=== PATIENT | female | born 1945 | race Caucasian/White ===

== ENCOUNTER 2021-01-16 10:51 | Inpatient (IN) | payer MEDICARE, SELFPAY ==
[2021-01-16] VITALS (14 sets, daily range): BP systolic 94–130; BP diastolic 40–92; PULSE 60–75; RESP 9–18; TEMP 36.3–37.1; O2SAT 79–100; BMI 36.1
--- NOTE | ~2021-01-16 | CT_ITS ---
EXAMINATION: CT brain wo con DATE: 01/16/2021 12:35 INDICATION: Altered mental status. TECHNIQUE: Computed tomography (CT) of the head was performed without intravenous contrast. The mA wa s adjusted according to patient size. Iterative reconstruction technique was employed. The dose-lengt h product was 605.33 mGy-cm. COMPARISON: None FINDINGS: There are old lacunar infarcts in the bilateral basal ganglia. There are scattered areas of low attenuation in the cerebral white matter with a frontal lobe predominance. There is no intracran ial hemorrhage, acute infarction, or abnormal intracranial mass lesion. The ventricles are normal in size. The orbits are normal. There is mild mucosal thickening in the ethmoid sinuses. The mastoid air cells are normal. IMPRESSION: 1. Old infarcts in the bilateral basal ganglia. 2. Extensive nonspecific cerebral white matter disease with a frontal lobe predominance, which likely represents chronic small vessel ischemic disease. Reviewed, dictated and finalized at location B. IMPRESSION: 1. Old infarcts in the bilateral basal ganglia. 2. Extensive nonspecific cerebral white matter disease with a frontal lobe pred ominance, which likely represents chronic small vessel ischemic disease.
--- NOTE | ~2021-01-16 | XR_ITS ---
XR chest 1V DATE: 01/16/2021 12:37 INDICATION: Transient alteration of awareness. TECHNIQUE: AP chest COMPARISON: None FINDINGS: Normal heart size. Aortic calcification and mild unfolding. No pulmonary infiltrate or consolidation, pleural effusion or pulmonary vascular congestion or pneumo thorax is evident. There is diffuse osteopenia. There is levoscoliosis of the thoracic spine. IMPRESSION: No active cardiopulmonary disease Aortic atherosclerosis Reviewed, dictated and finalized at location A.
--- NOTE | 2021-01-16 11:37 | ED.AMS ---
HPI - Altered Mental Status General Chief Complaint: Altered Mental Status Stated Complaint: AMS/VOMITING Time Seen by Provider: 01/16/21 11:24 History of Present Illness HPI narrative: 75 yo female brought in from long term for altered mental status and vomiting. She has reportedly been vomiting and is more confused than normal. There are conflicting reports about her normal mental status and she is not able t provide any useful history. She does endorse nausea. Related Data Home Medications Medication Instructions Recorded Confirmed hydrocodone-acetaminophen TID 01/16/21 ibuprofen 600 mg PO TID 01/16/21 lidocaine [Lidocaine Pain Relief] patch TOPICAL 01/16/21 lisinopril 01/16/21 memantine mg 01/16/21 mirtazapine HS 01/16/21 ondansetron 01/16/21 sertraline mg 01/16/21 spironolactone 01/16/21 Allergies Allergy/AdvReac Type Severity Reaction Status Date / Time fluoxetine [From Prozac] Allergy Unknown Verified 01/16/21 14:07 sulfamethoxazole Allergy Unknown Verified 01/16/21 14:07 [From Sulfamethoxazole-Trimethoprim] trimethoprim Allergy Unknown Verified 01/16/21 14:07 [From Sulfamethoxazole-Trimethoprim] Review of Systems Review of Systems: ROS unobtainable: Yes unobtainable due to mental status PMFSH Past Medical History Medical History (Updated 01/16/21 @ 15:45 by Binu Valadez MD) Dementia Hypertension Social History Social History (Updated 01/16/21 @ 15:42 by Binu Valadez MD) Living arrangements: long term Exam Const: General: no acute distress and alert Nutritional Appearance: obese Orientation/consciousness: patient oriented x3 HENMT: Mouth: Yes dry mucous membranes Eyes: Pupils: Equal, round and reactive pupils present Neck: Neck: normal visual inspection Resp: Effort & Inspection: normal respiratory effort Auscultation: clear to auscultation bilaterally Cardio: Rate: regular rate Rhythm: regular rhythm GI: GI Palp: Yes Soft to palpation and No Tenderness to palpation present (GI) Skin: General skin exam: normal color Neuro: General: moves all extremities Other: oriented to self and time Course Vital Signs Vital signs: Vital Signs Temperature 37.1 C 01/16/21 10:53 Pulse Rate 74 01/16/21 10:53 Respiratory Rate 12 01/16/21 10:53 Blood Pressure 126/53 L 01/16/21 10:53 Pulse Oximetry 92 01/16/21 10:53 Temperature 37.1 C 01/16/21 10:53 Pulse Rate 63 01/16/21 14:48 Respiratory Rate 10 L 01/16/21 14:48 Blood Pressure 100/40 L 01/16/21 14:48 Pulse Oximetry 95 01/16/21 14:27 MDM - Altered Mental Status MDM Narrative Medical decision making narrative: SHe has PRUDENCE and a UTI. I will plan on admission for hydration and antibiotics Differential Diagnosis Differential diagnosis: Likely delirium, dementia and other (UTI, dehydration, CVA) Medical Records Attestation: I reviewed the patient's medical records. Lab Data Attestation: I reviewed the patient's lab results. Result diagrams: 01/16/21 12:27 01/16/21 12:27 Labs: Lab Results 01/16/21 01/16/21 01/16/21 Range/Units 12:27 12:27 12:27 WBC 8.0 (4.5-10.0) K/mm3 RBC 4.75 (4.2-5.4) M/mm3 Hgb 13.9 (12.0-15.0) g/dL Hct 45.1 (37.0-47.0) % MCV 94.9 (80-100) fl MCH 29.3 (26-34) pg MCHC 30.8 L (32-36) g/dl RDW 14.7 H (11.5-14.5) % Plt Count 235 (150-375) k/mm3 MPV 10.9 H (7.4-10.4) fl Immature Gran % (Auto) 0.2 (0-0.5) % Neut % (Auto) 78.8 H (45.5-73.1) % Lymph % (Auto) 13.0 L (18.3-44.2) % Frederick % (Auto) 5.5 (2.6-8.5) % Eos % (Auto) 2.0 (0-4.4) % Baso % (Auto) 0.5 (0.2-1.2) % Lymph # (Auto) 1.04 (0.9-3.2) K/mm3 Frederick # (Auto) 0.4 (0.1-0.6) K/mm3 Eos # (Auto) 0.2 (0-0.3) K/mm3 Baso # (Auto) 0.0 (0.0-0.1) K/mm3 Abs Immat Gran (auto) 0.02 (0.00-0.031) K/mm3 Absolute Neuts (auto) 6.3 (1.3-6.7) K/mm3 Abs
[2021-01-16] MEDS: SODIUM CHLORIDE 0.9% IV 1,000 ML 999 ML IV CONT (12:13)
[2021-01-16 12:14] LABS: Alveolar/Arterial O2 Gradient 22.5 mmHg; Base Excess ABG -1.9 mEq/l (+/-2.0); Fractional Inspired Oxygen 21 %; HCO3 ABG 23.7 mEq/l (22.0-26.0); Oxygen Content ABG 18.6 %vol (16.0-22.0); Oxygen Saturation ABG 94.4 % (95.0-100.0); Oxyhemoglobin 93.1 % THb (90.0-100.0); PCO2 ABG 43.8 mmHg (35.0-45.0); PO2 ABG 74.8 mmHg (80.0-100.0); PO2 FiO2 Ratio Arterial Blood 3.56 %; Total Hemoglobin 14.2 g/dL (12.0-18.0); pH ABG 7.352 (7.350-7.450)
[2021-01-16 12:16] LABS: Device ROOM AIR; Modified Allen's Test Pass; Site Drawn LEFT BRACHIAL
[2021-01-16 12:42] LABS: Basophils Percent Auto 0.5 % (0.2-1.2); Eosinophils Absolute Auto 0.2 K/mm3 (0-0.3); Hematocrit 45.1 % (37.0-47.0); Hemoglobin 13.9 g/dL (12.0-15.0); Immature Granulocyte Absolute 0.02 K/mm3 (0.00-0.031); Immature Granulocyte Percent A 0.2 % (0-0.5); Lymphocytes Absolute Auto 1.04 K/mm3 (0.9-3.2); Mean Corpuscular HGB Conc 30.8 g/dl (32-36); Mean Corpuscular Hemoglobin 29.3 pg (26-34); Mean Corpuscular Volume 94.9 fl (80-100); Mean Platelet Volume 10.9 fl (7.4-10.4); Monocytes Absolute Auto 0.4 K/mm3 (0.1-0.6); Monocytes Percent Auto 5.5 % (2.6-8.5); Neutrophils Absolute Auto 6.3 K/mm3 (1.3-6.7); Neutrophils Percent Auto 78.8 % (45.5-73.1); Platelet Count Result 235 k/mm3 (150-375); Red Blood Count 4.75 M/mm3 (4.2-5.4); Red Cell Distribution Width 14.7 % (11.5-14.5)
[2021-01-16 12:44] LABS: Lactic Acid Reflex 1.9 mmol/L (0.7-2.1)
[2021-01-16 12:45] LABS: Alanine Aminotransferase 18 U/L (4-35); Albumin Level 3.8 g/dL (3.5-5.1); Alkaline Phosphatase 105 U/L (38-126); Anion Gap 8 mmol/L (8-16); Aspartate Amino Transferase 24 U/L (14-36); Bilirubin,Total 0.4 mg/dL (0.2-1.3); Blood Urea Nitrogen 63 mg/dL (7-17); Calcium 8.9 mg/dL (8.4-10.2); Carbon Dioxide 27 mmol/L (22-30); Chloride 106 mmol/L (98-107); Estimated CRCL calculation 18 ml/min; Estimated Glomerular Filt Rate 14; Glucose 133 mg/dL (65-105); Potassium 5.4 mmol/L (3.4-5.0); Sodium 141 mmol/L (137-145)
[2021-01-16 12:48] LABS: INR 0.9; Prothrombin Time 13.1 Seconds (11.1-14.7)
[2021-01-16 13:35] LABS: Add Urine Microscopic? YES; Appearance Urine Cloudy (Clear); Bacteria Urine 3+ /hpf; Bilirubin Urine Negative (Negative); Blood Urine 2+ (Negative); Color Urine Yellow (Yellow); Glucose Urine UA Negative (Negative); Ketones Urine Negative (Negative); Leukocyte Esterase Ur 3+ LEU/UL (Negative); Mucus Urine Rare /lpf; Nitrate Urine Negative (Negative); Protein Urine 1+ mg/dL (Negative); Specific Grav Ur 1.011 (1.001-1.035); Squamous Epithelial Cell Urine Rare /hpf (Few); Urobilinogen Urine Negative mg/dL (<2.0); WBC Clumps Urine Present /HPF; WBC Urine >75 /hpf
[2021-01-16] MEDS: LACTATED RINGERS 1,000 ML 125 ML IV CONT (15:36)
--- NOTE | 2021-01-16 15:49 | ADMGEN ---
This patient, Shonna Piña, was admitted to [facility] Surg Room 307-01. Patient/family oriented to hospital policies and general routines including ID bracelet, bed and alarms, visiting hours, pain management, procedures, bathroom and other care routines, personal items, smoking policy, room service/diet, and visiting hours. Information on how to activate the Rapid Response Team has been discussed. Patient/Family are encouraged to report perceived risks to care and to ask questions if they do not understand what they are told or what they should do.
--- NOTE | 2021-01-16 20:08 | PM.IMHP ---
H&P: HPI History of Present Illness Date/Time: 01/16/21 20:08 this is a 75-year-old patient who resides at [facility]. The patient was [facility] from the [facility] due to vomiting and altered mental status changes. ER was confused as to patient's baseline. The patient was not able to answer questions for the ER provider in the emergency room. It looks like the patient has a history of dementia. She also has a history of chronic renal failure as well. However the patient was found to have urinary tract infection. The patient was started on Rocephin and IV fluids. Was listed as 3.30. I am unsure what her baseline is. Her records from the [facility] suggested she has chronic renal failure but I do not know what her creatinine baseline is. Her potassium was listed as 5.4. head CT was read as, old infarcts in the bilateral basal ganglia. Extensive nonspecific cerebral white matter disease with frontal lobe predominance, which likely represents small-vessel ischemic disease. The patient is being admitted to observation on the date of service of 01/16/2021 Chief Complaint: Nausea and altered mental status Review of Systems Review of Systems: All systems reviewed & are unremarkable except as noted in HPI and below Constitutional: Constitutional: Reports as per HPI and Reports no additional constitutional complaints Eyes: Eyes: Reports as per HPI and Reports no additional eye complaints ENT: Reports system reviewed and no additional complaints, except as documented and Reports Normal hearing present Cardiovascular: Cardiovascular: Reports no additional cardiovascular complaints Respiratory: Respiratory: Reports no additional respiratory complaints and Reports no additional respiratory complaints Gastrointestinal: Gastrointestinal: Reports as per HPI and Reports no additional gastrointestinal complaints Musculoskeletal: Musculoskeletal: Reports no additional musculoskeletal complaints Integumentary/Breasts: Skin/Breast: Reports system reviewed and no additional complaints, except as docu and Reports as per HPI Neurologic: Reports system reviewed and no additional complaints, except as documented, Reports as per HPI and Reports Normal hearing present Psychiatric: Psychiatric: Reports no additional psychiatric complaints and Reports as per HPI Endocrine: Endocrine: Reports no additional endocrine complaints Hematologic/Lymphatic: Hematologic/Lymphatic: Reports no additional hematologic/lymphatic complaints Allergic/Immunologic: Allergic/Immunologic: Reports no additional allergic/immunologic complaints [facility] Past Medical History Medical History (Updated 01/16/21 @ 20:17 by Bernice Henriquez NP) Chronic renal failure Dementia Diastolic congestive heart failure Hyperlipidemia Hypertension Major depressive disorder Surgical History Surgical History (Updated 01/16/21 @ 20:17 by Bernice Henriquez NP) H/O dilation and curettage H/O left knee surgery History of appendectomy History of tonsillectomy Family History Family History (Updated 01/16/21 @ 20:17 by Bernice Henriquez NP) Unknown Family history unknown Social History Social History (Updated 01/16/21 @ 20:18 by Bernice Henriquez NP) Social History: The patient resides at [facility]. She is a full code according to her paperwork. She tells me she has 1 son and he is a durable power patent prosecution attorney for healthcare. The [place] Smoking status: Former smoker Alcohol intake: never Substance use: never Living arrangements: [facility]ci Gender identity (if verbalized by the patient): Female Sexual Orientation (if Verbalized by the Patient): Straight or Heterosexual Spiritual care concerns: No Meds Home Medications and Allergies Home Medications Medication Instructions Recorded Confirmed Type acetaminophen [Acetaminophen Extra 1,000 mg PO Q6H PRN 01/16/21 01/16/[address]
[2021-01-16] MEDS: MIRTAZAPINE 15 MG TABLET PO (21:52)
[2021-01-16] MEDS: ATORVASTATIN 40 MG TABLET PO (21:53)
[2021-01-16] MEDS: DONEPEZIL HCL 10 MG TABLET PO (21:53)
[2021-01-16 22:19] LABS: Anion Gap 4 mmol/L (8-16); Blood Urea Nitrogen 59 mg/dL (7-17); Calcium 8.7 mg/dL (8.4-10.2); Carbon Dioxide 31 mmol/L (22-30); Chloride 107 mmol/L (98-107); Estimated CRCL calculation 22 ml/min; Estimated Glomerular Filt Rate 17; Glucose 129 mg/dL (65-105); Potassium 4.5 mmol/L (3.4-5.0); Sodium 142 mmol/L (137-145)
[2021-01-17 05:53] LABS: Basophils Absolute Auto 0.1 K/mm3 (0.0-0.1); Basophils Percent Auto 0.8 % (0.2-1.2); Eosinophils Absolute Auto 0.3 K/mm3 (0-0.3); Eosinophils Percent Auto 4.1 % (0-4.4); Hematocrit 38.8 % (37.0-47.0); Hemoglobin 12.4 g/dL (12.0-15.0); Immature Granulocyte Absolute 0.01 K/mm3 (0.00-0.031); Immature Granulocyte Percent A 0.2 % (0-0.5); Lymphocytes Absolute Auto 1.48 K/mm3 (0.9-3.2); Lymphocytes Percent Auto 23.5 % (18.3-44.2); Mean Corpuscular Hemoglobin 29.5 pg (26-34); Mean Corpuscular Volume 92.4 fl (80-100); Mean Platelet Volume 10.4 fl (7.4-10.4); Monocytes Absolute Auto 0.5 K/mm3 (0.1-0.6); Monocytes Percent Auto 7.2 % (2.6-8.5); Neutrophils Percent Auto 64.2 % (45.5-73.1); Platelet Count Result 217 k/mm3 (150-375); Red Cell Distribution Width 14.4 % (11.5-14.5); White Blood Count 6.3 K/mm3 (4.5-10.0)
[2021-01-17 06:00] VITALS: BP 141/54; PULSE 75; RESP 16; TEMP 35.8; O2SAT 94
[2021-01-17 06:07] LABS: Alanine Aminotransferase 12 U/L (4-35); Alkaline Phosphatase 81 U/L (38-126); Anion Gap 2 mmol/L (8-16); Aspartate Amino Transferase 21 U/L (14-36); Bilirubin,Total 0.3 mg/dL (0.2-1.3); Blood Urea Nitrogen 54 mg/dL (7-17); Calcium 8.4 mg/dL (8.4-10.2); Carbon Dioxide 32 mmol/L (22-30); Chloride 109 mmol/L (98-107); Estimated CRCL calculation 25 ml/min; Estimated Glomerular Filt Rate 20; Glucose 101 mg/dL (65-105); Lactic Acid Reflex 0.7 mmol/L (0.7-2.1); Magnesium 2.3 mg/dL (1.6-2.3); Potassium 4.5 mmol/L (3.4-5.0); Sodium 143 mmol/L (137-145)
--- NOTE | 2021-01-17 07:06 | PC.NURSE ---
0310: Patient pulled out IV access. Attempted to restart x2 and was unable d/t hard stick. Asked if House Charge Nurse (Buffy Jenkins) to try; still unable to obtain. Finally, asked Mallory ([employer]) and was successful w/ 22g in R lower forearm.
[2021-01-17] MEDS: LACTATED RINGERS 1,000 ML 125 ML IV CONT (07:35)
[2021-01-17] MEDS: ASPIRIN 81 MG CHEWABLE TABLET PO (08:50)
[2021-01-17] MEDS: SERTRALINE HCL 50 MG TABLET PO (08:50)
[2021-01-17] MEDS: LIDOCAINE 5% PATCH 1 PATCH TRANSDERM (08:50)
[2021-01-17] MEDS: MEMANTINE 10 MG TABLET PO ×2 (08:50→16:36)
[2021-01-17 09:10] VITALS: O2SAT 94
[2021-01-17] MEDS: HYDROcodone/acetaminophen (*CRX) 5-325 MG TABLET 1 TAB PO (10:18)
[2021-01-17 14:00] VITALS: BP 115/52; PULSE 72; RESP 20; TEMP 36.9; O2SAT 96
--- NOTE | 2021-01-17 15:09 | PM.IMPN ---
Progress Note: A&P Assessment and Plan (1) UTI (urinary tract infection): Code(s): N39.0 - Urinary tract infection, site not specified Status: Acute Assessment and Plan: Urinalysis abnormal upon presentation, concerning for UTI. She is afebrile. No leukocytosis. She has removed her IV twice, therefore no IV access at this time. Transition to IM Rocephin while awaiting urine cultures. Tailor antibiotics accordingly based on result (2) Acute metabolic encephalopathy: Code(s): G93.41 - Metabolic encephalopathy Status: Acute Assessment and Plan: Brought in from halfway for altered mental status. She does have underlying dementia, so it is unclear how much of this is actually acute. Spoke with halfway RN who reports she was more lethargic and had poor PO intake. Acute change in mental status likely due to suspected UTI and dehydration. Continue antibiotics as above. IV fluids discontinued as she does not have IV access. She is tolerating PO intake and has been rehydrated. Will attempt to regain IV access if patient unable to tolerate PO intake. (3) Acute on chronic kidney failure: Code(s): N17.9 - Acute kidney failure, unspecified; N18.9 - Chronic kidney disease, unspecified Status: Acute Assessment and Plan: No records available to establish baseline. Creatinine elevated at 3.3 on presentation, suspect prerenal etiology secondary to dehydration given improvement with IV fluids. Creatinine is 2.4 today. Unable to administer IV fluids. Encourage p.o. intake. As above, will make attempts for IV access if unable to to maintain adequate oral intake. Lasix, lisinopril, and ibuprofen on hold Monitor renal function closely. Renally dose medications. (4) Dementia: Code(s): F03.90 - Unspecified dementia without behavioral disturbance Status: Chronic Assessment and Plan: Spoke with nursing staff who reports she is typically oriented to self. Not able to provide any further information regarding her baseline mental status. Continue memantine and donepezil (5) Hypertension: Code(s): I10 - Essential (primary) hypertension Status: Chronic Assessment and Plan: BP reviewed and is stable on the low end. Last BP 115/52 Lisinopril on hold due to PRUDENCE Monitor blood pressure trends and adjust medication regimen is needed (6) Compression fracture: Status: Acute Assessment and Plan: L2 vertebral compression fracture diagnosed 01/10/21 per halfway RN. She has follow up scheduled with surgical spine clinic, Dr. Galan. Analgesics as needed for pain. Limit narcotics to avoid confusion. Subjective Date/time seen: 01/17/21 15:09 Interval history: Date of service: 01/17/2021 Shonna Piña is a 75-year-old female with a history of chronic kidney disease, diastolic CHF, hypertension, hyperlipidemia, and dementia who is seen in follow-up for acute metabolic encephalopathy secondary to suspected UTI. She is a poor historian. She tells me that she is in [place] and that she drove there from [place] to see her sister who works in a hospital. She denies any urinary symptoms. She denies nausea, vomiting, fever, chills. No dizziness or lightheadedness. She has been eating and drinking well. She denies any pain at this time. No shortness of breath, cough, chest pain. She has no other concerns and is in good spirits. Review of Systems Review of Systems: All systems reviewed & are unremarkable except as noted in HPI and below Exam Narrative: Exam Narrative: Ms. Piña is a well-nourished, well-appearing 75-year-old female who is lying semi recumbent in bed. She appears comfortable and is in NARD. Neuro: Awake, alert and oriented to self and year, cannot accurately state location. Speech clear. No focal neuro deficits noted. She exhibits confusion in conversation HEENMT: normocephalic,
--- NOTE | 2021-01-17 15:27 | PCCCNOTE ---
Per Care Coordination: pt will need to have Covid test prior to discharge back to [facility].
[2021-01-17] MEDS: cefTRIAXone 1 GM VIAL IM (16:35)
[2021-01-17 22:00] VITALS: BP 115/64; PULSE 66; RESP 20; TEMP 36.1; O2SAT 96
[2021-01-17] MEDS: DONEPEZIL HCL 10 MG TABLET PO (22:05)
[2021-01-17] MEDS: ATORVASTATIN 40 MG TABLET PO (22:06)
[2021-01-17] MEDS: MIRTAZAPINE 15 MG TABLET PO (22:10)
--- NOTE | 2021-01-18 00:28 | PC.NURSE ---
2200: Transdermal was not on for removal tonight.
[2021-01-18 06:00] VITALS: BP 175/80; PULSE 77; RESP 18; TEMP 36.2; O2SAT 97
[2021-01-18] MEDS: LIDOCAINE 5% PATCH 1 PATCH TRANSDERM (09:01)
[2021-01-18] MEDS: ASPIRIN 81 MG CHEWABLE TABLET PO (09:03)
[2021-01-18] MEDS: SERTRALINE HCL 50 MG TABLET PO (09:03)
[2021-01-18] MEDS: MEMANTINE 10 MG TABLET PO ×2 (09:03→16:19)
[2021-01-18] MEDS: SPIRONOLACTONE 50 MG TABLET PO (09:03)
[2021-01-18 11:58] LABS: Hematocrit 38.8 % (37.0-47.0); Hemoglobin 12.4 g/dL (12.0-15.0)
[2021-01-18 12:07] LABS: Anion Gap 3 mmol/L (8-16); Blood Urea Nitrogen 38 mg/dL (7-17); Calcium 8.8 mg/dL (8.4-10.2); Carbon Dioxide 31 mmol/L (22-30); Chloride 106 mmol/L (98-107); Estimated CRCL calculation 35 ml/min; Estimated Glomerular Filt Rate 29; Glucose 155 mg/dL (65-105); Sodium 140 mmol/L (137-145)
--- NOTE | 2021-01-18 13:30 | PM.IMPN ---
Progress Note: A&P Assessment and Plan (1) UTI (urinary tract infection): Code(s): N39.0 - Urinary tract infection, site not specified Status: Acute Assessment and Plan: Urinalysis abnormal upon presentation, concerning for UTI. She is afebrile. No leukocytosis. Urine culture with growth of mixed evelia suggestive of contamination and no further test was performed. Continue antibiotics given clinical improvement. IM Rocephin today and then will plan to transition to p.o. antibiotics tomorrow with hopeful discharge back to residential pending negative COVID test Will not repeat urine culture as she has already received antibiotics and will likely be negative. (2) Acute metabolic encephalopathy: Code(s): G93.41 - Metabolic encephalopathy Status: Acute Assessment and Plan: Resolved. Brought in from residential for altered mental status. She does have underlying dementia, so it is unclear how much of this is actually acute. Spoke with residential RN who reports she was more lethargic and had poor PO intake. Acute change in mental status likely due to suspected UTI and dehydration. Continue antibiotics as above. IV fluids discontinued as she does not have IV access. She is tolerating PO intake and has been rehydrated. (3) Acute on chronic kidney failure: Code(s): N17.9 - Acute kidney failure, unspecified; N18.9 - Chronic kidney disease, unspecified Status: Acute Assessment and Plan: No records available to establish baseline. Creatinine elevated at 3.3 on presentation, suspect prerenal etiology secondary to dehydration given improvement with IV fluids. Creatinine is 1.7 today. Unable to administer IV fluids. Encourage p.o. intake. Discontinue ibuprofen Monitor renal function closely. Renally dose medications. (4) Dementia: Code(s): F03.90 - Unspecified dementia without behavioral disturbance Status: Chronic Assessment and Plan: Spoke with nursing staff who reports she is typically oriented to self. Not able to provide any further information regarding her baseline mental status. Continue memantine and donepezil (5) Hypertension: Code(s): I10 - Essential (primary) hypertension Status: Chronic Assessment and Plan: BP reviewed and has been stable. BP elevated this morning at 175/80 prior to administration of antihypertensives Continue lisinopril Monitor blood pressure trends and adjust medication regimen is needed (6) Compression fracture: Status: Acute Assessment and Plan: L2 vertebral compression fracture diagnosed 01/10/21 per residential RN. She has follow up scheduled with surgical spine clinic, Dr. Galan. Analgesics as needed for pain. Limit narcotics to avoid confusion. Subjective Date/time seen: 01/18/21 13:30 Interval history: Date of service: 01/18/2021 Shonna Piña is a 75-year-old female with a history of chronic kidney disease, diastolic CHF, hypertension, hyperlipidemia, and dementia who is seen in follow-up for acute metabolic encephalopathy secondary to UTI. She is feeling well today. She has no complaints. She denies any urinary symptoms. She denies nausea, vomiting, fever, chills. She has been eating and drinking well. Denies abdominal pain, cramping, or bloating. Denies dizziness or lightheadedness. No shortness breath, cough, or chest pain. Denies back pain. She has no additional concerns at this time. Review of Systems Review of Systems: All systems reviewed & are unremarkable except as noted in HPI and below Exam Narrative: Exam Narrative: Ms. Piña is a well-nourished, well-appearing 75-year-old female who is lying semi recumbent in bed. She appears comfortable and is in NARD. Neuro: Awake, alert and oriented to self and year, cannot accurately state location. Speech clear. No focal neuro deficits noted. HEENMT: normocephalic, atra
[2021-01-18 14:00] VITALS: BP 123/65; PULSE 78; RESP 20; TEMP 36.1; O2SAT 96
[2021-01-18] MEDS: cefTRIAXone 1 GM VIAL IM (16:18)
[2021-01-18] MEDS: lisinopriL 20 MG TABLET 40 MG PO (16:19)
[2021-01-18] MEDS: FUROSEMIDE 20 MG TABLET PO (16:19)
[2021-01-18 19:36] LABS: SARS-CoV-2 RNA PCR Negative
[2021-01-18] MEDS: MIRTAZAPINE 15 MG TABLET PO (20:30)
[2021-01-18] MEDS: ATORVASTATIN 40 MG TABLET PO (20:30)
[2021-01-18] MEDS: DONEPEZIL HCL 10 MG TABLET PO (20:30)
[2021-01-18 21:38] VITALS: BP 157/71; PULSE 72; RESP 18; TEMP 36.6; O2SAT 97
[2021-01-19 06:00] VITALS: BP 126/49; PULSE 61; RESP 18; TEMP 36.8; O2SAT 93
[2021-01-19 06:43] LABS: Anion Gap 3 mmol/L (8-16); Blood Urea Nitrogen 34 mg/dL (7-17); Calcium 8.9 mg/dL (8.4-10.2); Carbon Dioxide 30 mmol/L (22-30); Chloride 107 mmol/L (98-107); Estimated CRCL calculation 39 ml/min; Estimated Glomerular Filt Rate 34; Glucose 105 mg/dL (65-105); Sodium 140 mmol/L (137-145)
[2021-01-19] MEDS: LIDOCAINE 5% PATCH 1 PATCH TRANSDERM (09:05)
[2021-01-19] MEDS: SPIRONOLACTONE 50 MG TABLET PO (09:06)
[2021-01-19] MEDS: FUROSEMIDE 20 MG TABLET PO (09:06)
[2021-01-19] MEDS: SERTRALINE HCL 50 MG TABLET PO (09:06)
[2021-01-19] MEDS: MEMANTINE 10 MG TABLET PO (09:06)
[2021-01-19] MEDS: lisinopriL 20 MG TABLET 40 MG PO (09:06)
[2021-01-19] MEDS: ASPIRIN 81 MG CHEWABLE TABLET PO (09:06)
--- NOTE | 2021-01-19 12:14 | PM.DS ---
DS: Admitting Diagnosis Admitting Diagnosis Admitting Diagnosis: UTI DS: Discharge Diagnosis Discharge Diagnosis (1) UTI (urinary tract infection): Code(s): N39.0 - Urinary tract infection, site not specified Status: Acute Assessment and Plan: Urinalysis abnormal upon presentation She was afebrile. No leukocytosis. Urine culture with growth of mixed evelia suggestive of contamination and no further test was performed. Urine culture was not repeated as she had already received antibiotics, therefore would likely be negative and not provide further diagnostic information. She was treated with ceftriaxone with clinical improvement. She will continue p.o. cefdinir to complete of 7 day course of antibiotic therapy. (2) Acute metabolic encephalopathy: Code(s): G93.41 - Metabolic encephalopathy Status: Acute Assessment and Plan: Resolved. Brought in from [facility] for altered mental status. She does have underlying dementia, so it is unclear how much of this is actually acute. Spoke with [facility]ci RN who reports she was more lethargic and had poor PO intake. Acute change in mental status likely due to suspected UTI and dehydration. (3) Acute on chronic kidney failure: Code(s): N17.9 - Acute kidney failure, unspecified; N18.9 - Chronic kidney disease, unspecified Status: Acute Assessment and Plan: No records available to establish baseline. Creatinine elevated at 3.3 on presentation, suspect prerenal etiology secondary to dehydration given improvement with IV fluids. Creatinine improved to 1.5. Ibuprofen was discontinued. (4) Dementia: Code(s): F03.90 - Unspecified dementia without behavioral disturbance Status: Chronic Assessment and Plan: Spoke with nursing staff who reports she is typically oriented to self. Not able to provide any further information regarding her baseline mental status. She was reliably oriented to self and time during my evaluation in the answered questions appropriately. Continue memantine and donepezil (5) Hypertension: Code(s): I10 - Essential (primary) hypertension Status: Chronic Assessment and Plan: BP reviewed and was stable. Continue lisinopril (6) Compression fracture: Status: Acute Assessment and Plan: L2 vertebral compression fracture diagnosed 01/10/21 per fci RN. She has follow up scheduled with surgical spine clinic, Dr. Galan. DS: Summary Hospital Course Reason for hospitalization: Altered mental status Hospital Course: Date of admission: 01/16/2021 Date of discharge: 01/19/2021 Shonna Piña is a 75-year-old female with a history of chronic kidney disease, diastolic CHF, hypertension, hyperlipidemia, and dementia who presented to the emergency department on 01/16/2021 from a [facility] due to concerns for changes in her mental status. Upon presentation to the emergency department, her vital signs were stable, she was afebrile, CBC unremarkable, potassium was slightly elevated at 5.4, BUN and creatinine were elevated, additional electrolytes stable, urinalysis grossly abnormal, showed old infarcts with no acute findings, and CXR showed no acute cardiopulmonary disease. She was admitted to the hospitalist service for further evaluation and management. Please see above for further details. She was treated with IV antibiotics for UTI and her symptoms improved. She return to her baseline mental status. Given her overall improvement, she was determined to no longer require inpatient care and was felt to be stable for discharge. I spoke with her son via phone who was in agreement with this plan. She should follow-up with her PCP in 1 week. She was discharged in hemodynamically stable condition on 01/19/2021. Status at Discharge Functional status at discharge: uses cane/walker Overall status at discharge: patient is back to baseline Time Spent with Patient
== END 2021-01-19 13:30 | DRG 689 ==
LOC: ANHED 11:43 → ANH3MEDSUR 14:15
PROVIDERS: Nurse Practitioner; Physician Assistant; Admitting Provider Internal Medicine; Emergency Provider Emergency Medicine; PCP Internal Medicine; Visit Provider Internal Medicine
DX: N39.0 Urinary tract infection, site not specified (principal); G93.41 Metabolic encephalopathy; S32.020A Wedge compression fracture of second lumbar vertebra, initial encounter for closed fracture; N17.9 Acute kidney failure, unspecified; I13.0 Hypertensive heart and chronic kidney disease with heart failure and stage 1 through stage 4 chronic kidney disease, or unspecified chronic kidney disease; I50.32 Chronic diastolic (congestive) heart failure; N18.9 Chronic kidney disease, unspecified; Z20.822 Contact with and (suspected) exposure to COVID-19; E86.0 Dehydration; F03.90 Unspecified dementia, unspecified severity, without behavioral disturbance, psychotic disturbance, mood disturbance, and anxiety; E78.5 Hyperlipidemia, unspecified; F32.9 Major depressive disorder, single episode, unspecified; Z79.82 Long term (current) use of aspirin; Z79.899 Other long term (current) drug therapy; Z88.2 Allergy status to sulfonamides
CPT/HCPCS: 36415; 36600; 51701; 70450; 71045; 80048; 80053; 81001; 82805; 83605; 83735; 84443; 85014; 85018; 85025; 85610; 85730; 87086; 87088; 96361; 96365; 99285; A9270; C9803; G0378; J0696; J7030; J7120; U0003; U0005

== ENCOUNTER 2021-08-13 08:52 | Inpatient (IN) | payer MEDICARE, SELFPAY ==
[2021-08-13] VITALS (52 sets, daily range): BP systolic 71–121; BP diastolic 22–76; PULSE 69–93; RESP 12–19; TEMP 36.6; O2SAT 94–100; BMI 34.2
--- NOTE | ~2021-08-13 | CT_ITS ---
EXAMINATION: CT brain wo con INDICATION: Confusion COMPARISON: 01/16/2021 TECHNIQUE: Standard unenhanced head CT. The dose-length product (DLP) was 681.00 mGy-cm. The mA was a djusted according to patient size. Iterative reconstruction technique was employed. FINDINGS: Motion artifact limits the examination. There is no acute intraparenchymal hemorrhage. No e vidence of mass lesion. No evidence of acute infarction. Old lacunar infarcts are again noted in the bilateral basal ganglia. There is moderate periventricular and subcortical hypodensity probably relat ed to small vessel ischemic disease. There is moderate prominence of the sulci and ventricles related to cerebral atrophy. Intracranial calcified cerebral atherosclerosis is noted. There are no extra-ax ial collections. There is no mass effect or midline shift. The orbits and soft tissues are unremarkab le. The visualized sinuses and mastoid air cells are well aerated. IMPRESSION: 1. No acute intracranial abnormality. 2. Age related findings. Reviewed, dictated and finalized at location A. CONSTRUCTION TEACHER
--- NOTE | ~2021-08-13 | CT_ITS ---
EXAMINATION: CT abdomen pelvis wo con DATE: 08/13/2021 10:52 INDICATION: Low abdominal pain. TECHNIQUE: Computed tomography (CT) of the abdomen and pelvis was performed without intravenous contr ast. Automated exposure control and iterative reconstruction technique were employed. The dose-length product was 1425.08 mGy-cm. COMPARISON: Chest radiograph 01/16/2021 FINDINGS: The visualized portions of the lung bases demonstrate emphysema and mild atelectasis. No pl eural effusion. The heart size is normal. There are coronary artery calcifications. No pericardial ef fusion. The liver and spleen are normal. There are gallstones in the gallbladder, which is normal in size. The pancreas and adrenal glands are normal. There is a 15 mm cyst in right kidney. There is mil d atrophy of left kidney. There is a 9 mm mass in left kidney that is too small to characterize, but likely a cyst. There are two 2 mm stones in left renal pelvis. There is gas in the bladder lumen. The re is focal lack of a fat plane between the sigmoid colon and bladder. There are scattered diverticul a in the colon. There is wall thickening of the sigmoid colon and adjacent bladder. The bladder is no t well distended. There are no dilated loops of bowel. The appendix is not visualized. There are no p athologically enlarged lymph nodes. There is calcified atherosclerosis of the aorta and many of the o ther arteries. There is no free intraperitoneal fluid. There are old healed fractures of left superio r and inferior pubic rami. There is a burst fracture of L2 with 4/5 loss of height and retropulsion o f bone 7 mm into central spinal canal with severe central canal stenosis. There is mild thoracic spon dylosis and severe lumbar spondylosis. IMPRESSION: 1. Wall thickening of sigmoid colon, likely chronic diverticulitis. Wall thickening of the adjacent b ladder and gas in the bladder lumen is suspicious for colovesical fistula. 2. L2 burst fracture, likely acute or subacute, new from 01/16/2021. Reviewed, dictated and finalized at location A. SCHOOL LIBRARY MEDIA SPECIALIST IMPRESSION: 1. Wall thickening of sigmoid colon, likely chronic diverticulitis. Wall thicke jesus alberto of the adjacent bladder and gas in the bladder lumen is suspicious for col ovesical fistula. 2. L2 burst fracture, likely acute or subacute, new from 01/16/2021.
--- NOTE | ~2021-08-13 | XR_ITS ---
EXAMINATION: XR chest 1V portable DATE: 08/13/2021 11:00 INDICATION: Altered mental status. Lethargy. TECHNIQUE: A single frontal view of the chest was obtained on 2 radiographs. COMPARISON: Chest single view 01/16/2021, CT abdomen and pelvis 08/13/2021 FINDINGS: There is mild atelectasis in left mid and lower lung zones. No pleural effusion or pneumoth orax. The heart size is normal. There are old healed left rib fractures. IMPRESSION: 1. Mild atelectasis in left mid and lower lung zones. Reviewed, dictated and finalized at location A. EBOARD LINE TENDER
--- NOTE | ~2021-08-13 | XR_ITS ---
EXAMINATION: XR enema water soluble DATE: 08/16/2021 08:49 INDICATION: Colovesical fistula. TECHNIQUE: A grocery caddy radiograph was obtained. A catheter was inserted into the patient's rectum. Contra st was infused by gravity. Fluoroscopic spot images and conventional radiographs were obtained. Fluor oscopy exposure time was 1.4 minutes. The total number of images was 18. COMPARISON: CT abdomen and pelvis 08/13/2021 FINDINGS: There are scattered diverticula in the colon. There is a stricture of the sigmoid colon. Co ntrast passes from the sigmoid colon to the bladder. IMPRESSION: 1. 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 Reviewed, dictated and finalized at location A. STICKER
--- NOTE | ~2021-08-13 | US_ITS ---
EXAMINATION: US renal BI EXAM DATE: 08/13/2021 15:42 INDICATION: Abnormal kidney function. TECHNIQUE: Multiple grayscale and Doppler images of the kidneys were obtained (by a technologist who performed the scan) and subsequently reviewed. There is no prior study for comparison. FINDINGS: There is mild right and moderate left renal cortical thinning. Right kidney: There is normal contour and echogenicity. It measures 9.2 x 4.7 x 5.0 centimeters. Th ere are no focal renal lesions identified. There is no hydronephrosis. Left kidney: There is normal contour and echogenicity. It measures 9.0 x 4.2 x 5.0 centimeters. The re are no focal renal lesions identified. There is no hydronephrosis. Reportedly patient had a Dawkins catheter. Bladder not well visualized. IMPRESSION: 1. Mild bilateral renal thinning, atrophy. 2. No hydronephrosis. Reviewed, dictated and finalized at location A. PER AND PRESERVER
--- NOTE | 2021-08-13 08:52 | ECG_ITS ---
Measurements Intervals [place] Rate: 77 P: MT: 0 QRS: 51 QRSD: 94 T: 72 QT: 385 QTc: 437 Interpretive Statements SINUS RHYTHM ATRIAL PREMATURE COMPLEX LOW QRS VOLTAGE- DIFFUSE LEADS INCOMPLETE RIGHT BUNDLE BRANCH BLOCK BASELINE ARTIFACT- I, II, III, AVR, AVL,A VF, V1-V6 BORDERLINE ECG Electronically Signed On 08-13-2021 9:35:35 AMUSEMENT OR RECREATION CARD CHECKER by Chacorta Dubon D.O.
[2021-08-13 09:38] LABS: Basophils Percent Auto 0.1 % (0.2-1.2); Eosinophils Percent Auto 0.1 % (0-4.4); Hematocrit 39.9 % (37.0-47.0); Hemoglobin 12.9 g/dL (12.0-15.0); Immature Granulocyte Absolute 0.07 K/mm3 (0.00-0.031); Immature Granulocyte Percent A 0.5 % (0-0.5); Lymphocytes Absolute Auto 0.56 K/mm3 (0.9-3.2); Lymphocytes Percent Auto 4.1 % (18.3-44.2); Mean Corpuscular HGB Conc 32.3 g/dl (32-36); Mean Corpuscular Hemoglobin 30.9 pg (26-34); Mean Corpuscular Volume 95.7 fl (80-100); Mean Platelet Volume 11.1 fl (7.4-10.4); Monocytes Absolute Auto 0.8 K/mm3 (0.1-0.6); Monocytes Percent Auto 5.7 % (2.6-8.5); Neutrophils Absolute Auto 12.3 K/mm3 (1.3-6.7); Neutrophils Percent Auto 89.5 % (45.5-73.1); Platelet Count Result 440 k/mm3 (150-375); Red Blood Count 4.17 M/mm3 (4.2-5.4); Red Cell Distribution Width 13.2 % (11.5-14.5); White Blood Count 13.7 K/mm3 (4.5-10.0)
[2021-08-13 09:45] LABS: INR 1.1; Prothrombin Time 13.9 Seconds (11.1-14.7)
[2021-08-13 09:46] LABS: Partial Thromboplastin Time 28.7 SECONDS (22.3-36.8)
--- NOTE | 2021-08-13 09:52 | PC.NURSE ---
Dr. Valencia made aware of hypotension. NS bolus given per verbal orders.
[2021-08-13] MEDS: SODIUM CHLORIDE 0.9% IV 1,000 ML 999 ML (09:54)
[2021-08-13 09:58] LABS: Alanine Aminotransferase 18 U/L (4-35); Albumin Level 3.9 g/dL (3.5-5.1); Alkaline Phosphatase 143 U/L (38-126); Anion Gap 21 mmol/L (8-16); Aspartate Amino Transferase 17 U/L (14-36); Bilirubin,Total 0.2 mg/dL (0.2-1.3); Blood Urea Nitrogen > 120 mg/dL (7-17); Calcium 7.9 mg/dL (8.4-10.2); Carbon Dioxide 10 mmol/L (22-30); Chloride 113 mmol/L (98-107); Estimated Glomerular Filt Rate 4; Glucose 140 mg/dL (65-110); Potassium 4.7 mmol/L (3.4-5.0); Sodium 144 mmol/L (137-145)
--- NOTE | 2021-08-13 10:18 | PC.NURSE ---
Dr. Valencia made aware of pt's condition. Low BP and difficult to arouse. Spoke to pt's son who states pt was much more alert and talking on Thursday. When he went to see pt yesterday she was very difficult to arouse and having low blood pressures. At that time nursing facility told him they thought BP cuff was not working and they would continue to monitor her. POA states pt would like interventions such as central line and CPR but no intubation.
--- NOTE | 2021-08-13 10:42 | PC.NURSE ---
Pt to CT.
[2021-08-13] MEDS: LACTATED RINGERS 1,000 ML 999 ML IV CONT (11:01)
--- NOTE | 2021-08-13 11:39 | PC.NURSE ---
Son at bedside. Pt more arousable. Alert at this time. Answering some questions.
--- NOTE | 2021-08-13 12:13 | PC.NURSE ---
Pt is difficult IV stick. Still attempting to collect blood cultures.
--- NOTE | 2021-08-13 12:21 | ED.AMS ---
HPI - Altered Mental Status General Chief Complaint: Altered Mental Status Stated Complaint: ALTERED LOC Time Seen by Provider: 08/13/21 10:18 Source: EMS Mode of arrival: EMS Limitations: altered mental status, clinical condition and dementia History of Present Illness HPI narrative: 76-year-old female For altered mental status and possible low blood pressure, although there was not agreement between the reported EMS and facility measurements Patient essentially cannot provide any history and report from the facility EMS was said to be sparse She apparently has a oriented times self baseline and this is decreased There was no report of anything else going on in terms of vomiting diarrhea fever bad O2 sats falls etc. It looks like she was here in January possibly for the only previous time and had a UTI and dehydration and an PRUDENCE It also appears according to the hospitalist note then that she had been diagnosed with a lumbar compression fraction just prior to that hospitalization I reviewed her POLST form and note that she is selective treatment with avoidance of intubation or ICU I spoke to her son Edinson who is her POA and confirmed this and we will not pursue any measures requiring the ICU Additionally discussed that she has severe kidney failure and we would be mainly seeing how it responded to fluids, and whether he would want her to possibly have dialysis if there was no response, which she would not After the CT was resulted spoke with him again mainly regarding the compression fracture which he was not aware of and which I had not located the history of in the EMR yet, and discussed that given indeterminate age and severity of medical illness she is really not a candidate for a surgery right now Related Data Home Medications Medication Instructions Recorded Confirmed acetaminophen [Acetaminophen Extra 1,000 mg PO Q6H PRN 01/16/21 01/16/21 Strength] aspirin 81 mg PO DAILY 01/16/21 01/16/21 atorvastatin 40 mg PO HS 01/16/21 01/16/21 donepezil 10 mg PO HS 01/16/21 01/16/21 furosemide 20 mg PO DAILY 01/16/21 01/16/21 hydrocodone-acetaminophen 5 - 325 tablet PO Q6H 01/16/21 01/16/21 lidocaine [Lidocaine Pain Relief] See Rx Instructions .ROUTE .COMPLEX 01/16/21 01/16/21 lisinopril 40 mg PO DAILY 01/16/21 01/16/21 memantine 10 mg PO BID 01/16/21 01/16/21 mirtazapine 15 mg BYMOUTH 01/16/21 01/16/21 ondansetron 4 mg PO Q6H PRN 01/16/21 01/16/21 sertraline 50 mg PO DAILY 01/16/21 01/16/21 spironolactone 50 mg PO DAILY 01/16/21 01/16/21 Allergies Allergy/AdvReac Type Severity Reaction Status Date / Time fluoxetine [From Prozac] Allergy Unknown Verified 08/13/21 09:05 sulfamethoxazole Allergy Unknown Verified 08/13/21 09:05 [From Sulfamethoxazole-Trimethoprim] trimethoprim Allergy Unknown Verified 08/13/21 09:05 [From Sulfamethoxazole-Trimethoprim] Review of Systems Review of Systems: ROS unobtainable: Yes unobtainable due to medical condition and unobtainable due to mental status PMFSH Past Medical History Medical History Chronic renal failure Dementia Diastolic congestive heart failure Hyperlipidemia Hypertension Major depressive disorder Surgical History Surgical History H/O dilation and curettage H/O left knee surgery History of appendectomy History of tonsillectomy Family History Family History Unknown Family history unknown Social History Social History Social History: The patient resides at [facility]. She is a full code according to her paperwork. She tells me she has 1 son and he is a durable power trademark attorney for healthcare. The patient said that [place]. Smoking status: Former smoker Alcohol intake: never Substance use: never G[place]
--- NOTE | 2021-08-13 12:28 | PC.NURSE ---
AIDE Willett at bedside attempting lab draw.
--- NOTE | 2021-08-13 12:39 | PC.NURSE ---
Pharmacy called for D5 Bicarb infusion. Still unable to collect labs from pt. meter tester made aware. Phlebotomy called.
[2021-08-13 12:51] LABS: Add Urine Microscopic? YES; Appearance Urine Turbid (Clear); Bilirubin Urine 1+ (Negative); Blood Urine 2+ (Negative); Color Urine Red (Yellow); Glucose Urine UA Negative (Negative); Ketones Urine Trace mg/dL (Negative); Leukocyte Esterase Ur 1+ LEU/UL (Negative); Nitrate Urine Negative (Negative); Protein Urine 3+ mg/dL (Negative); Specific Grav Ur 1.017 (1.001-1.035)
[2021-08-13 12:52] LABS: Bacteria Urine 4+ /hpf; Hyaline Casts Urine 15-19 /lpf; RBC Urine >75 /hpf (0-2); Squamous Epithelial Cell Urine Many /hpf (Few); WBC Urine >75 /hpf
--- NOTE | 2021-08-13 12:54 | PC.NURSE ---
Phlebotomy at bedside.
[2021-08-13] MEDS: SODIUM BICARBONATE 8.4% 100 MEQ in DEXTROSE 5% 1,000 ML 1,000 ML 50 MEQ IV CONT (12:55)
[2021-08-13] MEDS: metroNIDAZOLE 500 MG/ISO 100ML 500 MG/100 ML BAG 100 MG IVPB ×2 (13:51→21:43)
--- NOTE | 2021-08-13 14:30 | PM.IMHP ---
H&P: HPI History of Present Illness Date/Time: 08/13/21 14:30 this is a 76 year old female patient who resides at [facility]. The son is at the bedside answering questions for her. The patient is able to answer name but she is not able to state her age or date of . She does not know what month it is or who the president is. She does have a history of dementia. However the son tells me that she is usually more talkative than this. She is complaining of having discomfort to her buttocks. The son stated that the [facility] A Dawkins catheter was placed in the emergency room. The patient is draining wine colored urine. Her blood pressures have been low. The son stated that she is a DNI and that he would allow vasopressors and a central line. Patient has a previous history of having UTIs and the son stated that she is on prophylactic antibiotic to prevent UTI. Her son Edinson is the power child day care teacher. Chest x-ray was read as mild atelectasis in left mid and lower lung zones. Abdominal wall thickening of sigmoid colon, likely chronic diverticulitis. The abdominal pelvis CT Wall thickening of the adjacent bladder and gas and the bladder and gas and in the bladder lumen is suspicious for colovesicular fistula. L2 burst fracture, likely acute or subacute new from 01/16/2021. White count 13.7. BUN greater than 120. Creatinine 10.5 glucose 140. Patient was positive for UTI. Chest x-ray mild atelectasis in the left mid and lower lung zones. The patient was started on Rocephin and Flagyl. The patient is being admitted to inpatient services on the date of service of 08/13/2021. Chief Complaint: confusion Review of Systems Review of Systems: ROS unobtainable: Yes unobtainable due to mental status [facility] Past Medical History Medical History (Updated 08/13/21 @ 15:01 by Bernice Henriquez NP) Chronic renal failure Dementia Diastolic congestive heart failure Diverticulitis Hyperlipidemia Hypertension Major depressive disorder Surgical History Surgical History H/O dilation and curettage H/O left knee surgery History of appendectomy History of tonsillectomy Family History Family History Mother Aspiration pneumonia Father Malignant neoplasm of prostate Dementia Social History Social History (Updated 08/13/21 @ 14:50 by Bernice Henriquez NP) Social History: The patient resides at [facility]. She is a dni but her son Edinson will allow a central line. Her son is a durable power child day care teacher for healthcare. The patient said that she [place]. She only has 1 son. She is a former smoker. Code status DNI Smoking status: Former smoker Alcohol intake: never Substance use: never Gender identity (if verbalized by the patient): Female Sexual Orientation (if Verbalized by the Patient): Straight or Heterosexual Spiritual care concerns: No Meds Home Medications and Allergies Home Medications Medication Instructions Recorded Confirmed Type acetaminophen [Acetaminophen Extra 1,000 mg PO Q6H PRN 01/16/21 01/16/21 History Strength] aspirin 81 mg PO DAILY 01/16/21 01/16/21 History atorvastatin 40 mg PO HS 01/16/21 01/16/21 History donepezil 10 mg PO HS 01/16/21 01/16/21 History furosemide 20 mg PO DAILY 01/16/21 01/16/21 History hydrocodone-acetaminophen 5 - 325 tablet PO Q6H 01/16/21 01/16/21 History lidocaine [Lidocaine Pain Relief] See Rx Instructions .ROUTE .COMPLEX 01/16/21 01/16/21 History lisinopril 40 mg PO DAILY 01/16/21 01/16/21 History memantine 10 mg PO BID 01/16/21 01/16/21 History mirtazapine 15 mg BYMOUTH HS 01/16/21 01/16/21 History ondansetron 4 mg PO Q6H PRN 01/16/21 01/16/21 History sertraline 50 mg PO DAILY 01/16/21 01/16/21 History spironolactone 50 mg PO DAILY 01/16/21 01/16/21 History cefdinir 300 mg PO Q12H #8
[2021-08-13 14:34] LABS: Lactic Acid Reflex 1.1 mmol/L (0.7-2.1)
--- NOTE | 2021-08-13 15:27 | PC.NURSE ---
Pt in ultrasound.
--- NOTE | 2021-08-13 17:24 | PC.NURSE ---
Beds available at [facility]. Chart faxed
[2021-08-13 17:45] LABS: Anion Gap 17 mmol/L (8-16); Blood Urea Nitrogen > 120 mg/dL (7-17); Calcium 7.4 mg/dL (8.4-10.2); Carbon Dioxide 10 mmol/L (22-30); Chloride 114 mmol/L (98-107); Estimated Glomerular Filt Rate 4; Glucose 129 mg/dL (65-110); Potassium 4.3 mmol/L (3.4-5.0); Sodium 141 mmol/L (137-145)
[2021-08-13] MEDS: LACTATED RINGERS 1,000 ML 125 ML IV CONT (18:10)
--- NOTE | 2021-08-13 20:30 | ADMGEN ---
This patient, Shonna Piña, was admitted to Medical Room 340-01. Patient/family oriented to hospital policies and general routines including ID bracelet, bed and alarms, visiting hours, pain management, procedures, bathroom and other care routines, personal items, smoking policy, room service/diet, and visiting hours. Information on how to activate the Rapid Response Team has been discussed. Patient/Family are encouraged to report perceived risks to care and to ask questions if they do not understand what they are told or what they should do.
[2021-08-14] VITALS (10 sets, daily range): BP systolic 95–125; BP diastolic 42–81; PULSE 65–90; RESP 16; TEMP 35.9–36.4; O2SAT 96–98
[2021-08-14] MEDS: MEMANTINE 5 MG TABLET PO ×2 (00:09→17:54)
[2021-08-14] MEDS: MIRTAZAPINE 15 MG TABLET BY MOUTH ×2 (00:09→20:12)
[2021-08-14] MEDS: metroNIDAZOLE 500 MG/ISO 100ML 500 MG/100 ML BAG 100 MG IVPB ×3 (04:23→20:12)
[2021-08-14] MEDS: LACTATED RINGERS 1,000 ML 125 ML IV CONT (04:59)
[2021-08-14 06:36] LABS: Basophils Percent Auto 0.3 % (0.2-1.2); Eosinophils Absolute Auto 0.1 K/mm3 (0-0.3); Eosinophils Percent Auto 0.6 % (0-4.4); Hematocrit 34.2 % (37.0-47.0); Hemoglobin 10.7 g/dL (12.0-15.0); Immature Granulocyte Absolute 0.06 K/mm3 (0.00-0.031); Immature Granulocyte Percent A 0.6 % (0-0.5); Lymphocytes Absolute Auto 0.95 K/mm3 (0.9-3.2); Lymphocytes Percent Auto 9.8 % (18.3-44.2); Mean Corpuscular HGB Conc 31.3 g/dl (32-36); Mean Corpuscular Hemoglobin 30.6 pg (26-34); Mean Corpuscular Volume 97.7 fl (80-100); Mean Platelet Volume 11.4 fl (7.4-10.4); Monocytes Absolute Auto 0.7 K/mm3 (0.1-0.6); Monocytes Percent Auto 7.6 % (2.6-8.5); Neutrophils Absolute Auto 7.9 K/mm3 (1.3-6.7); Neutrophils Percent Auto 81.1 % (45.5-73.1); Platelet Count Result 299 k/mm3 (150-375); Red Cell Distribution Width 13.2 % (11.5-14.5); White Blood Count 9.7 K/mm3 (4.5-10.0)
[2021-08-14 06:52] LABS: D Dimer 1.47 ug/mL (<0.48)
[2021-08-14 07:04] LABS: Alanine Aminotransferase 13 U/L (4-35); Albumin Level 3.1 g/dL (3.5-5.1); Alkaline Phosphatase 112 U/L (38-126); Anion Gap 17 mmol/L (8-16); Aspartate Amino Transferase 15 U/L (14-36); Bilirubin,Total 0.2 mg/dL (0.2-1.3); CRP 3.6 mg/dL (<1.0); Calcium 7.1 mg/dL (8.4-10.2); Carbon Dioxide 10 mmol/L (22-30); Chloride 115 mmol/L (98-107); Estimated CRCL calculation 7 ml/min; Estimated Glomerular Filt Rate 4; Glucose 112 mg/dL (65-110); Lactate Dehydrogenase 266 U/L (313-618); Lipase 541 U/L (23-300); Magnesium 2.2 mg/dL (1.6-2.3); Sodium 142 mmol/L (137-145)
[2021-08-14 07:12] LABS: Blood Urea Nitrogen 142 mg/dL (7-17)
--- NOTE | 2021-08-14 07:29 | PM.CNNEP ---
Assessment and Plan Assessment and plan (1) Chronic renal failure: Code(s): N18.9 - Chronic kidney disease, unspecified Status: Chronic Assessment and Plan: The patient has chronic kidney disease. Her baseline creatinine seems to be about 1.5. This is likely related to hypertension and possible vascular disease. She has diastolic dysfunction and so probably has enough hypertension to cause other organ damage. (2) PRUDENCE (acute kidney injury): Code(s): N17.9 - Acute kidney failure, unspecified Status: Acute Assessment and Plan: The patient has acute kidney injury. She looks dehydrated on exam. She was already on furosemide and [facility]. She was also hypotensive in the ER. This is improved with IV fluids. She has a bladder infection and could be septic. So the above 3 are most likely the cause of her acute kidney injury. She was on ibuprofen before she came in. Will get urine electrolytes and eosinophils and a renal ultrasound. Will also check a CPK since she is tender everywhere and has blood in her urine. (3) UTI (urinary tract infection): Code(s): N39.0 - Urinary tract infection, site not specified Status: Acute Assessment and Plan: Patient has recurrent bladder infections. She has gas in the bladder consistent with either a gas-forming organism or a colovesical fistula. Surgery has been consulted (4) Dehydration: Code(s): E86.0 - Dehydration Status: Acute Assessment and Plan: Getting IV fluids (5) Acute metabolic encephalopathy: Code(s): G93.41 - Metabolic encephalopathy Status: Acute Assessment and Plan: Likely partly uremic and partly from infection. (6) Dementia: Code(s): F03.90 - Unspecified dementia without behavioral disturbance Status: Chronic (7) Hypertension: Code(s): I10 - Essential (primary) hypertension Status: Chronic Assessment and Plan: Blood pressure was soft. Her antihypertensives are on hold (8) Hyperlipidemia: Code(s): E78.5 - Hyperlipidemia, unspecified Status: Chronic Assessment and Plan: Not on the stat History of Present Illness Reason for Consult Consult date: 08/14/21 Chief Complaint Chief complaint: uremia/uti/dementia History of Present Illness Narrative: Shonna is an unfortunate 76-year-old lady who has multiple medical problems including senile dementia of the Alzheimer's type, diastolic congestive heart failure, diverticulosis, hyperlipidemia, hypertension, depression, recurrent UTIs, chronic kidney disease with a baseline creatinine of 1.5. The patient came to the emergency room from her residence at [facility] because of confusion. Typically she is more talkative than she is now according to her son as stated in the H&P. The patient was evaluated in the emergency room and found to have pyuria and hematuria. CT abdomen showed bladder wall thickening and some gas in the bladder lumen consistent with a colovesical fistula. The patient was felt to be dehydrated. She was given IV fluids and admitted to the floor. She has a status of DNR. The patient cannot give a history. Review of Systems Review of Systems: ROS unobtainable: Yes unobtainable due to medical condition PMFSH Past Medical History Medical History Chronic renal failure Dementia Diastolic congestive heart failure Diverticulitis Hyperlipidemia Hypertension Major depressive disorder Surgical History Surgical History H/O dilation and curettage H/O left knee surgery History of appendectomy History of tonsillectomy Family History Family History Mother Aspiration pneumonia Father Malignant neoplasm of prostate Dementia Social History Social History (Review
[2021-08-14] MEDS: SERTRALINE HCL 50 MG TABLET PO (07:58)
--- NOTE | 2021-08-14 08:15 | P.PNIM_ITS ---
Progress Note: A&P Assessment and Plan (1) Diverticulitis: Code(s): K57.92 - Diverticulitis of intestine, part unspecified, without perforation or abscess without bleeding Status: Chronic Assessment and Plan: * Abd/Pel CT found wall thickening of the sigmoid colon, likely chronic diverticulitis * Started Rocephin and Flagyl * Blood cultures and urine cultures pending * Clear liquid diet * Fluids (2) Acute on chronic kidney failure: Code(s): N17.9 - Acute kidney failure, unspecified; N18.9 - Chronic kidney disease, unspecified Status: Acute Assessment and Plan: * BUN Creatine >120/10.50, trending down 142/8.70 * Renal ultrasound-Bilateral renal thinning and atrophy * consult Nephrology * LR and Bicarb running at this time * She is probably dehydrated as well * Trend labs (3) Compression fracture: Status: Acute Assessment and Plan: * According to the son the patient [facility] [place] [facility] * Compression fracture noted on the CT * Comfort and supportive care (4) Dementia: Code(s): F03.90 - Unspecified dementia without behavioral disturbance Status: Chronic Assessment and Plan: * Continue with donepezil and Namenda (5) Hypertension: Code(s): I10 - Essential (primary) hypertension Status: Chronic Assessment and Plan: * Current BP is 106/42 * Hold lisinopril * BP soft at this time * Trend BP * Adjust medications as needed (6) Diastolic congestive heart failure: Code(s): I50.30 - Unspecified diastolic (congestive) heart failure Status: Chronic Assessment and Plan: * Hold diuretics * Probably could use an echo to determine severity and cause * Probably related to the renal failure (7) Major depressive disorder: Code(s): F32.9 - Major depressive disorder, single episode, unspecified Status: Chronic Assessment and Plan: * Continue with sertraline (8) Hyperlipidemia: Code(s): E78.5 - Hyperlipidemia, unspecified Status: Chronic Assessment and Plan: * Continue with atorvastatin (9) Acute metabolic encephalopathy: Code(s): G93.41 - Metabolic encephalopathy Status: Acute Assessment and Plan: * Probably from infection * Could also be from dehydration and UTI * Continue with bicarb drip (10) 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 Triple X treatment Subjective Date/time seen: 08/14/21 0815 Interval history: Date/Time: 08/13/21 14:30 This is a 76 year old female patient who resides at [facility]. The son is at the bedside answering questions for her. The patient is able to answer name but she is not able to state her age or date of . She does not know what month it is or who the president is. She does davies
--- NOTE | 2021-08-14 08:15 | PM.IMPN ---
Progress Note: A&P Assessment and Plan (1) Diverticulitis: Code(s): K57.92 - Diverticulitis of intestine, part unspecified, without perforation or abscess without bleeding Status: Chronic Assessment and Plan: Abd/Pel CT found wall thickening of the sigmoid colon, likely chronic diverticulitis Started Rocephin and Flagyl Blood cultures and urine cultures pending Clear liquid diet Fluids (2) Acute on chronic kidney failure: Code(s): N17.9 - Acute kidney failure, unspecified; N18.9 - Chronic kidney disease, unspecified Status: Acute Assessment and Plan: BUN Creatine >120/10.50, trending down 142/8.70 Renal ultrasound-Bilateral renal thinning and atrophy consult Nephrology LR and Bicarb running at this time She is probably dehydrated as well Trend labs (3) Compression fracture: Status: Acute Assessment and Plan: According to the son [facility] Compression fracture noted on the CT Comfort and supportive care (4) Dementia: Code(s): F03.90 - Unspecified dementia without behavioral disturbance Status: Chronic Assessment and Plan: Continue with donepezil and Namenda (5) Hypertension: Code(s): I10 - Essential (primary) hypertension Status: Chronic Assessment and Plan: Current BP is 106/42 Hold lisinopril BP soft at this time Trend BP Adjust medications as needed (6) Diastolic congestive heart failure: Code(s): I50.30 - Unspecified diastolic (congestive) heart failure Status: Chronic Assessment and Plan: Hold diuretics Probably could use an echo to determine severity and cause Probably related to the renal failure (7) Major depressive disorder: Code(s): F32.9 - Major depressive disorder, single episode, unspecified Status: Chronic Assessment and Plan: Continue with sertraline (8) Hyperlipidemia: Code(s): E78.5 - Hyperlipidemia, unspecified Status: Chronic Assessment and Plan: Continue with atorvastatin (9) Acute metabolic encephalopathy: Code(s): G93.41 - Metabolic encephalopathy Status: Acute Assessment and Plan: Probably from infection Could also be from dehydration and UTI Continue with bicarb drip (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 Triple X treatment Subjective Date/time seen: 08/14/21 0815 Interval history: Date/Time: 08/13/21 14:30 This is a 76 year old female patient who resides at [facility]. The son is at the bedside answering questions for her. The patient is able to answer name but she is not able to state her age or date of . She does not know what month it is or who the president is. She does have a history of dementia. However the son tells me that she is usually more talkative than this. She is complaining of having discomfort to her buttocks. The son stated that the [facility] the [facility]. A Dawkins catheter was placed in the emergency room. The patient is draining wine colored urine. Her blood pressures have been low. The son stated that she is a DNI and that he would allow vasopressors and a central line. Patient has a previous history of having UTIs and the son stated that she is on prophylactic antibiotic to prevent UTI. Her son
[2021-08-14 09:52] LABS: Creatine Kinase 76 U/L (30-135)
--- NOTE | 2021-08-14 10:16 | PM.CNGS ---
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 There is evidence of wall thickening of the sigmoid colon abutting the urinary bladder with gas in the lumen of the bladder. Urinalysis suggests UTI, culture pending. The gas in the lumen of the bladder could be related to a gas-forming organism versus a colovesical fistula. When gathering history, it does not sound like she has had any recent catheterizations that could have introduced air in the bladder in that sense. Dr. Marrero plans to review the CT scan with the Radiologist today. We would agree with continuing medical management of her other acute issues. No indication for urgent surgical intervention. Depending on how she progresses medically, we will plan to further investigate the possible colovesical fistula potentially with further imaging. When speaking to her son, he would consider surgery if we felt this was necessary. He is aware that this will need further investigation prior to deciding on the need for future surgery. Thank you for allowing us to see the patient in consultation and we will continue to follow along with you. (2) Diverticulitis: Code(s): K57.92 - Diverticulitis of intestine, part unspecified, without perforation or abscess without bleeding Status: Chronic Assessment and Plan: CT scan suggests chronic diverticulitis. Currently on IV ceftriaxone and metronidazole for urinary tract infection and possible colovesical fistula. WBC down to normal this morning. See plan above. (3) Acute on chronic kidney failure: Code(s): N17.9 - Acute kidney failure, unspecified; N18.9 - Chronic kidney disease, unspecified Status: Acute Assessment and Plan: Her baseline creatinine if 1.5. Nephrology consulted, recommendations noted. No mention of need for hemodialysis access as of yet. Renal function improving slightly with current treatment. Renal ultrasound shows mild bilateral atrophy, no hydronephrosis. Continue to IV fluid hydration, treatment of UTI, and monitor labs. (4) Dehydration: Code(s): E86.0 - Dehydration Status: Acute Assessment and Plan: Continue IV fluid hydration and monitor labs. Management per Hospitalist. (5) UTI (urinary tract infection): Code(s): N39.0 - Urinary tract infection, site not specified Status: Acute Assessment and Plan: Continue IV antibiotics. Urine culture pending. Will monitor for organisms in the urine culture that may suggest a colonic origin. (6) Dementia: Code(s): F03.90 - Unspecified dementia without behavioral disturbance Status: Chronic (7) Diastolic congestive heart failure: Code(s): I50.30 - Unspecified diastolic (congestive) heart failure Status: Chronic (8) Hypertension: Code(s): I10 - Essential (primary) hypertension Status: Chronic (9) Acute metabolic encephalopathy: Code(s): G93.41 - Metabolic encephalopathy Status: Acute Assessment and Plan: Altered mental status upon arrival and she continues to be very confused. Currently on bicarb drip. Could be related to uremia or infection vs multifactorial. Montior labs. (10) BMI 34.0-34.9,adult: Code(s): Z68.34 - Body mass index [BMI] 34.0-34.9, adult Status: Acute (11) Compression fracture: Status: Acute Assessment and Plan: L2 burst fracture incidentally noticed on CT. Management per Hospitalist. Additional Plan I have discussed the patient's case and plan of care with Dr. Marrero. History of Present Illness Consult details Consult date: 08/14/21 Reason for consult: other (CT findings suggesting colovesical fistula with possible chronic diverticulitis) Requesting physician: Bernice Henriquez NP Narrative: This is a 76-year-old female with Alzhei
[2021-08-14 10:41] LABS: Free T4 Free Thyroxine Reflex 2.16 ng/dL (0.78-2.19)
[2021-08-14 10:58] LABS: Total Protein Urine Random 71 mg/dL; Ur Ttl Prot Creatinine Ratio 0.25 mg/mg (0-0.20)
[2021-08-14 11:03] LABS: Sodium Urine Random 46 meq/L
[2021-08-14 12:17] LABS: Total Triiodothyronine (T3) 1.07 NG/ML (0.97-1.69)
[2021-08-14] MEDS: SODIUM BICARBONATE 8.4% 150 MEQ in DEXTROSE 5% 1,000 ML 950 ML 100 MEQ IV CONT ×2 (12:48→23:37)
[2021-08-14] MEDS: LACTATED RINGERS 1,000 ML 75 ML IV CONT (17:18)
[2021-08-15] VITALS (9 sets, daily range): BP systolic 117–157; BP diastolic 42–81; PULSE 74–88; RESP 16–18; TEMP 35.7–36.1; O2SAT 96–99; BMI 34.2
--- NOTE | 2021-08-15 | ECHO_ITS ---
Patient Info Name: Shonna Piña Age: 76 years : 1945 Gender: Female Ht: 68 in Wt: 224 lbs BSA: 2.24 m2 HR: 80 bpm BP: 157 / 81 mmHg Heart Rhythm: Sinus Rhythm Exam Date: 08/15/2021 10:55 AM Exam Location: [facility] Patient Status: Inpatient Admit Date: 08/13/2021 Staff Ordering Physician: Gonzales Amato [employer] Registrar: Ananth Zurita RDCS, RT Attending Provider: Milad Martin MD Referring Physician: Lm HURST; Exam Type: CA echo doppler color flow Study Info Indications I50.9 - Heart failure, unspecified Complete two-dimensional, color flow and Doppler transthoracic echocardiogram is performed. Summary 1. Complete two-dimensional, color flow and Doppler transthoracic echocardiogram is performed. 2. Left ventricular chamber dimension is normal. 3. Left ventricular systolic function is normal, estimated at 65-70%. 4. There is mildly increased left ventricular wall thickness. 5. The left ventricular diastolic function is grade I diastolic dysfunction. 6. Right ventricular chamber dimension is mildly enlarged. 7. Left atrial chamber dimension is mildly enlarged. 8. Right atrial chamber dimension is mildly enlarged. 9. There is mild mitral valve regurgitation. 10. Mild pulmonary hypertension, estimated pulmonary arterial systolic pressure is 37 mmHg. 11. There is mild tricuspid valve regurgitation. Left Ventricle Left ventricular chamber dimension is normal. Left ventricular systolic function is normal, estimated at 65-70%. There is mildly increased left ventricular wall thickness. The left ventricular diastolic function is grade I diastolic dysfunction. Right Ventricle Right ventricular chamber dimension is mildly enlarged. Right ventricular systolic function is normal. Left Atria Left atrial chamber dimension is mildly enlarged. Right Atria Right atrial chamber dimension is mildly enlarged. Atrial Septum Intact interatrial septum visualized by color flow imaging. Aortic Valve The aortic valve is trileaflet. There is mild aortic valve sclerosis. There is no aortic valve stenosis. There is trace aortic valve regurgitation. Pulmonic Valve The pulmonic valve is not well visualized. There is no pulmonic valve stenosis. There is trace pulmonic regurgitation. Mitral Valve The mitral valve has normal leaflets. There is no mitral valve stenosis. There is mild mitral valve regurgitation. The mitral valve annulus is mildly calcified. Tricuspid Valve Mild pulmonary hypertension, estimated pulmonary arterial systolic pressure is 37 mmHg. The tricuspid valve leaflets are normal. There is no significant tricuspid valve stenosis. There is mild tricuspid valve regurgitation. Pericardium/Pleural The pericardium appears normal. There is no pericardial effusion. Inferior Vena Cava Dilated inferior vena cava with >50% collapse upon inspiration consistent with elevated right atrial pressure, 15 mmHg. Aorta The aortic root size at the sinus of Valsalva is normal. The prox ascending aorta size is normal. Left Ventricular Outflow Tract Name Value Normal LVOT 2D LVOT Diameter 2.1 cm LVOT Doppler
[2021-08-15] MEDS: metroNIDAZOLE 500 MG/ISO 100ML 500 MG/100 ML BAG 100 MG IVPB ×3 (03:12→20:04)
[2021-08-15 06:25] LABS: Albumin Level 2.6 g/dL (3.5-5.1); Anion Gap 13 mmol/L (8-16); Blood Urea Nitrogen 135 mg/dL (7-17); Calcium 7.4 mg/dL (8.4-10.2); Carbon Dioxide 16 mmol/L (22-30); Chloride 116 mmol/L (98-107); Estimated CRCL calculation 10 ml/min; Estimated Glomerular Filt Rate 8; Glucose 98 mg/dL (65-110); Phosphorus 5.4 mg/dL (2.5-4.5); Potassium 3.5 mmol/L (3.4-5.0); Sodium 145 mmol/L (137-145)
[2021-08-15 07:23] LABS: Basophils Percent Auto 0.4 % (0.2-1.2); Eosinophils Absolute Auto 0.1 K/mm3 (0-0.3); Hemoglobin 9.6 g/dL (12.0-15.0); Immature Granulocyte Absolute 0.03 K/mm3 (0.00-0.031); Immature Granulocyte Percent A 0.6 % (0-0.5); Lymphocytes Absolute Auto 0.72 K/mm3 (0.9-3.2); Lymphocytes Percent Auto 14.6 % (18.3-44.2); Mean Corpuscular HGB Conc 33.1 g/dl (32-36); Mean Corpuscular Hemoglobin 31.4 pg (26-34); Mean Corpuscular Volume 94.8 fl (80-100); Mean Platelet Volume 11.6 fl (7.4-10.4); Monocytes Absolute Auto 0.5 K/mm3 (0.1-0.6); Monocytes Percent Auto 10.4 % (2.6-8.5); Neutrophils Absolute Auto 3.6 K/mm3 (1.3-6.7); Platelet Count Result 256 k/mm3 (150-375); Red Blood Count 3.06 M/mm3 (4.2-5.4); Red Cell Distribution Width 13.1 % (11.5-14.5); White Blood Count 4.9 K/mm3 (4.5-10.0)
--- NOTE | 2021-08-15 07:30 | P.PNIM_ITS ---
Progress Note: A&P Assessment and Plan (1) Diverticulitis: Code(s): K57.92 - Diverticulitis of intestine, part unspecified, without perforation or abscess without bleeding Status: Chronic Assessment and Plan: * Abd/Pel CT found wall thickening of the sigmoid colon, likely chronic diverticulitis * Started Rocephin and Flagyl * Blood cultures Showed no growth today * Clear liquid diet * Fluids, LR discontinued, bicarb continued (2) Acute on chronic kidney failure: Code(s): N17.9 - Acute kidney failure, unspecified; N18.9 - Chronic kidney disease, uns pecified Status: Acute Assessment and Plan: * BUN Creatine >120/10.50, trending down 135/5.40 * Renal ultrasound-Bilateral renal thinning and atrophy * consult Nephrology thank you for your recommendations * lactated Ringer's discontinued Bicarb running at this time * She is probably dehydrated as well * Trend labs (3) Compression fracture: Status: Acute Assessment and Plan: * According to the son the patient had a fall at the group home * Compression fracture noted on the CT * Comfort and supportive care (4) Dementia: Code(s): F03.90 - Unspecified dementia without behavioral disturbance Status: Chronic Assessment and Plan: * Continue with donepezil and Namenda (5) Hypertension: Code(s): I10 - Essential (primary) hypertension Status: Chronic Assessment and Plan: * Current BP is 157/81 * Hold lisinopril due to renal function * BP soft at this time * Trend BP * Adjust medications as needed (6) Diastolic congestive heart failure: Code(s): I50.30 - Unspecified diastolic (congestive) heart failure Status: Chronic Assessment and Plan: * Hold diuretics due to acute renal failure * repeat echo ordered and pending * No history noted * Could be exacerbated due to renal failure (7) Major depressive disorder: Code(s): F32.9 - Major depressive disorder, single episode, unspecified Status: Chronic Assessment and Plan: * Continue with sertraline (8) Hyperlipidemia: Code(s): E78.5 - Hyperlipidemia, unspecified Status: Chronic Assessment and Plan: * Continue with atorvastatin (9) Acute metabolic encephalopathy: Code(s): G93.41 - Metabolic encephalopathy Status: Acute Assessment and Plan: * A&O X1 at baseline * Probably from acute renal dysfunction * Could also be from dehydration or UTI * urine culture showed contamination, repeat UA with culture * continue Rocephin for now * seems to be getting better patient is more responsive but still not A and O x1 * Continue with bicarb drip (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
--- NOTE | 2021-08-15 07:30 | PM.IMPN ---
Progress Note: A&P Assessment and Plan (1) Diverticulitis: Code(s): K57.92 - Diverticulitis of intestine, part unspecified, without perforation or abscess without bleeding Status: Chronic Assessment and Plan: Abd/Pel CT found wall thickening of the sigmoid colon, likely chronic diverticulitis Started Rocephin and Flagyl Blood cultures Showed no growth today Clear liquid diet Fluids, LR discontinued, bicarb continued (2) Acute on chronic kidney failure: Code(s): N17.9 - Acute kidney failure, unspecified; N18.9 - Chronic kidney disease, unspecified Status: Acute Assessment and Plan: BUN Creatine >120/10.50, trending down 135/5.40 Renal ultrasound-Bilateral renal thinning and atrophy consult Nephrology thank you for your recommendations lactated Ringer's discontinued Bicarb running at this time She is probably dehydrated as well Trend labs (3) Compression fracture: Status: Acute Assessment and Plan: According to the son the patient had a fall at the group home Compression fracture noted on the CT Comfort and supportive care (4) Dementia: Code(s): F03.90 - Unspecified dementia without behavioral disturbance Status: Chronic Assessment and Plan: Continue with donepezil and Namenda (5) Hypertension: Code(s): I10 - Essential (primary) hypertension Status: Chronic Assessment and Plan: Current BP is 157/81 Hold lisinopril due to renal function BP soft at this time Trend BP Adjust medications as needed (6) Diastolic congestive heart failure: Code(s): I50.30 - Unspecified diastolic (congestive) heart failure Status: Chronic Assessment and Plan: Hold diuretics due to acute renal failure repeat echo ordered and pending No history noted Could be exacerbated due to renal failure (7) Major depressive disorder: Code(s): F32.9 - Major depressive disorder, single episode, unspecified Status: Chronic Assessment and Plan: Continue with sertraline (8) Hyperlipidemia: Code(s): E78.5 - Hyperlipidemia, unspecified Status: Chronic Assessment and Plan: Continue with atorvastatin (9) Acute metabolic encephalopathy: Code(s): G93.41 - Metabolic encephalopathy Status: Acute Assessment and Plan: A&O X1 at baseline Probably from acute renal dysfunction Could also be from dehydration or UTI urine culture showed contamination, repeat UA with culture continue Rocephin for now seems to be getting better patient is more responsive but still not A and O x1 Continue with bicarb drip (10) 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 - Vesicointestinal fistula Status: Acute Assessment and Plan: Surgery consult Nothing for them right now (11) Abnormal urinalysis: Code(s): R82.90 - Unspecified abnormal findings in urine Status: Acute Assessment and Plan: Ua found Red turbid urine, blood 2+, bilirubin 1+, Leukocyte esterase 1+, WBC >75, Ur Bacteria 4+ Ceftriaxone started Urine culture showed contamination Repeat UA with culture [place] antibiotics to culture results Time Spent With Patient Time with patient: Greater than 35 minutes Subjective Date/time seen: 08/15/21 07:30 Interval history: Date/Time: 08/13/21 14:30 This is a 76 year old female patient who resides at [facility]. The son is at the bedside answering questions for her. The patient is able to answer name but she is not able to state her age or date of . She does not know what month it is or who the president is. She does have a history of dementia. However the son tells me that she is usually more talkative than this. She is complaining of having discomfort to her buttocks. The son stated that the patient did have some diarrhea at the group home. Jill Carlson
[2021-08-15 07:39] LABS: Alanine Aminotransferase 12 U/L (4-35); Albumin Level 2.6 g/dL (3.5-5.1); Alkaline Phosphatase 97 U/L (38-126); Aspartate Amino Transferase 16 U/L (14-36); Bilirubin,Total 0.4 mg/dL (0.2-1.3)
[2021-08-15] MEDS: MEMANTINE 5 MG TABLET PO (08:02)
[2021-08-15] MEDS: SERTRALINE HCL 50 MG TABLET PO (08:02)
[2021-08-15 12:07] LABS: Add Urine Microscopic? YES; Appearance Urine Cloudy (Clear); Bacteria Urine Trace /hpf; Bilirubin Urine Negative (Negative); Blood Urine 3+ (Negative); Color Urine Yellow (Yellow); Glucose Urine UA Negative (Negative); Ketones Urine Negative (Negative); Leukocyte Esterase Ur 3+ LEU/UL (Negative); Mucus Urine Few /lpf; Nitrate Urine Negative (Negative); Protein Urine 1+ mg/dL (Negative); Specific Grav Ur 1.013 (1.001-1.035); Squamous Epithelial Cell Urine Rare /hpf (Few); Urobilinogen Urine Negative mg/dL (<2.0); WBC Clumps Urine Present /HPF; WBC Urine >75 /hpf
--- NOTE | 2021-08-15 12:14 | PM.PNNEP ---
Progress Note: A&P Assessment and Plan (1) Chronic renal failure: Code(s): N18.9 - Chronic kidney disease, unspecified Status: Chronic Assessment and Plan: The patient has chronic kidney disease. Her baseline creatinine seems to be about 1.5. This is likely related to hypertension and possible vascular disease. She has diastolic dysfunction and so probably has enough hypertension to cause other organ damage. (2) PRUDENCE (acute kidney injury): Code(s): N17.9 - Acute kidney failure, unspecified Status: Acute Assessment and Plan: The patient has acute kidney injury. urine electrolytes are pre renal urinalysis shows UTI ultrasound shows bilateral renal thinning and atrophy. She looks dehydrated on exam. Most likely this is acute kidney injury because of dehydration, low blood pressure, and ibuprofen. The latter has been discontinued. She is getting IV fluids, and her blood pressure is better. Her creatinine is better I agree with [employer] Lm. We can stop the lactated Ringer's (3) UTI (urinary tract infection): Code(s): N39.0 - Urinary tract infection, site not specified Status: Deleted Assessment and Plan: Patient has recurrent bladder infections. She has gas in the bladder consistent with either a gas-forming organism or a colovesical fistula. Surgery note seen. (4) Dehydration: Code(s): E86.0 - Dehydration Status: Deleted Assessment and Plan: Getting IV fluids (5) Acute metabolic encephalopathy: Code(s): G93.41 - Metabolic encephalopathy Status: Acute Assessment and Plan: Likely partly uremic and partly from infection. (6) Dementia: Code(s): F03.90 - Unspecified dementia without behavioral disturbance Status: Chronic (7) Hypertension: Code(s): I10 - Essential (primary) hypertension Status: Chronic Assessment and Plan: Blood pressure was soft. Her antihypertensives are on hold (8) Hyperlipidemia: Code(s): E78.5 - Hyperlipidemia, unspecified Status: Chronic Assessment and Plan: Not on the stat Subjective Date/time seen: 08/15/21 12:14 Interval history: Shonna is about the same. Still lethargic. Opens eyes a little bit in regards examiner when I shake her shoulder. Review of Systems Review of Systems: ROS unobtainable: Yes unobtainable due to medical condition Exam Narrative: WDWN in NAD skin no rash . Mucous membranes are dry head ncat lungs clear cor reg no rub abd BS+ nontender and soft ext no edema. Objective Data Vital Signs Vital Signs: Vital Signs - 24 hr 08/14/21 14:00 08/14/21 17:47 08/14/21 20:00 Temperature 36.4 C Pulse Rate 65 80 81 Respiratory Rate 16 Blood Pressure 106/42 L Pulse Oximetry 97 08/14/21 20:13 08/15/21 00:00 08/15/21 03:15 Temperature 35.9 C L 35.8 C L Pulse Rate 79 88 84 Respiratory Rate 16 16 Blood Pressure 95/46 L 157/81 H Pulse Oximetry 98 99 08/15/21 04:00 Temperature Pulse Rate 81 Respiratory Rate Blood Pressure Pulse Oximetry Intake/Output Intake/Output: Intake & Output 08/12/21 08/13/21 08/14/21 08/15/21 23:59 23:59 23:59 23:59 Intake Total 2250 3695 220 Output Total 800 650 Balance 2250 2895 -430 Meds/Results Medications: Active Medications Generic Name Dose Route Start Last Admin Trade Name Freq PRN Reason Stop Dose Admin Enoxaparin Sodium 30 mg 08/16/21 09:00 Enoxaparin 30 Mg/0.3 Ml Syringe SUB-Q DAILY VENU Ceftriaxone Sodium/Dextrose 1 gm in 50 mls @ 100 mls/hr 08/14/21 13:00 08/14/21 12:46 Rocephin 1 Gm/D5w 50 Ml IVPB Infused Q24H VENU Infusion Metronidazole 500 mg in 100 mls @ 100 mls/hr 08/13/21 20:00 08/15/21 11:34 Flagyl 500 Mg/Iso Soln 100 Ml IVPB 100 mls/hr Q8H VENU Administration Sodium Bicarbonate 150 meq/ 1,100 mls @ 100 mls/hr 08/14/21 09:30 08/14/21 23:37 Dextrose I
[2021-08-15] MEDS: SODIUM BICARBONATE 8.4% 150 MEQ in DEXTROSE 5% 1,000 ML 950 ML 100 MEQ IV CONT (12:43)
--- NOTE | 2021-08-15 16:23 | PM.PNGS ---
Progress Note: A&P Assessment and Plan (1) Acute on chronic kidney failure: Code(s): N17.9 - Acute kidney failure, unspecified; N18.9 - Chronic kidney disease, unspecified Status: Acute (2) Diverticulitis: Onset Date: Unknown Code(s): K57.92 - Diverticulitis of intestine, part unspecified, without perforation or abscess without bleeding Status: Chronic Assessment and Plan: CT Yogi shows wall thickening of the sigmoid colon but no extra colonic abscess or gas. (3) Colovesical fistula: Onset Date: Unknown Code(s): N32.1 - Vesicointestinal fistula Status: Acute Assessment and Plan: Definite diagnosis is still up in the air. I have talked to the patient's son about proceeding with a Gastrografin enema to see if we can prove that there is flow of dye/fluid from the colon into the bladder. Tentatively will set this up for 08/16/2021 in a.m.. Since he feels his mother has definite plans not to have dialysis if her creatinine is getting worse rather than better we may hold off. Otherwise since it has been getting better the last 2 days and it continues to get better tomorrow morning we will proceed with the test. If there is not flow from the colon to the bladder it does not necessarily mean there isn't a fistula but if there is it would prove it. Per patient's nurse she continues to have fairly loose stools. There were at least 2 today between 4:00 a.m. and when I saw her. Patient does not know that she has the stools and does not call the nurses. This is why her skin of the perineal area is excoriated. Nurses are continuing to check her frequently and apply appropriate cream to help protect the skin in the area. (4) Hypertension: Code(s): I10 - Essential (primary) hypertension Status: Chronic (5) Compression fracture: Status: Acute (6) Diastolic congestive heart failure: Code(s): I50.30 - Unspecified diastolic (congestive) heart failure Status: Chronic (7) PRUDENCE (acute kidney injury): Code(s): N17.9 - Acute kidney failure, unspecified Status: Acute (8) Acute metabolic encephalopathy: Onset Date: ~08/2021 Code(s): G93.41 - Metabolic encephalopathy Status: Acute Assessment and Plan: This is apparently fairly new onset. Patient's son should she was sitting up in the chair talkative and although demented was able to interact with him as recently as Thanksgiving. Most likely secondary to her acute renal failure/ dehydration. May also been related to sepsis however so far blood cultures are negative. Subjective Subjective Date/Time Seen: 08/15/21 10:23 Patient reports: no new complaints Interval history: Patient awakens to calling her name but is not able to offer much information on how she is feeling. She cannot tell me where she is. Review of Systems Review of Systems: ROS unobtainable: Yes unobtainable due to medical condition Constitutional: Constitutional: Reports as per HPI Respiratory: Respiratory: Reports no additional respiratory complaints Gastrointestinal: Gastrointestinal: Reports as per HPI Exam Const: General: cooperative, comfortable, alert and awake Orientation/consciousness: patient oriented x3 HENMT: Head: normal to inspection Mouth: Yes moist mucous membranes Eyes: Sclera: sclerae normal Pupils: Equal, round and reactive pupils present Neck: Neck: normal visual inspection and no JVD Chest: Chest palpation & inspection: normal inspection of the chest Resp: Effort & Inspection: normal respiratory effort Auscultation: clear to auscultation bilaterally (anteriorly) Cardio: Jugular venous distension: no JVD Rate: regular rate GI: Inspection: scar ( Transverse suprapubic without hernia) GI Palp: Yes abdominal tenderness ( to palpation mainly lower abdomen), Yes Soft to palpation, No Guarding due to palpation present (GI) and No Rigid due to palpation Auscultation
[2021-08-15] MEDS: MIRTAZAPINE 15 MG TABLET BY MOUTH (20:04)
[2021-08-16] VITALS (9 sets, daily range): BP systolic 123–150; BP diastolic 57–67; PULSE 66–81; RESP 16–20; TEMP 36.6–37.2; O2SAT 95–98
[2021-08-16] MEDS: SODIUM BICARBONATE 8.4% 150 MEQ in DEXTROSE 5% 1,000 ML 950 ML 100 MEQ IV CONT (04:00)
[2021-08-16] MEDS: metroNIDAZOLE 500 MG/ISO 100ML 500 MG/100 ML BAG 100 MG IVPB ×3 (05:28→20:28)
[2021-08-16 06:31] LABS: Basophils Percent Auto 0.6 % (0.2-1.2); Eosinophils Absolute Auto 0.1 K/mm3 (0-0.3); Eosinophils Percent Auto 2.2 % (0-4.4); Hemoglobin 9.5 g/dL (12.0-15.0); Immature Granulocyte Absolute 0.03 K/mm3 (0.00-0.031); Immature Granulocyte Percent A 0.6 % (0-0.5); Lymphocytes Absolute Auto 0.97 K/mm3 (0.9-3.2); Lymphocytes Percent Auto 17.9 % (18.3-44.2); Mean Corpuscular HGB Conc 32.8 g/dl (32-36); Mean Corpuscular Volume 91.5 fl (80-100); Mean Platelet Volume 11.4 fl (7.4-10.4); Monocytes Absolute Auto 0.7 K/mm3 (0.1-0.6); Neutrophils Absolute Auto 3.6 K/mm3 (1.3-6.7); Neutrophils Percent Auto 66.7 % (45.5-73.1); Platelet Count Result 280 k/mm3 (150-375); Red Blood Count 3.17 M/mm3 (4.2-5.4); Red Cell Distribution Width 12.6 % (11.5-14.5); White Blood Count 5.4 K/mm3 (4.5-10.0)
[2021-08-16 07:12] LABS: Alanine Aminotransferase 12 U/L (4-35); Albumin Level 2.6 g/dL (3.5-5.1); Alkaline Phosphatase 103 U/L (38-126); Anion Gap 9 mmol/L (8-16); Aspartate Amino Transferase 26 U/L (14-36); Bilirubin,Total 0.4 mg/dL (0.2-1.3); Blood Urea Nitrogen 108 mg/dL (7-17); Calcium 7.8 mg/dL (8.4-10.2); Carbon Dioxide 27 mmol/L (22-30); Chloride 114 mmol/L (98-107); Estimated CRCL calculation 21 ml/min; Estimated Glomerular Filt Rate 18; Glucose 108 mg/dL (65-110); Magnesium 1.9 mg/dL (1.6-2.3); Phosphorus 4.2 mg/dL (2.5-4.5); Potassium 3.1 mmol/L (3.4-5.0); Sodium 150 mmol/L (137-145)
[2021-08-16] MEDS: MEMANTINE 5 MG TABLET PO ×2 (09:17→16:50)
[2021-08-16] MEDS: ENOXAPARIN 30 MG/0.3 ML SYRINGE SUB-Q (09:18)
[2021-08-16] MEDS: SERTRALINE HCL 50 MG TABLET PO (09:24)
[2021-08-16] MEDS: DEXTROSE 5% 1,000 ML 1,000 ML 100 ML IV CONT ×2 (12:29→20:28)
--- NOTE | 2021-08-16 12:48 | PM.PNNEP ---
Progress Note: A&P Assessment and Plan (1) Chronic renal failure: Code(s): N18.9 - Chronic kidney disease, unspecified Status: Chronic Assessment and Plan: The patient has chronic kidney disease. Her baseline creatinine seems to be about 1.5. This is likely related to hypertension and possible vascular disease. She has diastolic dysfunction and so probably has enough hypertension to cause other organ damage. (2) PRUDENCE (acute kidney injury): Code(s): N17.9 - Acute kidney failure, unspecified Status: Acute Assessment and Plan: The patient has acute kidney injury. urine electrolytes are pre renal urinalysis shows UTI ultrasound shows bilateral renal thinning and atrophy. this is due to dehydration and low blood pressure. She was also on ibuprofen. Her creatinine is better. Will continue IV fluids. Her sodium level is up. Her bicarbonate is normal now. So will change her fluids to D5W and repeat a sodium tomorrow. (3) UTI (urinary tract infection): Code(s): N39.0 - Urinary tract infection, site not specified Status: Deleted Assessment and Plan: Patient has recurrent bladder infections. She has gas in the bladder consistent with either a gas-forming organism or a colovesical fistula. Surgery note seen. (4) Dehydration: Code(s): E86.0 - Dehydration Status: Deleted Assessment and Plan: Getting IV fluids (5) Acute metabolic encephalopathy: Onset Date: ~08/2021 Code(s): G93.41 - Metabolic encephalopathy Status: Acute Assessment and Plan: Likely partly uremic and partly from infection. This is better (6) Dementia: Code(s): F03.90 - Unspecified dementia without behavioral disturbance Status: Chronic (7) Hypertension: Code(s): I10 - Essential (primary) hypertension Status: Chronic Assessment and Plan: Blood pressure was soft. Her antihypertensives are on hold right now the blood pressure is under good control. (8) Hyperlipidemia: Code(s): E78.5 - Hyperlipidemia, unspecified Status: Chronic Assessment and Plan: Not on the statin Subjective Date/time seen: 08/16/21 12:48 Interval history: Shonna is more awake kidney day. She answers Questions with yes no mostly. Exam Narrative: WDWN in NAD skin no rash . Mucous membranes are dry head ncat lungs clear cor reg no rub or gallop abd BS+ nontender and soft ext no edema. Objective Data Vital Signs Vital Signs: Vital Signs - 24 hr 08/15/21 15:26 08/15/21 16:00 08/15/21 20:00 Temperature 35.7 C L Pulse Rate 77 78 80 Respiratory Rate 18 18 Blood Pressure 132/49 L Pulse Oximetry 98 98 08/15/21 22:00 08/16/21 00:00 08/16/21 04:00 Temperature 36.1 C L Pulse Rate 77 72 68 Respiratory Rate 18 Blood Pressure 117/42 L Pulse Oximetry 96 08/16/21 06:00 Temperature 36.6 C Pulse Rate 81 Respiratory Rate 20 Blood Pressure 123/67 Pulse Oximetry 98 Intake/Output Intake/Output: Intake & Output 08/13/21 08/14/21 08/15/21 08/16/21 23:59 23:59 23:59 23:59 Intake Total 2250 3695 2000 1670 Output Total 800 1200 600 Balance 2250 2895 800 1070 Meds/Results Medications: Active Medications Generic Name Dose Route Start Last Admin Trade Name Freq PRN Reason Stop Dose Admin Enoxaparin Sodium 30 mg 08/16/21 09:00 08/16/21 09:18 Enoxaparin 30 Mg/0.3 Ml Syringe SUB-Q 30 mg DAILY VENU Administration Ceftriaxone Sodium/Dextrose 1 gm in 50 mls @ 100 mls/hr 08/14/21 13:00 08/15/21 12:34 Rocephin 1 Gm/D5w 50 Ml IVPB 100 mls/hr Q24H VENU Administration Metronidazole 500 mg in 100 mls @ 100 mls/hr 08/13/21 20:00 08/16/21 12:08 Flagyl 500 Mg/Iso Soln 100 Ml IVPB 100 mls/hr Q8H VENU Administration Dextrose 1,000 mls @ 100 mls/hr 08/16/21 10:35 08/16/21 12:29 Dextrose 5% 1,000 Ml IV CONT 100 mls/hr .Q10H VENU Administra
[2021-08-16 12:59] LABS: Albumin Level 2.8 g/dL (3.5-5.1); Anion Gap 10 mmol/L (8-16); Blood Urea Nitrogen 98 mg/dL (7-17); Calcium 7.9 mg/dL (8.4-10.2); Carbon Dioxide 28 mmol/L (22-30); Chloride 110 mmol/L (98-107); Estimated CRCL calculation 24 ml/min; Estimated Glomerular Filt Rate 21; Glucose 167 mg/dL (65-110); Phosphorus 3.3 mg/dL (2.5-4.5); Sodium 148 mmol/L (137-145)
--- NOTE | 2021-08-16 14:16 | PCNFU ---
Nutrition Follow-Up Complete: Inadequate Oral intake as related to dementia/UTI as evidenced by poor po intake reported. Goal: Meet estimated nutritional needs Patient has limited progress towards goal. We will continue current goal. Pt current nutrition is Full liquids and ensure compact BID. Last recorded weight is 102 kg, no new weight to report. Bowel Motility: loose stools reported. Labs Reviewed:BUN 108,Cr 2.6,Alb 2.6,Na 150, Hgb 935,Hct 29.0,K 3.1 Meds Noted:Rocephin,Flagyl, Remeron, Zoloft, Lovenox, Zoloft. Skin: WNL Additional Notes: Patient remains on full liquid diet. Oral Intake remains poor, 15-30% of meals. Diet supplements of ensure compact BID provided 220 kcals and 9 gms protein. Po intake encouraged. Gastrografin enema today. Monitor: Will monitor every 3 days.
--- NOTE | 2021-08-16 16:15 | PM.PNGS ---
Progress Note: A&P Assessment and Plan (1) Acute on chronic kidney failure: Code(s): N17.9 - Acute kidney failure, unspecified; N18.9 - Chronic kidney disease, unspecified Status: Acute (2) Diverticulitis: Onset Date: Unknown Code(s): K57.92 - Diverticulitis of intestine, part unspecified, without perforation or abscess without bleeding Status: Chronic Assessment and Plan: CT Yogi shows wall thickening of the sigmoid colon but no extra colonic abscess or gas. (3) Colovesical fistula: Onset Date: Unknown Code(s): N32.1 - Vesicointestinal fistula Status: Acute Assessment and Plan: Definite diagnosis is now made by the study done today, i.e. the Gastrografin enema. Please see the radiology result above under data . Subsequently I discussed the result with the patient's son and discussed possible solutions. One option would include a transverse loop colostomy which would divert the fecal stream and not be a severe physiologic insult to the patient as far as surgical intervention he thinks this is a good idea and I have therefore discussed with Dr. Javed who feels that she would benefit by having continued medical care as long she is on antibiotics over the weekend to improve her sodium and continue to approve her kidney function. Therefore, she was scheduled to have a loop transverse colostomy done under local with sedation in the afternoon of Thursday. ( I did discuss other options with him. Doing nothing more will continue to lead to urine tract infections and probable sepsis and she probably will deteriorate. Doing more aggressive therapy such as a bigger surgery may lead to heart attack, stroke, pneumonia,or other problems in view of it being deeper abdominal surgery such as a left colon resection with attempted takedown of the colovesical fistula and left-sided colostomy. I have talked to the patient's son And today we proceeded with with a Gastrografin enema. Since patient's renal function has been getting better the last 2 days and it continues to get better we will proceed with plans for a diverting transverse loop colostomy in the upper midline. Patient tolerating known to be somewhat incontinent and after thorough discussion patient's son feels that this is probably very reasonable since the can be done under very light general anesthesia or perhaps sedation with me placing local anesthetic. Would try to bring up the colon put a bar under it divide the anterior half making a double-barrel ostomy. I have discussed this with the ostomy nurses who will marked the patient Thursday and the patient is tentatively scheduled to have it done Thursday. Meantime Dr. Javed will continue working on trying to bring her renal function to better stead and also work on her lecture lytes because she had Hypernatremia today. Per patient's nurse she continues to have fairly loose stools. There were at least 4 today between 7:00 a.m. and when I saw her. she states patient also does not seem to be having any trouble swallowing. She swells her amend the another pills okay. She is on a full liquid diet including some compact nutritional support. Will continue let her have this today and tomorrow perhaps changing her to clear liquids on Thursday night or Thursday morning in preparation for the surgical intervention. Will also put her on b.i.d. MiraLax to try to clean the colon out. Patient does not know that she has the stools and does not call the nurses. This is why her skin of the perineal area is excoriated. Nurses are continuing to check her frequently and apply appropriate cream to help protect the skin in the area. (4) Hypertension: Code(s): I10 - Essential (primary) hypertension Status: Chronic Assessment and Plan: As per hospitalist (5) Compression fracture: Status: Acute (6) Diastolic congestive heart failure: Cod
--- NOTE | 2021-08-16 18:07 | P.PNIM_ITS ---
Progress Note: A&P Assessment and Plan (1) Diverticulitis: Onset Date: Unknown Code(s): K57.92 - Diverticulitis of intestine, part unspecified, without perforation or abscess without bleeding Status: Chronic Assessment and Plan: * Abd/Pel CT found wall thickening of the sigmoid colon, likely chronic diverticulitis * Started Rocephin and Flagyl * Blood cultures Showed no growth today * Clear liquid diet * Fluids, LR discontinued, bicarb continued 08/16/2021 Interval history: patient with a suspected colovesical fistula had the Gastrografin enema and it showed chronic sigmoid diverticulitis with stricture and colovesical fistula. patient is seen by General surgery, and the surgeon spoke with the patient's son gave option for the treatment and have agreed a loop transverse colostomy done under local with sedation, this is the most reasonable option considering patient comorbidities, patient with acute on chronic kidney disease secondary to hypertension and vascular disease as well as current poor p.o. intake and dehydration patient being gently hydrated, patient with metabolic acidosis and being hydrated with sodium bicarb, her CO2 has improved however her sodium is rising, emergency operator and suture over the patient D5W, patient underlying dementia unable to provide detailed review of symptom will continue to monitor and further recommendation to follow (2) Acute on chronic kidney failure: Code(s): N17.9 - Acute kidney failure, unspecified; N18.9 - Chronic kidney disease, unspecified Status: Acute Assessment and Plan: * BUN Creatine >120/10.50, trending down 135/5.40 * Renal ultrasound-Bilateral renal thinning and atrophy * consult Nephrology thank you for your recommendations * lactated Ringer's discontinued Bicarb running at this time * She is probably dehydrated as well * Trend labs (3) Compression fracture: Status: Acute Assessment and Plan: * According to the son the patient had a fall at the snf * Compression fracture noted on the CT * Comfort and supportive care (4) Dementia: Code(s): F03.90 - Unspecified dementia without behavioral disturbance Status: Chronic Assessment and Plan: * Continue with donepezil and Namenda (5) Hypertension: Code(s): I10 - Essential (primary) hypertension Status: Chronic Assessment and Plan: * Current BP is 157/81 * Hold lisinopril due to renal function * BP soft at this time * Trend BP * Adjust medications as needed (6) Diastolic congestive heart failure: Code(s): I50.30 - Unspecified diastolic (congestive) heart failure Status: Chronic Assessment and Plan: * Hold diuretics due to acute renal failure * repeat echo ordered and pending * No history noted * Could be exacerbated due to renal failure (7) Major depressive disorder: Code(s): F32.9 - Major depressive disorder, single episode, unspecified Status: Chronic Assessment and Plan: * Continue with sertraline (8) Hyperlipidemia: Code(s): E78.5 - Hyperlipidemia, unspecified Status: Chronic Assessment and Plan: * Continue with atorvastatin (9) Acute metabolic encephalopathy: Onset Date: ~08/2021 Code(s): G93.41 - Metabolic encephalopathy Status: Acute Assessment and Plan: * A&O X1 at baseline * Probably from acute renal dysfunction * Could also be from dehydration or UTI * urine cult
--- NOTE | 2021-08-16 18:07 | PM.IMPN ---
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 patient is seen by General surgery, and the surgeon spoke with the patient's son gave option for the treatment and have agreed a loop transverse colostomy done under local with sedation, this is the most reasonable option considering patient comorbidities, patient with acute on chronic kidney disease secondary to hypertension and vascular disease as well as current poor p.o. intake and dehydration patient being gently hydrated, patient with metabolic acidosis and being hydrated with sodium bicarb, her CO2 has improved however her sodium is rising, prep cook and suture over the patient D5W, patient underlying dementia unable to provide detailed review of symptom will continue to monitor and further recommendation to follow (2) Acute on chronic kidney failure: Code(s): N17.9 - Acute kidney failure, unspecified; N18.9 - Chronic kidney disease, unspecified Status: Acute Assessment and Plan: BUN Creatine >120/10.50, trending down 135/5.40 Renal ultrasound-Bilateral renal thinning and atrophy consult Nephrology thank you for your recommendations lactated Ringer's discontinued Bicarb running at this time She is probably dehydrated as well Trend labs (3) Compression fracture: Status: Acute Assessment and Plan: According to the son the patient had a fall at the group home Compression fracture noted on the CT Comfort and supportive care (4) Dementia: Code(s): F03.90 - Unspecified dementia without behavioral disturbance Status: Chronic Assessment and Plan: Continue with donepezil and Namenda (5) Hypertension: Code(s): I10 - Essential (primary) hypertension Status: Chronic Assessment and Plan: Current BP is 157/81 Hold lisinopril due to renal function BP soft at this time Trend BP Adjust medications as needed (6) Diastolic congestive heart failure: Code(s): I50.30 - Unspecified diastolic (congestive) heart failure Status: Chronic Assessment and Plan: Hold diuretics due to acute renal failure repeat echo ordered and pending No history noted Could be exacerbated due to renal failure (7) Major depressive disorder: Code(s): F32.9 - Major depressive disorder, single episode, unspecified Status: Chronic Assessment and Plan: Continue with sertraline (8) Hyperlipidemia: Code(s): E78.5 - Hyperlipidemia, unspecified Status: Chronic Assessment and Plan: Continue with atorvastatin (9) Acute metabolic encephalopathy: Onset Date: ~08/2021 Code(s): G93.41 - Metabolic encephalopathy Status: Acute Assessment and Plan: A&O X1 at baseline Probably from acute renal dysfunction Could also be from dehydration or UTI urine culture showed contamination, repeat UA with culture continue Rocephin for now seems to be getting better patient is more responsive but still not A and O x1 Continue with bicarb drip (10) Colovesical fistula: Onset Date: Unknown Code(s): N32.1 - Vesicointestinal fistula Status: Acute Assessment and Plan: Surgery consult Nothing for them right now (11) Abnormal urinalysis: Code(s): R82.90 - Unspecified ab
[2021-08-16] MEDS: MIRTAZAPINE 15 MG TABLET BY MOUTH (20:32)
[2021-08-17] VITALS (9 sets, daily range): BP systolic 140–149; BP diastolic 61–69; PULSE 53–104; RESP 16–18; TEMP 35.9–37; O2SAT 92–100
[2021-08-17] MEDS: metroNIDAZOLE 500 MG/ISO 100ML 500 MG/100 ML BAG 100 MG IVPB ×3 (03:41→20:06)
[2021-08-17 06:57] LABS: Hematocrit 32.6 % (37.0-47.0); Hemoglobin 10.5 g/dL (12.0-15.0); Mean Corpuscular HGB Conc 32.2 g/dl (32-36); Mean Corpuscular Hemoglobin 31.1 pg (26-34); Mean Corpuscular Volume 96.4 fl (80-100); Mean Platelet Volume 11.6 fl (7.4-10.4); Platelet Count Result 250 k/mm3 (150-375); Red Blood Count 3.38 M/mm3 (4.2-5.4); Red Cell Distribution Width 12.6 % (11.5-14.5); White Blood Count 5.5 K/mm3 (4.5-10.0)
[2021-08-17 07:21] LABS: Albumin Level 2.8 g/dL (3.5-5.1); Anion Gap 10 mmol/L (8-16); Blood Urea Nitrogen 77 mg/dL (7-17); Calcium 7.9 mg/dL (8.4-10.2); Carbon Dioxide 29 mmol/L (22-30); Chloride 110 mmol/L (98-107); Estimated CRCL calculation 32 ml/min; Estimated Glomerular Filt Rate 29; Glucose 125 mg/dL (65-110); Phosphorus 2.8 mg/dL (2.5-4.5); Sodium 149 mmol/L (137-145)
[2021-08-17] MEDS: DEXTROSE 5% 1,000 ML 1,000 ML 100 ML IV CONT ×2 (08:09→18:16)
[2021-08-17] MEDS: SERTRALINE HCL 50 MG TABLET PO (08:11)
[2021-08-17] MEDS: MEMANTINE 5 MG TABLET PO ×2 (08:11→17:32)
[2021-08-17] MEDS: polyethylene glycoL 3350 17 GM POWD.PACK PO ×2 (08:13→17:32)
[2021-08-17] MEDS: POTASSIUM CHLORIDE 20 MEQ TABLET 40 MEQ PO (10:34)
[2021-08-17] MEDS: ENOXAPARIN 40 MG/0.4 ML SYRINGE SUB-Q (10:35)
--- NOTE | 2021-08-17 11:47 | PM.PNNEP ---
Progress Note: A&P Assessment and Plan (1) Chronic renal failure: Code(s): N18.9 - Chronic kidney disease, unspecified Status: Chronic Assessment and Plan: The patient has chronic kidney disease. Her baseline creatinine seems to be about 1.5. This is likely related to hypertension and possible vascular disease. She has diastolic dysfunction and so probably has enough hypertension to cause other organ damage. (2) PRUDENCE (acute kidney injury): Code(s): N17.9 - Acute kidney failure, unspecified Status: Acute Assessment and Plan: The patient has acute kidney injury. urine electrolytes are pre renal urinalysis shows UTI ultrasound shows bilateral renal thinning and atrophy. this is due to dehydration and low blood pressure. She was also on ibuprofen. Her creatinine is better. it has fallen to 1.7. Her sodium level is Still a bit high. She is getting D5W. She is not thirsty so there is an element of hypogeusic hypernatremia. (3) UTI (urinary tract infection): Code(s): N39.0 - Urinary tract infection, site not specified Status: Deleted Assessment and Plan: Patient a colovesical fistula. She is going to surgery on Thursday. Working on getting electrolytes improved by then. She has about a 6L free water deficit. She is on 100cc an hour of D5W. Will increase that to 150 per hour and recheck a sodium tomorrow. (4) Dehydration: Code(s): E86.0 - Dehydration Status: Deleted Assessment and Plan: Getting IV fluids (5) Acute metabolic encephalopathy: Onset Date: ~08/2021 Code(s): G93.41 - Metabolic encephalopathy Status: Acute Assessment and Plan: Likely partly uremic and partly from infection. This is better (6) Dementia: Code(s): F03.90 - Unspecified dementia without behavioral disturbance Status: Chronic (7) Hypertension: Code(s): I10 - Essential (primary) hypertension Status: Chronic Assessment and Plan: Blood pressure was soft. Her antihypertensives are on hold right now the blood pressure is under good control. (8) Hyperlipidemia: Code(s): E78.5 - Hyperlipidemia, unspecified Status: Chronic Assessment and Plan: Not on the statin Subjective Date/time seen: 08/17/21 11:47 Interval history: Shonna is more awake today. She is not thirsty Exam Narrative: WDWN in NAD skin no rash . Mucous membranes are dry head ncat lungs clear bilaterally cor reg no rub or gallop abd BS+ nontender and soft ext no edema or cyanosis. Objective Data Vital Signs Vital Signs: Vital Signs - 24 hr 08/16/21 12:00 08/16/21 16:00 08/16/21 16:22 Temperature 36.8 C Pulse Rate 72 70 74 Respiratory Rate 18 Blood Pressure 150/60 H Pulse Oximetry 96 08/16/21 20:00 08/16/21 22:00 08/17/21 00:00 Temperature 37.2 C Pulse Rate 66 69 71 Respiratory Rate 18 16 Blood Pressure 132/57 L Pulse Oximetry 96 95 08/17/21 04:00 08/17/21 06:00 08/17/21 08:00 Temperature 35.9 C L Pulse Rate 54 L 60 53 L Respiratory Rate 16 Blood Pressure 145/61 H Pulse Oximetry 98 Intake/Output Intake/Output: Intake & Output 08/14/21 08/15/21 08/16/21 08/17/21 23:59 23:59 23:59 23:59 Intake Total 3695 2050 2990 1400 Output Total 800 1200 1450 1050 Balance 2895 850 1540 350 Meds/Results Medications: Active Medications Generic Name Dose Route Start Last Admin Trade Name Denysq PRN Reason Stop Dose Admin Enoxaparin Sodium 40 mg 08/17/21 09:00 08/17/21 10:35 Enoxaparin 40 Mg/0.4 Ml Syringe SUB-Q 40 mg DAILY VENU Administration Ceftriaxone Sodium/Dextrose 1 gm in 50 mls @ 100 mls/hr 08/14/21 13:00 08/16/21 13:04 Rocephin 1 Gm/D5w 50 Ml IVPB 100 mls/hr Q24H VENU Administration Metronidazole 500 mg in 100 mls @ 100 mls/hr 08/13/21 20:00 08/17/21 04:45 Flagyl 500 Mg/Iso Soln 100 Ml IVPB Infused Q8H
--- NOTE | 2021-08-17 14:28 | P.PNIM_ITS ---
Progress Note: A&P Assessment and Plan (1) Diverticulitis: Onset Date: Unknown Code(s): K57.92 - Diverticulitis of intestine, part unspecified, without perforation or abscess without bleeding Status: Chronic Assessment and Plan: * Abd/Pel CT found wall thickening of the sigmoid colon, likely chronic diverticulitis * Started Rocephin and Flagyl * Blood cultures Showed no growth today * Clear liquid diet * Fluids, LR discontinued, bicarb continued 08/16/2021 Interval history: patient with a suspected colovesical fistula had the Gastrografin enema and it showed chronic sigmoid diverticulitis with stricture and colovesical fistula. patient is seen by General surgery, and the surgeon spoke with the patient's son gave option for the treatment and have agreed a loop transverse colostomy done under local with sedation, this is the most reasonable option considering patient comorbidities, patient with acute on chronic kidney disease secondary to hypertension and vascular disease as well as current poor p.o. 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 patient is seen by General surgery, and the surgeon spoke with the patient's son gave option for the treatment and have agreed a loop transverse colostomy done under local with sedation, this is the most reasonable option considering patient comorbidities, I discusses with the Dr. Marrero, general surgeon today and plan to do surgery on Thursday patient with acute on chronic kidney disease secondary to hypertension and vascular disease as well as current poor p.o. intake and dehydration patient being gently hydrated, patient with metabolic acidosis and being hydrated with sodium bicarb, her CO2 has improved however her sodium is rising, consumer safety inspector and switched over the patient D5W, and today there is slight improvement in her sodium, patient underlying dementia unable to provide detailed review of symptom will continue to monitor and further recommendation to follow (2) Acute on chronic kidney failure: Code(s): N17.9 - Acute kidney failure, unspecified; N18.9 - Chronic kidney disease, unspecified Status: Acute Assessment and Plan: * BUN Creatine >120/10.50, trending down 135/5.40 * Renal ultrasound-Bilateral renal thinning and atrophy * consult Nephrology thank you for your recommendations * lactated Ringer's discontinued Bicarb running at this time * She is probably dehydrated as well * Trend labs (3) Compression fracture: Status: Acute Assessment and Plan: * According to the son the patient had a fall at the correction * Compression fracture noted on the CT * Comfort and supportive care (4) Dementia: Code(s): F03.90 - Unspecified dementia without behavioral disturbance Status: Chronic Assessment and Plan: * Continue with donepezil and Namenda (5) Hypertension: Code(s): I10 - Essential (primary) hypertension Status: Chronic Assessment and Plan: * Current BP is 157/81 * Hold lisinopril due to renal function * BP soft at this time * Trend BP * Adjust medic
--- NOTE | 2021-08-17 14:28 | PM.IMPN ---
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 patient is seen by General surgery, and the surgeon spoke with the patient's son gave option for the treatment and have agreed a loop transverse colostomy done under local with sedation, this is the most reasonable option considering patient comorbidities, patient with acute on chronic kidney disease secondary to hypertension and vascular disease as well as current poor p.o. 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 patient is seen by General surgery, and the surgeon spoke with the patient's son gave option for the treatment and have agreed a loop transverse colostomy done under local with sedation, this is the most reasonable option considering patient comorbidities, I discusses with the Dr. Marrero, general surgeon today and plan to do surgery on Thursday patient with acute on chronic kidney disease secondary to hypertension and vascular disease as well as current poor p.o. intake and dehydration patient being gently hydrated, patient with metabolic acidosis and being hydrated with sodium bicarb, her CO2 has improved however her sodium is rising, cutter operator tile and switched over the patient D5W, and today there is slight improvement in her sodium, patient underlying dementia unable to provide detailed review of symptom will continue to monitor and further recommendation to follow (2) Acute on chronic kidney failure: Code(s): N17.9 - Acute kidney failure, unspecified; N18.9 - Chronic kidney disease, unspecified Status: Acute Assessment and Plan: BUN Creatine >120/10.50, trending down 135/5.40 Renal ultrasound-Bilateral renal thinning and atrophy consult Nephrology thank you for your recommendations lactated Ringer's discontinued Bicarb running at this time She is probably dehydrated as well Trend labs (3) Compression fracture: Status: Acute Assessment and Plan: According to the son the patient had a fall at the assisted Compression fracture noted on the CT Comfort and supportive care (4) Dementia: Code(s): F03.90 - Unspecified dementia without behavioral disturbance Status: Chronic Assessment and Plan: Continue with donepezil and Namenda (5) Hypertension: Code(s): I10 - Essential (primary) hypertension Status: Chronic Assessment and Plan: Current BP is 157/81 Hold lisinopril due to renal function BP soft at this time Trend BP Adjust medications as needed (6) Diastolic congestive heart failure: Code(s): I50.30 - Unspecified diastolic (congestive) heart failure Status: Chronic Assessment and Plan: Hold diuretics due to acute renal failure repeat echo ordered and pending No history noted Could be exacerbated due to renal failure (7) Major depr
[2021-08-17 16:48] LABS: Glucose Point of Care 165 mg/dl (65-105)
[2021-08-17] MEDS: MIRTAZAPINE 15 MG TABLET BY MOUTH (20:06)
[2021-08-18] VITALS (9 sets, daily range): BP systolic 115–150; BP diastolic 45–74; PULSE 60–99; RESP 14–18; TEMP 36.1–36.6; O2SAT 95–98
[2021-08-18] MEDS: metroNIDAZOLE 500 MG/ISO 100ML 500 MG/100 ML BAG 100 MG IVPB ×3 (03:25→22:32)
[2021-08-18] MEDS: DEXTROSE 5% 1,000 ML 1,000 ML 100 ML IV CONT (05:45)
[2021-08-18 07:32] LABS: Hematocrit 30.9 % (37.0-47.0); Hemoglobin 9.6 g/dL (12.0-15.0); Mean Corpuscular HGB Conc 31.1 g/dl (32-36); Mean Corpuscular Volume 96.6 fl (80-100); Mean Platelet Volume 11.4 fl (7.4-10.4); Platelet Count Result 224 k/mm3 (150-375); Red Cell Distribution Width 12.5 % (11.5-14.5); White Blood Count 6.6 K/mm3 (4.5-10.0)
[2021-08-18 07:44] LABS: Albumin Level 2.6 g/dL (3.5-5.1); Anion Gap 7 mmol/L (8-16); Blood Urea Nitrogen 52 mg/dL (7-17); Calcium 7.7 mg/dL (8.4-10.2); Carbon Dioxide 27 mmol/L (22-30); Chloride 110 mmol/L (98-107); Estimated CRCL calculation 39 ml/min; Estimated Glomerular Filt Rate 37; Glucose 126 mg/dL (65-110); Magnesium 1.8 mg/dL (1.6-2.3); Phosphorus 2.1 mg/dL (2.5-4.5); Potassium 3.2 mmol/L (3.4-5.0); Sodium 144 mmol/L (137-145)
[2021-08-18] MEDS: MEMANTINE 5 MG TABLET PO ×2 (09:42→18:05)
[2021-08-18] MEDS: POTASSIUM/PHOSPHORUS/SODIUM 1.5 GM PACKET 1 PACKET PO (09:42)
[2021-08-18] MEDS: ENOXAPARIN 40 MG/0.4 ML SYRINGE SUB-Q (09:42)
[2021-08-18] MEDS: SERTRALINE HCL 50 MG TABLET PO (09:42)
[2021-08-18] MEDS: polyethylene glycoL 3350 17 GM POWD.PACK PO ×2 (09:45→18:05)
--- NOTE | 2021-08-18 09:45 | PM.PNNEP ---
Progress Note: A&P Assessment and Plan (1) Chronic renal failure: Code(s): N18.9 - Chronic kidney disease, unspecified Status: Chronic Assessment and Plan: The patient has chronic kidney disease. Her baseline creatinine seems to be about 1.5. This is likely related to hypertension and possible vascular disease. She has diastolic dysfunction and so probably has enough hypertension to cause other organ damage. (2) PRUDENCE (acute kidney injury): Code(s): N17.9 - Acute kidney failure, unspecified Status: Acute Assessment and Plan: The patient has acute kidney injury. urine electrolytes are pre renal urinalysis shows UTI ultrasound shows bilateral renal thinning and atrophy. this is due to dehydration and low blood pressure. She was also on ibuprofen. her creatinine has fallen to its baseline. (3) UTI (urinary tract infection): Code(s): N39.0 - Urinary tract infection, site not specified Status: Deleted Assessment and Plan: Patient a colovesical fistula. She is going to surgery on Thursday. Electrolytes look better. Creatinine is at baseline. Okay for surgery tomorrow. She is at baseline risk. (4) Dehydration: Code(s): E86.0 - Dehydration Status: Deleted Assessment and Plan: Getting IV fluids (5) Acute metabolic encephalopathy: Onset Date: ~08/2021 Code(s): G93.41 - Metabolic encephalopathy Status: Acute Assessment and Plan: Improved. (6) Dementia: Code(s): F03.90 - Unspecified dementia without behavioral disturbance Status: Chronic Assessment and Plan: She seems to be at baseline (7) Hypertension: Code(s): I10 - Essential (primary) hypertension Status: Chronic Assessment and Plan: her blood pressure is creeping up now. Will start a tiny dose of amlodipine (8) Hyperlipidemia: Code(s): E78.5 - Hyperlipidemia, unspecified Status: Chronic Assessment and Plan: Not on a statin Subjective Date/time seen: 08/18/21 09:45 Interval history: Shonna is more awake today. Comfortable lying in bed. Exam Narrative: WDWN in NAD skin no rash . Mucous membranes are dry head ncat lungs clear to auscultation cor reg no rub or gallop abd BS+ nontender and soft ext no edema or cyanosis. Objective Data Vital Signs Vital Signs: Vital Signs - 24 hr 08/17/21 12:00 08/17/21 14:00 08/17/21 16:00 Temperature 37.0 C Pulse Rate 77 61 104 H Respiratory Rate 18 Blood Pressure 149/66 H Pulse Oximetry 100 08/17/21 20:00 08/17/21 20:56 08/18/21 00:00 Temperature 36.2 C L Pulse Rate 79 80 75 Respiratory Rate 18 16 Blood Pressure 140/69 Pulse Oximetry 100 92 08/18/21 04:00 08/18/21 04:34 Temperature 36.6 C Pulse Rate 65 99 Respiratory Rate 14 Blood Pressure 150/74 H Pulse Oximetry 98 Intake/Output Intake/Output: Intake & Output 08/15/21 08/16/21 08/17/21 08/18/21 23:59 23:59 23:59 23:59 Intake Total 2050 3040 2650 1100 Output Total 1200 1450 1950 600 Balance 850 1590 700 500 Meds/Results Medications: Active Medications Generic Name Dose Route Start Last Admin Trade Name Freq PRN Reason Stop Dose Admin Enoxaparin Sodium 40 mg 08/17/21 09:00 08/18/21 09:42 Enoxaparin 40 Mg/0.4 Ml Syringe SUB-Q 40 mg DAILY VENU Administration Ceftriaxone Sodium/Dextrose 1 gm in 50 mls @ 100 mls/hr 08/14/21 13:00 08/17/21 13:27 Rocephin 1 Gm/D5w 50 Ml IVPB Infused Q24H VENU Infusion Metronidazole 500 mg in 100 mls @ 100 mls/hr 08/13/21 20:00 08/18/21 04:25 Flagyl 500 Mg/Iso Soln 100 Ml IVPB Infused Q8H VENU Infusion Dextrose 1,000 mls @ 100 mls/hr 08/16/21 10:35 08/18/21 05:45 Dextrose 5% 1,000 Ml IV CONT 100 mls/hr .Q10H VENU Administration Memantine 5 mg 08/13/21 23:15 08/18/21 09:42 Memantine 5 Mg Tablet PO 5 mg BID VENU Administration Miconazole Nitr
--- NOTE | 2021-08-18 09:47 | PCSTNOTE ---
Please refer to the Bedside Swallow Evaluation in the EMR. Please note, silent aspiration cannot be ruled out at bedside.
--- NOTE | 2021-08-18 14:17 | PM.IMPN ---
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 patient is seen by General surgery, and the surgeon spoke with the patient's son gave option for the treatment and have agreed a loop transverse colostomy done under local with sedation, this is the most reasonable option considering patient comorbidities, patient with acute on chronic kidney disease secondary to hypertension and vascular disease as well as current poor p.o. 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 patient is seen by General surgery, and the surgeon spoke with the patient's son gave option for the treatment and have agreed a loop transverse colostomy done under local with sedation, this is the most reasonable option considering patient comorbidities, I discusses with the Dr. Marrero, general surgeon today and plan to do surgery on Thursday patient with acute on chronic kidney disease secondary to hypertension and vascular disease as well as current poor p.o. intake and dehydration patient being gently hydrated, patient with metabolic acidosis and being hydrated with sodium bicarb, her CO2 has improved however her sodium is rising, needle loom weaver and switched over the patient D5W, and today there is slight improvement in her sodium, patient underlying dementia unable to provide detailed review of symptom will continue to monitor and further recommendation to follow. 08/17/2021 Interval history: patient remains clinically stable unable to provide detailed review of symptom, patient's son had a concern the patient had upper extremity primary yesterday, I am not able to see any tremors at rest or intentional, will continue to monitor, today discussed with Dr. Marrero general surgeon patient is scheduled for a loop transverse colostomy done under local with sedation, will continue to monitor and follow-up. (2) Acute on chronic kidney failure: Code(s): N17.9 - Acute kidney failure, unspecified; N18.9 - Chronic kidney disease, unspecified Status: Acute Assessment and Plan: BUN Creatine >120/10.50, trending down 135/5.40 Renal ultrasound-Bilateral renal thinning and atrophy consult Nephrology thank you for your recommendations lactated Ringer's discontinued Bicarb running at this time She is probably dehydrated as well Trend labs (3) Compression fracture: Status: Acute Assessment and Plan: According to the son the [facility] a [facility] Compression fracture noted on the CT Comfort and supportive care (4) Dementia: Code(s): F03.90 - Unspecified dementia without behavioral disturbance Status: Chronic Assessment and Plan: Continue with donepezil and Namenda (5) Hypertension: Code(s): I10 - Essential (primary) hypertension Status: Chronic Assessment and Plan: Current BP is 1
[2021-08-18] MEDS: DEXTROSE 5% 1,000 ML 1,000 ML 75 ML IV CONT (18:04)
--- NOTE | 2021-08-18 19:57 | PM.PNGS ---
Progress Note: A&P Assessment and Plan (1) Acute on chronic kidney failure: Code(s): N17.9 - Acute kidney failure, unspecified; N18.9 - Chronic kidney disease, unspecified Status: Acute (2) Diverticulitis: Onset Date: Unknown Code(s): K57.92 - Diverticulitis of intestine, part unspecified, without perforation or abscess without bleeding Status: Chronic Assessment and Plan: CT Yogi shows wall thickening of the sigmoid colon but no extra colonic abscess or gas. (3) Colovesical fistula: Onset Date: Unknown Code(s): N32.1 - Vesicointestinal fistula Status: Acute Assessment and Plan: Definite diagnosis is now made by the Gastrografin enema. Please see the radiology result above under data . Subsequently I discussed the result with the patient's son and discussed possible solutions. One option would include a transverse loop colostomy which would divert the fecal stream and not be a severe physiologic insult to the patient as far as surgical intervention he thinks this is a good idea and I have therefore discussed with Dr. Javed who feels that she would benefit by having continued medical care as long she is on antibiotics over the weekend to improve her sodium and continue to approve her kidney function. Therefore, she was scheduled to have a loop transverse colostomy done under local with sedation in the afternoon of Thursday. ( I did discuss other options with him. Doing nothing more will continue to lead to urine tract infections and probable sepsis and she probably will deteriorate. Doing more aggressive therapy such as a bigger surgery may lead to heart attack, stroke, pneumonia,or other problems in view of it being deeper abdominal surgery such as a left colon resection with attempted takedown of the colovesical fistula and left-sided colostomy. Since patient's renal function has been getting better the last 4 days and it continues to get better we will proceed with plans for a diverting transverse loop colostomy in the upper midline. Patient is already known to be somewhat incontinent and after thorough discussion patient's son feels that this is probably very reasonable since the can be done under very light general anesthesia or perhaps sedation with me placing local anesthetic. Would try to bring up the colon put a bar under it divide the anterior half making a double-barrel ostomy. I have discussed this with the ostomy nurses who will marked the patient Thursday morning and the patient is tentatively scheduled to have it done Thursday afternoon. In the meantime Dr. Javed has continued working on trying to bring her renal function to better stead and also work on her electrolytes because she had Hypernatremia. These things have all improved over the weekend. Per patient's nurse she continues to have fairly loose stools. There were at least 4 today between 7:00 a.m. and when I saw her. she states patient also does not seem to be having any trouble swallowing. She swells her amend the another pills okay. She was on a full liquid diet including some compact nutritional support. She will then be NPO at midnight tonight. Patient still does not know that she has the stools and does not call the nurses. This is why her skin of the perineal area is excoriated. Nurses are continuing to check her frequently and apply appropriate cream to help protect the skin in the area. (4) Hypertension: Code(s): I10 - Essential (primary) hypertension Status: Chronic Assessment and Plan: As per hospitalist (5) Compression fracture: Status: Acute (6) Diastolic congestive heart failure: Code(s): I50.30 - Unspecified diastolic (congestive) heart failure Status: Chronic Assessment and Plan: electrolytes and complain a function improving which should possibly help this some. (7) PRUDENCE (acute kidney injury): Code(s): N17.9 - Acute
[2021-08-18] MEDS: MIRTAZAPINE 15 MG TABLET BY MOUTH (20:12)
[2021-08-19] VITALS (17 sets, daily range): BP systolic 115–147; BP diastolic 51–75; PULSE 51–73; RESP 12–20; TEMP 35.6–37.1; O2SAT 91–100
[2021-08-19] MEDS: metroNIDAZOLE 500 MG/ISO 100ML 500 MG/100 ML BAG 100 MG IVPB ×3 (04:41→20:40)
[2021-08-19 06:45] LABS: Hematocrit 29.1 % (37.0-47.0); Mean Corpuscular HGB Conc 30.9 g/dl (32-36); Mean Corpuscular Hemoglobin 29.9 pg (26-34); Mean Corpuscular Volume 96.7 fl (80-100); Mean Platelet Volume 11.3 fl (7.4-10.4); Platelet Count Result 200 k/mm3 (150-375); Red Blood Count 3.01 M/mm3 (4.2-5.4); Red Cell Distribution Width 12.2 % (11.5-14.5); White Blood Count 6.9 K/mm3 (4.5-10.0)
[2021-08-19 06:50] LABS: Albumin Level 2.6 g/dL (3.5-5.1); Anion Gap 4 mmol/L (8-16); Blood Urea Nitrogen 32 mg/dL (7-17); Calcium 7.7 mg/dL (8.4-10.2); Carbon Dioxide 29 mmol/L (22-30); Chloride 105 mmol/L (98-107); Estimated CRCL calculation 39 ml/min; Estimated Glomerular Filt Rate 37; Glucose 94 mg/dL (65-110); Magnesium 1.6 mg/dL (1.6-2.3); Phosphorus 2.5 mg/dL (2.5-4.5); Potassium 3.1 mmol/L (3.4-5.0); Sodium 138 mmol/L (137-145)
[2021-08-19 07:25] LABS: Carcinoembryonic Antigen 10.8 ng/mL (0.0-3.0)
[2021-08-19] MEDS: KCL 40 MEQ/WATER 100 ML 100 ML 25 ML IVPB (08:59)
[2021-08-19] MEDS: MEMANTINE 5 MG TABLET PO ×2 (08:59→17:00)
[2021-08-19] MEDS: SERTRALINE HCL 50 MG TABLET PO (08:59)
--- NOTE | 2021-08-19 09:09 | PCWOUND ---
WOCN NOTE Marked abdomen 11 cm above umbilicus for loop ostomy placement site. when patient sits up thick fold of tissue at 10 to 11 cm dionna. placed black marker X at suggested site, covered with tegaderm dressing.
--- NOTE | 2021-08-19 11:19 | PCNFU ---
Nutrition Follow-Up Complete: Inadequate Oral intake as related to dementia/UTI as evidenced by poor po intake reported. Goal: Meet estimated nutritional needs Patient has limited progress towards goal. Pt current nutrition is NPO. Last recorded weight is 102 kg, no new weight to report. Bowel Motility:+BM 08/19 Labs Reviewed:BUN 32, GFR 37, K 3.1, Hct 29.1,Hgb 9.0 Meds Noted:Remeron, Zoloft, Flagyl, Rocephin Skin:WNL Additional Notes: Patient is currently NPO for procedure today-colostomy. Oral Intake remains poor 0-10% documented. Recommend advancing diet as tolerated per MD orders with ensure compact BID providing an additional 220 kcals and 9 gms protein. Monitoring: Will monitor every 3 days.
[2021-08-19] MEDS: ENOXAPARIN 40 MG/0.4 ML SYRINGE SUB-Q (11:49)
--- NOTE | 2021-08-19 12:39 | PM.IMPN ---
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 patient is seen by General surgery, and the surgeon spoke with the patient's son gave option for the treatment and have agreed a loop transverse colostomy done under local with sedation, this is the most reasonable option considering patient comorbidities, patient with acute on chronic kidney disease secondary to hypertension and vascular disease as well as current poor p.o. 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 patient is seen by General surgery, and the surgeon spoke with the patient's son gave option for the treatment and have agreed a loop transverse colostomy done under local with sedation, this is the most reasonable option considering patient comorbidities, I discusses with the Dr. Marrero, general surgeon today and plan to do surgery on Thursday patient with acute on chronic kidney disease secondary to hypertension and vascular disease as well as current poor p.o. intake and dehydration patient being gently hydrated, patient with metabolic acidosis and being hydrated with sodium bicarb, her CO2 has improved however her sodium is rising, superintendent institution and switched over the patient D5W, and today there is slight improvement in her sodium, patient underlying dementia unable to provide detailed review of symptom will continue to monitor and further recommendation to follow. 08/18/2021 Interval history: patient remains clinically stable unable to provide detailed review of symptom, patient's son had a concern the patient had upper extremity primary yesterday, I am not able to see any tremors at rest or intentional, will continue to monitor, today discussed with Dr. Marrero general surgeon patient is scheduled for a loop transverse colostomy done under local with sedation, will continue to monitor and follow-up. 08/19/2021 Interval History: patient remains clinically stable has no new complaints, patient is scheduled for a loop transverse colostomy done under local with sedation, will continue to monitor and follow-up. will follow-up and further recommendation to follow (2) Acute on chronic kidney failure: Code(s): N17.9 - Acute kidney failure, unspecified; N18.9 - Chronic kidney disease, unspecified Status: Acute Assessment and Plan: BUN Creatine >120/10.50, trending down 135/5.40 Renal ultrasound-Bilateral renal thinning and atrophy consult Nephrology thank you for your recommendations lactated Ringer's discontinued Bicarb running at this time She is probably dehydrated as well Trend labs (3) Compression fracture: Status: Acute Assessment and Plan: According to the son the patient had a fall at the correction Compression fracture noted on the CT Comfort and supportive care (4) Dementia: Code(s): F03.90 - Unspecified dementia
--- NOTE | 2021-08-19 12:53 | WPDHPUPDATE1 ---
History and Physical Update Update Date/Time: 08/19/21 12:53 History and Physical has been reviewed, including an updated exam of the patient. There are NO changes in the patient's condition. Risks, benefits, and alternatives have been discussed and questions answered. Patient agrees to proceed with procedure.
[2021-08-19] MEDS: LACTATED RINGERS 1,000 ML 30 ML IV CONT ×2 (12:55→15:07)
--- NOTE | 2021-08-19 12:55 | WPDANESEPPF ---
Anes - Initial Pre Proc Eval Procedure: Operation Date: 08/19/21 15:00 Proposed Procedures p Loop Transverse Colostomy - Romaine Marrero MD Date/Time: 08/19/21 12:55 Surgeon: Yuan Martin MD Pre Op Diagnosis: uremia/uti/dementia Patient Data Age: 76 Gender: F Height: 1.73 m Weight: 102 kg Last Vital Signs Temp 97.1 F L 08/19/21 12:36 Pulse 66 08/19/21 12:36 Resp 20 08/19/21 12:36 BP 145/61 H 08/19/21 12:36 Pulse Ox 95 08/19/21 12:36 Allergies Allergy/AdvReac Type Severity Reaction Status Date / Time fluoxetine [From Prozac] Allergy Unknown Verified 08/19/21 12:42 sulfamethoxazole Allergy Unknown Verified 08/19/21 12:42 [From Sulfamethoxazole-Trimethoprim] trimethoprim Allergy Unknown Verified 08/19/21 12:42 [From Sulfamethoxazole-Trimethoprim] Home Medications Medication Instructions Recorded Confirmed Type donepezil 10 mg PO HS 01/16/21 08/13/21 History furosemide 40 mg PO DAILY 01/16/21 08/13/21 History lidocaine [Lidocaine Pain Relief] See Rx Instructions .ROUTE .COMPLEX 01/16/21 08/13/21 History lisinopril 40 mg PO DAILY 01/16/21 08/13/21 History memantine 5 mg PO BID 01/16/21 08/13/21 History mirtazapine 15 mg BYMOUTH HS 01/16/21 08/13/21 History ondansetron 4 mg PO Q6H PRN 01/16/21 08/13/21 History sertraline 50 mg PO DAILY 01/16/21 08/13/21 History spironolactone 50 mg PO DAILY 01/16/21 08/13/21 History ibuprofen 600 mg PO TID PRN 08/13/21 08/13/21 History Laboratory Tests 08/19/21 08/19/21 08/19/21 06:24 06:24 06:24 WBC 6.9 K/mm3 K/mm3 (4.5-10.0) RBC 3.01 M/mm3 L M/mm3 (4.2-5.4) Hgb 9.0 g/dL L g/dL (12.0-15.0) Hct 29.1 % L % (37.0-47.0) MCV 96.7 fl fl (80-100) MCH 29.9 pg pg (26-34) MCHC 30.9 g/dl L g/dl (32-36) RDW 12.2 % % (11.5-14.5) Plt Count 200 k/mm3 k/mm3 (150-375) MPV 11.3 fl H fl (7.4-10.4) Sodium 138 mmol/L mmol/L (137-145) Potassium 3.1 mmol/L L mmol/L (3.4-5.0) Chloride 105 mmol/L mmol/L (98-107) Carbon Dioxide 29 mmol/L mmol/L (22-30) Anion Gap 4 mmol/L L mmol/L (8-16) BUN 32 mg/dL H D mg/dL (7-17) Creatinine 1.40 mg/dL H mg/dL (0.7-1.0) Estim Creat Clear Calc 39 ml/min ml/min Estimated GFR 37 L (59 - ) Glucose 94 mg/dL mg/dL (65-110) Calcium 7.7 mg/dL L mg/dL (8.4-10.2) Phosphorus 2.5 mg/dL mg/dL (2.5-4.5) Magnesium 1.6 mg/dL mg/dL (1.6-2.3) Albumin 2.6 g/dL L g/dL (3.5-5.1) Carcinoembryonic Ag 10.8 ng/mL H ng/mL (0.0-3.0) Blood Type A Negative Antibody Screen Negative Patient hx anesthesia problems: none Family hx anesthesia problems: none Results Review: All pre-operative results and documents have been reviewed as part of the pre-operative evaluation. [facility] Past Medical History Medical History Chronic renal failure Dementia Diastolic congestive heart failure Diverticulitis Per the son, the patient has been treated for diveriticulitis at least 1-2 times in the past but has never required surgical intervention. Hyperlipidemia Hypertension Major depressive disorder Surgical History Surgical History H/O dilation and curettage H/O left knee surgery History of appendectomy History of tonsillectomy History of total abdominal hysterectomy and bilateral salpingo-oophorectomy Family History Family History Mother Aspiration pneumonia Father Malignant neoplasm of prostate Dementia Social History Social History Social History: The patient resides at [facility]. She
[2021-08-19] MEDS: KETOROLAC 15 MG/ML VIAL (*BKC) IV PUSH (13:07)
[2021-08-19] MEDS: ACETAMINOPHEN 500 MG TABLET 1000 MG PO (13:08)
[2021-08-19] MEDS: LIDO 2%/EPINEPHRINE 1:100,000 20 ML VIAL INFILTRATE (13:46)
--- NOTE | 2021-08-19 14:53 | PCSTNOTE ---
Attempted to see the patient in the afternoon. She was getting a procedure downstairs per her family member's report. Will attempt tx tomorrow.
--- NOTE | 2021-08-19 15:10 | W.PM.PROC2 ---
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 Subsequently she had a Gastrografin enema showed which proved that she did have a colovesical fistula and stricture of the sigmoid colon in the mid to distal sigmoid area. Therefore, since the patient has some element of dementia her POA is her son. We had a thorough discussion and we included her as much as we could. I think the best route was to do a diverting transverse loop colostomy to divert the fecal stream to allow the fistula perhaps to close. However, I will discuss with her son that preop labs showed that the CEA is fairly high. Therefore we may want to consider at some point doing a flexible sigmoidoscopy to that point and doing some biopsies if there is a mass. As far as I can tell from readings from the CT scan she had originally there is no sign of metastasis or suspicious lesions in the liver. Findings Normal appearing transverse colon Description of Procedure The patient was brought the operating room and after induction of adequate general LMA general anesthesia she was placed in the supine position. Dawkins catheter was already in place. The entire mid upper abdomen was prepped and draped in usual sterile fashion. The marking by the preoperative ostomy nurses was noted but it was noted to be only 2 cm below the level of the tip of the xiphisternum. Therefore, I had to decide to place this slightly lower than they marked. Time-out was performed with the operative team. Patient and planned procedure confirmed. Following this appropriate prep and drape was completed and I measured a 5 cm vertical midline incision. I made this incision with a 10 blade knife and carried it down through the fairly thick subcutaneous tissues. I then found the midline fascia and incised this and then carefully teased our way through to the peritoneum and into the intraperitoneal space dissecting carefully with a hemostat and forceps. Directly below this I was able to find the transverse colon. I grabbed it with a Lien and carefully freed up the surrounding fatty tissue and omentum using a hemostat to carefully guide the dissection with Bovie cautery. I kept gently pulling this up into the wound and eventually was able to put my forefinger and thumb around the mid transverse colon. Getting all the way around it we carefully incised on the mesenteric border of the colon. I placed a Peon from top underneath the loop of colon and we placed a ostomy bar underneath the loop of the transverse colon. This was left in a vertical position underneath the colon and the colon was nicely freed up on each side such that there was no tension. The bar was then sutured with 2-0 silk sutures to the skin on either side both inferiorly and superiorly preventing it from dislodging. Following this both on the right lateral side and the left lateral side a 3-0 Vicryl suture was placed and left long such that we could invert the edges of the ostomy. Prior to suturing the above-listed bar we did go back in at both above and below the colon and place 1 coated 2- 0 Vicryl suture to approximate the midline fascia for about a cm both above and below the colon to try to prevent a peristomal hernia. Following this the 10 blade knife was used to make a small hole in the anterior surface of the transverse colon and then the Bovie cautery was used to extend this both cephalad and inferiorly thereby opening the anterior half of the mid Transverse colon and then the ostomy was matured by inverting the edges to the skin and the bod
[2021-08-19 15:16] LABS: Glucose Point of Care 90 mg/dl (65-105)
--- NOTE | 2021-08-19 15:43 | SUR.PHASEI ---
1540 - pt's diaper soiled. skin care provided
--- NOTE | 2021-08-19 16:26 | PM.PNNEP ---
Progress Note: A&P Assessment and Plan (1) PRUDENCE (acute kidney injury): Code(s): N17.9 - Acute kidney failure, unspecified Status: Acute Assessment and Plan: resolving if not resolved due to a combination of dehydration/volume depletion and hypotension possibly worsened by NSAID use evaluation to date: urine electrolytes are pre renal urinalysis shows/suggestive of UTI ultrasound shows bilateral renal thinning and atrophy but no acute issues continue supportive therapy (2) Stage 3b chronic kidney disease: Code(s): N18.32 - Chronic kidney disease, stage 3b Status: Chronic Assessment and Plan: baseline creatinine runs around 1.5 - 1.7mg/dl likely due to hypertension, vascular disease, age (3) Colovesical fistula: Onset Date: ~08/2021 Code(s): N32.1 - Vesicointestinal fistula Status: Acute Assessment and Plan: Surgery following s/p diverting transverse loop colostomy continue post-op care (4) Dementia: Code(s): F03.90 - Unspecified dementia without behavioral disturbance Status: Chronic Assessment and Plan: appears at baseline follow mentation (5) Hypertension: Code(s): I10 - Essential (primary) hypertension Status: Chronic Assessment and Plan: doing reasonably well follow trend of hemodynamics Will continue to follow. Subjective Date/time seen: 08/19/21 16:26 Chart reviewed -- assuming care from Dr. Javed; s/p diverting transverse loop colostomy earlier today by Dr. Marrero and appears to have tolerated the procedure reasonably well; no other acute issues or complaints voiced; no events overnight or earlier this AM. Exam Narrative: General: WD/WN female in NAD Heart: normal S1 and S2; no rub Lungs: clear to auscultation Abdomen: ostomy noted and abdominal dressings in place Extremities: no cyanosis or clubbing; no edema Skin: warm and dry Objective Data Vital Signs Vital Signs: Vital Signs Temp Pulse Resp BP Pulse Ox 08/19/21 16:15 35.6 C L 58 L 18 120/57 L 91 08/19/21 16:00 35.6 C L 63 16 128/66 95 08/19/21 15:43 67 12 130/65 95 08/19/21 15:30 64 14 142/62 H 96 08/19/21 15:20 65 14 139/69 100 08/19/21 15:07 37.1 C 73 16 134/74 100 08/19/21 12:36 36.2 C L 66 20 145/61 H 95 08/19/21 12:00 65 08/19/21 08:00 64 08/19/21 06:00 36.2 C L 67 18 143/61 H 97 08/19/21 04:00 69 08/19/21 00:00 66 08/18/21 20:28 36.1 C L 65 14 115/45 L 96 08/18/21 20:00 65 14 96 Intake/Output Intake/Output: Intake & Output 08/16/21 08/17/21 08/18/21 08/19/21 23:59 23:59 23:59 23:59 Intake Total 3040 2650 2575 350 Output Total 1450 1950 1075 1395 Balance 9495 229 9809 -1045 Meds/Results Medications: Active Medications Generic Name Dose Route Start Last Admin Trade Name Freq PRN Reason Stop Dose Admin Acetaminophen 1,000 mg 08/19/21 15:07 Acetaminophen 500 Mg Tablet PO Q6H PRN Mild Pain (1-3) or Fever Hydrocodone Bitart/Acetaminophen 1 tab 08/19/21 15:07 Hydrocodone/Acetaminophen (*Crx) 5-325 Mg Tablet PO Q6H PRN Pain Rated 4-6 Enoxaparin Sodium 40 mg 08/17/21 09:00 08/19/21 11:49 Enoxaparin 40 Mg/0.4 Ml Syringe SUB-Q 40 mg DAILY VENU Administration Fentanyl Citrate 25 mcg 08/19/21 12:58 Fentanyl Citrate Inj (*Crx) 100 Mcg/2 Ml Vial IV PUSH Q2M PRN Pain Ceftriaxone Sodium/Dextrose 1 gm in 50 mls @ 100 mls/hr 08/14/21 13:00 08/19/21 13:33 Rocephin 1 Gm/D5w 50 Ml IVPB Infused Q24H VENU Infusion Metronidazole 500 mg in 100 mls @ 100 mls/hr 08/13/21 20:00 08/19/21 13:00 Flagyl 500 Mg/Iso Soln 100 Ml IVPB Infused Q8H VENU Infusion Dextrose/Sodium Chloride 1,000 mls @ 75 mls/hr 08/19/21 16:15 08/19/21 16:58 Dextrose 5% Sodium Chloride 0.45% IV CONT 75 mls/hr .[id number] VENU Administration Memantine 5 mg 12/
[2021-08-19] MEDS: DEXTROSE 5%/0.45% SOD CHL 1,000 ML 75 ML IV CONT (16:58)
[2021-08-19] MEDS: polyethylene glycoL 3350 17 GM POWD.PACK PO (17:00)
[2021-08-19] MEDS: MIRTAZAPINE 15 MG TABLET BY MOUTH (20:41)
[2021-08-20] VITALS (9 sets, daily range): BP systolic 114–122; BP diastolic 50–77; PULSE 60–78; RESP 16; TEMP 36.2–36.4; O2SAT 95–96
[2021-08-20] MEDS: metroNIDAZOLE 500 MG/ISO 100ML 500 MG/100 ML BAG 100 MG IVPB ×3 (03:34→20:21)
[2021-08-20 06:01] LABS: Hematocrit 29.2 % (37.0-47.0); Hemoglobin 9.1 g/dL (12.0-15.0); Mean Corpuscular HGB Conc 31.2 g/dl (32-36); Mean Corpuscular Hemoglobin 30.7 pg (26-34); Mean Corpuscular Volume 98.6 fl (80-100); Mean Platelet Volume 11.7 fl (7.4-10.4); Platelet Count Result 213 k/mm3 (150-375); Red Blood Count 2.96 M/mm3 (4.2-5.4); Red Cell Distribution Width 11.9 % (11.5-14.5)
[2021-08-20 06:13] LABS: Albumin Level 2.5 g/dL (3.5-5.1); Anion Gap 5 mmol/L (8-16); Blood Urea Nitrogen 35 mg/dL (7-17); Calcium 7.6 mg/dL (8.4-10.2); Carbon Dioxide 27 mmol/L (22-30); Chloride 107 mmol/L (98-107); Estimated CRCL calculation 34 ml/min; Estimated Glomerular Filt Rate 31; Glucose 120 mg/dL (65-110); Magnesium 1.7 mg/dL (1.6-2.3); Phosphorus 3.8 mg/dL (2.5-4.5); Sodium 139 mmol/L (137-145)
--- NOTE | 2021-08-20 07:31 | WPDANESPN ---
Anes - Prog Note Post-Op Date/Time: 08/20/21 07:31 Cardiovascular status: normal Respiratory status: normal Airway patency: baseline Mental status: baseline Post-Op hydration status: normal Vital Signs: Last Vital Signs Temp 36.2 C L 08/20/21 03:31 Pulse 61 08/20/21 04:00 Resp 16 08/20/21 03:31 BP 118/77 08/20/21 03:31 Pulse Ox 95 08/20/21 03:31 Pain Score (VAS): 0 I/O: Intake & Output 08/19/21 08/19/21 08/20/21 15:59 23:59 07:59 Intake Total 250 100 100 Output Total 795 75 250 Balance -545 25 -150 Laboratory Tests 08/20/21 05:17 08/20/21 05:17 08/19/21 08/20/21 08/20/21 15:14 05:17 05:17 WBC 8.0 RBC 2.96 L Hgb 9.1 L Hct 29.2 L MCV 98.6 MCH 30.7 MCHC 31.2 L RDW 11.9 Plt Count 213 MPV 11.7 H Sodium 139 Potassium 4.0 Chloride 107 Carbon Dioxide 27 Anion Gap 5 L BUN 35 H Creatinine 1.60 H Estim Creat Clear Calc 34 Estimated GFR 31 L Glucose 120 H POC Capillary Glucose 90 Calcium 7.6 L Phosphorus 3.8 Magnesium 1.7 Albumin 2.5 L Post-procedural complaints: none Patient Feedback: Patient satisfied with anesthetic care.
[2021-08-20] MEDS: MEMANTINE 5 MG TABLET PO ×2 (09:25→18:29)
[2021-08-20] MEDS: ENOXAPARIN 40 MG/0.4 ML SYRINGE SUB-Q (09:25)
[2021-08-20] MEDS: SERTRALINE HCL 50 MG TABLET PO (09:25)
[2021-08-20] MEDS: polyethylene glycoL 3350 17 GM POWD.PACK PO ×2 (09:25→18:29)
[2021-08-20] MEDS: DEXTROSE 5%/0.225% SOD CHL 1,000 ML 75 ML IV CONT (09:26)
--- NOTE | 2021-08-20 10:59 | PM.PNNEP ---
Progress Note: A&P Assessment and Plan (1) PRUDENCE (acute kidney injury): Code(s): N17.9 - Acute kidney failure, unspecified Status: Acute Assessment and Plan: resolving if not resolved due to a combination of dehydration/volume depletion and hypotension possibly worsened by NSAID use evaluation to date: urine electrolytes are pre renal urinalysis shows/suggestive of UTI ultrasound shows bilateral renal thinning and atrophy but no acute issues continue supportive therapy (2) Stage 3b chronic kidney disease: Code(s): N18.32 - Chronic kidney disease, stage 3b Status: Chronic Assessment and Plan: baseline creatinine runs around 1.5 - 1.7mg/dl likely due to hypertension, vascular disease, age (3) Colovesical fistula: Onset Date: ~08/2021 Code(s): N32.1 - Vesicointestinal fistula Status: Acute Assessment and Plan: Surgery following s/p diverting transverse loop colostomy advance diet as tolerated continue post-op care (4) Dementia: Code(s): F03.90 - Unspecified dementia without behavioral disturbance Status: Chronic Assessment and Plan: appears at baseline follow mentation (5) Hypertension: Code(s): I10 - Essential (primary) hypertension Status: Chronic Assessment and Plan: doing reasonably well follow trend of hemodynamics Will continue to follow. Subjective Date/time seen: 08/20/21 10:59 Tolerating surgery yesterday and appears well overall; no acute complaints voiced at the time of my visit; pain control appears satisfactory; no issues/events overnight or earlier this morning. Exam Narrative: General: WD/WN female in NAD Heart: normal S1 and S2; no rub Lungs: clear to auscultation Abdomen: ostomy noted and abdominal dressings in place Extremities: no cyanosis or clubbing; no edema Skin: warm and dry Objective Data Vital Signs Vital Signs: Vital Signs Temp Pulse Resp BP Pulse Ox 08/20/21 04:00 61 08/20/21 03:31 36.2 C L 78 16 118/77 95 08/20/21 00:00 62 08/19/21 23:38 36.1 C L 61 16 147/69 H 94 08/19/21 20:44 36.0 C L 65 16 143/75 H 98 08/19/21 20:00 51 L 08/19/21 17:45 35.6 C L 52 L 18 124/51 L 96 08/19/21 16:45 35.6 C L 58 L 18 115/55 L 96 08/19/21 16:15 35.6 C L 58 L 18 120/57 L 91 08/19/21 16:00 35.6 C L 63 16 128/66 95 08/19/21 15:43 67 12 130/65 95 08/19/21 15:30 64 14 142/62 H 96 08/19/21 15:20 65 14 139/69 100 08/19/21 15:07 37.1 C 73 16 134/74 100 08/19/21 12:36 36.2 C L 66 20 145/61 H 95 08/19/21 12:00 65 Intake/Output Intake/Output: Intake & Output 08/17/21 08/18/21 08/19/21 08/20/21 23:59 23:59 23:59 23:59 Intake Total 2650 2575 450 220 Output Total 1950 1075 1420 350 Balance 700 1500 -970 -130 Meds/Results Medications: Active Medications Generic Name Dose Route Start Last Admin Trade Name Freq PRN Reason Stop Dose Admin Acetaminophen 1,000 mg 08/19/21 15:07 Acetaminophen 500 Mg Tablet PO Q6H PRN Mild Pain (1-3) or Fever Hydrocodone Bitart/Acetaminophen 1 tab 08/19/21 15:07 Hydrocodone/Acetaminophen (*Crx) 5-325 Mg Tablet PO Q6H PRN Pain Rated 4-6 Enoxaparin Sodium 40 mg 08/17/21 09:00 08/20/21 09:25 Enoxaparin 40 Mg/0.4 Ml Syringe SUB-Q 40 mg DAILY VENU Administration Fentanyl Citrate 25 mcg 08/19/21 12:58 Fentanyl Citrate Inj (*Crx) 100 Mcg/2 Ml Vial IV PUSH Q2M PRN Pain Ceftriaxone Sodium/Dextrose 1 gm in 50 mls @ 100 mls/hr 08/14/21 13:00 08/19/21 13:33 Rocephin 1 Gm/D5w 50 Ml IVPB Infused Q24H VENU Infusion Metronidazole 500 mg in 100 mls @ 100 mls/hr 08/13/21 20:00 08/20/21 04:34 Flagyl 500 Mg/Iso Soln 100 Ml IVPB Infused Q8H VENU Infusion Dextrose/Sodium Chloride 1,000 mls @ 75 mls/hr 08/20/21 09:15 08/20/21 09:26 Dextrose 5%/0.225% Sod Chl IV CONT
--- NOTE | 2021-08-20 11:05 | P.PNIM_ITS ---
Progress Note: A&P Assessment and Plan (1) Diverticulitis: Onset Date: Unknown Code(s): K57.92 - Diverticulitis of intestine, part unspecified, without perforation or abscess without bleeding Status: Chronic Assessment and Plan: * Abd/Pel CT found wall thickening of the sigmoid colon, likely chronic diverticulitis associated with: Was I Koul fistula * Continue IV antibiotics * Blood cultures Showed no growth today * Surgery recommendation appreciated status post diverting colostomy on 08/19/2021 (2) Acute on chronic kidney failure: Code(s): N17.9 - Acute kidney failure, unspecified; N18.9 - Chronic kidney disease, unspecified Status: Acute Assessment and Plan: * BUN Creatine >120/10.50, trending down * Renal ultrasound-Bilateral renal thinning and atrophy * consult Nephrology thank you for your recommendations * Treated with IV fluid * She is probably dehydrated as well (3) Compression fracture: Status: Acute Assessment and Plan: * According to the son the patient had a fall at the long term * Compression fracture noted on the CT * Comfort and supportive care (4) Dementia: Code(s): F03.90 - Unspecified dementia without behavioral disturbance Status: Chronic Assessment and Plan: * Continue with donepezil and Namenda (5) Hypertension: Code(s): I10 - Essential (primary) hypertension Status: Chronic Assessment and Plan: * Improved * Hold lisinopril due to renal function * Continue to monitor * Trend BP * Adjust medications as needed (6) Diastolic congestive heart failure: Code(s): I50.30 - Unspecified diastolic (congestive) heart failure Status: Chronic Assessment and Plan: * Monitor daily weight * repeat echo * No history noted * Daily evaluation for diuresis (7) Major depressive disorder: Code(s): F32.9 - Major depressive disorder, single episode, unspecified Status: Chronic Assessment and Plan: * Continue with sertraline (8) Hyperlipidemia: Code(s): E78.5 - Hyperlipidemia, unspecified Status: Chronic Assessment and Plan: * Continue with atorvastatin (9) Acute metabolic encephalopathy: Onset Date: ~08/2021 Code(s): G93.41 - Metabolic encephalopathy Status: Acute Assessment and Plan: * A&O X1 at baseline * Probably from acute renal dysfunction * Could also be from dehydration or UTI * urine culture showed contamination, repeat UA with culture * continue Rocephin for now * seems to be getting better patient is more responsive but still not A and O x1 * Continue with bicarb drip (10) Colovesical fistula: Onset Date: Unknown Code(s): N32.1 - Vesicointestinal fistula Status: Acute Assessment and Plan: * Surgery consult * Status post transfer colon Diverting colostomy (11) Abnormal urinalysis: Code(s): R82.90 - Unspecified abnormal findings in urine Status: Acute Assessment and Plan: * Ua found Red turbid urine, blood 2+, bilirubin 1+, Leukocyte esterase 1+, WBC >75, Ur Bacteria 4+ * Ceftriaxone started * Urine culture showed contamination * Repeat UA with culture * [place] antibiotics to culture results Subjective Date/time seen: 08/20/21 11:0
--- NOTE | 2021-08-20 11:05 | PM.IMPN ---
Progress Note: A&P Assessment and Plan (1) Diverticulitis: Onset Date: Unknown Code(s): K57.92 - Diverticulitis of intestine, part unspecified, without perforation or abscess without bleeding Status: Chronic Assessment and Plan: Abd/Pel CT found wall thickening of the sigmoid colon, likely chronic diverticulitis associated with: Was I Koul fistula Continue IV antibiotics Blood cultures Showed no growth today Surgery recommendation appreciated status post diverting colostomy on 08/19/2021 (2) Acute on chronic kidney failure: Code(s): N17.9 - Acute kidney failure, unspecified; N18.9 - Chronic kidney disease, unspecified Status: Acute Assessment and Plan: BUN Creatine >120/10.50, trending down Renal ultrasound-Bilateral renal thinning and atrophy consult Nephrology thank you for your recommendations Treated with IV fluid She is probably dehydrated as well (3) Compression fracture: Status: Acute Assessment and Plan: According to the son the patient had a fall at the custodial Compression fracture noted on the CT Comfort and supportive care (4) Dementia: Code(s): F03.90 - Unspecified dementia without behavioral disturbance Status: Chronic Assessment and Plan: Continue with donepezil and Namenda (5) Hypertension: Code(s): I10 - Essential (primary) hypertension Status: Chronic Assessment and Plan: Improved Hold lisinopril due to renal function Continue to monitor Trend BP Adjust medications as needed (6) Diastolic congestive heart failure: Code(s): I50.30 - Unspecified diastolic (congestive) heart failure Status: Chronic Assessment and Plan: Monitor daily weight repeat echo No history noted Daily evaluation for diuresis (7) Major depressive disorder: Code(s): F32.9 - Major depressive disorder, single episode, unspecified Status: Chronic Assessment and Plan: Continue with sertraline (8) Hyperlipidemia: Code(s): E78.5 - Hyperlipidemia, unspecified Status: Chronic Assessment and Plan: Continue with atorvastatin (9) Acute metabolic encephalopathy: Onset Date: ~08/2021 Code(s): G93.41 - Metabolic encephalopathy Status: Acute Assessment and Plan: A&O X1 at baseline Probably from acute renal dysfunction Could also be from dehydration or UTI urine culture showed contamination, repeat UA with culture continue Rocephin for now seems to be getting better patient is more responsive but still not A and O x1 Continue with bicarb drip (10) Colovesical fistula: Onset Date: Unknown Code(s): N32.1 - Vesicointestinal fistula Status: Acute Assessment and Plan: Surgery consult Status post transfer colon Diverting colostomy (11) Abnormal urinalysis: Code(s): R82.90 - Unspecified abnormal findings in urine Status: Acute Assessment and Plan: Ua found Red turbid urine, blood 2+, bilirubin 1+, Leukocyte esterase 1+, WBC >75, Ur Bacteria 4+ Ceftriaxone started Urine culture showed contamination Repeat UA with culture [place] antibiotics to culture results Subjective Date/time seen: 08/20/21 11:05 Interval history: Date/Time: 08/13/21 14:30 She does have a history of dementia. However the son tells me that she is usually more talkative than this. She is complaining of having discomfort to her buttocks. The son stated that the patient did have some diarrhea at the custodial. A Dawkins catheter was placed in the emergency room. The patient is draining wine colored urine. Her blood pressures have been low. The son stated that she is a DNI and that he would allow vasopressors and a central line. Patient has a previous history of having UTIs and the son stated that she is on prophylactic
[2021-08-20] MEDS: MIRTAZAPINE 15 MG TABLET BY MOUTH (20:22)
--- NOTE | 2021-08-20 22:09 | PM.PNGS ---
Progress Note: A&P Assessment and Plan (1) Colovesical fistula: Onset Date: ~08/2021 Code(s): N32.1 - Vesicointestinal fistula Status: Acute Assessment and Plan: I had a significant discussion with her son today. Our plan will be to possibly have her come back to see me next week for a check in the wound ostomy Center with our ostomy nurses the 1st postop check. Then perhaps 6 weeks later do a postop check in the GI lab and do a flexible sigmoidoscopy getting up to the Prieb of stenosis noted on recent Gastrografin study. This would allow possible biopsy case this is cancer I do suspect it may be in view of the fact that a carcino-Embryonic antigen test was quite high at 10. New with patient's I have discussed this yet (with the patient regard to the possibility of cancer). (2) Abnormal urinalysis: Onset Date: ~08/2021 Code(s): R82.90 - Unspecified abnormal findings in urine Status: Acute Assessment and Plan: Patient has been history of recurrent tract infections. This time we now have colonic diversion. Will plan on removing the current Dawkins catheter placed a new would day that she will be transferred to her next correction facility. (3) BMI 34.0-34.9,adult: Code(s): Z68.34 - Body mass index [BMI] 34.0-34.9, adult Status: Acute (4) Acute on chronic kidney failure: Onset Date: ~08/2021 Code(s): N17.9 - Acute kidney failure, unspecified; N18.9 - Chronic kidney disease, unspecified Status: Acute Assessment and Plan: see nephrology note please. Subjective Subjective Date/Time Seen: 08/20/21 22:09 Post Op day: 1 ( Status post diverting transverse loop colostomy) Patient reports: no new complaints, feels better and bowel movement ( definitely having watery stools through the ostomy and into the bag.) Interval history: The patient's nurse reports she is not having any nausea sees title tolerating a full liquid diet. Review of Systems Review of Systems: All systems reviewed & are unremarkable except as noted in HPI and below Constitutional: Constitutional: Reports as per HPI, Denies chills and Denies fever(s) Cardiovascular: Cardiovascular: Denies chest pain and Denies dyspnea Respiratory: Respiratory: Reports no additional respiratory complaints and Denies dyspnea Gastrointestinal: Gastrointestinal: Reports as per HPI and Denies bloating Musculoskeletal: Musculoskeletal: Reports no additional musculoskeletal complaints Neurologic: Denies memory loss Psychiatric: Psychiatric: Denies anxiety and Denies memory loss Exam Const: General: cooperative, comfortable, alert and awake Orientation/consciousness: patient oriented x3 HENMT: Head: normal to inspection Mouth: Yes moist mucous membranes Eyes: Sclera: sclerae normal Pupils: Equal, round and reactive pupils present Neck: Neck: normal visual inspection and no JVD Chest: Chest palpation & inspection: normal inspection of the chest Resp: Effort & Inspection: normal respiratory effort Auscultation: clear to auscultation bilaterally Cardio: Jugular venous distension: no JVD Rate: regular rate GI: Inspection: normal to inspection, non-distended and incision ( this is covered by the ostomy) GI Palp: Yes Soft to palpation Auscultation: normal bowel sounds Other: ostomy inspected appears pink and healthy. The nurse was change the bag when I was there is evening because it leaked inferiorly along the bar. Abdomen image: 1. Site of transverse loop ostomy Neuro: General: oriented to person Cranial nerves: Yes Equal, round and reactive pupils present Objective Data Vital Signs Vital Signs: Vital Signs - 24 hr 08/19/21 23:38 08/20/21 00:00 08/20/21 03:31 Temperature 36.1 C L 36.2 C L Pulse Rate 61 62 78 Respiratory Rate 16 16 Blood Pressure 147/69 H 118/77 Pulse Oximetry 94 95 08/20/21 04:00 08/20/21 08:00 08/20/21 12:00 Temperature
[2021-08-21] VITALS (8 sets, daily range): BP systolic 110–130; BP diastolic 47–69; PULSE 53–61; RESP 14–18; TEMP 35.7–36.6; O2SAT 97–98
[2021-08-21] MEDS: HYDROcodone/acetaminophen (*CRX) 5-325 MG TABLET 1 TAB PO (01:05)
[2021-08-21] MEDS: DEXTROSE 5%/0.225% SOD CHL 1,000 ML 75 ML IV CONT (03:55)
[2021-08-21] MEDS: metroNIDAZOLE 500 MG/ISO 100ML 500 MG/100 ML BAG 100 MG IVPB ×3 (03:56→20:27)
[2021-08-21] MEDS: ENOXAPARIN 40 MG/0.4 ML SYRINGE SUB-Q (07:59)
[2021-08-21] MEDS: MEMANTINE 5 MG TABLET PO ×2 (07:59→17:49)
[2021-08-21] MEDS: SERTRALINE HCL 50 MG TABLET PO (07:59)
[2021-08-21] MEDS: polyethylene glycoL 3350 17 GM POWD.PACK PO ×2 (07:59→17:49)
--- NOTE | 2021-08-21 10:21 | P.PNIM_ITS ---
Progress Note: A&P Assessment and Plan (1) Diverticulitis: Onset Date: Unknown Code(s): K57.92 - Diverticulitis of intestine, part unspecified, without perforation or abscess without bleeding Status: Chronic Assessment and Plan: * Abd/Pel CT found wall thickening of the sigmoid colon, likely chronic diverticulitis associated with: Was I Koul fistula * Continue IV antibiotics * Blood cultures Showed no growth today * Surgery recommendation appreciated status post diverting colostomy on 08/19/2021 (2) Acute on chronic kidney failure: Onset Date: ~08/2021 Qualifiers: Acute renal failure type: unspecified Chronic kidney disease stage: stage 5, not on chronic dialysis Qualified Code(s): N17.9 - Acute kidney failure, unspecified; N18.5 - Chronic kidney disease, stage 5 Code(s): N17.9 - Acute kidney failure, unspecified; N18.9 - Chronic kidney disease, unspecified Status: Chronic Assessment and Plan: * BUN Creatine >120/10.50, trending down * Renal ultrasound-Bilateral renal thinning and atrophy * consult Nephrology thank you for your recommendations * Treated with IV fluid * She is probably dehydrated as well (3) Compression fracture: Status: Acute Assessment and Plan: * According to the son the patient had a fall at the residential * Compression fracture noted on the CT * Comfort and supportive care (4) Dementia: Code(s): F03.90 - Unspecified dementia without behavioral disturbance Status: Chronic Assessment and Plan: * Continue with donepezil and Namenda (5) Hypertension: Code(s): I10 - Essential (primary) hypertension Status: Chronic Assessment and Plan: * Improved * Hold lisinopril due to renal function * Continue to monitor * Trend BP * Adjust medications as needed (6) Diastolic congestive heart failure: Code(s): I50.30 - Unspecified diastolic (congestive) heart failure Status: Chronic Assessment and Plan: * Monitor daily weight * repeat echo * No history noted * Daily evaluation for diuresis (7) Major depressive disorder: Code(s): F32.9 - Major depressive disorder, single episode, unspecified Status: Chronic Assessment and Plan: * Continue with sertraline (8) Hyperlipidemia: Code(s): E78.5 - Hyperlipidemia, unspecified Status: Chronic Assessment and Plan: * Continue with atorvastatin (9) Acute metabolic encephalopathy: Onset Date: ~08/2021 Code(s): G93.41 - Metabolic encephalopathy Status: Resolved Assessment and Plan: * A&O X1 at baseline * Probably from acute renal dysfunction * Could also be from dehydration or UTI * urine culture showed contamination, repeat UA with culture * continue Rocephin for now * seems to be getting better patient is more responsive but still not A and O x1 * Continue with bicarb drip (10) Colovesical fistula: Onset Date: ~08/2021 Code(s): N32.1 - Vesicointestinal fistula Status: Resolved Assessment and Plan: * Surgery consult * Status post transfer colon Diverting colostomy (11) Abnormal urinalysis: Onset Date: ~08/2021 Code(s): R82.90 - Unspecified abnormal findings in urine Status: Resolved Assessment and Plan: * Ua fou
--- NOTE | 2021-08-21 10:21 | PM.IMPN ---
Progress Note: A&P Assessment and Plan (1) Diverticulitis: Onset Date: Unknown Code(s): K57.92 - Diverticulitis of intestine, part unspecified, without perforation or abscess without bleeding Status: Chronic Assessment and Plan: Abd/Pel CT found wall thickening of the sigmoid colon, likely chronic diverticulitis associated with: Was I Koul fistula Continue IV antibiotics Blood cultures Showed no growth today Surgery recommendation appreciated status post diverting colostomy on 08/19/2021 (2) Acute on chronic kidney failure: Onset Date: ~08/2021 Qualifiers: Acute renal failure type: unspecified Chronic kidney disease stage: stage 5, not on chronic dialysis Qualified Code(s): N17.9 - Acute kidney failure, unspecified; N18.5 - Chronic kidney disease, stage 5 Code(s): N17.9 - Acute kidney failure, unspecified; N18.9 - Chronic kidney disease, unspecified Status: Chronic Assessment and Plan: BUN Creatine >120/10.50, trending down Renal ultrasound-Bilateral renal thinning and atrophy consult Nephrology thank you for your recommendations Treated with IV fluid She is probably dehydrated as well (3) Compression fracture: Status: Acute Assessment and Plan: According to the son the patient had a fall at the correction Compression fracture noted on the CT Comfort and supportive care (4) Dementia: Code(s): F03.90 - Unspecified dementia without behavioral disturbance Status: Chronic Assessment and Plan: Continue with donepezil and Namenda (5) Hypertension: Code(s): I10 - Essential (primary) hypertension Status: Chronic Assessment and Plan: Improved Hold lisinopril due to renal function Continue to monitor Trend BP Adjust medications as needed (6) Diastolic congestive heart failure: Code(s): I50.30 - Unspecified diastolic (congestive) heart failure Status: Chronic Assessment and Plan: Monitor daily weight repeat echo No history noted Daily evaluation for diuresis (7) Major depressive disorder: Code(s): F32.9 - Major depressive disorder, single episode, unspecified Status: Chronic Assessment and Plan: Continue with sertraline (8) Hyperlipidemia: Code(s): E78.5 - Hyperlipidemia, unspecified Status: Chronic Assessment and Plan: Continue with atorvastatin (9) Acute metabolic encephalopathy: Onset Date: ~08/2021 Code(s): G93.41 - Metabolic encephalopathy Status: Resolved Assessment and Plan: A&O X1 at baseline Probably from acute renal dysfunction Could also be from dehydration or UTI urine culture showed contamination, repeat UA with culture continue Rocephin for now seems to be getting better patient is more responsive but still not A and O x1 Continue with bicarb drip (10) Colovesical fistula: Onset Date: ~08/2021 Code(s): N32.1 - Vesicointestinal fistula Status: Resolved Assessment and Plan: Surgery consult Status post transfer colon Diverting colostomy (11) Abnormal urinalysis: Onset Date: ~08/2021 Code(s): R82.90 - Unspecified abnormal findings in urine Status: Resolved Assessment and Plan: Ua found Red turbid urine, blood 2+, bilirubin 1+, Leukocyte esterase 1+, WBC >75, Ur Bacteria 4+ Ceftriaxone started Urine culture showed contamination Repeat UA with culture [place] antibiotics to culture results Subjective Date/time seen: 08/21/2021 10:21 Interval history: Date/Time: 08/13/21 14:30 She does have a history of dementia. However the son tells me that she is usually more talkative than this. She is complaining of having discomfort to her buttocks. The son stated that the patient did have some diarrhea at the correction. A Dawkins catheter
--- NOTE | 2021-08-21 14:06 | PM.PNGS ---
Progress Note: A&P Assessment and Plan (1) Colovesical fistula: Onset Date: ~08/2021 Code(s): N32.1 - Vesicointestinal fistula Status: Acute Assessment and Plan: Continues to improve post-op. Ostomy functioning well. Wound care following for ostomy care. Advance to a heart healthy diet. Encouraged increasing activity, PT/OT following. We will plan to see the patient in the wound clinic around 2 weeks post-op to reassess. Then about 6 weeks later we can plan for a flex sigmoidoscopy to evaluate the area of stenosis and get biopsies if needed. Although the water soluble enema suggested chronic diverticulitis with stricture, there is still a chance that this is colon cancer. It is concerning that she had an elevated CEA (10.8). Dr. Marrero has had a thorough discussion with the son regarding the plan and we continue to answer any questions. (2) Abnormal urinalysis: Onset Date: ~08/2021 Code(s): R82.90 - Unspecified abnormal findings in urine Status: Acute Assessment and Plan: Patient has been history of recurrent UTIs. She now has a diverting colostomy. (3) BMI 34.0-34.9,adult: Code(s): Z68.34 - Body mass index [BMI] 34.0-34.9, adult Status: Acute (4) Acute on chronic kidney failure: Onset Date: ~08/2021 Code(s): N17.9 - Acute kidney failure, unspecified; N18.9 - Chronic kidney disease, unspecified Status: Acute Assessment and Plan: Nephrology following. Creatinine is down towards her baseline. Additional Plan I have discussed the patient's case and plan of care with Dr. Marrero. Subjective Subjective Date/Time Seen: 08/21/21 11:06 Post Op day: 2 (Loop transverse colostomy) Patient reports: no new complaints, tolerating liquids well (full) and afebrile Interval history: Patient seen and examined with her son at the bedside. She is alert but has a history of dementia, therefore her history is limited d/t this. She denies any pain or discomfort, nausea, vomiting, or issues with her full liquid diet. She has had +ostomy output per the nurse and on my exam. No acute issues when speaking with nursing, the patient, and her son. Review of Systems Review of Systems: All systems reviewed & are unremarkable except as noted in HPI and below Exam Const: General: comfortable, no acute distress and alert Nutritional Appearance: obese Orientation/consciousness: oriented to person and confusion Resp: Effort & Inspection: normal respiratory effort Auscultation: clear to auscultation bilaterally Cardio: Rate: regular rate Rhythm: regular rhythm GI: Inspection: non-distended and obesity GI Palp: Yes Soft to palpation, No Tenderness to palpation present (GI), No Guarding due to palpation present (GI) and No Rebound tenderness present Auscultation: normal bowel sounds Other: upper abdominal colostomy with +brown loose stool output in bag, stoma appears viable pink/moist Urinary Catheter: Urinary Catheter: patent and draining and urine clear Skin: General skin exam: normal color Neuro: General: moves all extremities and no focal motor deficits Extrem: General: no clubbing, cyanosis or edema and no calf tenderness Psych: Insight: Limited insight present (Psych) Judgement: Limited judgement present (Psych) Objective Data Vital Signs Vital Signs: Vital Signs - 24 hr 08/20/21 14:54 08/20/21 16:00 08/20/21 20:00 Temperature 97.6 F Pulse Rate 62 61 60 Respiratory Rate 16 Blood Pressure 122/50 L Pulse Oximetry 96 08/20/21 20:23 08/21/21 00:00 08/21/21 03:58 Temperature 97.5 F L 96.3 F L Pulse Rate 62 61 53 L Respiratory Rate 16 14 Blood Pressure 114/52 L 110/47 L Pulse Oximetry 96 97 08/21/21 04:00 08/21/21 08:00 Temperature Pulse Rate 55 L 58 L Respiratory Rate Blood Pressure Pulse Oximetry Intake/Output Intake/Output: Intake & Output 08/18/21 08/19/21 08/20/21 08/21/21 23:59 23:59 23:59 23:59
--- NOTE | 2021-08-21 15:51 | PM.PNNEP ---
Progress Note: A&P Assessment and Plan (1) PRUDENCE (acute kidney injury): Code(s): N17.9 - Acute kidney failure, unspecified Status: Acute Assessment and Plan: resolving if not resolved due to a combination of dehydration/volume depletion and hypotension possibly worsened by NSAID use evaluation to date: urine electrolytes are pre renal urinalysis shows/suggestive of UTI ultrasound shows bilateral renal thinning and atrophy but no acute issues continue supportive therapy (2) Stage 3b chronic kidney disease: Code(s): N18.32 - Chronic kidney disease, stage 3b Status: Chronic Assessment and Plan: baseline creatinine runs around 1.5 - 1.7mg/dl likely due to hypertension, vascular disease, age (3) Colovesical fistula: Onset Date: ~08/2021 Code(s): N32.1 - Vesicointestinal fistula Status: Acute Assessment and Plan: Surgery following s/p diverting transverse loop colostomy advance diet as tolerated continue post-op care (4) Dementia: Code(s): F03.90 - Unspecified dementia without behavioral disturbance Status: Chronic Assessment and Plan: appears at baseline follow mentation (5) Hypertension: Code(s): I10 - Essential (primary) hypertension Status: Chronic Assessment and Plan: doing reasonably well follow trend of hemodynamics Will continue to follow. Subjective Date/time seen: 08/21/21 15:51 No apparent distress to report at this time; pain control satisfactory; tolerating diet and slowly being advanced; no new issues or problem to report; no events/issues overnight or earlier this morning. Exam Narrative: General: WD/WN female in NAD Heart: normal S1 and S2; no rub Lungs: clear to auscultation Abdomen: ostomy noted and abdominal dressings in place, + BS Extremities: no cyanosis or clubbing; no edema Skin: warm and intact Objective Data Vital Signs Vital Signs: Vital Signs Temp Pulse Resp BP Pulse Ox 08/21/21 12:00 54 L 08/21/21 08:00 58 L 08/21/21 04:00 55 L 08/21/21 03:58 35.7 C L 53 L 14 110/47 L 97 08/21/21 00:00 61 08/20/21 20:23 36.4 C L 62 16 114/52 L 96 08/20/21 20:00 60 Intake/Output Intake/Output: Intake & Output 08/18/21 08/19/21 08/20/21 08/21/21 23:59 23:59 23:59 23:59 Intake Total 2575 450 1025 1600 Output Total 1075 1420 725 950 Balance 1500 -970 300 650 Meds/Results Medications: Active Medications Generic Name Dose Route Start Last Admin Trade Name Freq PRN Reason Stop Dose Admin Acetaminophen 1,000 mg 08/19/21 15:07 Acetaminophen 500 Mg Tablet PO Q6H PRN Mild Pain (1-3) or Fever Hydrocodone Bitart/Acetaminophen 1 tab 08/19/21 15:07 08/21/21 01:05 Hydrocodone/Acetaminophen (*Crx) 5-325 Mg Tablet PO 1 tab Q6H PRN Administration Pain Rated 4-6 Amoxicillin/Clavulanate Potassium 1 tablet 08/21/21 21:00 Amoxicillin/Clavulanate K 875-125 Mg Tab PO 08/28/21 09:01 Q12HR VENU Enoxaparin Sodium 40 mg 08/17/21 09:00 08/21/21 07:59 Enoxaparin 40 Mg/0.4 Ml Syringe SUB-Q 40 mg DAILY VENU Administration Fentanyl Citrate 25 mcg 08/19/21 12:58 Fentanyl Citrate Inj (*Crx) 100 Mcg/2 Ml Vial IV PUSH Q2M PRN Pain Metronidazole 500 mg in 100 mls @ 100 mls/hr 08/13/21 20:00 08/21/21 12:29 Flagyl 500 Mg/Iso Soln 100 Ml IVPB Infused Q8H VENU Infusion Memantine 5 mg 08/13/21 23:15 08/21/21 17:49 Memantine 5 Mg Tablet PO 5 mg BID VENU Administration Miconazole Nitrate 1 applic 08/13/21 21:00 08/21/21 07:59 Miconazole 2% Antifungal Ointment 56 Gm TOPICAL 1 applic Q12HR VENU Administration Mirtazapine 15 mg 08/13/21 23:15 08/20/21 20:22 Mirtazapine 15 Mg Tablet BY MOUTH 09/13/21 23:14 15 mg HS VENU Administration Morphine Sulfate 2 mg 08/19/21 15:07 Morphine Sulfate (*Crx) 2 Mg/Ml Inj IV PUSH Q4H PRN
[2021-08-21] MEDS: AMOXICILLIN/CLAVULANATE K 875-125 MG TAB 1 TABLET PO (20:25)
[2021-08-21] MEDS: MIRTAZAPINE 15 MG TABLET BY MOUTH (20:25)
[2021-08-22] VITALS (9 sets, daily range): BP systolic 134–147; BP diastolic 55–61; PULSE 57–75; RESP 16–18; TEMP 35.9–36.6; O2SAT 94–98
[2021-08-22] MEDS: metroNIDAZOLE 500 MG/ISO 100ML 500 MG/100 ML BAG 100 MG IVPB (04:30)
[2021-08-22 06:37] LABS: Basophils Percent Auto 0.7 % (0.2-1.2); Eosinophils Absolute Auto 0.1 K/mm3 (0-0.3); Eosinophils Percent Auto 1.9 % (0-4.4); Hematocrit 29.6 % (37.0-47.0); Hemoglobin 9.1 g/dL (12.0-15.0); Immature Granulocyte Absolute 0.03 K/mm3 (0.00-0.031); Immature Granulocyte Percent A 0.5 % (0-0.5); Lymphocytes Absolute Auto 1.22 K/mm3 (0.9-3.2); Lymphocytes Percent Auto 20.5 % (18.3-44.2); Mean Corpuscular HGB Conc 30.7 g/dl (32-36); Mean Corpuscular Hemoglobin 30.4 pg (26-34); Mean Platelet Volume 11.3 fl (7.4-10.4); Monocytes Absolute Auto 0.4 K/mm3 (0.1-0.6); Monocytes Percent Auto 6.6 % (2.6-8.5); Neutrophils Absolute Auto 4.2 K/mm3 (1.3-6.7); Neutrophils Percent Auto 69.8 % (45.5-73.1); Platelet Count Result 195 k/mm3 (150-375); Red Blood Count 2.99 M/mm3 (4.2-5.4); White Blood Count 5.9 K/mm3 (4.5-10.0)
[2021-08-22 06:48] LABS: Alanine Aminotransferase 11 U/L (4-35); Albumin Level 2.2 g/dL (3.5-5.1); Alkaline Phosphatase 78 U/L (38-126); Anion Gap 3 mmol/L (8-16); Aspartate Amino Transferase 21 U/L (14-36); Bilirubin,Total 0.2 mg/dL (0.2-1.3); Blood Urea Nitrogen 21 mg/dL (7-17); Calcium 7.3 mg/dL (8.4-10.2); Carbon Dioxide 26 mmol/L (22-30); Chloride 109 mmol/L (98-107); Estimated CRCL calculation 42 ml/min; Estimated Glomerular Filt Rate 40; Glucose 89 mg/dL (65-110); Phosphorus 2.6 mg/dL (2.5-4.5); Potassium 3.6 mmol/L (3.4-5.0); Sodium 138 mmol/L (137-145)
[2021-08-22] MEDS: ENOXAPARIN 40 MG/0.4 ML SYRINGE SUB-Q (08:37)
[2021-08-22] MEDS: polyethylene glycoL 3350 17 GM POWD.PACK PO ×2 (08:37→16:51)
[2021-08-22] MEDS: MEMANTINE 5 MG TABLET PO ×2 (08:37→16:51)
[2021-08-22] MEDS: SERTRALINE HCL 50 MG TABLET PO (08:37)
[2021-08-22] MEDS: AMOXICILLIN/CLAVULANATE K 875-125 MG TAB 1 TABLET PO ×2 (08:37→19:50)
--- NOTE | 2021-08-22 11:04 | PCNFU ---
Nutrition Follow-Up Complete: Inadequate Oral intake as related to dementia/UTI as evidenced by poor po intake reported. goal: Meet estimated nutritional needs Patient is progressing towards goal. We will continue current goal. Pt current nutrition is Soft and bite sized, Level 6/heart healthy with ensure compact BID. Last recorded weight is 102 kg, no new weight to report. Recommend: new weight. Bowel Motility:+ostomy output. Labs Reviewed:Alb 2.2, Hct 29.6,Hgb 9.1 Meds Noted:Remeron, Zoloft,Miralax, Augmentin, Rough And Ready, Namenda Skin:WNL Additional Notes: Patient had Bedside swallow eval today, recommend diet advancing to soft and bite sized,Level 6. Oral Intake has been improving. 15% reported today due to patient not liking pureed foods. She is more alert and oriented. PO intake encouraged. Will continue to send diet supplements of ensure compact BID providing an additional 220 kcals and 9 gms protein. Monitoring: Will monitor every 3 days.
--- NOTE | 2021-08-22 13:03 | PCSTNOTE ---
Patient seen when finishing her noon meal of Soft and Bite Sized. She had eaten several bites of chicken and green beans prior to my arrival and was eating pudding. She said she did okay but did not have a big appetite, but finished her pudding in front of me. Continue this diet and ST will continue to monitor. Of concern is her poor appetite as opposed to difficulty manipulating and swallowing solid foods.
--- NOTE | 2021-08-22 13:04 | PM.PNNEP ---
Progress Note: A&P Assessment and Plan (1) PRUDENCE (acute kidney injury): Code(s): N17.9 - Acute kidney failure, unspecified Status: Acute Assessment and Plan: resolving if not resolved due to a combination of dehydration/volume depletion and hypotension possibly worsened by NSAID use evaluation to date: urine electrolytes are pre renal urinalysis shows/suggestive of UTI ultrasound shows bilateral renal thinning and atrophy but no acute issues continue supportive therapy (2) Stage 3b chronic kidney disease: Code(s): N18.32 - Chronic kidney disease, stage 3b Status: Chronic Assessment and Plan: baseline creatinine runs around 1.5 - 1.7mg/dl creatinine better than baseline at this time likely due to hypertension, vascular disease, age (3) Colovesical fistula: Onset Date: ~08/2021 Code(s): N32.1 - Vesicointestinal fistula Status: Acute Assessment and Plan: Surgery following s/p diverting transverse loop colostomy tolerating oral intake/diet continue post-op care (4) Dementia: Code(s): F03.90 - Unspecified dementia without behavioral disturbance Status: Chronic Assessment and Plan: appears at baseline follow mentation (5) Hypertension: Code(s): I10 - Essential (primary) hypertension Status: Chronic Assessment and Plan: doing reasonably well follow trend of hemodynamics Will continue to follow - not opposed to discharge from renal perspective if otherwise medically stable. Subjective Date/time seen: 08/22/21 13:04 Appears to be doing reasonably well; tolerating oral intake without any issues or problems (and off IVFs); overall, denies any other complaints or concerns; no apparent distress noted; no events/issues overnight or earlier this morning; per nursing, possible discharge today. Exam Narrative: General: WD/WN female in NAD Heart: normal S1 and S2; no rub Lungs: clear to auscultation Abdomen: soft, nontender, + ostomy; + BS Extremities: no cyanosis or clubbing; no edema Skin: No rash or nodules Objective Data Vital Signs Vital Signs: Vital Signs Temp Pulse Resp BP Pulse Ox 08/22/21 12:00 62 08/22/21 08:00 57 L 08/22/21 05:32 36.6 C 61 18 138/58 L 95 08/22/21 04:23 59 L 08/22/21 00:57 96 08/22/21 00:00 69 08/21/21 20:15 36.6 C 61 18 130/69 98 08/21/21 20:00 58 L Intake/Output Intake/Output: Intake & Output 08/19/21 08/20/21 08/21/21 08/22/21 23:59 23:59 23:59 23:59 Intake Total 450 1025 2000 820 Output Total 1420 829 496 6158 Balance -422 703 1142 -980 Meds/Results Medications: Active Medications Generic Name Dose Route Start Last Admin Trade Name Freq PRN Reason Stop Dose Admin Acetaminophen 1,000 mg 08/19/21 15:07 Acetaminophen 500 Mg Tablet PO Q6H PRN Mild Pain (1-3) or Fever Hydrocodone Bitart/Acetaminophen 1 tab 08/19/21 15:07 08/21/21 01:05 Hydrocodone/Acetaminophen (*Crx) 5-325 Mg Tablet PO 1 tab Q6H PRN Administration Pain Rated 4-6 Amoxicillin/Clavulanate Potassium 1 tablet 08/21/21 21:00 08/22/21 08:37 Amoxicillin/Clavulanate K 875-125 Mg Tab PO 08/28/21 09:01 1 tablet Q12HR VENU Administration Enoxaparin Sodium 40 mg 08/17/21 09:00 08/22/21 08:37 Enoxaparin 40 Mg/0.4 Ml Syringe SUB-Q 40 mg DAILY VENU Administration Fentanyl Citrate 25 mcg 08/19/21 12:58 Fentanyl Citrate Inj (*Crx) 100 Mcg/2 Ml Vial IV PUSH Q2M PRN Pain Memantine 5 mg 08/13/21 23:15 08/22/21 16:51 Memantine 5 Mg Tablet PO 5 mg BID VENU Administration Miconazole Nitrate 1 applic 08/13/21 21:00 08/22/21 08:37 Miconazole 2% Antifungal Ointment 56 Gm TOPICAL 1 applic Q12HR VENU Administration Mirtazapine 15 mg 08/13/21 23:15 08/21/21 20:25 Mirtazapine 15 Mg Tablet BY MOUTH 09/13/21 23:14 15 mg HS VENU Administration Morphin
--- NOTE | 2021-08-22 13:04 | P.PNNP_ITS ---
Progress Note: A&P Assessment and Plan (1) PRUDENCE (acute kidney injury): Code(s): N17.9 - Acute kidney failure, unspecified Status: Acute Assessment and Plan: * resolving if not resolved * due to a combination of dehydration/volume depletion and hypotension possibly worsened by NSAID use * evaluation to date: * urine electrolytes are pre renal * urinalysis shows/suggestive of UTI * ultrasound shows bilateral renal thinning and atrophy but no acute issues * continue supportive therapy (2) Stage 3b chronic kidney disease: Code(s): N18.32 - Chronic kidney disease, stage 3b Status: Chronic Assessment and Plan: * baseline creatinine runs around 1.5 - 1.7mg/dl * creatinine better than baseline at this time * likely due to hypertension, vascular disease, age (3) Colovesical fistula: Onset Date: ~08/2021 Code(s): N32.1 - Vesicointestinal fistula Status: Acute Assessment and Plan: * Surgery following * s/p diverting transverse loop colostomy * tolerating oral intake/diet * continue post-op care (4) Dementia: Code(s): F03.90 - Unspecified dementia without behavioral disturbance Status: Chronic Assessment and Plan: * appears at baseline * follow mentation (5) Hypertension: Code(s): I10 - Essential (primary) hypertension Status: Chronic Assessment and Plan: * doing reasonably well * follow trend of hemodynamics Will continue to follow - not opposed to discharge from renal perspective if otherwise medically stable. Subjective Date/time seen: 08/22/21 13:04 Appears to be doing reasonably well; tolerating oral intake without any issues or problems (and off IVFs); overall, denies any other complaints or concerns; no apparent distress noted; no events/issues overnight or earlier this morning; per nursing, possible discharge today. Exam Narrative: General: WD/WN female in NAD Heart: normal S1 and S2; no rub Lungs: clear to auscultation Abdomen: soft, nontender, + ostomy; + BS Extremities: no cyanosis or clubbing; no edema Skin: No rash or nodules Objective Data Vital Signs Vital Signs: Vital Signs Temp Pulse Resp BP Pulse Ox 08/22/21 12:00 62 08/22/21 08:00 57 L 08/22/21 05:32 36.6 C 61 18 138/58 L 95 08/22/21 04:23 59 L 08/22/21 00:57 96 08/22/21 00:00 69 08/21/21 20:15 36.6 C 61 18 130/69 98 08/21/21 20:00 58 L Intake/Output Intake/Output: Intake & Output 08/19/21 08/20/21 08/21/21 08/22/21 23:59 23:59 23:59 23:59 Intake Total 450 1025 2000 820 Output Total 1420 888 553 8528 Balance -743 011 8866 -980 Meds/Results Medications: Active Medications Generic Name Dose Route Start Last Admin Trade Name Freq PRN Reason Stop Dose Admin Acetaminophen 1,000 mg 08/19/21 15:07 Acetaminophen 500 Mg Tablet PO Q6H PRN Mild Pain (1-3) or Fever Hydrocodone Bitart/Acetaminophen 1 tab 08/19/21 15:07 08/21/21 01:05 Hydrocodone/Acetaminophen (*Crx) 5-325 Mg Tablet PO 1 tab Q6H PRN Administration Pain Rated 4-6 Amoxicillin/Clavulanate Potassium 1 tablet 08/21/21 21:00 08/22/21 08:37
--- NOTE | 2021-08-22 13:17 | P.DS_ITS ---
DS: Admitting Diagnosis Discharge Date 08/22/2021 Admitting Diagnosis CONFUSION DS: Discharge Diagnosis Discharge Diagnosis (1) Diverticulitis: Onset Date: Unknown Code(s): K57.92 - Diverticulitis of intestine, part unspecified, without perforation or abscess without bleeding Status: Chronic Assessment and Plan: * Abdo/Pel CT found wall thickening of the sigmoid colon, likely chronic diverticulitis * Blood cultures - no growth today * Pt status post diverting colostomy on 08/19/2021 (2) Acute on chronic kidney failure: Onset Date: ~08/2021 Code(s): N17.9 - Acute kidney failure, unspecified; N18.9 - Chronic kidney disease, unspecified Status: Chronic Assessment and Plan: * BUN Creatine >120/10.50, trending down * Renal ultrasound-Bilateral renal thinning and atrophy * Nephrology rounding (3) Compression fracture: Status: Acute Assessment and Plan: * According to the son the patient had a fall at the [facility] * Compression fracture noted on the CT * Comfort and supportive care (4) Dementia: Code(s): F03.90 - Unspecified dementia without behavioral disturbance Status: Chronic Assessment and Plan: * Continue with donepezil and Namenda (5) Hypertension: Code(s): I10 - Essential (primary) hypertension Status: Chronic Assessment and Plan: * Trend BP * Adjust medications as needed (6) Diastolic congestive heart failure: Code(s): I50.30 - Unspecified diastolic (congestive) heart failure Status: Chronic Assessment and Plan: * Daily evaluation for diuresis (7) Major depressive disorder: Code(s): F32.9 - Major depressive disorder, single episode, unspecified Status: Chronic Assessment and Plan: * Continue with sertraline (8) Hyperlipidemia: Code(s): E78.5 - Hyperlipidemia, unspecified Status: Chronic Assessment and Plan: * Continue with atorvastatin (9) Acute metabolic encephalopathy: Onset Date: ~08/2021 Code(s): G93.41 - Metabolic encephalopathy Status: Resolved Assessment and Plan: * Urine culture showed contamination, repeat UA with culture * Continue Rocephin for now transition to augmentin (10) Colovesical fistula: Onset Date: ~08/2021 Code(s): N32.1 - Vesicointestinal fistula Status: Resolved Assessment and Plan: * Surgery consult * Status post colon Diverting colostomy (11) Abnormal urinalysis: Onset Date: ~08/2021 Code(s): R82.90 - Unspecified abnormal findings in urine Status: Resolved Assessment and Plan: * Ua found Red turbid urine, blood 2+, bilirubin 1+, Leukocyte esterase 1+, WBC >75, Ur Bacteria 4+ * Ceftriaxone started transition to augmentin DS: Summary Hospital Course Hospital Course: She does have a history of dementia. However the son tells me that she is usually more talkative than this. She is complaining of having discomfort to her buttocks. The son stated that the patient did have some diarrhea at the [facility]. A Dawkins catheter was placed in the emergency room. The patient is draining wine colored urine. Her blood pressures have been low. The son stated that she is a DNI and that he would allow vasopressors
--- NOTE | 2021-08-22 13:17 | PM.DS ---
DS: Admitting Diagnosis Discharge Date 08/22/2021 Admitting Diagnosis CONFUSION DS: Discharge Diagnosis Discharge Diagnosis (1) Diverticulitis: Onset Date: Unknown Code(s): K57.92 - Diverticulitis of intestine, part unspecified, without perforation or abscess without bleeding Status: Chronic Assessment and Plan: Abdo/Pel CT found wall thickening of the sigmoid colon, likely chronic diverticulitis Blood cultures - no growth today Pt status post diverting colostomy on 08/19/2021 (2) Acute on chronic kidney failure: Onset Date: ~08/2021 Code(s): N17.9 - Acute kidney failure, unspecified; N18.9 - Chronic kidney disease, unspecified Status: Chronic Assessment and Plan: BUN Creatine >120/10.50, trending down Renal ultrasound-Bilateral renal thinning and atrophy Nephrology rounding (3) Compression fracture: Status: Acute Assessment and Plan: [facility] the [facility] noted on the CT Comfort and supportive care (4) Dementia: Code(s): F03.90 - Unspecified dementia without behavioral disturbance Status: Chronic Assessment and Plan: Continue with donepezil and Namenda (5) Hypertension: Code(s): I10 - Essential (primary) hypertension Status: Chronic Assessment and Plan: Trend BP Adjust medications as needed (6) Diastolic congestive heart failure: Code(s): I50.30 - Unspecified diastolic (congestive) heart failure Status: Chronic Assessment and Plan: Daily evaluation for diuresis (7) Major depressive disorder: Code(s): F32.9 - Major depressive disorder, single episode, unspecified Status: Chronic Assessment and Plan: Continue with sertraline (8) Hyperlipidemia: Code(s): E78.5 - Hyperlipidemia, unspecified Status: Chronic Assessment and Plan: Continue with atorvastatin (9) Acute metabolic encephalopathy: Onset Date: ~08/2021 Code(s): G93.41 - Metabolic encephalopathy Status: Resolved Assessment and Plan: Urine culture showed contamination, repeat UA with culture Continue Rocephin for now transition to augmentin (10) Colovesical fistula: Onset Date: ~08/2021 Code(s): N32.1 - Vesicointestinal fistula Status: Resolved Assessment and Plan: Surgery consult Status post colon Diverting colostomy (11) Abnormal urinalysis: Onset Date: ~08/2021 Code(s): R82.90 - Unspecified abnormal findings in urine Status: Resolved Assessment and Plan: Ua found Red turbid urine, blood 2+, bilirubin 1+, Leukocyte esterase 1+, WBC >75, Ur Bacteria 4+ Ceftriaxone started transition to augmentin DS: Summary Hospital Course Hospital Course: She does have a history of dementia. However the son tells me that she is usually more talkative than this. She is complaining of having discomfort to her buttocks. The son stated that the [facility] A Dawkins catheter was placed in the emergency room. The patient is draining wine colored urine. Her blood pressures have been low. The son stated that she is a DNI and that he would allow vasopressors and a central line. Patient has a previous history of having UTIs and the son stated that she is on prophylactic antibiotic to prevent UTI. Her son Edinson is the power assistant prosecuting attorney. CT scan Abdominal wall thickening of sigmoid colon, likely chronic diverticulitis. The abdominal pelvis CT Wall thickening of the adjacent bladder and gas and the bladder and gas and in the bladder lumen is suspicious for colovesicular fistula. L2 burst fracture, likely acute or subacute new from 01/16/2021. White count 13.7. BUN greater than 120. Creatinine 10.5 glucose 140. Patient was positive fo
[2021-08-22 14:26] LABS: EDCOVIDSCREEN Negative (Negative)
--- NOTE | 2021-08-22 14:43 | PCOTNOTE ---
On 08/22/21, the student, Gracia Delgado, provided care and [facility]. I have reviewed the student's documentation and agree with the findings.
[2021-08-22] MEDS: MIRTAZAPINE 15 MG TABLET BY MOUTH (19:50)
--- NOTE | 2021-08-22 21:19 | PM.PNGS ---
Progress Note: A&P Assessment and Plan (1) Colovesical fistula: Onset Date: ~08/2021 Code(s): N32.1 - Vesicointestinal fistula Status: Acute Assessment and Plan: Continues to improve post-op. Ostomy functioning well. Wound care following for ostomy care. Advanced to a heart healthy diet. Encouraged increasing activity, PT/OT following. We will plan to see the patient in the wound/ostomy clinic around 2 weeks post-op to reassess. Then about 4-6 weeks later we can plan for a flex sigmoidoscopy to evaluate the area of stenosis in the colon and get biopsies if needed. Although the water soluble enema suggested chronic diverticulitis with stricture, there is still a chance that this is colon cancer. It is concerning that she had an elevated CEA (10.8). I have had a thorough discussion with the son regarding the plan and we continue to answer any questions. (2) Abnormal urinalysis: Onset Date: ~08/2021 Code(s): R82.90 - Unspecified abnormal findings in urine Status: Acute Assessment and Plan: Patient has been having a history of recurrent UTIs. She now has a diverting colostomy. (3) BMI 34.0-34.9,adult: Code(s): Z68.34 - Body mass index [BMI] 34.0-34.9, adult Status: Acute (4) Acute on chronic kidney failure: Onset Date: ~08/2021 Code(s): N17.9 - Acute kidney failure, unspecified; N18.9 - Chronic kidney disease, unspecified Status: Acute Assessment and Plan: Nephrology following. Creatinine is down towards her baseline. Subjective Subjective Date/Time Seen: 08/22/21 21:19 Post Op day: 3 ( Status post transverse loop diverting colostomy) Patient reports: no new complaints Interval history: tolerating a soft diet Review of Systems Review of Systems: All systems reviewed & are unremarkable except as noted in HPI and below ROS unobtainable: Yes unobtainable due to medical condition and unobtainable due to mental status Constitutional: Constitutional: Reports as per HPI, Denies chills and Denies fever(s) Respiratory: Respiratory: Reports no additional respiratory complaints and Denies dyspnea Gastrointestinal: Gastrointestinal: Reports as per HPI and Denies bloating Exam Const: General: cooperative, comfortable, no acute distress, alert, awake, confusion and ill appearing acutely Nutritional Appearance: obese Orientation/consciousness: oriented to person, No oriented to place, No oriented to time and confusion Limitations: altered mental status Other: Answers okay when asked other orientation questions. Assessment limited d/t AMS. HENMT: Head: normal to inspection, normocephalic and atraumatic Ears: hearing grossly normal bilaterally Mouth: Yes moist mucous membranes and Yes dry mucous membranes Eyes: General: appearance normal, both eyes and all related structures Sclera: sclerae normal Pupils: Equal, round and reactive pupils present Resp: Effort & Inspection: normal respiratory effort and no respiratory distress Auscultation: clear to auscultation bilaterally Cardio: Jugular venous distension: no JVD Rate: regular rate Rhythm: regular rhythm Heart sounds: S1 normal heart sound present and S2 normal heart sound present GI: Inspection: normal to inspection, non-distended, incision ( this is covered by the ostomy), obesity, scar ( Transverse suprapubic without hernia) and no visible herniation Auscultation: normal bowel sounds Rectal Exam: deferred Other: upper abdominal colostomy with +brown loose stool output in bag, stoma appears viable pink/moist Urinary Catheter: Urinary Catheter: patent and draining and urine clear Skin: General skin exam: normal color, no rashes or lesions noted, pallor and other (unable to assess skin on back/buttocks bc pt unable to turn c no help in rm) Neuro: General: oriented to person, No oriented to place, No oriented to time, moves all extremities, no focal motor deficits, confusion, Unable to ass
--- NOTE | 2021-08-22 21:54 | PC.NURSE ---
[facility] HERE TO TRANSFER PATIENT TO [facility] ALL PERSONAL EFFECTS AND DISCHARGED INFORMATION GIVEN TO EMT SERVICES.
== END 2021-08-22 21:45 | DRG 329 ==
LOC: ANHED 12:37 → ANH2MED 16:17 → ANH3MED 21:13 → ANH2MED 08-23 10:16 → ANH3MED 08-23 10:16
PROVIDERS: Family Medicine; Internal Medicine Nephrology; Nurse Practitioner; Surgery; Admitting Provider Internal Medicine; Emergency Provider Emergency Medicine; PCP Internal Medicine; Visit Provider Family Medicine
PROC: 0D1L0Z4 Bypass Transverse Colon to Cutaneous, Open Approach (ICD-10-PCS; CPT 44160; principal; 2021-08-19 15:00)
DX: K57.32 Diverticulitis of large intestine without perforation or abscess without bleeding (principal); G93.41 Metabolic encephalopathy; N32.1 Vesicointestinal fistula; N17.9 Acute kidney failure, unspecified; N39.0 Urinary tract infection, site not specified; I13.0 Hypertensive heart and chronic kidney disease with heart failure and stage 1 through stage 4 chronic kidney disease, or unspecified chronic kidney disease; I50.32 Chronic diastolic (congestive) heart failure; S32.021A Stable burst fracture of second lumbar vertebra, initial encounter for closed fracture; E87.0 Hyperosmolality and hypernatremia; Z20.822 Contact with and (suspected) exposure to COVID-19; N18.32 Chronic kidney disease, stage 3b; F03.90 Unspecified dementia, unspecified severity, without behavioral disturbance, psychotic disturbance, mood disturbance, and anxiety; R82.90 Unspecified abnormal findings in urine; F32.9 Major depressive disorder, single episode, unspecified; E78.5 Hyperlipidemia, unspecified; I45.10 Unspecified right bundle-branch block; E86.0 Dehydration; W19.XXXA Unspecified fall, initial encounter; Z90.49 Acquired absence of other specified parts of digestive tract; R21 Rash and other nonspecific skin eruption; E66.9 Obesity, unspecified; Z68.34 Body mass index [BMI] 34.0-34.9, adult; Z86.16 Personal history of COVID-19
CPT/HCPCS: 36415; 70450; 71045; 74176; 74270; 76775; 80048; 80053; 80069; 80076; 81001; 82378; 82550; 82570; 82728; 82948; 83605; 83615; 83690; 83735; 84100; 84156; 84300; 84439; 84443; 84480; 85025; 85027; 85380; 85610; 85730; 86140; 86850; 86900; 86901; 87040; 87086; 87088; 87426; 92526; 92610; 93005; 93306; 96361; 96374; 97161; 97165; 97530; 99285; A9270; C9803; J0696; J1100; J1650; J1885; J2405; J3010; J3480; J7030; J7070; J7120

== ENCOUNTER 2021-09-02 04:53 | Emergency (ER) | payer MEDICARE, SELFPAY ==
[2021-09-02 04:55] VITALS: BP 129/62; PULSE 65; RESP 16; TEMP 37.2; O2SAT 95
--- NOTE | 2021-09-02 05:39 | PC.NURSE ---
Addendum entered by Mohini Cortez RN 09/05/21 02:29: Correction - there was not a wound nurse at the bedside: stoma site addressed by Naz NOBLE from [address] [place] [address]. The wound RN is an entry error. RAPHAEL RN 09/05/21 Original Note: wound nurse at bedside to examine irritated stoma site
--- NOTE | 2021-09-02 06:07 | ED.GENADULT ---
HPI - General Adult General Chief complaint: Unspecified Stated complaint: stoma site bleeding Time Seen by Provider: 09/02/21 04:58 History of Present Illness HPI narrative: Patient is a 76-year-old female who presents ER with complications related to her diverting colostomy. Performed at this hospital in the last 2 weeks. Discharge on 08/22. Apparently patient keeps removing her ostomy bag and throwing it people and that she has developed a rash around where her dressing site was. Patient has started picking at her ostomy and they saw some bleeding and thought she needed to be evaluated. At this time patient is resting comfortably and oriented x2. She is not picking at her abdomen. Related Data Home Medications Medication Instructions Recorded Confirmed donepezil 10 mg PO HS 01/16/21 08/13/21 furosemide 40 mg PO DAILY 01/16/21 08/13/21 lidocaine [Lidocaine Pain Relief] See Rx Instructions .ROUTE .COMPLEX 01/16/21 08/13/21 lisinopril 40 mg PO DAILY 01/16/21 08/13/21 memantine 5 mg PO BID 01/16/21 08/13/21 mirtazapine 15 mg BYMOUTH HS 01/16/21 08/13/21 ondansetron 4 mg PO Q6H PRN 01/16/21 08/13/21 sertraline 50 mg PO DAILY 01/16/21 08/13/21 spironolactone 50 mg PO DAILY 01/16/21 08/13/21 ibuprofen 600 mg PO TID PRN 08/13/21 08/13/21 Allergies Allergy/AdvReac Type Severity Reaction Status Date / Time fluoxetine [From Prozac] Allergy Unknown Verified 09/02/21 05:02 sulfamethoxazole Allergy Unknown Verified 09/02/21 05:02 [From Sulfamethoxazole-Trimethoprim] trimethoprim Allergy Unknown Verified 09/02/21 05:02 [From Sulfamethoxazole-Trimethoprim] Review of Systems Review of Systems: ROS unobtainable: Yes unobtainable due to mental status PMFSH Past Medical History Medical History Chronic renal failure Dementia Diastolic congestive heart failure Diverticulitis Per the son, the patient has been treated for diveriticulitis at least 1-2 times in the past but has never required surgical intervention. Hyperlipidemia Hypertension Major depressive disorder Surgical History Surgical History H/O dilation and curettage H/O left knee surgery History of appendectomy History of tonsillectomy History of total abdominal hysterectomy and bilateral salpingo-oophorectomy Family History Family History Mother Aspiration pneumonia Father Malignant neoplasm of prostate Dementia Social History Social History Social History: The patient resides at [facility]. She is a dni but her son Edinson will allow a central line. Her son is a durable power sports attorney for healthcare. The patient said that she retired from the [place]. She only has 1 son. She is a former smoker. Code status DNI Smoking status: Former smoker Additional smoking assessment comments: pt. cannot comprehend questions, former smoker is noted from prior charting Alcohol intake: never Substance use: never Gender identity (if verbalized by the patient): Female Sexual Orientation (if Verbalized by the Patient): Straight or Heterosexual Spiritual care concerns: No Exam Narrative: GENERAL: Well-appearing, well-nourished, and in no acute distress. HEAD: Normocephalic, atraumatic. ENT: Mucous membranes moist. CHEST: Clear to auscultation. No respiratory distress. HEART: Regular rate and rhythm. Normal peripheral pulses. ABDOMEN: Soft, nontender, nondistended. Colostomy in mid upper abdomen. There is a anchor keeping the ostomy out. There is no bleeding or evidence of infection. There is however a large rectangle over her mid abdomen moving down towards the umbilical region where patient has had what appears to be fecal matter irritating the skin. No cellulitis. EXTREMITIES: Normal range of m
[2021-09-02 06:23] VITALS: BP 138/55; PULSE 68; RESP 17; O2SAT 96
--- NOTE | 2021-09-02 06:25 | PC.NURSE ---
Addendum entered by Mohini Cortez RN 09/05/21 02:26: Correction - there was not a wound nurse at the bedside: drainage bag and adhesive barrier placed by Naz NOBLE from [address] [place] [address]. The wound RN is an entry error. RAPHAEL RN 09/05/21 Original Note: Ostomy drainage bag and adhesive barrier placed by Wound RN.
--- NOTE | 2021-09-02 09:59 | PC.NURSE ---
aruna has arrived and is aware that pt is going to [facility]
[2021-09-02 10:05] VITALS: BP 145/65; PULSE 64; RESP 18; O2SAT 97
== END 2021-09-02 10:11 ==
LOC: ANHED 06:16
PROVIDERS: Emergency Provider Emergency Medicine
DX: K94.29 Other complications of gastrostomy (principal); Y83.8 Other surgical procedures as the cause of abnormal reaction of the patient, or of later complication, without mention of misadventure at the time of the procedure; Z79.891 Long term (current) use of opiate analgesic
CPT/HCPCS: 99281

== ENCOUNTER 2021-09-03 12:05 | Outpatient (RCR) | payer OTHER, MEDICARE, SELFPAY ==
--- NOTE | 2021-09-04 16:51 | WPDWOUNDNOTE ---
Wound Care Note Date/Time: 09/03/21 12:31 History: This is a 76 yo F with a history of dementia, CHF, HTN, hyperlipidemia, chronic renal insufficiency, and diverticulitis, who was hospitalized on 08/13/21 for UTI, suspected sepsis, and findings of a colovesical fistula by CT. She had a hypaque enema that showed she had a colovesical fistula and sigmoid stricture, likely from chronic diverticulitis. She had a CEA level drawn, which was elevated at 10.8. No signs of metastatic disease on imaging. She was ultimately taken for a diverting transverse loop colostomy on 08/19/[address] Marrero. She did well post-operatively and was ultimately discharged on 08/22/21 to a SNF. Wound history: She was discharge to a SNF with a diverting transverse loop colostomy. She returns back today to the wound clinic for an ostomy check and to remove the bar from her loop colostomy. With her history of dementia, she is a poor historian. No specific complaints when seen today. The tech from the SNF that accompanies her today is not aware of any issues she has had since discharge. In review of her EMR, she did come into the ER on 09/02/21 for concerns with bleeding from her ostomy. She was found picking at the bag and there was bleeding on the stoma, so they brought her in. In the ER, it appears she had some superficial skin irritation around the stoma from possibly having the ostomy bag cut too large and stool sitting on her skin. No active bleeding noted. She had a new bag fitted and was discharged from the ER. No issues with bleeding today. Treatment/Procedures: Ostomy assessment and nguyen removal. Her stoma appears pink/moist, and is functioning well. Sutures and nguyen removed at the bedside by the wound care nurse without any issues. There is some mild superficial skin irritation surrounding the stoma in a square shape. Dressings: Antifungal powder was applied with skin prep to the irritated skin around the ostomy, then an ostomy bag was fitted around the stoma. Assessment and Plan Assessment and plan (1) Colostomy care: Code(s): Z43.3 - Encounter for attention to colostomy Status: Acute Assessment and Plan: Ostomy nguyen removed at the bedside without any complications. The plan for the patient was to eventually be scheduled for a flex sigmoidoscopy to evaluate the sigmoid stricture. Her CEA was elevated on her last hospitalization and it would be appropriate to assess the stricture for possible malignancy. There is also a possibility this is a benign diverticular stricture. Continue ostomy care as directed. I will speak to Dr. Marrero about setting up the flex sig as an outpatient in the next few weeks. (2) Colovesical fistula: Onset Date: ~08/2021 Code(s): N32.1 - Vesicointestinal fistula Status: Resolved Assessment and Plan: Diverting transverse loop colostomy to give the colovesical fistula a chance to close. See plan above. (3) Diverticulitis: Onset Date: Unknown Code(s): K57.92 - Diverticulitis of intestine, part unspecified, without perforation or abscess without bleeding Status: Chronic (4) Dementia: Code(s): F03.90 - Unspecified dementia without behavioral disturbance Status: Chronic (5) BMI 34.0-34.9,adult: Code(s): Z68.34 - Body mass index [BMI] 34.0-34.9, adult Status: Acute (6) Diastolic congestive heart failure: Code(s): I50.30 - Unspecified diastolic (congestive) heart failure Status: Chronic Review of Systems Review of Systems: ROS unobtainable: Yes unobtainable due to mental status (hx dementia) Exam Const: General: comfortable, no acute distress and alert Orientation/consciousness: confusion GI: Inspection: non-distended, obesity and other (ostomy functioning well) GI Palp: Yes Soft to palpation, No Tenderness to palpation present (GI), No Guarding due to palpation present (GI) and No Rebound tenderness present Percussion: Yes normal to percussion
== END 2021-11-18 08:29 | disposition home or self-care (01) ==
LOC: ANHWOC 12:05
PROVIDERS: Visit Provider Surgery
DX: Z43.3 Encounter for attention to colostomy (principal)
CPT/HCPCS: 99213; G0463

== ENCOUNTER 2021-10-04 17:40 | Inpatient (IN) | payer MEDICARE, SELFPAY ==
--- NOTE | ~2021-10-04 | US_ITS ---
EXAMINATION: US retroperitoneal comp DATE: 10/05/2021 10:34 INDICATION: Renal failure. TECHNIQUE: Multiple ultrasound grayscale images of the kidneys were obtained. COMPARISON: CT abdomen and pelvis 08/13/2021 FINDINGS: The right kidney measures 9.3 x 4.4 x 5.1 cm. The left kidney measures 8.3 x 4.5 x 4.9 cm. The kidney s demonstrate normal parenchymal echogenicity. There is no hydronephrosis. The bladder is decompresse d by a Dawkins catheter. IMPRESSION: 1. Mild atrophy of left kidney. No hydronephrosis. Reviewed, dictated and finalized at location A. AD DRAWER
--- NOTE | ~2021-10-04 | US_ITS ---
EXAMINATION: US venous doppler [facility] DATE: 10/06/2021 10:28 INDICATION: Lower limb edema. TECHNIQUE: Grayscale ultrasound images without and with compression and Doppler ultrasound images of the bilateral lower extremity veins were obtained. COMPARISON: None. FINDINGS: The visualized portions of right common femoral vein, profunda (deep) femoral vein, femoral vein, pop liteal vein, peroneal veins, posterior tibial veins, and greater saphenous vein outflow are patent. The visualized portions of left common femoral vein, profunda femoral vein, femoral vein, peroneal ve ins, posterior tibial veins, and greater saphenous vein outflow are patent. There is thrombus in the left popliteal and gastrocnemius veins. IMPRESSION: 1. Deep vein thrombosis involving the left popliteal and gastrocnemius veins. Reviewed, dictated and finalized at location A. ANIC WELDER
--- NOTE | ~2021-10-04 | NM_ITS ---
EXAMINATION: NM pulmonary perfusion DATE: 10/07/2021 12:21 INDICATION: Hypoxia. TECHNIQUE: 5.5 mCi Tc-99m MAA was administered intravenously for perfusion images. Scintigraphic lj ges of the chest were obtained. COMPARISON: Chest 2 views 10/07/2021 FINDINGS: Perfusion images show moderate sized defects in the lower lobes and left upper lobe. IMPRESSION: 1. Nondiagnostic (intermediate probability for pulmonary embolism). Reviewed, dictated and finalized at location A. STAGING SPECIALIST
--- NOTE | ~2021-10-04 | XR_ITS ---
XR chest 1V portable DATE: 10/04/2021 18:18 INDICATION: Congestive heart failure, hypertension, low oxygen saturation TECHNIQUE: AP chest COMPARISON: 08/13/2021 portable AP chest FINDINGS: There is mild elevation of the right leaf of the diaphragm and mild atelectasis at the righ t lung base. The lungs otherwise appear clear. Normal heart size. Aortic calcification and unfolding. No hilar or mediastinal enlargement. No pleura l effusion or pulmonary vascular congestion or pneumothorax. Diffuse osteopenia. IMPRESSION: Mild elevation right leaf of diaphragm and right basilar atelectasis Reviewed, dictated and finalized at location A. GEMENT AIDE IMPRESSION: Mild elevation right leaf of diaphragm and right basilar atelectasi s
--- NOTE | ~2021-10-04 | XR_ITS ---
EXAMINATION: XR chest 2V DATE: 10/07/2021 12:24 INDICATION: Hypoxia. TECHNIQUE: Frontal and lateral views of the chest were obtained. COMPARISON: Chest single view 10/04/2021 FINDINGS: There is mild atelectasis in the lower lung zones. The posterior lungs are obscured on the lateral view due to the arms. No pleural effusion or pneumothorax. The heart size is normal. There ar e old healed left rib fractures. IMPRESSION: 1. Mild atelectasis in the lower lung zones. Reviewed, dictated and finalized at location A. STICS ASSOCIATE
--- NOTE | ~2021-10-04 | CT_ITS ---
EXAMINATION: CT brain wo con DATE: 10/04/2021 20:02 INDICATION: Altered mental state TECHNIQUE: Computed tomography (CT) of the head was performed without intravenous contrast. The mA wa s adjusted according to patient size. Iterative reconstruction technique was employed. Exam dose: 60 5.33 mGy-cm total exam DLP. COMPARISON: None FINDINGS: There is prominent calcification of the vertebral arteries, basilar artery and particularly the carotid siphon and supraclinoid internal carotid arteries. Scattered bilateral chronic lacunar infarcts of the basal ganglia and left periventricular area are n oted. This is nonspecific diminished attenuation of the subcortical and periventricular cerebral whit e matter, likely due to chronic small vessel ischemic changes. No intracranial mass lesion or hemorrhage or recent cerebrovascular accident is evident. CT is not se nsitive for detection of hyperacute nonhemorrhagic cerebrovascular accidents. There is no midline shift or mass effect. There is central and cortical cerebral and cerebellar atrop hy. No orbital mass lesion No fracture or bone destruction of the cranial vault. Mastoid air cells and included paranasal sinuses are unremarkable. IMPRESSION: Cerebral atherosclerosis and chronic small vessel ischemic changes of the cerebral white matter Bilateral chronic lacunar infarcts of basal ganglia and left. Ventricular Cerebral and cerebellar atrophy No acute intracranial finding Reviewed, dictated and finalized at Location A. Reviewed, dictated and finalized at location A. EYOR MAN
--- NOTE | 2021-10-04 17:53 | ECG_ITS ---
Measurements Intervals Sweeny Rate: 76 P: MD: 0 QRS: 104 QRSD: 97 T: 52 QT: 375 QTc: 422 Interpretive Statements SINUS OR ECTOPIC ATRIAL RHYTHM RIGHT AXIS DEVIATION INCOMPLETE RIGHT BUNDLE BRANCH BLOCK BASELINE ARTIFACT- I, II, III, AVR, AVL, AVF, V1-V6 BORDERLINE ECG Electronically Signed On 10-07-2021 11:19:22 ADVERTISING SALES EXECUTIVE by Chacorta Dubon D.O.
[2021-10-04 18:02] VITALS: BP 122/71; PULSE 75; RESP 16; TEMP 36.1; O2SAT 94
[2021-10-04 18:30] LABS: Basophils Absolute Auto 0.1 K/mm3 (0.0-0.1); Basophils Percent Auto 0.7 % (0.2-1.2); Eosinophils Absolute Auto 0.3 K/mm3 (0-0.3); Eosinophils Percent Auto 3.5 % (0-4.4); Hematocrit 38.6 % (37.0-47.0); Hemoglobin 11.9 g/dL (12.0-15.0); Immature Granulocyte Absolute 0.02 K/mm3 (0.00-0.031); Immature Granulocyte Percent A 0.2 % (0-0.5); Lymphocytes Percent Auto 13.2 % (18.3-44.2); Mean Corpuscular HGB Conc 30.8 g/dl (32-36); Mean Corpuscular Hemoglobin 29.8 pg (26-34); Mean Corpuscular Volume 96.7 fl (80-100); Mean Platelet Volume 10.3 fl (7.4-10.4); Monocytes Absolute Auto 0.5 K/mm3 (0.1-0.6); Monocytes Percent Auto 6.2 % (2.6-8.5); Neutrophils Absolute Auto 6.4 K/mm3 (1.3-6.7); Neutrophils Percent Auto 76.2 % (45.5-73.1); Platelet Count Result 363 k/mm3 (150-375); Red Blood Count 3.99 M/mm3 (4.2-5.4); Red Cell Distribution Width 13.2 % (11.5-14.5); White Blood Count 8.4 K/mm3 (4.5-10.0)
[2021-10-04 18:43] LABS: Alanine Aminotransferase 17 U/L (4-35); Albumin Level 3.9 g/dL (3.5-5.1); Alkaline Phosphatase 101 U/L (38-126); Anion Gap 6 mmol/L (8-16); Aspartate Amino Transferase 21 U/L (14-36); Bilirubin,Total 0.3 mg/dL (0.2-1.3); Blood Urea Nitrogen 93 mg/dL (7-17); Carbon Dioxide 16 mmol/L (22-30); Chloride 114 mmol/L (98-107); Estimated CRCL calculation 13 ml/min; Estimated Glomerular Filt Rate 10; Glucose 138 mg/dL (65-110); Sodium 136 mmol/L (137-145)
[2021-10-04] MEDS: INSULIN HUMAN REGULAR (*BKC) 100 UNITS/ML 10 UNITS IV PUSH (19:26)
--- NOTE | 2021-10-04 19:27 | ED.SOB ---
HPI - SOB/Dyspnea General Chief Complaint: Shortness of Breath/Dyspnea <Carolynn Turner PA-C - Last Filed: 10/04/21 23:34> Stated Complaint: SOB <Carolynn Turner PA-C - Last Filed: 10/04/21 23:34> Time Seen by Provider: 10/04/21 18:53 <Carolynn Turner PA-C - Last Filed: 10/04/21 23:34> Source: patient and EMS <WEN Quiñonez Last Filed: 10/04/21 23:34> Mode of arrival: EMS <WEN Quiñonez Last Filed: 10/04/21 23:34> Limitations: dementia <WEN Quiñonez Last Filed: 10/04/21 23:34> History of Present Illness HPI Narrative: This is a 76 year old female that presents to the ER for low oxygen saturation noted at nursing facility. Patient was reportedly with oxygen saturation in the 70s on room air. Patient does not have any complaints. She does not answer most of my questions. Reportedly is at her baseline mentation. Denies chest pain or shortness of breath. <WEN Quiñonez Last Filed: 10/04/21 23:34> Related Data Home Medications: Home Medications Medication Instructions Recorded Confirmed donepezil 10 mg PO HS 01/16/21 08/13/21 furosemide 40 mg PO DAILY 01/16/21 08/13/21 lidocaine [Lidocaine Pain Relief] See Rx Instructions .ROUTE .COMPLEX 01/16/21 08/13/21 lisinopril 40 mg PO DAILY 01/16/21 08/13/21 memantine 5 mg PO BID 01/16/21 08/13/21 mirtazapine 15 mg BYMOUTH HS 01/16/21 08/13/21 ondansetron 4 mg PO Q6H PRN 01/16/21 08/13/21 sertraline 50 mg PO DAILY 01/16/21 08/13/21 spironolactone 50 mg PO DAILY 01/16/21 08/13/21 ibuprofen 600 mg PO TID PRN 08/13/21 08/13/21 <Carolynn Turner PA-C - Last Filed: 10/04/21 23:34> Allergies/Adverse Reactions: Allergies Allergy/AdvReac Type Severity Reaction Status Date / Time fluoxetine [From Prozac] Allergy Unknown Verified 09/02/21 05:02 sulfamethoxazole Allergy Unknown Verified 09/02/21 05:02 [From Sulfamethoxazole-Trimethoprim] trimethoprim Allergy Unknown Verified 09/02/21 05:02 [From Sulfamethoxazole-Trimethoprim] <aCrolynn Turner PA-C - Last Filed: 10/04/21 23:34> Review of Systems Review of Systems: ROS unobtainable: Yes unobtainable due to mental status <Carolynn Turner PA-C - Last Filed: 10/04/21 23:34> [facility] Past Medical History Medical History: Medical History Chronic renal failure Dementia Diastolic congestive heart failure Diverticulitis Per the son, the patient has been treated for diveriticulitis at least 1-2 times in the past but has never required surgical intervention. Hyperlipidemia Hypertension Major depressive disorder <WEN Quiñonez Last Filed: 10/04/21 23:34> Surgical History Surgical History: Surgical History H/O dilation and curettage H/O left knee surgery History of appendectomy History of tonsillectomy History of total abdominal hysterectomy and bilateral salpingo-oophorectomy <Carolynn Turner PA-C - Last Filed: 10/04/21 23:34> Family History Family History: Family History Mother Aspiration pneumonia Father Malignant neoplasm of prostate Dementia <Carolynn Turner PA-C - Last Filed: 10/04/21 23:34> Social History Social History: Social History Social History: The patient resides at [facility]. She is a dni but her son Edinson will allow a central line. Her son is a durable power clip on sunglasses inspector for healthcare. The patient said that she retired [place]. She only has 1 son. She is a former smoker. Code status DNI Smoking status: Former smoker Additional smoking assessment comments: pt. cannot comprehend questions, former smoker is noted from prior charting Alcohol intake: never Substance use: never Gender identity (if verbalized by the
[2021-10-04] MEDS: CALCIUM GLUCONATE 1,000 MG/10 ML VIAL 1000 MG IV PUSH (19:28)
[2021-10-04] MEDS: SODIUM BICARBONATE 8.4% 50 MEQ/50 ML SYRINGE IV PUSH (19:30)
[2021-10-04] MEDS: DEXTROSE 50% 25 GM/50 ML SYRINGE IV PUSH (19:32)
[2021-10-04] MEDS: SODIUM POLYSTYRENE SULFONONATE 15 GM/60 ML BTL 30 GM PO (19:43)
[2021-10-04 19:46] VITALS: BP 99/62; PULSE 76; RESP 14; O2SAT 97
[2021-10-04 19:50] LABS: Fractional Inspired Oxygen 34 %; HCO3 VBG 15.3 mEq/l (24.0-30.0); PCO2 VBG 39.7 mmHg (42.0-48.0); PO2 VBG 42.7 mmHg (35.0-45.0)
[2021-10-04 19:51] LABS: pH VBG 7.204 (7.300-7.400)
[2021-10-04 19:52] LABS: Device NASAL CANNULA; Liters per Minute 3.5 LPM
[2021-10-04 20:03] LABS: Add Urine Microscopic? YES; Appearance Urine Turbid (Clear); Bacteria Urine 3+ /hpf; Bilirubin Urine Negative (Negative); Color Urine Yellow (Yellow); Glucose Urine UA Negative (Negative); Hyaline Casts Urine 30-49 /lpf; Ketones Urine Negative (Negative); Leukocyte Esterase Ur 3+ LEU/UL (Negative); Mucus Urine Rare /lpf; Nitrate Urine Negative (Negative); Protein Urine 1+ mg/dL (Negative); Specific Grav Ur 1.014 (1.001-1.035); Urobilinogen Urine Negative mg/dL (<2.0); WBC Urine >75 /hpf
[2021-10-04 20:05] LABS: Blood Urine Negative (Negative)
[2021-10-04 20:06] LABS: CRP 1.2 mg/dL (<1.0)
[2021-10-04] MEDS: SODIUM CHLORIDE 0.9% IV 1,000 ML 999 ML IV CONT (20:49)
[2021-10-04 20:50] VITALS: PULSE 76
[2021-10-04 20:51] VITALS: BP 102/49; PULSE 74; RESP 15; O2SAT 100
[2021-10-04 21:07] LABS: Potassium 5.9 mmol/L (3.4-5.0)
[2021-10-04 21:09] LABS: Lactic Acid Reflex 1.7 mmol/L (0.7-2.1)
[2021-10-04 21:19] LABS: INR 1.1; Prothrombin Time 14.4 Seconds (11.1-14.7)
[2021-10-04 21:20] LABS: Partial Thromboplastin Time 34.6 SECONDS (22.3-36.8)
[2021-10-04 21:30] LABS: D Dimer 2.54 ug/mL (<0.48)
[2021-10-04] MEDS: SODIUM BICARBONATE 8.4% 150 MEQ in DEXTROSE 5% 1,000 ML 950 ML 125 MEQ IV CONT (21:55)
[2021-10-04 23:10] VITALS: BP 96/53; PULSE 74; RESP 14; O2SAT 96
[2021-10-04] MEDS: ENOXAPARIN 100 MG/ML SYRINGE SUB-Q (23:11)
--- NOTE | 2021-10-04 23:32 | PM.IMHP ---
H&P: HPI History of Present Illness Date/Time: 10/04/21 23:32 Chief Complaint: Decreased oxygen saturation Narrative: 76-year-old female with a past medical history of recent COVID, dementia, diastolic heart failure, hypertension and chronic kidney disease stage III with baseline creatinine 1.6 who presented to the ER via EMS from [facility] is due to lethargy and low oxygen saturations. prison staff took a set of vitals and reported the patient's oxygen saturations of 82%. The patient patient on 2 L nasal cannula. When EMS arrived on the scene patient was placed on 15 L non-rebreather. The patient was satting 100% on arrival to the ER and her supplemental oxygen was decreased down to 4 L nasal cannula and she was still satting 100%. The patient was not in respiratory distress when she arrived to the ER. She was afebrile. She denied having a cough. At the time of my evaluation the patient was alert oriented to person and place which is her baseline. She did admit to having some nausea but could not tell me the duration of her symptoms. She was noted to be incontinent of urine. She denies any pain. Her creatinine is increased from 1.3 up to 4.5. The patient is on ibuprofen, lisinopril, Lasix and spironolactone at the long term. The majority of information was obtained from past medical records, EMS report and ER records. Review of Systems Review of Systems: Unobtainable due to the patient's dementia. [facility] Past Medical History Medical History (Updated 10/05/21 @ 05:17 by Kelly Quintana DO) Chronic renal failure With baseline creatinine of 1.3-1.7. Dementia Diastolic congestive heart failure Echocardiogram August 2021: EF 65-70%, mildly increased left ventricular wall thickness, grade 1 diastolic dysfunction, mild right ventricular enlargement, mild left atrial enlargement, mild right atrial enlargement, mild pulmonary hypertension with RVSP of 37 Diverticulitis (Unknown) Status post diverting colostomy due to colovesicular fistula Hyperlipidemia Hypertension Major depressive disorder Surgical History Surgical History (Updated 10/05/21 @ 05:05 by Kelly Quintana DO) Colostomy in place (08/19/21) H/O dilation and curettage H/O left knee surgery History of appendectomy History of tonsillectomy History of total abdominal hysterectomy and bilateral salpingo-oophorectomy Family History Family History Mother Aspiration pneumonia Father Malignant neoplasm of prostate Dementia Social History Social History (Updated 10/05/21 @ 05:06 by Kelly Quintana DO) Social History: The patient resides at [facility]. The patient said that she [place]. She only has 1 son. She is a former smoker. Code status: DNI (the son will allow central line placement and pressors if needed) Healthcare power of devulcanizer charger: Edinson (Son) Smoking status: Former smoker Additional smoking assessment comments: pt. cannot comprehend questions, former smoker is noted from prior charting Alcohol intake: never Substance use: never Gender identity (if verbalized by the patient): Female Sexual Orientation (if Verbalized by the Patient): Straight or Heterosexual Spiritual care concerns: No Meds Home Medications and Allergies Home Medications Medication Instructions Recorded Confirmed Type donepezil 10 mg PO HS 01/16/21 08/13/21 History furosemide 40 mg PO DAILY 01/16/21 08/13/21 History lidocaine [Lidocaine Pain Relief] See Rx Instructions .ROUTE .COMPLEX 01/16/21 08/13/21 History lisinopril 40 mg PO DAILY 01/16/21 08/13/21 History memantine 5 mg PO BID 01/16/21 08/13/21 History mirtazapine 15 mg BYMOUTH HS 01/16/21 08/13/21 History ondansetron 4 mg PO Q6H PRN 01/16/21 08/13/21 History sertraline 50 mg PO DAILY 01/16/21 08/13/21 History spironolactone 50 mg PO DAILY 01/16/21 08/13/21 History ibuprofen 600 mg PO TID PRN
[2021-10-05] VITALS (10 sets, daily range): BP systolic 86–110; BP diastolic 45–89; PULSE 60–139; RESP 14–20; TEMP 35.9–36.9; O2SAT 96–100; BMI 32.5
[2021-10-05] MEDS: SODIUM CHLORIDE 0.9% IV 500 ML IV CONT (00:16)
[2021-10-05 02:53] LABS: SARS-CoV-2 RNA PCR Negative
[2021-10-05] MEDS: SODIUM BICARBONATE 8.4% 150 MEQ in DEXTROSE 5% 1,000 ML 950 ML 125 MEQ IV CONT ×2 (07:00→17:35)
--- NOTE | 2021-10-05 07:00 | ADMGEN ---
This patient, Shonna Piña, was admitted to [facility] Surg Room 307-01. Patient/family oriented to hospital policies and general routines including ID bracelet, bed and alarms, visiting hours, pain management, procedures, bathroom and other care routines, personal items, smoking policy, room service/diet, and visiting hours. Information on how to activate the Rapid Response Team has been discussed. Patient/Family are encouraged to report perceived risks to care and to ask questions if they do not understand what they are told or what they should do.
[2021-10-05 09:45] LABS: Hematocrit 37.1 % (37.0-47.0); Hemoglobin 11.4 g/dL (12.0-15.0); Mean Corpuscular HGB Conc 30.7 g/dl (32-36); Mean Corpuscular Hemoglobin 30.5 pg (26-34); Mean Corpuscular Volume 99.2 fl (80-100); Mean Platelet Volume 10.3 fl (7.4-10.4); Platelet Count Result 262 k/mm3 (150-375); Red Blood Count 3.74 M/mm3 (4.2-5.4); Red Cell Distribution Width 13.3 % (11.5-14.5)
--- NOTE | 2021-10-05 10:19 | PM.CNNEP ---
Assessment and Plan Assessment and plan (1) Stage 3b chronic kidney disease: Code(s): N18.32 - Chronic kidney disease, stage 3b Status: Chronic Assessment and Plan: The patient has chronic kidney disease. Her baseline creatinine is 1.3-1.6. This is most likely due to hypertension and vascular disease. (2) PRUDENCE (acute kidney injury): Code(s): N17.9 - Acute kidney failure, unspecified Status: Acute Assessment and Plan: The patient's creatinine is high. It is not as high as it was last admission but it is higher than baseline. She has hypotension which can cause higher creatinine. She is probably dehydrated as well which can contribute. The admission note said that she was on NSAIDs and this could contribute as well. There are other possibilities including obstruction, glomerulonephritis, interstitial nephritis, vascular disease. These are less likely in this clinical scenario. Will check a renal ultrasound, urine electrolytes. Will continue IV fluids to help the low blood pressure. (3) Acute hyperkalemia: Code(s): E87.5 - Hyperkalemia Status: Acute Assessment and Plan: The patient's potassium was high in the emergency room. She was on nonsteroidals, Yogi inhibitor, and spironolactone. Normally some people could tolerate all 3 of those without the potassium rising but she also has an elevated creatinine which increases the risk as well. she received Kayexalate. It was improved on recheck last evening but only had her blood work done again our so ago and it is not back yet. If it is still high will give her another dose of Kayexalate. (4) Metabolic acidosis: Code(s): E87.2 - Acidosis Status: Acute Assessment and Plan: The patient has metabolic acidosis. This is a non-anion gap metabolic acidosis. This could be from poor ammonia excretion because of her chronic kidney disease. She could have a renal tubular acidosis. She might have diarrhea but she can not give me a history. She is getting a bicarbonate drip (5) Hypotension: Code(s): I95.9 - Hypotension, unspecified Status: Acute Assessment and Plan: Her blood pressure is low. Perhaps this is from dehydration. This could also be from sepsis. She has cultures pending, and she is on antibiotics. (6) Pyuria: Code(s): R82.81 - Pyuria Status: Acute Assessment and Plan: She has pyuria. She has a culture pending. She is on antibiotics. (7) Hypoxia: Code(s): R09.02 - Hypoxemia Status: Acute Assessment and Plan: Etiology of this is unclear. Perhaps she is septic. COVID swab was negative and chest x-ray is unremarkable. History of Present Illness Reason for Consult Consult date: 10/05/21 Chief Complaint Chief complaint: PRUDENCE, hyperkalemia,UTI,hypoxia History of Present Illness Narrative: Shonna is an unfortunate 76-year-old lady who has dementia, diastolic heart failure, mild pulmonary hypertension, diverticulosis, hyperlipidemia, hypertension, depression, and chronic kidney disease with a baseline creatinine of 1.3-1.7. Last month she was in the hospital for diverticulitis, acute kidney injury due to dehydration/hypotension/NSAIDs. For that admission her creatinine was 10.5 at 1st in this gradually dropped to a level of about 1.3 which is her baseline. She was discharged in improved condition. She has been residing at [facility]. They found her to be lethargic and have low oxygen saturations. She complained of some shortness of breath. They called EMS who brought her over to the ER. She was evaluated in the emergency room and found to be hypoxic. Was continued on oxygen. Her creatinine was elevated as well as her potassium. She also had a low bicarbonate level and low blood pressure. She was given IV fluids and some bicarbonate as well as insulin glucose and Kayexalate. The patient rested well overnight.
[2021-10-05 10:41] LABS: Albumin Level 3.4 g/dL (3.5-5.1); Anion Gap 5 mmol/L (8-16); Blood Urea Nitrogen 88 mg/dL (7-17); Calcium 8.3 mg/dL (8.4-10.2); Carbon Dioxide 19 mmol/L (22-30); Chloride 115 mmol/L (98-107); Creatine Kinase < 20 U/L (30-135); Estimated CRCL calculation 17 ml/min; Estimated Glomerular Filt Rate 13; Glucose 139 mg/dL (65-110); Phosphorus 6.8 mg/dL (2.5-4.5); Potassium 5.8 mmol/L (3.4-5.0); Sodium 139 mmol/L (137-145)
--- NOTE | 2021-10-05 12:56 | PM.IMPN ---
Progress Note: A&P Assessment and Plan (1) Acute on chronic kidney failure: Onset Date: ~08/2021 Qualifiers: Acute renal failure type: unspecified Chronic kidney disease stage: stage 5, not on chronic dialysis Qualified Code(s): N17.9 - Acute kidney failure, unspecified; N18.5 - Chronic kidney disease, stage 5 Code(s): N17.9 - Acute kidney failure, unspecified; N18.9 - Chronic kidney disease, unspecified Status: Chronic Assessment and Plan: Creatinine 10/04 4.5, 10/05 3.4 U/s with mild atrophy of left kidney Hold offending drugs (lisinopril, spironolactone, ibuprofen) Encouraged PO fluids (2) Acute hyperkalemia: Code(s): E87.5 - Hyperkalemia Status: Acute Assessment and Plan: 10/04 7.0, 10/05 5.2 Bicarb dip initiated 10/04 Continue to monitor (3) Acute respiratory failure with hypoxia: Code(s): J96.01 - Acute respiratory failure with hypoxia Status: Acute Assessment and Plan: Supplemental oxygen Respiratory effort noted at care home could have been due in part to efforts to compensate for metabolic acidosis Patient's D-dimer is chronically elevated so pulmonary embolus seems unlikely Ventilation perfusion scan pending Chest x-ray was without infiltrates COVID-19 swab negative (4) Urinary tract infection: Qualifiers: Hematuria presence: without hematuria Urinary tract infection type: acute cystitis Qualified Code(s): N30.00 - Acute cystitis without hematuria Code(s): N39.0 - Urinary tract infection, site not specified Status: Acute Assessment and Plan: Continue ceftriaxone (5) Elevated d-dimer: Code(s): R79.89 - Other specified abnormal findings of blood chemistry Status: Acute Assessment and Plan: Chronically elevated though a bit higher than last month. Subjective Date/time seen: 10/05/21 12:56 Interval history: 10/05 visit: Tolerated diet. Pleasantly confused. Denied pain or shortness of breath. Review of Systems Review of Systems: ROS unobtainable: Yes unobtainable due to medical condition Exam Narrative: HEENT: PERRL, sclerae nonicteric, pharyngeal mucosa pink and intact NECK: No JVD, adenopathy, or thyromegaly CHEST: Clear to auscultation. Normal effort. HEART: NL S1/S2, regular, no murmur ABDOMEN: BS+, soft, nontender, no mass, no bruits EXTREMITIES: No cyanosis, edema, or clubbing NEUROLOGIC: CN intact and symmetric to inspection. MUSCULOSKELETAL: Tone and strength symmetric. PSYCH: Alert. Oriented to person, place, and time. Objective Data Vital Signs Vital Signs: Vital Signs - 24 hr 10/04/21 18:02 10/04/21 19:46 10/04/21 20:50 Temperature 96.9 F L Pulse Rate 75 76 76 Respiratory Rate 16 14 Blood Pressure 122/71 99/62 L Pulse Oximetry 94 97 10/04/21 20:51 10/04/21 23:10 10/05/21 02:19 Temperature Pulse Rate 74 74 82 Respiratory Rate 15 14 16 Blood Pressure 102/49 L 96/53 L 110/89 Pulse Oximetry 100 96 97 10/05/21 04:02 10/05/21 05:16 10/05/21 06:06 Temperature 97.2 F L Pulse Rate 60 139 H Respiratory Rate 14 18 Blood Pressure 102/70 86/53 L Pulse Oximetry 97 96 100 10/05/21 08:00 10/05/21 12:00 Temperature Pulse Rate 70 78 Respiratory Rate Blood Pressure Pulse Oximetry Intake/Output Intake/Output: Intake & Output 10/02/21 10/03/21 10/04/21 10/05/21 23:59 23:59 23:59 23:59 Intake Total 1050 1600 Output Total 800 325 Balance 250 1275 Meds/Results Medications: Active Medications Generic Name Dose Route Start Last Admin Trade Name Freq PRN Reason Stop Dose Admin Sodium Bicarbonate 150 meq/ 1,100 mls @ 125 mls/hr 10/04/21 20:35 10/05/21 07:00 Dextrose IV CONT 125 mls/hr .[id number] VENU Administration Ceftriaxone Sodium/Dextrose 1 gm in 50 mls @ 100 mls/hr 10/05/21 21:00 Rocephin 1 Gm/D5w 50 Ml IVPB Q24H VENU Radiology Results: ITS Impressions Chest X-Ray 0
[2021-10-05] MEDS: SODIUM POLYSTYRENE SULFONONATE 15 GM/60 ML BTL 30 GM PO (14:53)
[2021-10-05 15:06] LABS: Creatinine Urine 99.6 mg/dL; Total Protein Urine Random 25 mg/dL; Ur Ttl Prot Creatinine Ratio 0.25 mg/mg (0-0.20)
[2021-10-05 15:11] LABS: Sodium Urine Random 53 meq/L
[2021-10-05 16:22] LABS: Potassium 5.2 mmol/L (3.4-5.0)
[2021-10-05] MEDS: MEMANTINE 5 MG TABLET PO (18:56)
[2021-10-05 19:54] LABS: Anion Gap 4 mmol/L (8-16); Blood Urea Nitrogen 75 mg/dL (7-17); Carbon Dioxide 26 mmol/L (22-30); Chloride 110 mmol/L (98-107); Estimated CRCL calculation 19 ml/min; Estimated Glomerular Filt Rate 16; Glucose 180 mg/dL (65-110); Potassium 4.5 mmol/L (3.4-5.0); Sodium 140 mmol/L (137-145)
[2021-10-05] MEDS: DONEPEZIL HCL 5 MG TABLET 10 MG PO (21:41)
[2021-10-06] VITALS: PULSE 80
[2021-10-06 04:00] VITALS: PULSE 80
[2021-10-06] MEDS: SODIUM BICARBONATE 8.4% 150 MEQ in DEXTROSE 5% 1,000 ML 950 ML 125 MEQ IV CONT (05:05)
--- NOTE | 2021-10-06 06:00 | PC.NURSE ---
Pt pulled of colostomy bag and threw it at curtain divider in room. Pt threw her stool in the room. When attempting to clean up patient 3 staff members had to hold her arms down due to her attempting to pull off colostomy bag again. Pt fighting and attempting to dig in her nails into staff. Pt kicking at staff as well. When attempted to talk to patient she would scream at staff. Pt confused. Dr Quintana notified and soft restraints ordered. Son Edinson notified
[2021-10-06 08:00] VITALS: PULSE 71; O2SAT 97
[2021-10-06 08:09] LABS: Albumin Level 3.2 g/dL (3.5-5.1); Anion Gap 7 mmol/L (8-16); Blood Urea Nitrogen 74 mg/dL (7-17); Carbon Dioxide 22 mmol/L (22-30); Chloride 108 mmol/L (98-107); Estimated CRCL calculation 23 ml/min; Estimated Glomerular Filt Rate 20; Glucose 94 mg/dL (65-110); Phosphorus 4.9 mg/dL (2.5-4.5); Sodium 137 mmol/L (137-145)
--- NOTE | 2021-10-06 08:25 | PM.PNNEP ---
Progress Note: A&P Assessment and Plan (1) Stage 3b chronic kidney disease: Code(s): N18.32 - Chronic kidney disease, stage 3b Status: Chronic Assessment and Plan: The patient has chronic kidney disease. Her baseline creatinine is 1.3-1.6. This is most likely due to hypertension and vascular disease. (2) PRUDENCE (acute kidney injury): Code(s): N17.9 - Acute kidney failure, unspecified Status: Acute Assessment and Plan: The patient's creatinine is high. It is not as high as it was last admission but it is higher than baseline. Urine electrolytes non pre renal but she was on diuretics on admission. Renal sonogram shows nothing acute. CPK is normal Most likely due to a combination of low blood pressure, dehydration, NSAIDs. She is off NSAIDs, blood pressure is better, and she is getting IV fluids. Creatinine has improved and is down to 2.4. (3) Acute hyperkalemia: Code(s): E87.5 - Hyperkalemia Status: Acute Assessment and Plan: The patient's potassium was high in the emergency room. She was on nonsteroidals, Yogi inhibitor, and spironolactone. Potassium is now down to normal. (4) Metabolic acidosis: Code(s): E87.2 - Acidosis Status: Acute Assessment and Plan: The patient has metabolic acidosis. This is a non-anion gap metabolic acidosis. This could be from poor ammonia excretion because of her chronic kidney disease. She was on bicarbonate and her CO2 is now normal. Will change her to normal saline. (5) Hypotension: Code(s): I95.9 - Hypotension, unspecified Status: Acute Assessment and Plan: Improved (6) Pyuria: Code(s): R82.81 - Pyuria Status: Acute Assessment and Plan: She has pyuria. G negative bacilli growing in the urine. She is on antibiotics. (7) Hypoxia: Code(s): R09.02 - Hypoxemia Status: Acute Assessment and Plan: Possibly due to sepsis. O2 sat is okay on 4L of oxygen Subjective Date/time seen: 10/06/21 08:25 Interval history: Calmer, more cooperative, less inpatient. She has no shortness of breath. Review of Systems Cardiovascular: Cardiovascular: Reports no additional cardiovascular complaints Respiratory: Respiratory: Reports no additional respiratory complaints Gastrointestinal: Gastrointestinal: Reports no additional gastrointestinal complaints Genitourinary: Genitourinary: Reports no additional female genitourinary complaints Exam Narrative: WDWN in NAD skin no rash head ncat lungs clear cor reg no rub abd BS+ nontender and soft ext trace edema. Objective Data Vital Signs Vital Signs: Vital Signs - 24 hr 10/05/21 12:00 10/05/21 14:00 10/05/21 16:00 Temperature 36.9 C Pulse Rate 78 70 73 Respiratory Rate 20 Blood Pressure 100/62 Pulse Oximetry 99 10/05/21 20:00 10/05/21 21:22 10/06/21 00:00 Temperature 35.9 C L Pulse Rate 80 91 80 Respiratory Rate 20 18 Blood Pressure 109/45 L Pulse Oximetry 97 97 10/06/21 04:00 Temperature Pulse Rate 80 Respiratory Rate Blood Pressure Pulse Oximetry Intake/Output Intake/Output: Intake & Output 10/03/21 10/04/21 10/05/21 10/06/21 23:59 23:59 23:59 23:59 Intake Total 1050 3240 1100 Output Total 800 800 100 Balance 250 2440 1000 Meds/Results Medications: Active Medications Generic Name Dose Route Start Last Admin Trade Name Freq PRN Reason Stop Dose Admin Donepezil HCl 10 mg 10/05/21 21:00 10/05/21 21:41 Donepezil Hcl 5 Mg Tablet PO 10 mg HS VENU Administration Ceftriaxone Sodium/Dextrose 1 gm in 50 mls @ 100 mls/hr 10/05/21 21:00 10/05/21 21:41 Rocephin 1 Gm/D5w 50 Ml IVPB 100 mls/hr Q24H EVNU Administration Sodium Chloride 1,000 mls @ 50 mls/hr 10/06/21 07:20 Normal Saline Iv IV CONT .Q20H VENU Memantine 5 mg 10/05/21 17:00 10/05/21 18:56 Memantine 5 Mg Tablet PO 5 mg BID
[2021-10-06] MEDS: SERTRALINE HCL 50 MG TABLET PO (10:00)
[2021-10-06] MEDS: MEMANTINE 5 MG TABLET PO ×2 (10:00→17:28)
[2021-10-06] MEDS: SODIUM CHLORIDE 0.9% IV 1,000 ML 50 ML IV CONT (10:08)
--- NOTE | 2021-10-06 10:58 | PM.IMPN ---
Progress Note: A&P Assessment and Plan (1) Acute on chronic kidney failure: Onset Date: ~08/2021 Qualifiers: Acute renal failure type: unspecified Chronic kidney disease stage: stage 5, not on chronic dialysis Qualified Code(s): N17.9 - Acute kidney failure, unspecified; N18.5 - Chronic kidney disease, stage 5 Code(s): N17.9 - Acute kidney failure, unspecified; N18.9 - Chronic kidney disease, unspecified Status: Chronic Assessment and Plan: Creatinine 10/04 4.5, 10/05 3.4, 10/06 2.4 U/s with mild atrophy of left kidney Hold offending drugs (lisinopril, spironolactone, ibuprofen) Encouraged PO fluids (2) Acute hyperkalemia: Code(s): E87.5 - Hyperkalemia Status: Acute Assessment and Plan: 10/04 7.0, 10/05 5.2, 10/06 5.0 Bicarb dip initiated 10/04, 10/06 IV NS Continue to monitor (3) Acute respiratory failure with hypoxia: Code(s): J96.01 - Acute respiratory failure with hypoxia Status: Acute Assessment and Plan: Supplemental oxygen Respiratory effort noted at senior living could have been due in part to efforts to compensate for metabolic acidosis CXR w/o infiltrates Patient's D-dimer is chronically elevated, but increased from previously 10/06 Venous doppler with right popliteal DVT NM perfusion scan pending (PE would alter duration of anticoagulation) 10/06 initiated apixaban 10mg bid (4) Urinary tract infection: Qualifiers: Hematuria presence: without hematuria Urinary tract infection type: acute cystitis Qualified Code(s): N30.00 - Acute cystitis without hematuria Code(s): N39.0 - Urinary tract infection, site not specified Status: Acute Assessment and Plan: Ceftriaxone started at admission 10/06 1 of 2 BC's with GPC's in clusters, ID and sensitivities pending 10/06 C/s with ESBL e. coli, so initiated ertapenem 500mg daily (5) Elevated d-dimer: Code(s): R79.89 - Other specified abnormal findings of blood chemistry Status: Acute Assessment and Plan: Chronically elevated though a bit higher than last month Possible chronic DVT with extension Subjective Date/time seen: 10/06/21 10:58 Interval history: 10/06 visit. Agitated last night. States she was having vivid dreams about her recently . They frightened her. She was still in restraints when seen this morning and requested this staff remove them. Hungry but cannot eat while restrained. Denied pain or shortness of breath. Denied GI or issues. Denied bleeding. Review of Systems Review of Systems: ROS unobtainable: Yes unobtainable due to medical condition Exam Narrative: HEENT: PERRL, sclerae nonicteric, pharyngeal mucosa pink and intact NECK: No JVD CHEST: Clear to auscultation. Normal effort. HEART: NL S1/S2, regular, no murmur ABDOMEN: BS+, soft, nontender, no mass, no bruits EXTREMITIES: No cyanosis, edema, or clubbing NEUROLOGIC: CN intact and symmetric to inspection. MUSCULOSKELETAL: Tone and strength symmetric. PSYCH: Alert. Oriented to person only. But pleasant and follows commands. Objective Data Vital Signs Vital Signs: Vital Signs - 24 hr 10/05/21 12:00 10/05/21 14:00 10/05/21 16:00 Temperature 98.4 F Pulse Rate 78 70 73 Respiratory Rate 20 Blood Pressure 100/62 Pulse Oximetry 99 10/05/21 20:00 10/05/21 21:22 10/06/21 00:00 Temperature 96.7 F L Pulse Rate 80 91 80 Respiratory Rate 20 18 Blood Pressure 109/45 L Pulse Oximetry 97 97 10/06/21 04:00 Temperature Pulse Rate 80 Respiratory Rate Blood Pressure Pulse Oximetry Intake/Output Intake/Output: Intake & Output 10/03/21 10/04/21 10/05/21 10/06/21 23:59 23:59 23:59 23:59 Intake Total 1050 3240 1450 Output Total 800 800 100 Balance 250 2440 1350 Meds/Results Medications: Active Medications Generic Name Dose Route Start Last Admin Trade Name Freq PRN Reason Stop Dose Admin Api
--- NOTE | 2021-10-06 10:58 | P.PNIM_ITS ---
Progress Note: A&P Assessment and Plan (1) Acute on chronic kidney failure: Onset Date: ~08/2021 Qualifiers: Acute renal failure type: unspecified Chronic kidney disease stage: stage 5, not on chronic dialysis Qualified Code(s): N17.9 - Acute kidney failure, unspecified; N18.5 - Chronic kidney disease, stage 5 Code(s): N17.9 - Acute kidney failure, unspecified; N18.9 - Chronic kidney disease, unspecified Status: Chronic Assessment and Plan: * Creatinine 10/04 4.5, 10/05 3.4, 10/06 2.4 * U/s with mild atrophy of left kidney * Hold offending drugs (lisinopril, spironolactone, ibuprofen) * Encouraged PO fluids (2) Acute hyperkalemia: Code(s): E87.5 - Hyperkalemia Status: Acute Assessment and Plan: * 10/04 7.0, 10/05 5.2, 10/06 5.0 * Bicarb dip initiated 10/04, 10/06 IV NS * Continue to monitor (3) Acute respiratory failure with hypoxia: Code(s): J96.01 - Acute respiratory failure with hypoxia Status: Acute Assessment and Plan: * Supplemental oxygen * Respiratory effort noted at group home could have been due in part to efforts to compensate for metabolic acidosis * CXR w/o infiltrates * Patient's D-dimer is chronically elevated, but increased from previously * 10/06 Venous doppler with right popliteal DVT * NM perfusion scan pending (PE would alter duration of anticoagulation) * 10/06 initiated apixaban 10mg bid (4) Urinary tract infection: Qualifiers: Hematuria presence: without hematuria Urinary tract infection type: acute cystitis Qualified Code(s): N30.00 - Acute cystitis without hematuria Code(s): N39.0 - Urinary tract infection, site not specified Status: Acute Assessment and Plan: * Ceftriaxone started at admission * 10/06 1 of 2 BC's with GPC's in clusters, ID and sensitivities pending * 10/06 C/s with ESBL e. coli, so initiated ertapenem 500mg daily (5) Elevated d-dimer: Code(s): R79.89 - Other specified abnormal findings of blood chemistry Status: Acute Assessment and Plan: * Chronically elevated though a bit higher than last month * Possible chronic DVT with extension Subjective Date/time seen: 10/06/21 10:58 Interval history: 10/06 visit. Agitated last night. States she was having vivid dreams about her recently . They frightened her. She was still in restraints when seen this morning and requested this staff remove them. Hungry but cannot eat while restrained. Denied pain or shortness of breath. Denied GI or issues. Denied bleeding. Review of Systems Review of Systems: ROS unobtainable: Yes unobtainable due to medical condition Exam Narrative: HEENT: PERRL, sclerae nonicteric, pharyngeal mucosa pink and intact NECK: No JVD CHEST: Clear to auscultation. Normal effort. HEART: NL S1/S2, regular, no murmur ABDOMEN: BS+, soft, nontender, no mass, no bruits EXTREMITIES: No cyanosis, edema, or clubbing NEUROLOGIC: CN intact and symmetric to inspection. MUSCULOSKELETAL: Tone and strength symmetric. PSYCH: Alert. Oriented to person only. But pleasant and follows commands. Objective Data Vital Signs Vital Signs: Vital Signs - 24 hr 10/05/21 12:00 10/05/21 14:00 10/05/21 16:00 Temperature 98.4 F Pulse Rate 78 70 73 Respiratory Rate 20 Blood Pressure 100/62 Pulse Oximetry 99 10/05/21 20:00 10/05/21 21:22 10/06/21 00:00 Temperatu
[2021-10-06] MEDS: ERTAPENEM SODIUM 0.5 GM in SODIUM CHLORIDE 0.9% IV 50 ML IVPB (12:11)
[2021-10-06] MEDS: APIXABAN 5 MG TABLET 10 MG PO (12:11)
--- NOTE | 2021-10-06 13:21 | PCPTNOTE ---
attempted PT eval this pm, unable to arouse to attend to therapy eval.
[2021-10-06 14:00] VITALS: BP 116/45; PULSE 73; RESP 20; TEMP 37; O2SAT 100
[2021-10-06] MEDS: WATER FOR IRRIGATION, STERILE 1,000 ML BOTTLE 1000 ML (14:23)
[2021-10-06 20:00] VITALS: O2SAT 100
[2021-10-06 22:00] VITALS: BP 131/50; PULSE 67; RESP 18; TEMP 36.2; O2SAT 100
--- NOTE | 2021-10-07 03:34 | PC.NURSE ---
Pt pulled out roberts. Pt pulled off colostomy bag. Pt pulled out IV. Spoke with Dr. Quintana and soft wrist restraints are to be ordered.
[2021-10-07 04:31] VITALS: O2SAT 98
[2021-10-07 06:00] VITALS: BP 135/59; PULSE 72; RESP 18; TEMP 36.6; O2SAT 97
[2021-10-07 07:49] LABS: Hematocrit 33.9 % (37.0-47.0); Hemoglobin 10.6 g/dL (12.0-15.0); Mean Corpuscular HGB Conc 31.3 g/dl (32-36); Mean Corpuscular Hemoglobin 29.9 pg (26-34); Mean Corpuscular Volume 95.5 fl (80-100); Mean Platelet Volume 10.3 fl (7.4-10.4); Platelet Count Result 279 k/mm3 (150-375); Red Blood Count 3.55 M/mm3 (4.2-5.4); Red Cell Distribution Width 12.9 % (11.5-14.5); White Blood Count 4.8 K/mm3 (4.5-10.0)
--- NOTE | 2021-10-07 07:52 | PM.PNNEP ---
Progress Note: A&P Assessment and Plan (1) Stage 3b chronic kidney disease: Code(s): N18.32 - Chronic kidney disease, stage 3b Status: Chronic Assessment and Plan: The patient has chronic kidney disease. Her baseline creatinine is 1.3-1.6. This is most likely due to hypertension and vascular disease. (2) PRUDENCE (acute kidney injury): Code(s): N17.9 - Acute kidney failure, unspecified Status: Acute Assessment and Plan: The patient's creatinine is high. It is not as high as it was last admission but it is higher than baseline. Urine electrolytes non pre renal but she was on diuretics on admission. Renal sonogram shows nothing acute. CPK is normal Most likely due to a combination of low blood pressure, dehydration, NSAIDs. She is off NSAIDs, blood pressure is better, and she is getting IV fluids. Creatinine has improved but today's is pending. (3) Acute hyperkalemia: Code(s): E87.5 - Hyperkalemia Status: Acute Assessment and Plan: The patient's potassium was high in the emergency room. She was on nonsteroidals, Yogi inhibitor, and spironolactone. Potassium is now down to normal. (4) Metabolic acidosis: Code(s): E87.2 - Acidosis Status: Acute Assessment and Plan: The patient has metabolic acidosis. This is a non-anion gap metabolic acidosis. This could be from poor ammonia excretion because of her chronic kidney disease. She was on bicarbonate and her CO2 is now normal. Will change her to normal saline. (5) Hypotension: Code(s): I95.9 - Hypotension, unspecified Status: Acute Assessment and Plan: Improved (6) Pyuria: Code(s): R82.81 - Pyuria Status: Acute Assessment and Plan: She has pyuria. G negative bacilli growing in the urine. She is on ertapenem (7) Hypoxia: Code(s): R09.02 - Hypoxemia Status: Acute Assessment and Plan: Possibly due to sepsis. O2 sat is okay on 4L of oxygen Subjective Date/time seen: 10/07/21 07:52 Interval history: Patient was doing pretty well all day yesterday mental status al, however at around 8:00 a.m. she pulled out her Dawkins and IV. She is calmer today. Exam Narrative: WDWN in NAD skin no rash or subQ nodules head ncat lungs clear bilaterally cor reg no rub abd BS+ nontender and soft ext trace edema. Objective Data Vital Signs Vital Signs: Vital Signs - 24 hr 10/06/21 08:00 10/06/21 14:00 10/06/21 20:00 Temperature 37.0 C Pulse Rate 71 73 Respiratory Rate 20 Blood Pressure 116/45 L Pulse Oximetry 97 100 100 10/06/21 22:00 10/07/21 04:31 10/07/21 06:00 Temperature 36.2 C L 36.6 C Pulse Rate 67 72 Respiratory Rate 18 18 Blood Pressure 131/50 L 135/59 L Pulse Oximetry 100 98 97 Intake/Output Intake/Output: Intake & Output 10/04/21 10/05/21 10/06/21 10/07/21 23:59 23:59 23:59 23:59 Intake Total 1050 3240 2310 120 Output Total 075 900 8286 600 Balance 250 2440 1060 -480 Meds/Results Medications: Active Medications Generic Name Dose Route Start Last Admin Trade Name Karina PRN Reason Stop Dose Admin Apixaban 10 mg 10/06/21 10:45 10/06/21 21:00 Apixaban 5 Mg Tablet PO Not Given Q12HR VENU Donepezil HCl 10 mg 10/05/21 21:00 10/06/21 21:00 Donepezil Hcl 5 Mg Tablet PO Not Given HS VENU Sodium Chloride 1,000 mls @ 50 mls/hr 10/06/21 07:20 10/07/21 07:28 Normal Saline Iv IV CONT 0 mls/hr .Q20H VENU Infusion Ertapenem 0.5 gm/ Sodium 50 mls @ 100 mls/hr 10/06/21 12:00 10/06/21 12:41 Chloride IVPB Infused Q24H VENU Infusion Memantine 5 mg 10/05/21 17:00 10/06/21 17:28 Memantine 5 Mg Tablet PO 5 mg BID VENU Administration Sertraline HCl 50 mg 10/06/21 09:00 10/06/21 10:00 Sertraline Hcl 50 Mg Tablet PO 50 mg DAILY VENU Administration Radiology Results: ITS Impressions Chest X-Ray 10/04/21 18:20 IMPR
[2021-10-07 08:03] LABS: Albumin Level 3.2 g/dL (3.5-5.1); Anion Gap 0 mmol/L (8-16); Blood Urea Nitrogen 51 mg/dL (7-17); Calcium 8.6 mg/dL (8.4-10.2); Carbon Dioxide 32 mmol/L (22-30); Chloride 108 mmol/L (98-107); Estimated CRCL calculation 33 ml/min; Estimated Glomerular Filt Rate 29; Glucose 103 mg/dL (65-110); Potassium 4.6 mmol/L (3.4-5.0); Sodium 140 mmol/L (137-145)
--- NOTE | 2021-10-07 08:55 | PCOTNOTE ---
Attempted to see pt. for occupational therapy evaluation. Pt. refused.
[2021-10-07] MEDS: SERTRALINE HCL 50 MG TABLET PO (09:27)
[2021-10-07] MEDS: APIXABAN 5 MG TABLET 10 MG PO ×2 (09:27→22:43)
[2021-10-07] MEDS: MEMANTINE 5 MG TABLET PO ×2 (09:27→18:15)
--- NOTE | 2021-10-07 10:03 | WPDCDIQUERY2 ---
CDI Query Clarification Request -10/06 venous doppler ordered, for elevated d dimer of 2.54, with impression: Deep vein thrombosis involving the LEFT popliteal and gastrocnemius veins - 10/06 Venous doppler with right popliteal DVT and Possible chronic DVT with extension both documented in 10/06 progress note -Apixaban started 10/06 Please clarify if there is a corresponding diagnosis for above documented venous doppler finding, including side-right, left, or bilateral/site/and acuity- acute, chronic,acute on chronic, if known. <Valerie Morales RN - Last Filed: 10/07/21 10:13> Provider Comments Deep vein thrombosis involving the left popliteal and gastrocnemius veins. ACUTE DVT IN LEFT LEG <Carla Huber MD - Last Filed: 10/08/21 12:05>
--- NOTE | 2021-10-07 13:28 | PM.IMPN ---
Progress Note: A&P Assessment and Plan (1) Acute on chronic kidney failure: Onset Date: ~08/2021 Qualifiers: Acute renal failure type: unspecified Chronic kidney disease stage: stage 5, not on chronic dialysis Qualified Code(s): N17.9 - Acute kidney failure, unspecified; N18.5 - Chronic kidney disease, stage 5 Code(s): N17.9 - Acute kidney failure, unspecified; N18.9 - Chronic kidney disease, unspecified Status: Chronic Assessment and Plan: Creatinine is 1.7 now U/s with mild atrophy of left kidney Hold offending drugs (lisinopril, spironolactone, ibuprofen) Encouraged PO fluids (2) Acute hyperkalemia: Code(s): E87.5 - Hyperkalemia Status: Resolved Assessment and Plan: Potassium is 4.6 Pt was on a Bicarb dip initiated 10/04, 10/06 IV NS (3) Acute respiratory failure with hypoxia: Code(s): J96.01 - Acute respiratory failure with hypoxia Status: Acute Assessment and Plan: Supplemental oxygen Respiratory effort noted at alf could have been due in part to efforts to compensate for metabolic acidosis CXR w/o infiltrates Patient's D-dimer is chronically elevated, but increased from previously 10/06 Venous doppler with right popliteal DVT NM perfusion scan pending (PE would alter duration of anticoagulation) 10/06 initiated apixaban 10mg bid (4) Urinary tract infection: Qualifiers: Hematuria presence: without hematuria Urinary tract infection type: acute cystitis Qualified Code(s): N30.00 - Acute cystitis without hematuria Code(s): N39.0 - Urinary tract infection, site not specified Status: Acute Assessment and Plan: Ceftriaxone started at admission 10/06 1 of 2 BC's with GPC's in clusters, ID and sensitivities pending 10/06 C/s with ESBL e. coli, pt started ertapenem 500mg IV qdaily (5) Elevated d-dimer: Code(s): R79.89 - Other specified abnormal findings of blood chemistry Status: Acute Assessment and Plan: Chronically elevated though a bit higher than last month Possible chronic DVT with extension (6) Diarrhea: Code(s): R19.7 - Diarrhea, unspecified Status: Acute Assessment and Plan: Pt having diarrhea- pt imodium Subjective Date/time seen: 10/07/21 13:28 Interval history: 76-year-old female with a past medical history of recent COVID, dementia, diastolic heart failure, hypertension and chronic kidney disease stage III with baseline creatinine 1.6 who presented to the ER via EMS from [facility] is due to lethargy and low oxygen saturations. Pt was having diarrhea and her labs showed PRUDENCE and hyperkelemia. Last night she was agitated. Review of Systems Review of Systems: All systems reviewed & are unremarkable except as noted in HPI and below Exam Narrative: Comfortable elderly lady CHEST: Clear to auscultation. Normal effort. HEART: NL S1/S2, regular, no murmur ABDOMEN: BS+, soft, nontender, no mass, no bruits EXTREMITIES: No cyanosis, edema, or clubbing NEUROLOGIC: CN intact and symmetric to inspection. MUSCULOSKELETAL: Tone and strength symmetric. PSYCH: Alert. Oriented to person only. But pleasant and follows commands. Objective Data Vital Signs Vital Signs: Vital Signs - 24 hr 10/06/21 14:00 10/06/21 20:00 10/06/21 22:00 Temperature 37.0 C 36.2 C L Pulse Rate 73 67 Respiratory Rate 20 18 Blood Pressure 116/45 L 131/50 L Pulse Oximetry 100 100 100 10/07/21 04:31 10/07/21 06:00 Temperature 36.6 C Pulse Rate 72 Respiratory Rate 18 Blood Pressure 135/59 L Pulse Oximetry 98 97 Intake/Output Intake/Output: Intake & Output 10/04/21 10/05/21 10/06/21 10/07/21 23:59 23:59 23:59 23:59 Intake Total 1050 3240 2310 320 Output Total 493 706 9733 600 Balance 250 2440 1060 -280 Meds/Results Medications: Active Medications Generic Name Dose Route Start Last Admin Trade Name Freq PRN Reason Sto
[2021-10-07 13:57] VITALS: BP 135/72; PULSE 65; RESP 18; TEMP 35.9; O2SAT 97
[2021-10-07] MEDS: ERTAPENEM SODIUM 0.5 GM in SODIUM CHLORIDE 0.9% IV 50 ML IVPB (15:30)
--- NOTE | 2021-10-07 16:32 | PCPTNOTE ---
Patient refused at 830AM. Attempted to see patient at 1200, but patient not in room.
[2021-10-07 22:00] VITALS: BP 112/52; PULSE 70; RESP 16; TEMP 36.2; O2SAT 97
[2021-10-07] MEDS: DONEPEZIL HCL 5 MG TABLET 10 MG PO (22:43)
[2021-10-08] MEDS: SODIUM CHLORIDE 0.9% IV 1,000 ML 50 ML IV CONT (00:29)
--- NOTE | 2021-10-08 04:00 | PC.NURSE ---
Called Hospitalist for renewal order for restraints. No answer. Will call again in 15 minutes.
--- NOTE | 2021-10-08 04:30 | PC.NURSE ---
Took restraints off at 0404 on 10/08/2021. Clarification Operator assessed the need to renew restraints order. Pt pulled out IV. Spoke with Hospitalist and restraints are renewed.
[2021-10-08 06:00] VITALS: BP 118/61; PULSE 66; RESP 18; TEMP 36.8; O2SAT 95
[2021-10-08 07:07] LABS: Anion Gap 3 mmol/L (8-16); Blood Urea Nitrogen 39 mg/dL (7-17); Calcium 8.5 mg/dL (8.4-10.2); Carbon Dioxide 27 mmol/L (22-30); Chloride 109 mmol/L (98-107); Estimated CRCL calculation 33 ml/min; Estimated Glomerular Filt Rate 29; Glucose 97 mg/dL (65-110); Phosphorus 3.8 mg/dL (2.5-4.5); Potassium 4.6 mmol/L (3.4-5.0); Sodium 139 mmol/L (137-145)
[2021-10-08 08:00] VITALS: PULSE 64; RESP 18; O2SAT 100
[2021-10-08] MEDS: APIXABAN 5 MG TABLET 10 MG PO ×2 (08:55→21:47)
[2021-10-08] MEDS: SERTRALINE HCL 50 MG TABLET PO (08:55)
[2021-10-08] MEDS: MEMANTINE 5 MG TABLET PO ×2 (08:55→16:34)
--- NOTE | 2021-10-08 09:23 | PM.PNNEP ---
Progress Note: A&P Assessment and Plan (1) Stage 3b chronic kidney disease: Code(s): N18.32 - Chronic kidney disease, stage 3b Status: Chronic Assessment and Plan: The patient has chronic kidney disease. Her baseline creatinine is 1.3-1.6. This is most likely due to hypertension and vascular disease. (2) PRUDENCE (acute kidney injury): Code(s): N17.9 - Acute kidney failure, unspecified Status: Acute Assessment and Plan: The patient's creatinine was high on admission. Urine electrolytes non pre renal but she was on diuretics on admission. Renal sonogram shows nothing acute. CPK is normal Most likely due to a combination of low blood pressure, dehydration, NSAIDs. creatinine is coming down. It is 1.7 today. (3) Acute hyperkalemia: Code(s): E87.5 - Hyperkalemia Status: Resolved Assessment and Plan: Resolved (4) Metabolic acidosis: Code(s): E87.2 - Acidosis Status: Acute Assessment and Plan: resolved (5) Hypotension: Code(s): I95.9 - Hypotension, unspecified Status: Acute Assessment and Plan: Improved (6) Pyuria: Code(s): R82.81 - Pyuria Status: Acute Assessment and Plan: She has pyuria. E coli(ESBL) grew in the urine. She is on ertapenem (7) Hypoxia: Code(s): R09.02 - Hypoxemia Status: Acute Assessment and Plan: Possibly due to sepsis. O2 sat is okay on 4L of oxygen Subjective Date/time seen: 10/08/21 09:23 Interval history: Patient much calmer today. No chest pain or shortness of breath. Exam Narrative: WDWN in NAD skin no rash head ncat lungs clear bilaterally cor reg no rub or gallop abd BS+ nontender and soft ext trace edema. Objective Data Vital Signs Vital Signs: Vital Signs - 24 hr 10/07/21 13:57 10/07/21 22:00 10/08/21 06:00 Temperature 35.9 C L 36.2 C L 36.8 C Pulse Rate 65 70 66 Respiratory Rate 18 16 18 Blood Pressure 135/72 112/52 L 118/61 Pulse Oximetry 97 97 95 Intake/Output Intake/Output: Intake & Output 10/05/21 10/06/21 10/07/21 10/08/21 23:59 23:59 23:59 23:59 Intake Total 3240 2310 370 1490 Output Total 800 1250 600 300 Balance 2440 1060 -230 1190 Meds/Results Medications: Active Medications Generic Name Dose Route Start Last Admin Trade Name Freq PRN Reason Stop Dose Admin Apixaban 10 mg 10/06/21 10:45 10/08/21 08:55 Apixaban 5 Mg Tablet PO 10 mg Q12HR VENU Administration Donepezil HCl 10 mg 10/05/21 21:00 10/07/21 22:43 Donepezil Hcl 5 Mg Tablet PO 10 mg HS VENU Administration Sodium Chloride 1,000 mls @ 50 mls/hr 10/06/21 07:20 10/08/21 05:51 Normal Saline Iv IV CONT Infused .Q20H VENU Infusion Ertapenem 0.5 gm/ Sodium 50 mls @ 100 mls/hr 10/06/21 12:00 10/07/21 16:00 Chloride IVPB Infused Q24H VENU Infusion Loperamide HCl 2 mg 10/07/21 14:03 Loperamide Hcl 2 Mg Capsule PO PRN PRN Diarrhea Memantine 5 mg 10/05/21 17:00 10/08/21 08:55 Memantine 5 Mg Tablet PO 5 mg BID VENU Administration Sertraline HCl 50 mg 10/06/21 09:00 10/08/21 08:55 Sertraline Hcl 50 Mg Tablet PO 50 mg DAILY VENU Administration Radiology Results: ITS Impressions Head CT 10/04/21 20:18 IMPRESSION: Cerebral atherosclerosis and chronic small vessel ischemic changes of the cerebral white matter Bilateral chronic lacunar infarcts of basal ganglia and left. Ventricular Cerebral and cerebellar atrophy No acute intracranial finding Retroperitoneum Ultrasound 10/05/21 10:38 IMPRESSION: 1. Mild atrophy of left kidney. No hydronephrosis. Venous Doppler Study 10/06/21 10:31 IMPRESSION: 1. Deep vein thrombosis involving the left popliteal and gastrocnemius veins. ADDENDUM: 10/06/21 1035 I called this result to Dr. Anthony. Pulmonary Perfusion Imaging 10/07/21 12:45 IMPRESSION: 1. Nondiagn
[2021-10-08] MEDS: ERTAPENEM SODIUM 0.5 GM in SODIUM CHLORIDE 0.9% IV 50 ML IVPB (11:00)
[2021-10-08 14:00] VITALS: BP 132/52; PULSE 64; RESP 18; TEMP 36.1; O2SAT 100
--- NOTE | 2021-10-08 14:22 | PM.IMPN ---
Progress Note: A&P Assessment and Plan (1) Acute on chronic kidney failure: Onset Date: ~08/2021 Qualifiers: Acute renal failure type: unspecified Chronic kidney disease stage: stage 5, not on chronic dialysis Qualified Code(s): N17.9 - Acute kidney failure, unspecified; N18.5 - Chronic kidney disease, stage 5 Code(s): N17.9 - Acute kidney failure, unspecified; N18.9 - Chronic kidney disease, unspecified Status: Chronic Assessment and Plan: Creatinine is 1.7 now U/s with mild atrophy of left kidney Hold offending drugs (lisinopril, spironolactone, ibuprofen) Encouraged PO fluids 10/08/2021 interval history Patient with acute kidney injury with CKD seen by Nephrology suspect secondary to hypertension, dehydration and use of NSAID, today patient states feeling better a creatinine is trending down, patient also has UTI E coli ESBL multi resistant sensitive to ertpanem will require 7 days of IV antibiotic now 3rd day, will continue to monitor and further recommendation to follow, patient is participating in PT OT will benefit from acute rehab (2) Acute hyperkalemia: Code(s): E87.5 - Hyperkalemia Status: Resolved Assessment and Plan: Potassium is 4.6 Pt was on a Bicarb dip initiated 10/04, 10/06 IV NS (3) Acute respiratory failure with hypoxia: Code(s): J96.01 - Acute respiratory failure with hypoxia Status: Acute Assessment and Plan: Supplemental oxygen Respiratory effort noted at correction could have been due in part to efforts to compensate for metabolic acidosis CXR w/o infiltrates Patient's D-dimer is chronically elevated, but increased from previously 10/06 Venous doppler with right popliteal DVT NM perfusion scan pending (PE would alter duration of anticoagulation) 10/06 initiated apixaban 10mg bid (4) Urinary tract infection: Qualifiers: Hematuria presence: without hematuria Urinary tract infection type: acute cystitis Qualified Code(s): N30.00 - Acute cystitis without hematuria Code(s): N39.0 - Urinary tract infection, site not specified Status: Acute Assessment and Plan: Ceftriaxone started at admission 10/06 1 of 2 BC's with GPC's in clusters, ID and sensitivities pending 10/06 C/s with ESBL e. coli, pt started ertapenem 500mg IV qdaily (5) Elevated d-dimer: Code(s): R79.89 - Other specified abnormal findings of blood chemistry Status: Acute Assessment and Plan: Chronically elevated though a bit higher than last month Possible chronic DVT with extension (6) Diarrhea: Code(s): R19.7 - Diarrhea, unspecified Status: Acute Assessment and Plan: Pt having diarrhea- pt imodium Additional Plan Patient has acute on chronic renal failure. Patient's hyperkalemia has improved after treatment with calcium, bicarb, insulin and dextrose. She has also received 1 L of IV fluids. Re-evaluate the patient in the ER her blood pressures were borderline low with systolics less than 90 and maps around 60. An additional 500 mL bolus was administered with improvement in the patient's blood pressure. Nephrology was consulted and patient has been started on a bicarb drip. Will repeat electrolyte panel in a.m.. Patient's home med rec is not yet available for my review but I would hold patient's lisinopril, spironolactone, Lasix, and ibuprofen. The patient had reported hypoxia at the correction. At the time my evaluation patient was satting 97-100% on 4 L nasal cannula. I have asked nursing staff to wean the patient's supplemental oxygen. Given a reported episode of hypoxia and elevated D-dimer a V/Q scan has been ordered since patient cannot a CTA due to her acute renal failure. Patient was given 1 dose of therapeutic Lovenox. The patient's COVID PCR was negative and chest x-ray was not remarkable for any significant disease. I suspect that the increased respiratory effort noted a
[2021-10-08] MEDS: DONEPEZIL HCL 5 MG TABLET 10 MG PO (21:47)
[2021-10-08 21:52] VITALS: BP 144/88; PULSE 63; RESP 18; TEMP 36.3; O2SAT 95
[2021-10-09 05:22] VITALS: BP 128/71; PULSE 66; RESP 16; TEMP 36; O2SAT 95
[2021-10-09 06:32] LABS: Hematocrit 31.6 % (37.0-47.0); Hemoglobin 9.9 g/dL (12.0-15.0); Mean Corpuscular HGB Conc 31.3 g/dl (32-36); Mean Corpuscular Hemoglobin 29.9 pg (26-34); Mean Corpuscular Volume 95.5 fl (80-100); Mean Platelet Volume 10.4 fl (7.4-10.4); Platelet Count Result 255 k/mm3 (150-375); Red Blood Count 3.31 M/mm3 (4.2-5.4); Red Cell Distribution Width 12.8 % (11.5-14.5); White Blood Count 5.6 K/mm3 (4.5-10.0)
--- NOTE | 2021-10-09 06:39 | PM.PNNEP ---
Progress Note: A&P Assessment and Plan (1) Stage 3b chronic kidney disease: Code(s): N18.32 - Chronic kidney disease, stage 3b Status: Chronic Assessment and Plan: The patient has chronic kidney disease. Her baseline creatinine is 1.3-1.6. This is most likely due to hypertension and vascular disease. (2) PRUDENCE (acute kidney injury): Code(s): N17.9 - Acute kidney failure, unspecified Status: Acute Assessment and Plan: The patient's creatinine was high on admission. Urine electrolytes non pre renal but she was on diuretics on admission. Renal sonogram shows nothing acute. CPK is normal Most likely due to a combination of low blood pressure, dehydration, NSAIDs. Blood pressure is better. Off the NSAIDs. Getting IV fluids. She is eating well now. creatinine is pending for today (3) Acute hyperkalemia: Code(s): E87.5 - Hyperkalemia Status: Resolved Assessment and Plan: Resolved (4) Metabolic acidosis: Code(s): E87.2 - Acidosis Status: Acute Assessment and Plan: resolved (5) Hypotension: Code(s): I95.9 - Hypotension, unspecified Status: Acute Assessment and Plan: Improved (6) Pyuria: Code(s): R82.81 - Pyuria Status: Acute Assessment and Plan: She has pyuria. E coli(ESBL) grew in the urine. She is on ertapenem (7) Hypoxia: Code(s): R09.02 - Hypoxemia Status: Acute Assessment and Plan: Possibly due to sepsis. O2 sat is okay on 4L of oxygen Subjective Date/time seen: 10/09/21 06:39 Interval history: Patient resting comfortably in bed. She is eating well she says. No chest pain or shortness of breath. Exam Narrative: WDWN in NAD skin no rash head ncat lungs clear to auscultation cor reg no rub or gallop abd BS+ nontender and soft ext not much edema. Objective Data Vital Signs Vital Signs: Vital Signs - 24 hr 10/08/21 08:00 10/08/21 14:00 10/08/21 21:52 Temperature 36.1 C L 36.3 C L Pulse Rate 64 64 63 Respiratory Rate 18 18 18 Blood Pressure 132/52 L 144/88 H Pulse Oximetry 100 100 95 10/09/21 05:22 Temperature 36.0 C L Pulse Rate 66 Respiratory Rate 16 Blood Pressure 128/71 Pulse Oximetry 95 Intake/Output Intake/Output: Intake & Output 10/06/21 10/07/21 10/08/21 10/09/21 23:59 23:59 23:59 23:59 Intake Total 2310 370 2622 300 Output Total 1250 600 800 800 Balance 1060 -230 1822 -500 Meds/Results Medications: Active Medications Generic Name Dose Route Start Last Admin Trade Name Freq PRN Reason Stop Dose Admin Apixaban 10 mg 10/06/21 10:45 10/08/21 21:47 Apixaban 5 Mg Tablet PO 10 mg Q12HR VENU Administration Donepezil HCl 10 mg 10/05/21 21:00 10/08/21 21:47 Donepezil Hcl 5 Mg Tablet PO 10 mg HS VENU Administration Sodium Chloride 1,000 mls @ 50 mls/hr 10/06/21 07:20 10/08/21 05:51 Normal Saline Iv IV CONT Infused .Q20H VENU Infusion Ertapenem 0.5 gm/ Sodium 50 mls @ 100 mls/hr 10/06/21 12:00 10/08/21 11:33 Chloride IVPB Infused Q24H VENU Infusion Loperamide HCl 2 mg 10/07/21 14:03 Loperamide Hcl 2 Mg Capsule PO PRN PRN Diarrhea Memantine 5 mg 10/05/21 17:00 10/08/21 16:34 Memantine 5 Mg Tablet PO 5 mg BID VENU Administration Sertraline HCl 50 mg 10/06/21 09:00 10/08/21 08:55 Sertraline Hcl 50 Mg Tablet PO 50 mg DAILY VENU Administration Radiology Results: ITS Impressions Head CT 10/04/21 20:18 IMPRESSION: Cerebral atherosclerosis and chronic small vessel ischemic changes of the cerebral white matter Bilateral chronic lacunar infarcts of basal ganglia and left. Ventricular Cerebral and cerebellar atrophy No acute intracranial finding Retroperitoneum Ultrasound 10/05/21 10:38 IMPRESSION: 1. Mild atrophy of left kidney. No hydronephrosis. Venous Doppler Study 10/06/21 10:31 IM
[2021-10-09 06:53] LABS: Albumin Level 2.8 g/dL (3.5-5.1); Anion Gap 1 mmol/L (8-16); Blood Urea Nitrogen 28 mg/dL (7-17); Calcium 8.3 mg/dL (8.4-10.2); Carbon Dioxide 25 mmol/L (22-30); Chloride 111 mmol/L (98-107); Estimated CRCL calculation 35 ml/min; Estimated Glomerular Filt Rate 31; Glucose 101 mg/dL (65-110); Phosphorus 3.9 mg/dL (2.5-4.5); Potassium 4.4 mmol/L (3.4-5.0); Sodium 137 mmol/L (137-145)
[2021-10-09] MEDS: APIXABAN 5 MG TABLET 10 MG PO ×2 (08:26→22:41)
[2021-10-09] MEDS: MEMANTINE 5 MG TABLET PO ×2 (08:26→17:03)
[2021-10-09] MEDS: SERTRALINE HCL 50 MG TABLET PO (08:26)
[2021-10-09] MEDS: SODIUM CHLORIDE 0.9% IV 1,000 ML 50 ML IV CONT (08:27)
--- NOTE | 2021-10-09 09:36 | P.CDI_ITS ---
CDI Query Clarification Request -Urine culture from 10/04 growing E Coli(ESBL) -UTI has been documented -Pt nursing admission assessment, patient arrived with a chronic indwelling roberts catheter Please clarify if UTI is: * Due to/associated with chronic indwelling roberts catheter * Not due to /associated with chronic indwelling roberts catheter * Other * Unable to determine <Valerie Morales RN - Last Filed: 10/09/21 09:45> Clarified Diagnosis (1) Urinary tract infection: Qualifiers: Hematuria presence: without hematuria Urinary tract infection type: acute cystitis Qualified Code(s): N30.00 - Acute cystitis without hematuria <Valerie Morales RN - Last Filed: 10/09/21 09:45> Code(s): N39.0 - Urinary tract infection, site not specified <Valerie Morales RN - Last Filed: 10/09/21 09:45> Status: Acute <Valerie Morales RN - Last Filed: 10/09/21 09:45> Assessment and Plan: Due to/associated with chronic indwelling roberts catheter <Regina Boyer MD - Last Filed: 10/16/21 18:41>
[2021-10-09] MEDS: ERTAPENEM SODIUM 0.5 GM in SODIUM CHLORIDE 0.9% IV 50 ML IVPB (12:52)
[2021-10-09 14:00] VITALS: BP 131/54; PULSE 67; RESP 16; TEMP 36.3; O2SAT 97
--- NOTE | 2021-10-09 14:02 | PM.IMPN ---
Progress Note: A&P Assessment and Plan (1) Acute on chronic kidney failure: Onset Date: ~08/2021 Qualifiers: Acute renal failure type: unspecified Chronic kidney disease stage: stage 5, not on chronic dialysis Qualified Code(s): N17.9 - Acute kidney failure, unspecified; N18.5 - Chronic kidney disease, stage 5 Code(s): N17.9 - Acute kidney failure, unspecified; N18.9 - Chronic kidney disease, unspecified Status: Chronic Assessment and Plan: Creatinine is 1.7 now U/s with mild atrophy of left kidney Hold offending drugs (lisinopril, spironolactone, ibuprofen) Encouraged PO fluids 10/08/2021 interval history Patient with acute kidney injury with CKD seen by Nephrology suspect secondary to hypertension, dehydration and use of NSAID, today patient states feeling better a creatinine is trending down, patient also has UTI E coli ESBL multi resistant sensitive to ertpanem will require 7 days of IV antibiotic now 3rd day, will continue to monitor and further recommendation to follow, patient is participating in PT OT will benefit from acute rehab 10/09/2021 interval history Patient with acute kidney injury with CKD seen by Nephrology suspect secondary to hypertension, dehydration and use of NSAID, today patient states feeling better a creatinine is trending down, patient also has UTI E coli ESBL multi resistant sensitive to ertpanem will require 7 days of IV antibiotic now 4th day, will continue to monitor and further recommendation to follow, patient is participating in PT OT will benefit from acute rehab (2) Acute hyperkalemia: Code(s): E87.5 - Hyperkalemia Status: Resolved Assessment and Plan: Potassium is 4.6 Pt was on a Bicarb dip initiated 10/04, 10/06 IV NS (3) Acute respiratory failure with hypoxia: Code(s): J96.01 - Acute respiratory failure with hypoxia Status: Acute Assessment and Plan: Supplemental oxygen Respiratory effort noted at [facility] could have been due in part to efforts to compensate for metabolic acidosis CXR w/o infiltrates Patient's D-dimer is chronically elevated, but increased from previously 10/06 Venous doppler with right popliteal DVT NM perfusion scan pending (PE would alter duration of anticoagulation) 10/06 initiated apixaban 10mg bid (4) Urinary tract infection: Qualifiers: Hematuria presence: without hematuria Urinary tract infection type: acute cystitis Qualified Code(s): N30.00 - Acute cystitis without hematuria Code(s): N39.0 - Urinary tract infection, site not specified Status: Acute Assessment and Plan: Ceftriaxone started at admission 10/06 1 of 2 BC's with GPC's in clusters, ID and sensitivities pending 10/06 C/s with ESBL e. coli, pt started ertapenem 500mg IV qdaily (5) Elevated d-dimer: Code(s): R79.89 - Other specified abnormal findings of blood chemistry Status: Acute Assessment and Plan: Chronically elevated though a bit higher than last month Possible chronic DVT with extension (6) Diarrhea: Code(s): R19.7 - Diarrhea, unspecified Status: Acute Assessment and Plan: Pt having diarrhea- pt imodium Additional Plan Patient has acute on chronic renal failure. Patient's hyperkalemia has improved after treatment with calcium, bicarb, insulin and dextrose. She has also received 1 L of IV fluids. Re-evaluate the patient in the ER her blood pressures were borderline low with systolics less than 90 and maps around 60. An additional 500 mL bolus was administered with improvement in the patient's blood pressure. Nephrology was consulted and patient has been started on a bicarb drip. Will repeat electrolyte panel in a.m.. Patient's home med rec is not yet available for my review but I would hold patient's lisinopril, spironolactone, Lasix, and ibuprofen. The patient had reported hypoxia at the [facility]. At the time my evaluati
[2021-10-09 22:00] VITALS: BP 118/52; PULSE 68; RESP 16; TEMP 36.7; O2SAT 96
[2021-10-09] MEDS: DONEPEZIL HCL 5 MG TABLET 10 MG PO (22:41)
[2021-10-09 23:32] VITALS: O2SAT 94
[2021-10-10 05:07] VITALS: BP 140/65; PULSE 61; RESP 16; TEMP 36.4; O2SAT 97
[2021-10-10 06:55] LABS: Hematocrit 32.8 % (37.0-47.0); Hemoglobin 10.3 g/dL (12.0-15.0); Mean Corpuscular HGB Conc 31.4 g/dl (32-36); Mean Corpuscular Hemoglobin 30.5 pg (26-34); Mean Platelet Volume 10.2 fl (7.4-10.4); Platelet Count Result 228 k/mm3 (150-375); Red Blood Count 3.38 M/mm3 (4.2-5.4); Red Cell Distribution Width 12.8 % (11.5-14.5); White Blood Count 5.6 K/mm3 (4.5-10.0)
[2021-10-10 07:05] LABS: Anion Gap 0 mmol/L (8-16); Blood Urea Nitrogen 23 mg/dL (7-17); Calcium 8.4 mg/dL (8.4-10.2); Carbon Dioxide 25 mmol/L (22-30); Chloride 112 mmol/L (98-107); Estimated CRCL calculation 35 ml/min; Estimated Glomerular Filt Rate 31; Glucose 89 mg/dL (65-110); Phosphorus 3.6 mg/dL (2.5-4.5); Potassium 4.7 mmol/L (3.4-5.0); Sodium 137 mmol/L (137-145)
--- NOTE | 2021-10-10 08:15 | PM.PNNEP ---
Progress Note: A&P Assessment and Plan (1) Stage 3b chronic kidney disease: Code(s): N18.32 - Chronic kidney disease, stage 3b Status: Chronic Assessment and Plan: The patient has chronic kidney disease. Her baseline creatinine is 1.3-1.6. This is most likely due to hypertension and vascular disease. (2) PRUDENCE (acute kidney injury): Code(s): N17.9 - Acute kidney failure, unspecified Status: Acute Assessment and Plan: The patient's creatinine was high on admission. Urine electrolytes non pre renal but she was on diuretics on admission. Renal sonogram shows nothing acute. CPK is normal Most likely due to a combination of low blood pressure, dehydration, NSAIDs. This is resolved. (3) Acute hyperkalemia: Code(s): E87.5 - Hyperkalemia Status: Resolved Assessment and Plan: Resolved (4) Metabolic acidosis: Code(s): E87.2 - Acidosis Status: Acute Assessment and Plan: resolved (5) Hypotension: Code(s): I95.9 - Hypotension, unspecified Status: Acute Assessment and Plan: Improved (6) Pyuria: Code(s): R82.81 - Pyuria Status: Acute Assessment and Plan: She has pyuria. E coli(ESBL) grew in the urine. She is on ertapenem (7) Hypoxia: Code(s): R09.02 - Hypoxemia Status: Acute Assessment and Plan: Resolved. Subjective Date/time seen: 10/10/21 08:15 Interval history: Patient resting comfortably in bed. ?I feel restricted ?she is in restraints because she keeps pulling IVs out. She is eating well No chest pain or shortness of breath. Exam Narrative: WDWN in NAD skin no rash or subQ nodules head ncat lungs clear cor reg no rub or gallop abd BS+ nontender and soft ext not much edema. Objective Data Vital Signs Vital Signs: Vital Signs - 24 hr 10/09/21 14:00 10/09/21 22:00 10/09/21 23:32 Temperature 36.3 C L 36.7 C Pulse Rate 67 68 Respiratory Rate 16 16 Blood Pressure 131/54 L 118/52 L Pulse Oximetry 97 96 94 10/10/21 05:07 Temperature 36.4 C Pulse Rate 61 Respiratory Rate 16 Blood Pressure 140/65 Pulse Oximetry 97 Intake/Output Intake/Output: Intake & Output 10/07/21 10/08/21 10/09/21 10/10/21 23:59 23:59 23:59 23:59 Intake Total 370 2622 590 50 Output Total 670 563 8986 700 Balance -230 1822 -910 -650 Meds/Results Medications: Active Medications Generic Name Dose Route Start Last Admin Trade Name Freq PRN Reason Stop Dose Admin Apixaban 10 mg 10/06/21 10:45 10/09/21 22:41 Apixaban 5 Mg Tablet PO 10 mg Q12HR VENU Administration Donepezil HCl 10 mg 10/05/21 21:00 10/09/21 22:41 Donepezil Hcl 5 Mg Tablet PO 10 mg HS VENU Administration Sodium Chloride 1,000 mls @ 50 mls/hr 10/06/21 07:20 10/09/21 13:30 Normal Saline Iv IV CONT 50 mls/hr .Q20H VENU Infusion Ertapenem 0.5 gm/ Sodium 50 mls @ 100 mls/hr 10/06/21 12:00 10/09/21 13:30 Chloride IVPB Infused Q24H VENU Infusion Loperamide HCl 2 mg 10/07/21 14:03 Loperamide Hcl 2 Mg Capsule PO PRN PRN Diarrhea Memantine 5 mg 10/05/21 17:00 10/09/21 17:03 Memantine 5 Mg Tablet PO 5 mg BID VENU Administration Sertraline HCl 50 mg 10/06/21 09:00 10/09/21 08:26 Sertraline Hcl 50 Mg Tablet PO 50 mg DAILY VENU Administration Radiology Results: ITS Impressions Head CT 10/04/21 20:18 IMPRESSION: Cerebral atherosclerosis and chronic small vessel ischemic changes of the cerebral white matter Bilateral chronic lacunar infarcts of basal ganglia and left. Ventricular Cerebral and cerebellar atrophy No acute intracranial finding Retroperitoneum Ultrasound 10/05/21 10:38 IMPRESSION: 1. Mild atrophy of left kidney. No hydronephrosis. Venous Doppler Study 10/06/21 10:31 IMPRESSION: 1. Deep vein thrombosis involving the left popliteal and gastrocnemius veins.
[2021-10-10] MEDS: MEMANTINE 5 MG TABLET PO ×2 (09:07→17:44)
[2021-10-10] MEDS: APIXABAN 5 MG TABLET 10 MG PO ×2 (09:07→20:31)
[2021-10-10] MEDS: SERTRALINE HCL 50 MG TABLET PO (09:07)
[2021-10-10] MEDS: SODIUM CHLORIDE 0.9% IV 1,000 ML 50 ML IV CONT (09:08)
[2021-10-10] MEDS: ERTAPENEM SODIUM 0.5 GM in SODIUM CHLORIDE 0.9% IV 50 ML IVPB (12:47)
--- NOTE | 2021-10-10 13:20 | P.PNIM_ITS ---
Progress Note: A&P Assessment and Plan (1) Acute on chronic kidney failure: Onset Date: ~08/2021 Qualifiers: Acute renal failure type: unspecified Chronic kidney disease stage: stage 5, not on chronic dialysis Qualified Code(s): N17.9 - Acute kidney failure, unspecified; N18.5 - Chronic kidney disease, stage 5 Code(s): N17.9 - Acute kidney failure, unspecified; N18.9 - Chronic kidney disease, unspecified Status: Chronic Assessment and Plan: * Creatinine is 1.7 now * U/s with mild atrophy of left kidney * Hold offending drugs (lisinopril, spironolactone, ibuprofen) * Encouraged PO fluids 10/08/2021 interval history Patient with acute kidney injury with CKD seen by Nephrology suspect secondary to hypertension, dehydration and use of NSAID, today patient states feeling better a creatinine is trending down, patient also has UTI E coli ESBL multi resistant sensitive to ertpanem will require 7 days of IV antibiotic now 3rd day, will continue to monitor and further recommendation to follow, patient is participating in PT OT will benefit from acute rehab 10/09/2021 interval history Patient with acute kidney injury with CKD seen by Nephrology suspect secondary to hypertension, dehydration and use of NSAID, today patient states feeling better a creatinine is trending down, patient also has UTI E coli ESBL multi resistant sensitive to ertpanem will require 7 days of IV antibiotic now 4th day, will continue to monitor and further recommendation to follow, patient is participating in PT OT will benefit from acute rehab 10/10/2021 interval history Patient with acute kidney injury with CKD seen by Nephrology suspect secondary to hypertension, dehydration and use of NSAID, today patient states feeling better a creatinine is trending down, patient also has UTI E coli ESBL multi resistant sensitive to ertpanem will require 7 days of IV antibiotic now 5th day, will continue to monitor and further recommendation to follow, patient is participating in PT OT will benefit from acute rehab (2) Acute hyperkalemia: Code(s): E87.5 - Hyperkalemia Status: Resolved Assessment and Plan: * Potassium is 4.6 * Pt was on a Bicarb dip initiated 10/04, 10/06 IV NS (3) Acute respiratory failure with hypoxia: Code(s): J96.01 - Acute respiratory failure with hypoxia Status: Acute Assessment and Plan: * Supplemental oxygen * [facility] could have been due in part to efforts to compensate for metabolic acidosis * CXR w/o infiltrates * Patient's D-dimer is chronically elevated, but increased from previously * 10/06 Venous doppler with right popliteal DVT * NM perfusion scan pending (PE would alter duration of anticoagulation) * 10/06 initiated apixaban 10mg bid (4) Urinary tract infection: Qualifiers: Hematuria presence: without hematuria Urinary tract infection type: acute cystitis Qualified Code(s): N30.00 - Acute cystitis without hematuria Code(s): N39.0 - Urinary tract infection, site not specified Status: Acute Assessment and Plan: * Ceftriaxone started at admission * 10/06 1 of 2 BC's with GPC's in clusters, ID and sensitivities pending * 10/06 C/s with ESBL e. coli, pt started ertapenem 500mg IV qdaily (5) Elevated d-dimer: Code(s): R79.89 - Other specified abnormal findings of blood chemistry Status: Acute Assessment and Plan: * Chronically elevated though a bit higher than last month * Possible chronic DVT with extension (6) Diarrhea: Code(s): R19.7 - Diarrhea, unspecified Stat
--- NOTE | 2021-10-10 13:20 | PM.IMPN ---
Progress Note: A&P Assessment and Plan (1) Acute on chronic kidney failure: Onset Date: ~08/2021 Qualifiers: Acute renal failure type: unspecified Chronic kidney disease stage: stage 5, not on chronic dialysis Qualified Code(s): N17.9 - Acute kidney failure, unspecified; N18.5 - Chronic kidney disease, stage 5 Code(s): N17.9 - Acute kidney failure, unspecified; N18.9 - Chronic kidney disease, unspecified Status: Chronic Assessment and Plan: Creatinine is 1.7 now U/s with mild atrophy of left kidney Hold offending drugs (lisinopril, spironolactone, ibuprofen) Encouraged PO fluids 10/08/2021 interval history Patient with acute kidney injury with CKD seen by Nephrology suspect secondary to hypertension, dehydration and use of NSAID, today patient states feeling better a creatinine is trending down, patient also has UTI E coli ESBL multi resistant sensitive to ertpanem will require 7 days of IV antibiotic now 3rd day, will continue to monitor and further recommendation to follow, patient is participating in PT OT will benefit from acute rehab 10/09/2021 interval history Patient with acute kidney injury with CKD seen by Nephrology suspect secondary to hypertension, dehydration and use of NSAID, today patient states feeling better a creatinine is trending down, patient also has UTI E coli ESBL multi resistant sensitive to ertpanem will require 7 days of IV antibiotic now 4th day, will continue to monitor and further recommendation to follow, patient is participating in PT OT will benefit from acute rehab 10/10/2021 interval history Patient with acute kidney injury with CKD seen by Nephrology suspect secondary to hypertension, dehydration and use of NSAID, today patient states feeling better a creatinine is trending down, patient also has UTI E coli ESBL multi resistant sensitive to ertpanem will require 7 days of IV antibiotic now 5th day, will continue to monitor and further recommendation to follow, patient is participating in PT OT will benefit from acute rehab (2) Acute hyperkalemia: Code(s): E87.5 - Hyperkalemia Status: Resolved Assessment and Plan: Potassium is 4.6 Pt was on a Bicarb dip initiated 10/04, 10/06 IV NS (3) Acute respiratory failure with hypoxia: Code(s): J96.01 - Acute respiratory failure with hypoxia Status: Acute Assessment and Plan: Supplemental oxygen Respiratory effort noted at half-way could have been due in part to efforts to compensate for metabolic acidosis CXR w/o infiltrates Patient's D-dimer is chronically elevated, but increased from previously 10/06 Venous doppler with right popliteal DVT NM perfusion scan pending (PE would alter duration of anticoagulation) 10/06 initiated apixaban 10mg bid (4) Urinary tract infection: Qualifiers: Hematuria presence: without hematuria Urinary tract infection type: acute cystitis Qualified Code(s): N30.00 - Acute cystitis without hematuria Code(s): N39.0 - Urinary tract infection, site not specified Status: Acute Assessment and Plan: Ceftriaxone started at admission 10/06 1 of 2 BC's with GPC's in clusters, ID and sensitivities pending 10/06 C/s with ESBL e. coli, pt started ertapenem 500mg IV qdaily (5) Elevated d-dimer: Code(s): R79.89 - Other specified abnormal findings of blood chemistry Status: Acute Assessment and Plan: Chronically elevated though a bit higher than last month Possible chronic DVT with extension (6) Diarrhea: Code(s): R19.7 - Diarrhea, unspecified Status: Acute Assessment and Plan: Pt having diarrhea- pt imodium Additional Plan Patient has acute on chronic renal failure. Patient's hyperkalemia has improved after treatment with calcium, bicarb, insulin and dextrose. She has also received 1 L of IV fluids. Re-evaluate the patient in the ER her blood pressures were borderlin
[2021-10-10 14:00] VITALS: BP 131/59; PULSE 66; RESP 18; TEMP 36.3; O2SAT 99
[2021-10-10] MEDS: DONEPEZIL HCL 5 MG TABLET 10 MG PO (20:31)
[2021-10-10 21:29] VITALS: BP 130/55; PULSE 67; RESP 18; TEMP 36.4; O2SAT 96
[2021-10-10 22:11] VITALS: PULSE 65; O2SAT 95
[2021-10-11] MEDS: SODIUM CHLORIDE 0.9% IV 1,000 ML 50 ML IV CONT ×2 (00:37→22:02)
[2021-10-11 04:49] VITALS: BP 128/64; PULSE 69; RESP 18; TEMP 36.3; O2SAT 97
[2021-10-11] MEDS: SERTRALINE HCL 50 MG TABLET PO (08:27)
[2021-10-11] MEDS: APIXABAN 5 MG TABLET 10 MG PO ×2 (08:27→22:04)
[2021-10-11] MEDS: MEMANTINE 5 MG TABLET PO ×2 (08:28→17:07)
--- NOTE | 2021-10-11 09:09 | PCNWS ---
Weekly nutritional screen. Patient screened in for 7 day length of stay. Patient is tolerating current diet with adequate intake. No weight loss reported. Agree with diet orders at this time. Recommend reweighing prior to d/c. No nutritional needs at this time.
[2021-10-11 11:09] LABS: Hematocrit 32.6 % (37.0-47.0); Hemoglobin 10.2 g/dL (12.0-15.0); Mean Corpuscular HGB Conc 31.3 g/dl (32-36); Mean Corpuscular Hemoglobin 30.5 pg (26-34); Mean Corpuscular Volume 97.6 fl (80-100); Mean Platelet Volume 10.6 fl (7.4-10.4); Platelet Count Result 207 k/mm3 (150-375); Red Blood Count 3.34 M/mm3 (4.2-5.4); Red Cell Distribution Width 12.9 % (11.5-14.5); White Blood Count 5.3 K/mm3 (4.5-10.0)
--- NOTE | 2021-10-11 11:13 | PC.NURSE ---
I received a message to call Linda at [facility]. I returned the call and placed on hold for more than 10 minutes before the line was disconnected. Attempts to call again resulted in an error message from the phone company.
--- NOTE | 2021-10-11 11:14 | PM.PNNEP ---
Progress Note: A&P Assessment and Plan (1) Stage 3b chronic kidney disease: Code(s): N18.32 - Chronic kidney disease, stage 3b Status: Chronic Assessment and Plan: The patient has chronic kidney disease. Her baseline creatinine is 1.3-1.6. This is most likely due to hypertension and vascular disease. (2) PRUDENCE (acute kidney injury): Code(s): N17.9 - Acute kidney failure, unspecified Status: Acute Assessment and Plan: The patient's creatinine was high on admission. Urine electrolytes non pre renal but she was on diuretics on admission. Renal sonogram shows nothing acute. CPK is normal her creatinine is back to baseline. We will view from a distance. (3) Acute hyperkalemia: Code(s): E87.5 - Hyperkalemia Status: Resolved Assessment and Plan: Resolved (4) Metabolic acidosis: Code(s): E87.2 - Acidosis Status: Acute Assessment and Plan: resolved (5) Hypotension: Code(s): I95.9 - Hypotension, unspecified Status: Acute Assessment and Plan: Improved (6) Pyuria: Code(s): R82.81 - Pyuria Status: Acute Assessment and Plan: She has pyuria. E coli(ESBL) grew in the urine. She is on ertapenem (7) Hypoxia: Code(s): R09.02 - Hypoxemia Status: Acute Assessment and Plan: Resolved. Subjective Date/time seen: 10/11/21 11:14 Interval history: Patient resting comfortably in bed. In good spirits. No chest pain or shortness of breath Exam Narrative: WDWN in NAD skin no rash or subQ nodules head ncat lungs clear bilaterally cor reg no rub or gallop abd BS+ nontender ext not much edema. Objective Data Vital Signs Vital Signs: Vital Signs - 24 hr 10/10/21 14:00 10/10/21 21:29 10/10/21 22:11 Temperature 36.3 C L 36.4 C L Pulse Rate 66 67 65 Respiratory Rate 18 18 Blood Pressure 131/59 L 130/55 L Pulse Oximetry 99 96 95 10/11/21 04:49 Temperature 36.3 C L Pulse Rate 69 Respiratory Rate 18 Blood Pressure 128/64 Pulse Oximetry 97 Intake/Output Intake/Output: Intake & Output 10/08/21 10/09/21 10/10/2110/11/22 23:59 23:59 23:59 23:59 Intake Total 2622 590 1380 1340 Output Total 800 1500 1375 800 Balance 1822 -910 5 540 Meds/Results Medications: Active Medications Generic Name Dose Route Start Last Admin Trade Name Freq PRN Reason Stop Dose Admin Apixaban 10 mg 10/06/21 10:45 10/11/21 08:27 Apixaban 5 Mg Tablet PO 10 mg Q12HR VENU Administration Donepezil HCl 10 mg 10/05/21 21:00 10/10/21 20:31 Donepezil Hcl 5 Mg Tablet PO 10 mg HS VENU Administration Sodium Chloride 1,000 mls @ 50 mls/hr 10/06/21 07:20 10/11/21 00:37 Normal Saline Iv IV CONT 50 mls/hr .Q20H VENU Administration Ertapenem 0.5 gm/ Sodium 50 mls @ 100 mls/hr 10/06/21 12:00 10/10/21 13:30 Chloride IVPB Infused Q24H VENU Infusion Loperamide HCl 2 mg 10/07/21 14:03 Loperamide Hcl 2 Mg Capsule PO PRN PRN Diarrhea Memantine 5 mg 10/05/21 17:00 10/11/21 08:28 Memantine 5 Mg Tablet PO 5 mg BID VENU Administration Sertraline HCl 50 mg 10/06/21 09:00 10/11/21 08:27 Sertraline Hcl 50 Mg Tablet PO 50 mg DAILY VENU Administration Radiology Results: ITS Impressions Head CT 10/04/21 20:18 IMPRESSION: Cerebral atherosclerosis and chronic small vessel ischemic changes of the cerebral white matter Bilateral chronic lacunar infarcts of basal ganglia and left. Ventricular Cerebral and cerebellar atrophy No acute intracranial finding Retroperitoneum Ultrasound 10/05/21 10:38 IMPRESSION: 1. Mild atrophy of left kidney. No hydronephrosis. Venous Doppler Study 10/06/21 10:31 IMPRESSION: 1. Deep vein thrombosis involving the left popliteal and gastrocnemius veins. ADDENDUM: 10/06/21 1035 I called this result to Dr. Anthony. Pulmonary Perfusion Im
[2021-10-11 11:21] LABS: Albumin Level 2.8 g/dL (3.5-5.1); Anion Gap 1 mmol/L (8-16); Blood Urea Nitrogen 22 mg/dL (7-17); Calcium 8.5 mg/dL (8.4-10.2); Carbon Dioxide 24 mmol/L (22-30); Chloride 110 mmol/L (98-107); Estimated CRCL calculation 35 ml/min; Estimated Glomerular Filt Rate 31; Glucose 120 mg/dL (65-110); Phosphorus 3.8 mg/dL (2.5-4.5); Potassium 4.4 mmol/L (3.4-5.0); Sodium 135 mmol/L (137-145)
[2021-10-11] MEDS: ERTAPENEM SODIUM 0.5 GM in SODIUM CHLORIDE 0.9% IV 50 ML IVPB (12:33)
[2021-10-11 14:00] VITALS: BP 128/62; PULSE 66; RESP 18; TEMP 36.4; O2SAT 97
--- NOTE | 2021-10-11 15:16 | PM.IMPN ---
Progress Note: A&P Assessment and Plan (1) Acute on chronic kidney failure: Onset Date: ~08/2021 Qualifiers: Acute renal failure type: unspecified Chronic kidney disease stage: stage 5, not on chronic dialysis Qualified Code(s): N17.9 - Acute kidney failure, unspecified; N18.5 - Chronic kidney disease, stage 5 Code(s): N17.9 - Acute kidney failure, unspecified; N18.9 - Chronic kidney disease, unspecified Status: Chronic Assessment and Plan: Creatinine is 1.7 now U/s with mild atrophy of left kidney Hold offending drugs (lisinopril, spironolactone, ibuprofen) Encouraged PO fluids 10/08/2021 interval history Patient with acute kidney injury with CKD seen by Nephrology suspect secondary to hypertension, dehydration and use of NSAID, today patient states feeling better a creatinine is trending down, patient also has UTI E coli ESBL multi resistant sensitive to ertpanem will require 7 days of IV antibiotic now 3rd day, will continue to monitor and further recommendation to follow, patient is participating in PT OT will benefit from acute rehab 10/09/2021 interval history Patient with acute kidney injury with CKD seen by Nephrology suspect secondary to hypertension, dehydration and use of NSAID, today patient states feeling better a creatinine is trending down, patient also has UTI E coli ESBL multi resistant sensitive to ertpanem will require 7 days of IV antibiotic now 4th day, will continue to monitor and further recommendation to follow, patient is participating in PT OT will benefit from acute rehab 10/10/2021 interval history Patient with acute kidney injury with CKD seen by Nephrology suspect secondary to hypertension, dehydration and use of NSAID, today patient states feeling better a creatinine is trending down, patient also has UTI E coli ESBL multi resistant sensitive to ertpanem will require 7 days of IV antibiotic now 5th day, will continue to monitor and further recommendation to follow, patient is participating in PT OT will benefit from acute rehab. 10/11/2021 interval history Patient with acute kidney injury with CKD seen by Nephrology suspect secondary to hypertension, dehydration and use of NSAID, today patient states feeling better a creatinine is trending down, patient also has UTI E coli ESBL multi resistant sensitive to ertpanem will require 7 days of IV antibiotic now 6th day, patient will complete her IV antibiotics tomorrow and possibly discharge, will continue to monitor and further recommendation to follow, patient is participating in PT OT will benefit from acute rehab (2) Acute hyperkalemia: Code(s): E87.5 - Hyperkalemia Status: Resolved Assessment and Plan: Potassium is 4.6 Pt was on a Bicarb dip initiated 10/04, 10/06 IV NS (3) Acute respiratory failure with hypoxia: Code(s): J96.01 - Acute respiratory failure with hypoxia Status: Acute Assessment and Plan: Supplemental oxygen Respiratory effort noted at [facility] could have been due in part to efforts to compensate for metabolic acidosis CXR w/o infiltrates Patient's D-dimer is chronically elevated, but increased from previously 10/06 Venous doppler with right popliteal DVT NM perfusion scan pending (PE would alter duration of anticoagulation) 10/06 initiated apixaban 10mg bid (4) Urinary tract infection: Qualifiers: Hematuria presence: without hematuria Urinary tract infection type: acute cystitis Qualified Code(s): N30.00 - Acute cystitis without hematuria Code(s): N39.0 - Urinary tract infection, site not specified Status: Acute Assessment and Plan: Ceftriaxone started at admission 10/06 1 of 2 BC's with GPC's in clusters, ID and sensitivities pending 10/06 C/s with ESBL e. coli, pt started ertapenem 500mg IV qdaily (5) Elevated d-dimer: Code(s): R79.89 - Other specified abnormal findings of blood chemistry
[2021-10-11 20:00] VITALS: PULSE 57; RESP 16; O2SAT 98
[2021-10-11 22:00] VITALS: BP 138/57; PULSE 57; RESP 16; TEMP 36.2; O2SAT 98
[2021-10-11] MEDS: DONEPEZIL HCL 5 MG TABLET 10 MG PO (22:05)
[2021-10-12 06:00] VITALS: BP 125/56; PULSE 90; RESP 24; TEMP 37.2; O2SAT 93
[2021-10-12] MEDS: MEMANTINE 5 MG TABLET PO ×2 (07:59→16:11)
[2021-10-12] MEDS: SERTRALINE HCL 50 MG TABLET PO (07:59)
[2021-10-12] MEDS: APIXABAN 5 MG TABLET 10 MG PO ×2 (07:59→20:57)
[2021-10-12 08:00] VITALS: PULSE 90; RESP 24; O2SAT 93
--- NOTE | 2021-10-12 09:46 | PC.NURSE ---
Pt anticipated to discharged to care center once restraint free x 24 hrs.
[2021-10-12] MEDS: ERTAPENEM SODIUM 0.5 GM in SODIUM CHLORIDE 0.9% IV 50 ML IVPB (11:04)
--- NOTE | 2021-10-12 11:08 | PC.NURSE ---
restraints dc, pt to be restraint free x 24 hrs for discharge to facility.
--- NOTE | 2021-10-12 11:45 | PM.IMPN ---
Progress Note: A&P Assessment and Plan (1) Acute on chronic kidney failure: Onset Date: ~08/2021 Qualifiers: Acute renal failure type: unspecified Chronic kidney disease stage: stage 5, not on chronic dialysis Qualified Code(s): N17.9 - Acute kidney failure, unspecified; N18.5 - Chronic kidney disease, stage 5 Code(s): N17.9 - Acute kidney failure, unspecified; N18.9 - Chronic kidney disease, unspecified Status: Chronic Assessment and Plan: Creatinine is 1.7 now U/s with mild atrophy of left kidney Hold offending drugs (lisinopril, spironolactone, ibuprofen) Encouraged PO fluids 10/08/2021 interval history Patient with acute kidney injury with CKD seen by Nephrology suspect secondary to hypertension, dehydration and use of NSAID, today patient states feeling better a creatinine is trending down, patient also has UTI E coli ESBL multi resistant sensitive to ertpanem will require 7 days of IV antibiotic now 3rd day, will continue to monitor and further recommendation to follow, patient is participating in PT OT will benefit from acute rehab 10/09/2021 interval history Patient with acute kidney injury with CKD seen by Nephrology suspect secondary to hypertension, dehydration and use of NSAID, today patient states feeling better a creatinine is trending down, patient also has UTI E coli ESBL multi resistant sensitive to ertpanem will require 7 days of IV antibiotic now 4th day, will continue to monitor and further recommendation to follow, patient is participating in PT OT will benefit from acute rehab 10/10/2021 interval history Patient with acute kidney injury with CKD seen by Nephrology suspect secondary to hypertension, dehydration and use of NSAID, today patient states feeling better a creatinine is trending down, patient also has UTI E coli ESBL multi resistant sensitive to ertpanem will require 7 days of IV antibiotic now 5th day, will continue to monitor and further recommendation to follow, patient is participating in PT OT will benefit from acute rehab. 10/11/2021 interval history Patient with acute kidney injury with CKD seen by Nephrology suspect secondary to hypertension, dehydration and use of NSAID, today patient states feeling better a creatinine is trending down, patient also has UTI E coli ESBL multi resistant sensitive to ertpanem will require 7 days of IV antibiotic now 6th day, patient will complete her IV antibiotics tomorrow and possibly discharge, will continue to monitor and further recommendation to follow, patient is participating in PT OT will benefit from acute rehab. 10/12/2021 interval history Patient with acute kidney injury with CKD seen by Nephrology suspect secondary to hypertension, dehydration and use of NSAID, today patient states feeling better a creatinine is trending down to 1.6 and has been stable for last 3 days, patient also has UTI E coli ESBL multi resistant sensitive to ertpanem will require 7 days of IV antibiotic now 7th day, patient will complete her IV antibiotics today. However patient remained on restrains and cannot transfer the patient to senior living until patient is off restrains for 24 hours, will take off restrains today and monitor may discharge tomorrow, will continue to monitor and further recommendation to follow, patient is participating in PT OT will benefit from acute rehab (2) Acute hyperkalemia: Code(s): E87.5 - Hyperkalemia Status: Resolved Assessment and Plan: Potassium is 4.6 Pt was on a Bicarb dip initiated 10/04, 10/06 IV NS (3) Acute respiratory failure with hypoxia: Code(s): J96.01 - Acute respiratory failure with hypoxia Status: Acute Assessment and Plan: Supplemental oxygen Respiratory effort noted at senior living could have been due in part to efforts to compensate for metabolic acidosis CXR w/o infiltrates Patient's D-dimer is chronically elevated, but increased from pr
[2021-10-12 14:00] VITALS: BP 117/57; PULSE 66; RESP 14; TEMP 36.2; O2SAT 100
[2021-10-12] MEDS: SODIUM CHLORIDE 0.9% IV 1,000 ML 50 ML IV CONT (18:04)
[2021-10-12 20:37] VITALS: PULSE 67; O2SAT 96
[2021-10-12] MEDS: DONEPEZIL HCL 5 MG TABLET 10 MG PO (20:57)
[2021-10-12 22:00] VITALS: BP 136/65; PULSE 61; RESP 18; TEMP 36.4; O2SAT 97
[2021-10-13 06:00] VITALS: BP 145/57; PULSE 80; RESP 18; TEMP 36.2; O2SAT 99
--- NOTE | 2021-10-13 10:53 | PM.DS ---
DS: Admitting Diagnosis Discharge Date 10/13/2021 Admitting Diagnosis decrease oxygen DS: Discharge Diagnosis Discharge Diagnosis (1) Acute on chronic kidney failure: Onset Date: ~08/2021 Qualifiers: Acute renal failure type: unspecified Chronic kidney disease stage: stage 5, not on chronic dialysis Qualified Code(s): N17.9 - Acute kidney failure, unspecified; N18.5 - Chronic kidney disease, stage 5 Code(s): N17.9 - Acute kidney failure, unspecified; N18.9 - Chronic kidney disease, unspecified Status: Chronic Assessment and Plan: Creatinine is 1.7 now U/s with mild atrophy of left kidney Hold offending drugs (lisinopril, spironolactone, ibuprofen) Encouraged PO fluids 10/08/2021 interval history Patient with acute kidney injury with CKD seen by Nephrology suspect secondary to hypertension, dehydration and use of NSAID, today patient states feeling better a creatinine is trending down, patient also has UTI E coli ESBL multi resistant sensitive to ertpanem will require 7 days of IV antibiotic now 3rd day, will continue to monitor and further recommendation to follow, patient is participating in PT OT will benefit from acute rehab 10/09/2021 interval history Patient with acute kidney injury with CKD seen by Nephrology suspect secondary to hypertension, dehydration and use of NSAID, today patient states feeling better a creatinine is trending down, patient also has UTI E coli ESBL multi resistant sensitive to ertpanem will require 7 days of IV antibiotic now 4th day, will continue to monitor and further recommendation to follow, patient is participating in PT OT will benefit from acute rehab 10/10/2021 interval history Patient with acute kidney injury with CKD seen by Nephrology suspect secondary to hypertension, dehydration and use of NSAID, today patient states feeling better a creatinine is trending down, patient also has UTI E coli ESBL multi resistant sensitive to ertpanem will require 7 days of IV antibiotic now 5th day, will continue to monitor and further recommendation to follow, patient is participating in PT OT will benefit from acute rehab. 10/11/2021 interval history Patient with acute kidney injury with CKD seen by Nephrology suspect secondary to hypertension, dehydration and use of NSAID, today patient states feeling better a creatinine is trending down, patient also has UTI E coli ESBL multi resistant sensitive to ertpanem will require 7 days of IV antibiotic now 6th day, patient will complete her IV antibiotics tomorrow and possibly discharge, will continue to monitor and further recommendation to follow, patient is participating in PT OT will benefit from acute rehab. 10/12/2021 interval history Patient with acute kidney injury with CKD seen by Nephrology suspect secondary to hypertension, dehydration and use of NSAID, today patient states feeling better a creatinine is trending down to 1.6 and has been stable for last 3 days, patient also has UTI E coli ESBL multi resistant sensitive to ertpanem will require 7 days of IV antibiotic now 7th day, patient will complete her IV antibiotics today. However patient remained on restrains and cannot transfer the patient to assisted until patient is off restrains for 24 hours, will take off restrains today and monitor may discharge tomorrow, will continue to monitor and further recommendation to follow, patient is participating in PT OT will benefit from acute rehab (2) Acute hyperkalemia: Code(s): E87.5 - Hyperkalemia Status: Resolved Assessment and Plan: Potassium is 4.6 Pt was on a Bicarb dip initiated 10/04, 10/06 IV NS (3) Acute respiratory failure with hypoxia: Code(s): J96.01 - Acute respiratory failure with hypoxia Status: Acute Assessment and Plan: Supplemental oxygen Respiratory effort noted at assisted could have been due in part to efforts to compensate for metaboli
[2021-10-13] MEDS: APIXABAN 5 MG TABLET 10 MG PO (11:12)
[2021-10-13] MEDS: MEMANTINE 5 MG TABLET PO (11:12)
[2021-10-13] MEDS: SERTRALINE HCL 50 MG TABLET PO (11:12)
[2021-10-13 12:57] LABS: EDCOVIDSCREEN Negative (Negative)
[2021-10-13 13:58] LABS: Hematocrit 32.9 % (37.0-47.0); Hemoglobin 10.3 g/dL (12.0-15.0); Mean Corpuscular HGB Conc 31.3 g/dl (32-36); Mean Corpuscular Volume 95.9 fl (80-100); Mean Platelet Volume 10.7 fl (7.4-10.4); Platelet Count Result 214 k/mm3 (150-375); Red Blood Count 3.43 M/mm3 (4.2-5.4); Red Cell Distribution Width 12.8 % (11.5-14.5); White Blood Count 5.2 K/mm3 (4.5-10.0)
[2021-10-13 14:28] LABS: Albumin Level 2.6 g/dL (3.5-5.1); Anion Gap 1 mmol/L (8-16); Blood Urea Nitrogen 21 mg/dL (7-17); Calcium 8.5 mg/dL (8.4-10.2); Carbon Dioxide 23 mmol/L (22-30); Chloride 111 mmol/L (98-107); Estimated CRCL calculation 35 ml/min; Estimated Glomerular Filt Rate 31; Glucose 115 mg/dL (65-110); Potassium 4.6 mmol/L (3.4-5.0); Sodium 135 mmol/L (137-145)
== END 2021-10-13 14:30 | DRG 682 ==
LOC: ANHED 23:34 → ANH3MEDSUR 10-05 02:57
PROVIDERS: Internal Medicine Nephrology; Physician Assistant; Admitting Provider Internal Medicine; Emergency Provider Emergency Medicine; PCP Internal Medicine; Visit Provider Family Medicine
DX: N17.9 Acute kidney failure, unspecified (principal); J96.01 Acute respiratory failure with hypoxia; T83.511A Infection and inflammatory reaction due to indwelling urethral catheter, initial encounter; N39.0 Urinary tract infection, site not specified; E87.2 Acidosis; I50.32 Chronic diastolic (congestive) heart failure; I82.431 Acute embolism and thrombosis of right popliteal vein; I13.2 Hypertensive heart and chronic kidney disease with heart failure and with stage 5 chronic kidney disease, or end stage renal disease; E11.22 Type 2 diabetes mellitus with diabetic chronic kidney disease; N18.5 Chronic kidney disease, stage 5; I82.462 Acute embolism and thrombosis of left calf muscular vein; B96.20 Unspecified Escherichia coli [E. coli] as the cause of diseases classified elsewhere; Z20.822 Contact with and (suspected) exposure to COVID-19; E87.5 Hyperkalemia; R19.7 Diarrhea, unspecified; F03.90 Unspecified dementia, unspecified severity, without behavioral disturbance, psychotic disturbance, mood disturbance, and anxiety; E86.0 Dehydration; E78.5 Hyperlipidemia, unspecified; K57.90 Diverticulosis of intestine, part unspecified, without perforation or abscess without bleeding; Z90.49 Acquired absence of other specified parts of digestive tract; Z90.710 Acquired absence of both cervix and uterus; Z90.722 Acquired absence of ovaries, bilateral; Z87.891 Personal history of nicotine dependence; Z93.3 Colostomy status
CPT/HCPCS: 36415; 70450; 71045; 71046; 76770; 78580; 80048; 80053; 80069; 81001; 82533; 82550; 82570; 82803; 83605; 84132; 84156; 84300; 85025; 85027; 85380; 85610; 85730; 86140; 87040; 87077; 87086; 87088; 87186; 87426; 93005; 93970; 96361; 96365; 96366; 96367; 96372; 96375; 96376; 97110; 97161; 97165; 97530; 97535; 99291; A9270; A9540; C9803; G0378; J0610; J0696; J1335; J1650; J1815; J7030; J7040; J7070; U0003; U0005

== ENCOUNTER 2021-11-19 00:23 | Day surgery (SDC) | payer OTHER, MEDICARE, SELFPAY ==
--- NOTE | 2021-09-17 13:47 | PM.IMPN ---
Progress Note: A&P Additional Plan 1) Diverticulitis: Onset Date: Unknown Code(s): K57.92 - Diverticulitis of intestine, part unspecified, without perforation or abscess without bleeding Status: Chronic Assessment and Plan: Abd/Pel CT found wall thickening of the sigmoid colon, likely chronic diverticulitis associated with: Was I K[place] fistula Continue IV antibiotics Blood cultures Showed no growth today Surgery recommendation appreciated status post diverting colostomy on 08/19/2021 (2) Acute on chronic kidney failure: Code(s): N17.9 - Acute kidney failure, unspecified; N18.9 - Chronic kidney disease, unspecified Status: Acute Assessment and Plan: BUN Creatine >120/10.50, trending down Renal ultrasound-Bilateral renal thinning and atrophy consult Nephrology thank you for your recommendations Treated with IV fluid She is probably dehydrated as well (3) Compression fracture: Status: Acute Assessment and Plan: According to the son the patient had a fall at the longterm Compression fracture noted on the CT Comfort and supportive care (4) Dementia: Code(s): F03.90 - Unspecified dementia without behavioral disturbance Status: Chronic Assessment and Plan: Continue with donepezil and Namenda (5) Hypertension: Code(s): I10 - Essential (primary) hypertension Status: Chronic Assessment and Plan: Improved Hold lisinopril due to renal function Continue to monitor Trend BP Adjust medications as needed (6) Diastolic congestive heart failure: Code(s): I50.30 - Unspecified diastolic (congestive) heart failure Status: Chronic Assessment and Plan: Monitor daily weight repeat echo No history noted Daily evaluation for diuresis (7) Major depressive disorder: Code(s): F32.9 - Major depressive disorder, single episode, unspecified Status: Chronic Assessment and Plan: Continue with sertraline (8) Hyperlipidemia: Code(s): E78.5 - Hyperlipidemia, unspecified Status: Chronic Assessment and Plan: Continue with atorvastatin (9) Acute metabolic encephalopathy: Onset Date: ~08/2021 Code(s): G93.41 - Metabolic encephalopathy Status: Acute Assessment and Plan: A&O X1 at baseline Probably from acute renal dysfunction Could also be from dehydration or UTI urine culture showed contamination, repeat UA with culture continue Rocephin for now seems to be getting better patient is more responsive but still not A and O x1 Continue with bicarb drip (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 However the son tells me that she is usually more talkative than this. She is complaining of having discomfort to her buttocks. The son stated that the patient did have some diarrhea at the longterm. A Dawkins catheter was placed in the emergency room. The patient is draining wine colored urine. Her blood pressures have been low. The son stated that she is a DNI and that he would allow vasopressors and a central line. Patient has a previous history of having UTIs and the son stated that she is on prophylactic antibiotic to prevent UTI. Her son Edinson is the power drug room clerk. CT scan Abdominal wall thickening of sigmoid
--- NOTE | 2021-10-16 11:44 | PC.NURSE ---
spoke with Yuki in DR. Cruz office regarding this patient recently discharged from hospital and newly started on Eliquis. She states Dr. Marrero is having pt. stop Eliquis for 36hours prior to procedure. His office will handle orders to facility and clearance for stopping Eliquis.
[2021-10-16 12:43] VITALS: BMI 35.2
[2021-11-12 15:19] VITALS: BMI 38.9
[2021-11-19] VITALS (8 sets, daily range): BP systolic 135–164; BP diastolic 62–94; PULSE 55–74; RESP 14–24; TEMP 36.1–36.3; O2SAT 95–100
--- NOTE | 2021-11-19 11:19 | PM.HPGS ---
History of Present Illness History of Present Illness Consent: Risks, benefits, and alternatives of flexible sigmoidoscopy and/or colonoscopy down the defunctionalized limb of her remaining colon have been discussed and questions answered. Patient agrees to proceed with procedure. Chief complaint: colovesical fistula Narrative: Shonna Piña is a 76 year old white female who was recently hospitalized with a colovesical fistula. 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 At the time the patient was not in any good medical condition to undergo a significantly large surgery such as a colovesical fistula takedown with sigmoid resection. Therefore, a transverse diverting loop colostomy was performed. At this time the patient has subsequently been hospitalized for what appeared to be pneumonia and acute kidney disease. During that hospitalization in September of 2021 she was also found to have a DVT on the right. She is now on Eliquis twice a day but this has been held for the procedure that we plan today. Procedure has been discussed with Edinson her son who is also POA. We are planning to do a flexible sigmoidoscopy to the area of the stricture and take biopsies to be sure this is not colon cancer. If we are unable to see anything it is reasonable to biopsy I may try to use the scope down the defunctionalized side of the ostomy to get to the proximal side of the stricture. This may allow is to take biopsies in a different manner. Possible problems of perforation of the colon, bleeding after the biopsies or medical issues in her vein due to the sedation have been described and the patient's son/ POA understands wishes to have us proceed for her. Review of Systems Review of Systems: ROS unobtainable: Yes unobtainable due to mental status and other PMFSH Past Medical History Medical History Chronic renal failure With baseline creatinine of 1.3-1.7. 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 The patient said that [place]. She only has 1 son. She is a former smoker. Code status: DNI (the son will allow central line placement and pressors if needed) Healthcare power of litigation attorney: Edinson (Son) Smoking status: Former smoker Additional smoking assessment comments: pt. cannot comprehend questions, former smoker is noted from prior charting Alcohol intake: former Substance use: never Substance use type: does not use Living arrangements: correction Gender identity (if verbalized by the patient): Female Sexual Orientation (if Verbalized by the Patient): Straight or Heterosexual Spiritual care concerns: No Meds Home Medications and Allergies Home Medications Medication
[2021-11-19] MEDS: LACTATED RINGERS 1,000 ML 150 ML IV CONT (12:31)
--- NOTE | 2021-11-19 13:55 | WPDANESEPPF ---
Anes - Initial Pre Proc Eval Procedure: Operation Date: 11/19/21 13:30 Proposed Procedures p Flex Sigmoidoscopy With Possible Reverse Colonoscopy From Ostomy Towards The Rectum Possible Colonoscopy Through Defunctionalized Side Of Left Colon Via Ostomy - Romaine Marrero MD Date/Time: 11/19/21 13:55 Surgeon: Romaine Marrero MD Pre Op Diagnosis: colovesical fistula Patient Data Age: 76 Gender: F Height: 1.7 m Weight: 100.3 kg Last Vital Signs Temp 97 F L 11/19/21 12:26 Pulse 65 11/19/21 12:26 Resp 18 11/19/21 12:26 BP 153/62 H 11/19/21 12:26 Pulse Ox 99 11/19/21 12:26 Allergies Allergy/AdvReac Type Severity Reaction Status Date / Time fluoxetine [From Prozac] Allergy Unknown Verified 11/19/21 12:24 sulfamethoxazole Allergy Unknown Verified 11/19/21 12:24 [From Sulfamethoxazole-Trimethoprim] trimethoprim Allergy Unknown Verified 11/19/21 12:24 [From Sulfamethoxazole-Trimethoprim] Home Medications Medication Instructions Recorded Confirmed Type lidocaine [Lidocaine Pain Relief] See Rx Instructions .ROUTE .COMPLEX 01/16/21 11/19/21 History mirtazapine 15 mg PO HS 01/16/21 11/19/21 History ondansetron 4 mg PO Q6H PRN 01/16/21 11/19/21 History sertraline 50 mg PO DAILY 01/16/21 11/19/21 History guaifenesin 200 mg PO Q4H PRN 10/05/21 11/19/21 History apixaban [Eliquis] 5 mg PO BID #60 tablet 10/13/21 11/19/21 Rx cefdinir 300 mg PO Q12H #10 cap 10/13/21 11/19/21 Rx donepezil 10 mg PO HS 10/16/21 11/19/21 History memantine 5 mg PO BID 10/16/21 11/19/21 History Patient hx anesthesia problems: none Family hx anesthesia problems: none Results Review: All pre-operative results and documents have been reviewed as part of the pre-operative evaluation. [facility], LAT[facility] Past Medical History Medical History Chronic renal failure With baseline creatinine of 1.3-1.7. 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 The patient said [place] She only has 1 son. She is a former smoker. Code status: DNI (the son will allow central line placement and pressors if needed) Healthcare power of attorney general: Edinson (Son) Smoking status: Former smoker Additional smoking assessment comments: pt. cannot comprehend questions, former smoker is noted from prior charting Alcohol intake: former Substance use: never Substance use type: does not use Living arrangements: shelter Gender identity (if verbalized by the patient): Female Sexual Orientation (if Verbalized by the Patient): Straight or Heterosexual Spiritual care concerns: No Anes - Eval Final PreProcedure Day of Procedure 11/19/21 13:55 Patient weight: obese Heart: regular rate and rhythm Lungs: clear to auscultation Airway: Mallampati scale class III Neurological: alert and oriented Last
== END 2021-11-19 16:23 | disposition home or self-care (01) ==
PROVIDERS: PCP Internal Medicine; Visit Provider Surgery
PROC: 0DJD8ZZ Inspection of Lower Intestinal Tract, Via Natural or Artificial Opening Endoscopic (ICD-10-PCS; CPT 45330; principal; 2021-11-19 13:30)
DX: Z12.11 Encounter for screening for malignant neoplasm of colon (principal); K56.609 Unspecified intestinal obstruction, unspecified as to partial versus complete obstruction; N32.1 Vesicointestinal fistula; D12.5 Benign neoplasm of sigmoid colon; K57.30 Diverticulosis of large intestine without perforation or abscess without bleeding; K63.5 Polyp of colon; Z90.49 Acquired absence of other specified parts of digestive tract; Z93.3 Colostomy status; N17.9 Acute kidney failure, unspecified; Z79.01 Long term (current) use of anticoagulants; E78.5 Hyperlipidemia, unspecified; F32.9 Major depressive disorder, single episode, unspecified; I13.0 Hypertensive heart and chronic kidney disease with heart failure and stage 1 through stage 4 chronic kidney disease, or unspecified chronic kidney disease; F03.90 Unspecified dementia, unspecified severity, without behavioral disturbance, psychotic disturbance, mood disturbance, and anxiety; I50.9 Heart failure, unspecified; E87.2 Acidosis; Z87.891 Personal history of nicotine dependence; E66.9 Obesity, unspecified; Z68.34 Body mass index [BMI] 34.0-34.9, adult; N18.32 Chronic kidney disease, stage 3b; Z86.718 Personal history of other venous thrombosis and embolism; K57.92 Diverticulitis of intestine, part unspecified, without perforation or abscess without bleeding; G93.41 Metabolic encephalopathy; R82.90 Unspecified abnormal findings in urine; N39.0 Urinary tract infection, site not specified
CPT/HCPCS: 45385; 88305; J2704; J7120

== ENCOUNTER 2022-06-14 17:42 | Emergency (ER) | payer OTHER, MEDICARE, SELFPAY ==
[2022-06-14] VITALS (19 sets, daily range): BP systolic 161–185; BP diastolic 67–74; PULSE 72–94; RESP 15–26; TEMP 36.9; O2SAT 93–96
--- NOTE | ~2022-06-14 | CT_ITS ---
EXAMINATION: CT abdomen pelvis w con DATE: 06/14/2022 19:49 INDICATION: lower abd pain, hx diverticulitis TECHNIQUE: Computed tomography (CT) of the abdomen and pelvis was performed with 100 mL Omnipaque-350 intravenous contrast. Automated exposure control and iterative reconstruction technique were employe d. The dose-length product was 1433.14 mGy-cm. COMPARISON: 08/13/2021. FINDINGS: Lower thorax: Heavy coronary artery calcification. Senescent changes. Bibasilar atelectasis/scar. Liver: Subcentimeter right lobe hypodensity likely representing a cyst. Biliary/Gallbladder: Cholelithiasis. No bile duct dilation. Pancreas: No mass or duct dilation. Spleen: Normal. Adrenals:No mass. Kidneys: Left renal atrophy. Excreted contrast. Pelviectasis and caliectasis on the left. Bilateral p eriureteral stranding, greater on the left. Left perinephric stranding. Right inferior pole cyst. Mul tiple bilateral hypodensities that are too small to characterize. GI tract: Mid transverse colostomy. No small or large bowel dilation. Surgically absent. Diverticulos is without diverticulitis. Mesentery/Peritoneum: No ascites, mass, or free air. Retroperitoneum: No mass. Atherosclerotic abdominal aortic and/or arterial calcifications. Pelvis: Uterus is absent. Urinary bladder wall hyperemia, thickening, and perivesicular inflammatory change. Soft Tissues: Soft tissues and body wall unremarkable. Bones: No acute osseous finding. L2 vertebral plana, with retropulsion, unchanged. IMPRESSION: Cystitis with bilateral ascending infection, worse on the left, where there may also be pyelonephriti s. Reviewed, dictated and finalized at location K. IMPRESSION: Cystitis with bilateral ascending infection, worse on the left, where there may also be pyelonephritis.
--- NOTE | 2022-06-14 18:09 | ED.GENADULT ---
HPI - General Adult General Chief complaint: Unspecified Stated complaint: discharge from rectum, has colostomy bag Time Seen by Provider: 06/14/22 18:09 History of Present Illness HPI narrative: Patient is 76-year-old female with a history of colovesical fistula s/p diverting transverse loop colostomy on 08/19/[address] Marrero, dementia, end-stage renal disease, here for evaluation of lower abdominal pain and increased rectal discharge despite colostomy in place. Patient does not provide much reliable history, states that her abdomen began to hurt earlier today. Denies any nausea, vomiting, fevers or chills. Related Data Home Medications Medication Instructions Recorded Confirmed lidocaine 4 % topical patch See Rx Instructions .Route .COMPLEX 01/16/21 11/19/21 (Lidocaine Pain Relief) mirtazapine 15 mg PO HS 01/16/21 11/19/21 ondansetron 4 mg disintegrating 4 mg PO Q6H PRN Nausea 01/16/21 11/19/21 tablet sertraline 50 mg tablet 50 mg PO DAILY 01/16/21 11/19/21 guaifenesin 100 mg/5 mL oral syrup 200 mg PO Q4H PRN Cough 10/05/21 11/19/21 donepezil 10 mg tablet 10 mg PO HS 10/16/21 11/19/21 memantine 5 mg tablet 5 mg PO BID 10/16/21 11/19/21 ferrous sulfate 325 mg (65 mg 325 mg PO TID 06/14/22 iron) tablet furosemide 40 mg tablet 40 mg PO DAILY 06/14/22 hydrocodone 5 mg-acetaminophen 325 1 tablet PO Q8H PRN Pain 06/14/22 mg tablet nitrofurantoin 100 mg PO Q12H 06/14/22 monohydrate/macrocrystals 100 mg capsule (Macrobid) potassium chloride 10 mEq 10 meq PO DAILY 06/14/22 tablet,extended release Allergies Allergy/AdvReac Type Severity Reaction Status Date / Time fluoxetine [From Prozac] Allergy Unknown Verified 06/14/22 18:06 sulfamethoxazole Allergy Unknown Verified 06/14/22 18:06 [From Sulfamethoxazole-Trimethoprim] trimethoprim Allergy Unknown Verified 06/14/22 18:06 [From Sulfamethoxazole-Trimethoprim] Review of Systems Review of Systems: Gen: Denies fevers or chills Eyes: Denies eye pain or visual change ENT: Denies congestion Respiratory: Denies shortness of breath or cough CV: Denies chest pain or palpitations GI: Reports lower abdominal pain. : denies burning, urgency, frequency or hematuria Musculoskeletal: Denies back pain or muscle pain Neuro: Denies numbness, tingling, weakness or focal weakness Skin: Denies rash Except as documented, all other systems reviewed and negative [facility] Past Medical History Medical History Chronic renal failure With baseline creatinine of 1.3-1.7. 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 The patient said that [place]. She only has 1 son. She is a former smoker. Code status: DNI (the son will allow central line placement and pressors if needed) Healthcare power of field geologist: Edinson (Son) John
[2022-06-14 18:59] LABS: Basophils Percent Auto 0.3 % (0.2-1.2); Eosinophils Absolute Auto 0.2 K/mm3 (0-0.3); Eosinophils Percent Auto 2.5 % (0-4.4); Hematocrit 42.9 % (37.0-47.0); Hemoglobin 13.3 g/dL (12.0-15.0); Immature Granulocyte Absolute 0.03 K/mm3 (0.00-0.031); Immature Granulocyte Percent A 0.3 % (0-0.5); Lymphocytes Absolute Auto 0.65 K/mm3 (0.9-3.2); Mean Corpuscular Hemoglobin 29.2 pg (26-34); Mean Corpuscular Volume 94.1 fl (80-100); Mean Platelet Volume 10.4 fl (7.4-10.4); Monocytes Absolute Auto 0.5 K/mm3 (0.1-0.6); Monocytes Percent Auto 4.9 % (2.6-8.5); Platelet Count Result 241 k/mm3 (150-375); Red Blood Count 4.56 M/mm3 (4.2-5.4); Red Cell Distribution Width 12.5 % (11.5-14.5); White Blood Count 9.4 K/mm3 (4.5-10.0)
[2022-06-14 19:09] LABS: Alanine Aminotransferase 15 U/L (6-35); Alkaline Phosphatase 98 U/L (38-126); Anion Gap 9 mmol/L (8-16); Aspartate Amino Transferase 20 U/L (14-36); Bilirubin,Total 0.7 mg/dL (0.2-1.3); Blood Urea Nitrogen 23 mg/dL (7-17); Calcium 8.4 mg/dL (8.4-10.2); Carbon Dioxide 24 mmol/L (22-30); Chloride 108 mmol/L (98-107); Estimated CRCL calculation 43 ml/min; Estimated Glomerular Filt Rate 37; Glucose 140 mg/dL (65-110); Lipase 141 U/L (23-300); Potassium 3.9 mmol/L (3.4-5.0); Sodium 141 mmol/L (137-145)
[2022-06-14 21:06] LABS: Add Urine Microscopic? YES; Appearance Urine Cloudy (Clear); Bacteria Urine Trace /hpf; Bilirubin Urine Negative (Negative); Blood Urine 3+ (Negative); Color Urine Yellow (Yellow); Glucose Urine UA Negative (Negative); Ketones Urine Negative (Negative); Leukocyte Esterase Ur 3+ LEU/UL (Negative); Mucus Urine Rare /lpf; Nitrate Urine Positive (Negative); Protein Urine 1+ mg/dL (Negative); RBC Urine >75 /hpf (0-2); Squamous Epithelial Cell Urine Rare /hpf (Few); Urobilinogen Urine Negative mg/dL (<2.0); WBC Urine 51-75 /hpf
[2022-06-14 21:08] LABS: Specific Grav Ur 1.049 (1.001-1.035)
--- NOTE | 2022-06-14 23:07 | PC.NURSE ---
called [facility] for ETA update. ETA [id number] - [id number]
--- NOTE | 2022-06-14 23:11 | PC.NURSE ---
Report received from AIDE Yoo. Assumed care of patient at this time. Patient waiting for EMS to arrive to transport back home.
[2022-06-15] VITALS: PULSE 75; RESP 19; O2SAT 93
--- NOTE | 2022-06-15 00:54 | PC.NURSE ---
[facility] here
[2022-06-15 01:01] VITALS: BP 161/74; PULSE 74; RESP 18; O2SAT 97
--- NOTE | 2022-06-15 01:01 | PC.NURSE ---
EMS here to take patient home.
== END 2022-06-15 01:01 ==
PROVIDERS: Physician Assistant; Emergency Provider General Practice; PCP Internal Medicine
DX: N30.90 Cystitis, unspecified without hematuria (principal); I13.2 Hypertensive heart and chronic kidney disease with heart failure and with stage 5 chronic kidney disease, or end stage renal disease; N18.6 End stage renal disease; I50.30 Unspecified diastolic (congestive) heart failure; F03.90 Unspecified dementia, unspecified severity, without behavioral disturbance, psychotic disturbance, mood disturbance, and anxiety; F32.9 Major depressive disorder, single episode, unspecified; Z93.3 Colostomy status; Z90.710 Acquired absence of both cervix and uterus; Z90.722 Acquired absence of ovaries, bilateral; Z90.79 Acquired absence of other genital organ(s); Z87.891 Personal history of nicotine dependence; Z79.01 Long term (current) use of anticoagulants
CPT/HCPCS: 36415; 74177; 80053; 81001; 83690; 85025; 87077; 87086; 87186; 96365; 99284; J0696; Q9967

== ENCOUNTER 2022-06-15 22:03 | Inpatient (IN) | payer OTHER, MEDICARE, SELFPAY ==
--- NOTE | ~2022-06-15 | XR_ITS ---
EXAMINATION: XR chest port-a-cath/central INDICATION: JACC placement TECHNIQUE: Portable AP chest at 1445, 1451, and 1456 hours COMPARISON: 06/15/2022 FINDINGS: A right internal jugular catheter is seen to be coiled in the right subclavian vein on the final image. There is a mild diffuse interstitial pattern. The heart size is normal. No pleural effus ion or pneumothorax. IMPRESSION: 1. Right internal jugular catheter coiled in the right subclavian vein. 2. Diffuse interstitial opacities, consistent with atelectasis versus interstitial lung disease versu s pulmonary edema. Reviewed, dictated and finalized at location F. IMPRESSION: 1. Right internal jugular catheter coiled in the right subclavian vein. 2. Diffuse interstitial opacities, consistent with atelectasis versus interstit ial lung disease versus pulmonary edema.
--- NOTE | ~2022-06-15 | XR_ITS ---
EXAM: XR hip LT min 2V DATE: 06/21/2022 14:55 HISTORY: left leg foreshortening. COMPARISON: CT 06/14/2022. FINDINGS: Decreased mineralization. Old left pubic bone fracture. No acute fracture or dislocation. No lytic or blastic lesion. Degenerative change at the pubic symphysis. Pelvic and hip enthesopathy. No erosion or periosteal change. Vascular calcifications. Dystrophic calcifications in the pelvis. IMPRESSION: No acute osseous finding in the left hip. Reviewed, dictated and finalized at location K.
--- NOTE | ~2022-06-15 | US_ITS ---
EXAMINATION: US renal BI DATE: 06/16/2022 12:37 INDICATION: Acute kidney injury TECHNIQUE: Multiple grayscale and Doppler ultrasound images of the kidneys were obtained. COMPARISON: CT, 06/14/2022 FINDINGS: The right kidney measures 11.4 x 5.3 x 6.4 cm. The left kidney measures 11.4 x 5.6 x 5.7 cm . The kidneys demonstrate normal parenchymal echogenicity. There is no hydronephrosis. The bladder is decompressed by Dawkins catheter. IMPRESSION: 1. Normal kidneys without hydronephrosis. Reviewed, dictated and finalized at location A.
--- NOTE | ~2022-06-15 | US_ITS ---
EXAMINATION: US venous doppler [facility] DATE: 06/19/2022 11:27 INDICATION: Deep venous thrombosis. Hypoxia. TECHNIQUE: Grayscale ultrasound images without and with compression and Doppler ultrasound images of the bilateral lower extremity veins were obtained. COMPARISON: 10/06/2021 FINDINGS: The visualized portions of right common femoral vein, profunda (deep) femoral vein, femoral vein, pop liteal vein and greater saphenous vein outflow are patent. The right posterior tibial and peroneal ve ins were unable to be identified due to patient body habitus. The visualized portions of left common femoral vein, profunda femoral vein, femoral vein, popliteal v ein and greater saphenous vein outflow are patent. The left posterior tibial and peroneal veins were unable to be identified due to patient body habitus. IMPRESSION: 1. No deep venous thrombosis in either lower limb through the level of the popliteal veins. The more distal veins of the calf were unable to be visualized due to body habitus. Reviewed, dictated and finalized at location B. IMPRESSION: 1. No deep venous thrombosis in either lower limb through the level of the pop liteal veins. The more distal veins of the calf were unable to be visualized du e to body habitus.
--- NOTE | ~2022-06-15 | XR_ITS ---
EXAMINATION: XR chest 1V portable DATE: 06/15/2022 22:56 INDICATION: Hypoxia. TECHNIQUE: A single frontal view of the chest was obtained. COMPARISON: Chest 2 views 10/07/2021, CT abdomen and pelvis 06/14/2022 FINDINGS: There are interstitial opacities in the lower lung zones. There is discoid atelectasis in l eft lower lung zone. No pleural effusion or pneumothorax. The heart size is normal. There are old hea led left rib fractures. IMPRESSION: 1. Interstitial opacities in the lower lung zones, consistent with mild atelectasis versus chronic in terstitial lung disease. Reviewed, dictated and finalized at location A. IMPRESSION: 1. Interstitial opacities in the lower lung zones, consistent with mild atelect asis versus chronic interstitial lung disease.
--- NOTE | ~2022-06-15 | XR_ITS ---
EXAMINATION: XR fl guide central line place DATE: 06/20/2022 16:35 INDICATION: Central line placement. TECHNIQUE: I performed fluoroscopy of the chest while the nurse adjusted the central venous catheter. Fluoroscopy exposure time was 1.0 minutes. The number of images was 2. COMPARISON: Chest single view at 2:40 PM FINDINGS: The final image demonstrates the right internal jugular central venous catheter tip in the superior vena cava. IMPRESSION: 1. Fluoroscopy guided central venous catheter adjustment with tip in the superior vena cava. Reviewed, dictated and finalized at location A. IMPRESSION: 1. Fluoroscopy guided central venous catheter adjustment with tip in the superi or vena cava.
[2022-06-15 21:59] VITALS: BP 129/59; PULSE 88; RESP 23; TEMP 37.6; O2SAT 92
[2022-06-15 22:31] VITALS: O2SAT 88
[2022-06-15] MEDS: ONDANSETRON INJ 4 MG/2 ML VIAL IV PUSH (22:31)
[2022-06-15 22:33] VITALS: O2SAT 93
--- NOTE | 2022-06-15 22:34 | ED.NAVMDI ---
HPI - Nausea/Vomiting/Diarrhea General Chief complaint: Nausea/Vomiting/Diarrhea <Carolynn Brown PA-C - Last Filed: 06/16/22 01:53> Stated complaint: abd pain and vomiting <Carolynn Brown PA-C - Last Filed: 06/16/22 01:53> Time Seen by Provider: 06/15/22 22:05 <Carolynn Brown PA-C - Last Filed: 06/16/22 01:53> History of Present Illness HPI Narrative: Patient is a 76-year-old female here for evaluation of nausea and vomiting today with abdominal pain yesterday. Patient was seen here yesterday for abdominal pain and leakage of fluid from her rectum despite colostomy in place. She was found to have a UTI with possible pyelonephritis, was discharged on oral antibiotics and given a dose of ceftriaxone in the ED given otherwise normal work-up. Patient returns today after having an episode of vomiting green/bilious emesis. Also noted that she had a low-grade fever upon arrival. Patient does not provide much reliable history given her baseline mental status. She does have a chronic indwelling Dawkins due to chronic UTI. <Carolynn Brown PA-C - Last Filed: 06/16/22 01:53> Related Data Home medications: Home Medications Medication Instructions Recorded Confirmed lidocaine 4 % topical patch 1 patch topical DAILY 01/16/21 06/16/22 (Lidocaine Pain Relief) mirtazapine 7.5 mg PO HS 01/16/21 06/16/22 ondansetron 4 mg disintegrating 4 mg PO Q6H PRN Nausea 01/16/21 06/16/22 tablet sertraline 50 mg tablet 50 mg PO DAILY 01/16/21 06/16/22 guaifenesin 100 mg/5 mL oral syrup 200 mg PO Q4H PRN Cough 10/05/21 06/16/22 donepezil 10 mg tablet 10 mg PO HS 10/16/21 06/16/22 memantine 5 mg tablet 5 mg PO BID 10/16/21 06/16/22 ferrous sulfate 325 mg (65 mg 325 mg PO TID 06/14/22 06/16/22 iron) tablet furosemide 40 mg tablet 40 mg PO DAILY 06/14/22 06/16/22 hydrocodone 5 mg-acetaminophen 325 1 tablet PO Q8H PRN Pain 06/14/22 06/16/22 mg tablet nitrofurantoin 100 mg PO Q12H 06/14/22 06/16/22 monohydrate/macrocrystals 100 mg capsule (Macrobid) potassium chloride 10 mEq 10 meq PO DAILY 06/14/22 06/16/22 tablet,extended release <WEN Meade Last Filed: 06/16/22 01:53> Allergies/Adverse reactions: Allergies Allergy/AdvReac Type Severity Reaction Status Date / Time fluoxetine [From Prozac] Allergy Unknown Verified 06/16/22 02:23 sulfamethoxazole Allergy Unknown Verified 06/16/22 02:23 [From Sulfamethoxazole-Trimethoprim] trimethoprim Allergy Unknown Verified 06/16/22 02:23 [From Sulfamethoxazole-Trimethoprim] <WEN Meade Last Filed: 06/16/22 01:53> Review of Systems Review of Systems: Gen: Denies fevers or chills Eyes: Denies eye pain or visual change ENT: Denies congestion Respiratory: Denies shortness of breath or cough CV: Denies chest pain or palpitations GI: Reports nausea and vomiting. Denies abdominal pain : denies burning, urgency, frequency or hematuria Musculoskeletal: Denies back pain or muscle pain Neuro: Denies numbness, tingling, weakness or focal weakness Skin: Denies rash Except as documented, all other systems reviewed and negative <WEN Meade Last Filed: 06/16/22 01:53> [facility] Past Medical History Medical History: Medical History Chronic renal failure With baseline creatinine of 1.3-1.7. 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
[2022-06-15 22:44] LABS: Basophils Percent Auto 0.2 % (0.2-1.2); Eosinophils Percent Auto 0.1 % (0-4.4); Hematocrit 40.4 % (37.0-47.0); Hemoglobin 12.8 g/dL (12.0-15.0); Immature Granulocyte Absolute 0.06 K/mm3 (0.00-0.031); Immature Granulocyte Percent A 0.5 % (0-0.5); Lymphocytes Absolute Auto 0.24 K/mm3 (0.9-3.2); Lymphocytes Percent Auto 1.9 % (18.3-44.2); Mean Corpuscular HGB Conc 31.7 g/dl (32-36); Mean Corpuscular Volume 91.6 fl (80-100); Mean Platelet Volume 10.5 fl (7.4-10.4); Monocytes Absolute Auto 0.9 K/mm3 (0.1-0.6); Monocytes Percent Auto 7.2 % (2.6-8.5); Neutrophils Absolute Auto 11.3 K/mm3 (1.3-6.7); Neutrophils Percent Auto 90.1 % (45.5-73.1); Platelet Count Result 246 k/mm3 (150-375); Red Blood Count 4.41 M/mm3 (4.2-5.4); Red Cell Distribution Width 12.7 % (11.5-14.5); White Blood Count 12.6 K/mm3 (4.5-10.0)
[2022-06-15] MEDS: LACTATED RINGERS 1,000 ML 999 ML IV CONT (22:51)
[2022-06-15 22:52] LABS: Add Urine Microscopic? YES; Appearance Urine Turbid (Clear); Bacteria Urine 1+ /hpf; Bilirubin Urine Negative (Negative); Blood Urine 1+ (Negative); Color Urine Yellow (Yellow); Glucose Urine UA Negative (Negative); Ketones Urine Negative (Negative); Leukocyte Esterase Ur 3+ LEU/UL (Negative); Mucus Urine Heavy /lpf; Nitrate Urine Negative (Negative); Protein Urine 2+ mg/dL (Negative); RBC Urine >75 /hpf (0-2); Urobilinogen Urine Negative mg/dL (<2.0); WBC Urine 21-30 /hpf
[2022-06-15 23:00] LABS: Alanine Aminotransferase 15 U/L (6-35); Albumin Level 3.8 g/dL (3.5-5.1); Alkaline Phosphatase 103 U/L (38-126); Anion Gap 10 mmol/L (8-16); Aspartate Amino Transferase 20 U/L (14-36); Bilirubin,Total 0.9 mg/dL (0.2-1.3); Blood Urea Nitrogen 22 mg/dL (7-17); Calcium 8.6 mg/dL (8.4-10.2); Carbon Dioxide 24 mmol/L (22-30); Chloride 105 mmol/L (98-107); Estimated CRCL calculation 28 ml/min; Estimated Glomerular Filt Rate 23; Glucose 161 mg/dL (65-110); Lipase 69 U/L (23-300); Potassium 3.8 mmol/L (3.4-5.0); Sodium 139 mmol/L (137-145); Specific Grav Ur 1.047 (1.001-1.035)
[2022-06-15 23:01] LABS: Lactic Acid Reflex 1.3 mmol/L (0.7-2.0)
[2022-06-15 23:09] VITALS: TEMP 37.1
[2022-06-15 23:15] VITALS: BP 114/57; PULSE 73; RESP 21; O2SAT 96
[2022-06-15 23:20] LABS: Alveolar/Arterial O2 Gradient 76.1 mmHg; Base Excess ABG -1.8 mEq/l (+/-2.0); Fractional Inspired Oxygen 28 %; HCO3 ABG 22.5 mEq/l (22.0-26.0); Oxygen Content ABG 16.3 %vol (16.0-22.0); Oxyhemoglobin 94.5 % THb (90.0-100.0); PCO2 ABG 36.6 mmHg (35.0-45.0); PO2 ABG 80.4 mmHg (80.0-100.0); PO2 FiO2 Ratio Arterial Blood 2.87 %; Total Hemoglobin 12.2 g/dL (12.0-18.0); pH ABG 7.406 (7.350-7.450)
[2022-06-15 23:21] LABS: Device NASAL CANNULA; Modified Allen's Test Pass; Site Drawn RIGHT RADIAL
--- NOTE | 2022-06-15 23:46 | PM.IMHP ---
H&P: HPI History of Present Illness Date/Time: 06/15/22 23:46 [facility] Past Medical History Medical History Chronic renal failure With baseline creatinine of 1.3-1.7. 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 The patient said that [place]. She only has 1 son. She is a former smoker. Code status: DNI (the son will allow central line placement and pressors if needed) Healthcare power of assistant attorney general: Edinson (Son) Smoking status: Former smoker Additional smoking assessment comments: pt. cannot comprehend questions, former smoker is noted from prior charting Alcohol intake: former Substance use: never Substance use type: does not use Gender identity (if verbalized by the patient): Female Sexual Orientation (if Verbalized by the Patient): Straight or Heterosexual Spiritual care concerns: No Meds Home Medications and Allergies Home Medications Medication Instructions Recorded Confirmed Type lidocaine 4 % topical patch See Rx Instructions .Route .COMPLEX 01/16/21 11/19/21 History (Lidocaine Pain Relief) mirtazapine 15 mg PO HS 01/16/21 11/19/21 History ondansetron 4 mg disintegrating 4 mg PO Q6H PRN Nausea 01/16/21 11/19/21 History tablet sertraline 50 mg tablet 50 mg PO DAILY 01/16/21 11/19/21 History guaifenesin 100 mg/5 mL oral syrup 200 mg PO Q4H PRN Cough 10/05/21 11/19/21 History apixaban 5 mg tablet (Eliquis) 5 mg PO BID #60 tabs 10/13/21 11/19/21 Rx donepezil 10 mg tablet 10 mg PO HS 10/16/21 11/19/21 History memantine 5 mg tablet 5 mg PO BID 10/16/21 11/19/21 History amoxicillin 875 mg-potassium 1 tablet PO Q12H #14 tabs 06/14/22 Rx clavulanate 125 mg tablet ferrous sulfate 325 mg (65 mg 325 mg PO TID 06/14/22 History iron) tablet furosemide 40 mg tablet 40 mg PO DAILY 06/14/22 History hydrocodone 5 mg-acetaminophen 325 1 tablet PO Q8H PRN Pain 06/14/22 History mg tablet nitrofurantoin 100 mg PO Q12H 06/14/22 History monohydrate/macrocrystals 100 mg capsule (Macrobid) potassium chloride 10 mEq 10 meq PO DAILY 06/14/22 History tablet,extended release Allergies Allergy/AdvReac Type Severity Reaction Status Date / Time fluoxetine [From Prozac] Allergy Unknown Verified 06/15/22 22:11 sulfamethoxazole Allergy Unknown Verified 06/15/22 22:11 [From Sulfamethoxazole-Trimethoprim] trimethoprim Allergy Unknown Verified 06/15/22 22:11 [From Sulfamethoxazole-Trimethoprim] Vital Signs Vital Signs - 24 hr 06/15/22 21:59 06/15/22 22:31 06/15/22 22:33 Temperature 99.7 F H Pulse Rate 88 Respiratory Rate 23 H Blood Pressure 129/59 L Pulse Oximetry 92 88 L 93 Oxygen Delivery Room Air Nasal Cannula Oxygen Flow Rate 2 H&P: Results Labs Labs: Short CBC 06/15/22 Range/Units 22:28 WBC
[2022-06-16] VITALS (25 sets, daily range): BP systolic 91–128; BP diastolic 44–65; PULSE 64–77; RESP 16–24; TEMP 35.8–36.5; O2SAT 94–100; BMI 45.5
--- NOTE | 2022-06-16 00:02 | PC.NURSE ---
No urine output since pt arrival in ED. Dawkins changed at this time. 16F with 650 output.
--- NOTE | 2022-06-16 00:10 | PC.NURSE ---
Attempted to call report to [address] [place] [address]. Receiving RN is unavailable, will call back with any questions.
[2022-06-16] MEDS: LACTATED RINGERS 1,000 ML 999 ML IV CONT ×2 (00:16→00:49)
--- NOTE | 2022-06-16 00:28 | PC.NURSE ---
HEALTH UNIT SUPERVISOR notified of pts low BP, at bedside. New orders placed.
--- NOTE | 2022-06-16 01:40 | PC.NURSE ---
This patient, Shonna Piña, was admitted to IMU Room 201-01. Patient/family oriented to hospital policies and general routines including ID bracelet, bed and alarms, visiting hours, pain management, procedures, bathroom and other care routines, personal items, smoking policy, room service/diet, and visiting hours. Information on how to activate the Rapid Response Team has been discussed. Patient/Family are encouraged to report perceived risks to care and to ask questions if they do not understand what they are told or what they should do.
[2022-06-16 04:49] LABS: Hematocrit 35.2 % (37.0-47.0); Hemoglobin 10.9 g/dL (12.0-15.0); Mean Corpuscular Hemoglobin 29.4 pg (26-34); Mean Corpuscular Volume 94.9 fl (80-100); Mean Platelet Volume 10.5 fl (7.4-10.4); Platelet Count Result 187 k/mm3 (150-375); Red Blood Count 3.71 M/mm3 (4.2-5.4); Red Cell Distribution Width 12.7 % (11.5-14.5); White Blood Count 10.4 K/mm3 (4.5-10.0)
[2022-06-16 04:58] LABS: Anion Gap 10 mmol/L (8-16); Blood Urea Nitrogen 22 mg/dL (7-17); Calcium 8.1 mg/dL (8.4-10.2); Carbon Dioxide 26 mmol/L (22-30); Chloride 104 mmol/L (98-107); Estimated CRCL calculation 28 ml/min; Estimated Glomerular Filt Rate 22; Glucose 123 mg/dL (65-110); Potassium 3.7 mmol/L (3.4-5.0); Sodium 140 mmol/L (137-145)
[2022-06-16] MEDS: SODIUM CHLORIDE 0.9% IV 1,000 ML 75 ML IV CONT (08:56)
[2022-06-16] MEDS: FERROUS SULFATE 324 MG TABLET PO ×3 (09:00→17:36)
[2022-06-16] MEDS: MEMANTINE 5 MG TABLET PO ×2 (09:00→20:09)
[2022-06-16] MEDS: SERTRALINE HCL 50 MG TABLET PO (09:00)
[2022-06-16] MEDS: APIXABAN 5 MG TABLET PO ×2 (09:00→20:09)
--- NOTE | 2022-06-16 11:23 | PM.IMHP ---
H&P: HPI History of Present Illness Date/Time: 06/16/22 11:23 Chief Complaint: Patient is a 76-year-old female here for evaluation of nausea and vomiting today with abdominal pain yesterday.? Patient was seen here yesterday for abdominal pain and leakage of fluid from her rectum despite colostomy in place.? She was found to have a UTI with possible pyelonephritis, was discharged on oral antibiotics and given a dose of ceftriaxone in the ED given otherwise normal work-up.? Patient returns today after having an episode of vomiting green/bilious emesis.? Also noted that she had a low-grade fever upon arrival.? Patient does not provide much reliable history given her baseline mental status.? She does have a chronic indwelling Dawkins due to chronic UTI. [facility] Past Medical History Medical History Chronic renal failure With baseline creatinine of 1.3-1.7. 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 The patient [place]. She only has 1 son. She is a former smoker. Code status: DNI (the son will allow central line placement and pressors if needed) Healthcare power of defense attorney: Edinson (Son) Smoking status: Former smoker Additional smoking assessment comments: pt. cannot comprehend questions, former smoker is noted from prior charting Alcohol intake: unknown Substance use: unknown Substance use type: does not use Gender identity (if verbalized by the patient): Female Sexual Orientation (if Verbalized by the Patient): Straight or Heterosexual Spiritual care concerns: No Meds Home Medications and Allergies Home Medications Medication Instructions Recorded Confirmed Type lidocaine 4 % topical patch 1 patch topical DAILY 01/16/21 06/16/22 History (Lidocaine Pain Relief) mirtazapine 7.5 mg PO HS 01/16/21 06/16/22 History ondansetron 4 mg disintegrating 4 mg PO Q6H PRN Nausea 01/16/21 06/16/22 History tablet sertraline 50 mg tablet 50 mg PO DAILY 01/16/21 06/16/22 History guaifenesin 100 mg/5 mL oral syrup 200 mg PO Q4H PRN Cough 10/05/21 06/16/22 History apixaban 5 mg tablet (Eliquis) 5 mg PO BID #60 tabs 10/13/21 06/16/22 Rx donepezil 10 mg tablet 10 mg PO HS 10/16/21 06/16/22 History memantine 5 mg tablet 5 mg PO BID 10/16/21 06/16/22 History amoxicillin 875 mg-potassium 1 tablet PO Q12H #14 tabs 06/14/22 06/16/22 Rx clavulanate 125 mg tablet ferrous sulfate 325 mg (65 mg 325 mg PO TID 06/14/22 06/16/22 History iron) tablet furosemide 40 mg tablet 40 mg PO DAILY 06/14/22 06/16/22 History hydrocodone 5 mg-acetaminophen 325 1 tablet PO Q8H PRN Pain 06/14/22 06/16/22 History mg tablet nitrofurantoin 100 mg PO Q12H 06/14/22 06/16/22 History monohydrate/macrocrystals 100 mg capsule (Macrobid) potassium chloride 10 mEq 10 meq PO DAILY 06/14/22 06/16/22 History tablet,ex
[2022-06-16 13:28] LABS: Toxigenic C. Diff NEGATIVE (NEGATIVE)
[2022-06-16] MEDS: DONEPEZIL HCL 10 MG TABLET PO (20:09)
[2022-06-16] MEDS: MIRTAZAPINE 7.5 MG TABLET PO (20:09)
--- NOTE | 2022-06-16 22:41 | PC.NURSE ---
This patient, Shonna Piña, was transferred to [[id number] ] on 06/16/22 at 2241. Personal belongings sent with patient. Report given to [Candi nickerson ]. Appropriate documentation sent with patient.
[2022-06-17] MEDS: MELATONIN 5 MG TABLET PO ×2 (02:10→23:57)
[2022-06-17 04:56] VITALS: BP 121/53; PULSE 73; RESP 18; TEMP 36.2; O2SAT 96
[2022-06-17] MEDS: SODIUM CHLORIDE 0.9% IV 1,000 ML 50 ML IV CONT (05:09)
[2022-06-17 05:48] LABS: Basophils Percent Auto 0.6 % (0.2-1.2); Eosinophils Absolute Auto 0.2 K/mm3 (0-0.3); Eosinophils Percent Auto 3.9 % (0-4.4); Hematocrit 32.9 % (37.0-47.0); Hemoglobin 10.1 g/dL (12.0-15.0); Immature Granulocyte Absolute 0.02 K/mm3 (0.00-0.031); Immature Granulocyte Percent A 0.4 % (0-0.5); Lymphocytes Absolute Auto 1.07 K/mm3 (0.9-3.2); Lymphocytes Percent Auto 20.6 % (18.3-44.2); Mean Corpuscular HGB Conc 30.7 g/dl (32-36); Mean Corpuscular Hemoglobin 29.4 pg (26-34); Mean Corpuscular Volume 95.6 fl (80-100); Mean Platelet Volume 10.4 fl (7.4-10.4); Monocytes Absolute Auto 0.4 K/mm3 (0.1-0.6); Monocytes Percent Auto 8.5 % (2.6-8.5); Neutrophils Absolute Auto 3.4 K/mm3 (1.3-6.7); Platelet Count Result 194 k/mm3 (150-375); Red Blood Count 3.44 M/mm3 (4.2-5.4); Red Cell Distribution Width 12.9 % (11.5-14.5); White Blood Count 5.2 K/mm3 (4.5-10.0)
[2022-06-17 06:02] LABS: Anion Gap 6 mmol/L (8-16); Blood Urea Nitrogen 25 mg/dL (7-17); Calcium 7.3 mg/dL (8.4-10.2); Carbon Dioxide 25 mmol/L (22-30); Chloride 107 mmol/L (98-107); Estimated CRCL calculation 29 ml/min; Estimated Glomerular Filt Rate 23; Glucose 92 mg/dL (65-110); Potassium 3.2 mmol/L (3.4-5.0); Sodium 138 mmol/L (137-145)
[2022-06-17] MEDS: MEMANTINE 5 MG TABLET PO ×2 (09:06→21:06)
[2022-06-17] MEDS: SERTRALINE HCL 50 MG TABLET PO (09:06)
[2022-06-17] MEDS: APIXABAN 5 MG TABLET PO ×2 (09:06→21:06)
[2022-06-17] MEDS: FERROUS SULFATE 324 MG TABLET PO ×3 (09:06→17:30)
[2022-06-17] MEDS: POTASSIUM CHLORIDE 20 MEQ PACKET (FOR LIQUID) 40 MEQ PO (09:06)
--- NOTE | 2022-06-17 10:50 | PM.IMPN ---
Progress Note: A&P Assessment and Plan (1) Urinary tract infection: Code(s): N39.0 - Urinary tract infection, site not specified Status: Acute Assessment and Plan: continue IV antibiotics cultures noted, sensitivity should be back tomorrow. Likely discharge tomorrow (2) Diarrhea: Code(s): R19.7 - Diarrhea, unspecified Status: Acute Assessment and Plan: improving (3) Dementia: Code(s): F03.90 - Unspecified dementia, unspecified severity, without behavioral disturbance, psychotic disturbance, mood disturbance, and anxiety Status: Chronic Assessment and Plan: stable (4) Chronic renal failure: Code(s): N18.9 - Chronic kidney disease, unspecified Status: Chronic Assessment and Plan: Baseline creatinine 1.6-1.7. She is currently at 2.1. Monitor. This may be a new baseline for her (5) Diastolic congestive heart failure: Code(s): I50.30 - Unspecified diastolic (congestive) heart failure Status: Chronic Assessment and Plan: compensated (6) Hyperlipidemia: Code(s): E78.5 - Hyperlipidemia, unspecified Status: Chronic (7) PRUDENCE (acute kidney injury): Code(s): N17.9 - Acute kidney failure, unspecified Status: Resolved Assessment and Plan: patient has a baseline kidney function 1.7. current creatinine 2.1. This may be a new baseline. Monitor kidney function electrolytes. Plan Likely discharge in 1-2 days Subjective Date/time seen: 06/17/22 10:50 no new complaints Exam Narrative: General: alert and oriented Psych: appropriate mood nad affect Eyes: PERRLA Neck: Trachea midline, no new lesions Skin: no changes Lungs: CTA Cardiac: Normal S1,S2, no MGR ABD: soft, nd, nt, nbs Ext: no new lesions, no cce Vasc: Pulses intact Objective Data Vital Signs Vital Signs: Vital Signs - 24 hr 06/16/22 12:00 06/16/22 12:36 06/16/22 12:00 Temperature 97.0 F L Pulse Rate 73 71 Respiratory Rate 22 H Blood Pressure 128/54 L Pulse Oximetry 99 99 Oxygen Delivery Room Air 06/16/22 14:00 06/16/22 17:08 06/16/22 16:00 Temperature 97.5 F L Pulse Rate 67 71 Respiratory Rate 20 Blood Pressure 122/48 L Pulse Oximetry 96 97 Oxygen Delivery Room Air 06/16/22 16:00 06/16/22 18:00 06/16/22 19:59 Temperature 97.6 F Pulse Rate 71 77 72 Respiratory Rate 18 Blood Pressure 105/49 L Pulse Oximetry 96 Oxygen Delivery 06/16/22 20:00 06/17/22 04:56 Temperature 97.1 F L Pulse Rate 72 73 Respiratory Rate 18 18 Blood Pressure 121/53 L Pulse Oximetry 96 96 Oxygen Delivery Room Air Intake/Output Intake/Output: Intake & Output 06/14/22 06/15/22 06/16/22 06/17/22 23:59 23:59 23:59 23:59 Intake Total 100 4660 1440 Output Total 1825 405 Balance 100 2835 1035 Meds/Results Medications: Active Medications Generic Name Dose Route Start Last Admin Trade Name Freq PRN Reason Stop Dose Admin Apixaban 5 mg 06/16/22 09:00 06/17/22 09:06 Apixaban 5 Mg Tablet PO 5 mg Q12HR VENU Administration Donepezil HCl 10 mg 06/16/22 21:00 06/16/22 20:09 Donepezil Hcl 10 Mg Tablet PO 10 mg HS VENU Administration Ferrous Sulfate 324 mg 06/16/22 08:00 06/17/22 09:06 Ferrous Sulfate 324 Mg Tablet PO 324 mg TIDWM VENU Administration Guaifenesin 200 mg 06/16/22 04:24 Guaifenesin 200 Mg/10 Ml Udc PO Q4H PRN Cough Piperacillin Sod/Tazobactam Sod 2.25 gm in 50 mls @ 100 mls/hr 06/16/22 06:00 06/17/22 05:39 Zosyn 2.25 Gm/D5w 50 Ml IVPB Infused Q6H VENU Infusion Sodium Chloride 1,000 mls @ 50 mls/hr 06/16/22 07:50 06/17/22 05:09 Normal Saline Iv IV CONT 50 mls/hr .Q20H VENU Administration Lidocaine 1 patch 06/16/22 09:00 06/16/22 09:00 Lidocaine 5% Patch TRANSDERM Not Given DAILY VENU Memantine 5 mg 06/16/22 09:00 06/17/22 09:06 Memantine 5 Mg Tablet PO 5 mg Q12
[2022-06-17] MEDS: LIDOCAINE 5% PATCH 1 PATCH TRANSDERM (12:13)
[2022-06-17 13:34] VITALS: O2SAT 90
[2022-06-17 19:47] VITALS: BP 129/66; PULSE 62; RESP 16; TEMP 36.6; O2SAT 94
[2022-06-17] MEDS: MIRTAZAPINE 7.5 MG TABLET PO (21:06)
[2022-06-17] MEDS: DONEPEZIL HCL 10 MG TABLET PO (21:06)
[2022-06-18 05:04] VITALS: BP 128/53; PULSE 64; RESP 14; TEMP 36.3; O2SAT 95
[2022-06-18 06:03] LABS: Anion Gap 6 mmol/L (8-16); Blood Urea Nitrogen 22 mg/dL (7-17); Calcium 7.6 mg/dL (8.4-10.2); Carbon Dioxide 25 mmol/L (22-30); Chloride 111 mmol/L (98-107); Estimated CRCL calculation 34 ml/min; Estimated Glomerular Filt Rate 27; Glucose 108 mg/dL (65-110); Potassium 3.6 mmol/L (3.4-5.0); Sodium 142 mmol/L (137-145)
[2022-06-18] MEDS: MEMANTINE 5 MG TABLET PO ×2 (08:49→19:59)
[2022-06-18] MEDS: FERROUS SULFATE 324 MG TABLET PO ×3 (08:49→17:17)
[2022-06-18] MEDS: APIXABAN 5 MG TABLET PO ×2 (08:49→19:59)
[2022-06-18] MEDS: LIDOCAINE 5% PATCH 1 PATCH TRANSDERM (08:49)
[2022-06-18] MEDS: SERTRALINE HCL 50 MG TABLET PO (08:49)
[2022-06-18 14:44] VITALS: BP 95/64; PULSE 59; RESP 18; TEMP 37.1; O2SAT 98
--- NOTE | 2022-06-18 17:34 | PM.IMPN ---
Progress Note: A&P Assessment and Plan (1) Urinary tract infection: Code(s): N39.0 - Urinary tract infection, site not specified Status: Acute Assessment and Plan: Complicated UTI related to chronic indwelling Dawkins catheter. Patient presents with nausea, vomiting with urinalysis concerning for UTI. Urine culture (06/14/22) growing Proteus and E coli. The E coli has low colony count but is ESBL. Proteus also has significant resistance pattern. Repeat urine culture on 06/15/2022 growing Gram-negative bacilli with final results pending. I did call the lab and they states that it is a Proteus with similar resistance pattern. Blood culture no growth to date . Suspect most likely her UTIs related the Proteus and at the E coli is contaminant. White count was elevated to 12 K but now normal. Will continue Zosyn for now. Discharge planning and most likely will need IV antibiotics. 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 She was having increasing rectal output prior to admission. Given her Dawkins catheter is in place, it would be unlikely that she is having urinary leakage through the rectum. (2) Diarrhea: Code(s): R19.7 - Diarrhea, unspecified Status: Acute Assessment and Plan: Patient still having liquid stools but volume is stable anywhere from 430-550 mL. Clinically improved. Renal function is improved. Will stop IV fluids. Monitor stool output. (3) PRUDENCE (acute kidney injury): Code(s): N17.9 - Acute kidney failure, unspecified Status: Resolved Assessment and Plan: Baseline creatinine 1.6-1.7. Creatinine on admission was elevated and climbed to 2.2. With IV fluids, her creatinine has improved to 1.8 today. Will stop IV fluids and continue to monitor since she is eating well. Continue to follow. (4) Chronic renal failure: Code(s): N18.9 - Chronic kidney disease, unspecified Status: Chronic Assessment and Plan: As above. (5) Diastolic congestive heart failure: Code(s): I50.30 - Unspecified diastolic (congestive) heart failure Status: Chronic Assessment and Plan: Patient appears to be euvolemic at this time. Will stop IV fluids and follow. (6) Dementia: Code(s): F03.90 - Unspecified dementia, unspecified severity, without behavioral disturbance, psychotic disturbance, mood disturbance, and anxiety Status: Chronic Assessment and Plan: Patient with dementia with behavioral disturbance. Patient is alert and oriented today but odd affect and appears to be impulsive. Continue Aricept, Namenda and Remeron. (7) Chronic anticoagulation: Code(s): Z79.01 - group home (current) use of anticoagulants Status: Acute Assessment and Plan: Patient on Eliquis on admission. History of DVT involving left popliteal and gastrocnemius veins in September 2021. She remains on full therapy. Check Doppler of lower extremities. If negative then will decrease Eliquis to preventive of dosing. Plan DVT prophylaxis: Eliquis code status: Modified diet: Regular Subjective Date/time seen: 06/18/22 17:34 Interval history: 76yo female with CKD, dCHF and HTN here for n/v and abd pain. Assuming care. Chart reviewed. No problems overnight. She is no longer having nausea or vomiting. She denies chest pain, back pain or abdominal pain. She is alert and oriented x4 but states that she pulled out her IV could she was bored . nursing states last time patient was hospitalized, she became agitated and was taking off her colostomy bag throwing it in the room. she does have a chronic Dawkins catheter Exam Narrative: AF 98.8 95/64 59 18 98% RA Gen - NARD Chest -Few basilar rhonchi otherwise clear. normal respiratory rate CV - RRR S1/S2 Abd - Soft, NT/ND, Positive BS. colostomy in the epigastric region with brown liquid stool in t
[2022-06-18] MEDS: MIRTAZAPINE 7.5 MG TABLET PO (19:59)
[2022-06-18] MEDS: DONEPEZIL HCL 10 MG TABLET PO (19:59)
[2022-06-18 22:00] VITALS: BP 143/73; PULSE 61; RESP 16; TEMP 36.9; O2SAT 96
[2022-06-19 06:00] VITALS: BP 145/75; PULSE 86; RESP 20; TEMP 36.9; O2SAT 99
[2022-06-19 06:05] LABS: Basophils Percent Auto 0.5 % (0.2-1.2); Eosinophils Absolute Auto 0.2 K/mm3 (0-0.3); Eosinophils Percent Auto 3.8 % (0-4.4); Hematocrit 35.7 % (37.0-47.0); Hemoglobin 11.4 g/dL (12.0-15.0); Immature Granulocyte Absolute 0.02 K/mm3 (0.00-0.031); Immature Granulocyte Percent A 0.4 % (0-0.5); Lymphocytes Absolute Auto 1.43 K/mm3 (0.9-3.2); Lymphocytes Percent Auto 25.7 % (18.3-44.2); Mean Corpuscular HGB Conc 31.9 g/dl (32-36); Mean Corpuscular Hemoglobin 28.8 pg (26-34); Mean Corpuscular Volume 90.2 fl (80-100); Mean Platelet Volume 10.2 fl (7.4-10.4); Monocytes Absolute Auto 0.4 K/mm3 (0.1-0.6); Monocytes Percent Auto 6.3 % (2.6-8.5); Neutrophils Absolute Auto 3.5 K/mm3 (1.3-6.7); Neutrophils Percent Auto 63.3 % (45.5-73.1); Platelet Count Result 231 k/mm3 (150-375); Red Blood Count 3.96 M/mm3 (4.2-5.4); Red Cell Distribution Width 12.3 % (11.5-14.5); White Blood Count 5.6 K/mm3 (4.5-10.0)
[2022-06-19 06:28] LABS: Albumin Level 3.2 g/dL (3.5-5.1); Anion Gap 8 mmol/L (8-16); Blood Urea Nitrogen 20 mg/dL (7-17); Calcium 7.8 mg/dL (8.4-10.2); Carbon Dioxide 21 mmol/L (22-30); Chloride 111 mmol/L (98-107); Estimated CRCL calculation 43 ml/min; Estimated Glomerular Filt Rate 37; Glucose 113 mg/dL (65-110); Magnesium 2.3 mg/dL (1.6-2.3); Phosphorus 3.2 mg/dL (2.5-4.5); Potassium 3.7 mmol/L (3.4-5.0); Sodium 140 mmol/L (137-145)
[2022-06-19] MEDS: FERROUS SULFATE 324 MG TABLET PO ×3 (09:29→17:10)
[2022-06-19] MEDS: SERTRALINE HCL 50 MG TABLET PO (09:29)
[2022-06-19] MEDS: MEMANTINE 5 MG TABLET PO ×2 (09:29→20:09)
[2022-06-19] MEDS: APIXABAN 5 MG TABLET PO (09:29)
[2022-06-19] MEDS: ERTAPENEM 1 GM/NS 50 ML 1 GM/50 ML BAG IVPB (09:35)
--- NOTE | 2022-06-19 10:35 | PC.NURSE ---
Pt refused to go downstairs for US. Education provided on why US was ordered/needed. Pt not wanting to leave her room. Call made to US. They can do it bedside sometime today.
[2022-06-19 14:00] VITALS: BP 179/83; PULSE 65; RESP 18; TEMP 36.3; O2SAT 97
--- NOTE | 2022-06-19 16:41 | PM.IMPN ---
Progress Note: A&P Assessment and Plan (1) Urinary tract infection: Code(s): N39.0 - Urinary tract infection, site not specified Status: Acute Assessment and Plan: Complicated UTI related to chronic indwelling Dawkins catheter. Patient presents with nausea, vomiting with urinalysis concerning for UTI. Urine culture (06/14/22) growing Proteus and E coli. The E coli has low colony count but is ESBL. Proteus also has significant resistance pattern. Repeat urine culture on 06/15/22 growing Gram-negative bacilli with final results still pending. I did call the lab again today and still waiting for final results. Blood culture no growth to date . Suspect most likely her UTIs related to the Proteus and that the E coli is contaminant but waiting for final result. White count was elevated to 12 K but now normal. Ertapenem added; continue Zosyn for now. Discharge planning and most likely will need IV antibiotics. (2) Diarrhea: Code(s): R19.7 - Diarrhea, unspecified Status: Acute Assessment and Plan: Patient was having liquid stools but volume has decreased. Clinically improved. Renal function is improved. Monitor stool output. (3) PRUDENCE (acute kidney injury): Code(s): N17.9 - Acute kidney failure, unspecified Status: Resolved Assessment and Plan: Baseline creatinine 1.6-1.7. Creatinine on admission was elevated and climbed to 2.2. With IV fluids, her creatinine improved; off IV fluids, Cr down to 1.4 today. Will continue to monitor. (4) Chronic renal failure: Code(s): N18.9 - Chronic kidney disease, unspecified Status: Chronic Assessment and Plan: As above. (5) Diastolic congestive heart failure: Code(s): I50.30 - Unspecified diastolic (congestive) heart failure Status: Chronic Assessment and Plan: Patient appears to be euvolemic at this time. (6) Dementia: Code(s): F03.90 - Unspecified dementia, unspecified severity, without behavioral disturbance, psychotic disturbance, mood disturbance, and anxiety Status: Chronic Assessment and Plan: Patient with dementia with behavioral disturbance. Patient is alert and oriented but odd affect and appears to be impulsive. Continue Aricept, Namenda and Remeron. (7) Chronic anticoagulation: Code(s): Z79.01 - oil heaterman (current) use of anticoagulants Status: Acute Assessment and Plan: Patient on Eliquis on admission. History of DVT involving left popliteal and gastrocnemius veins in September 2021. She remains on full therapy. Doppler of lower extremities negative for DVT. Since negative, will decrease Eliquis to preventive dosing. Plan DVT prophylaxis: Eliquis Code status: Modified Diet: Regular Subjective Date/time seen: 06/19/22 16:41 Interval history: 76yo female with CKD, dCHF and HTN here for n/v and abd pain. No complaints today. She slept poorly last night. No CP or SOB. Exam Narrative: AF 97.3 179/83 65 18 97% RA Gen - NARD Chest - CTA bilaterally, nml RR CV - RRR S1/S2 Abd - Soft, NT/ND, Positive BS. colostomy in the epigastric region with dark brown liquid stool in the bag. - Dawkins catheter secured draining clear yellow urine. Ext - trace pedal edema Psych - sleepy but arouses easily and answers questions apporpriately.. Skin - Warm and dry Objective Data Vital Signs Vital Signs: Vital Signs - 24 hr 06/18/22 22:00 06/19/22 06:00 06/19/22 08:00 Temperature 98.4 F 98.4 F Pulse Rate 61 86 Respiratory Rate 16 20 Blood Pressure 143/73 H 145/75 H Pulse Oximetry 96 99 Oxygen Delivery Room Air 06/19/22 14:00 Temperature 97.3 F L Pulse Rate 65 Respiratory Rate 18 Blood Pressure 179/83 H Pulse Oximetry 97 Oxygen Delivery Intake/Output Intake/Output: Intake & Output 06/16/22 06/17/22 06/18/22 06/19/22 23:59 23:59 23:59 23:59 Intake Total 5639 6119 3382
[2022-06-19] MEDS: MIRTAZAPINE 7.5 MG TABLET PO (20:09)
[2022-06-19] MEDS: DONEPEZIL HCL 10 MG TABLET PO (20:09)
[2022-06-19] MEDS: APIXABAN 2.5 MG TABLET PO (20:09)
[2022-06-19 21:46] VITALS: BP 145/77; PULSE 77; RESP 16; TEMP 36.7; O2SAT 100
[2022-06-20 05:59] VITALS: BP 148/77; PULSE 78; RESP 16; TEMP 36.7; O2SAT 100
[2022-06-20] MEDS: FERROUS SULFATE 324 MG TABLET PO ×2 (08:55→16:59)
[2022-06-20] MEDS: MEMANTINE 5 MG TABLET PO ×2 (08:55→20:30)
[2022-06-20] MEDS: SERTRALINE HCL 50 MG TABLET PO (08:55)
[2022-06-20] MEDS: APIXABAN 2.5 MG TABLET PO ×2 (08:55→20:30)
[2022-06-20] MEDS: ERTAPENEM 1 GM/NS 50 ML 1 GM/50 ML BAG IVPB (09:21)
[2022-06-20 14:00] VITALS: BP 186/90; PULSE 62; RESP 16; TEMP 36.7; O2SAT 96
--- NOTE | 2022-06-20 16:59 | PM.IMPN ---
Progress Note: A&P Assessment and Plan (1) Urinary tract infection: Code(s): N39.0 - Urinary tract infection, site not specified Status: Acute Assessment and Plan: Complicated UTI related to chronic indwelling Dawkins catheter. Patient presents with nausea, vomiting with urinalysis concerning for UTI. Urine culture (06/14/22) growing Proteus and E coli. The E coli has low colony count but is ESBL. Proteus also has significant resistance pattern. Repeat urine culture on 06/15/22 growing Proteus with similar resistance pattern. Blood culture no growth to date. Suspect most likely her UTIs related to the Proteus and that the E coli is contaminant. White count was elevated to 12 K but now normal. Ertapenem added; will stop Zosyn now that final results known. Discharge planning with IV antibiotics. (2) Diarrhea: Code(s): R19.7 - Diarrhea, unspecified Status: Acute Assessment and Plan: Patient was having liquid stools but volume has decreased. Clinically improved. Renal function is improved. Monitor stool output. (3) PRUDENCE (acute kidney injury): Code(s): N17.9 - Acute kidney failure, unspecified Status: Resolved Assessment and Plan: Baseline creatinine 1.6-1.7. Creatinine on admission was elevated and climbed to 2.2. With IV fluids, her creatinine improved. Currently off IV fluids. Cr down to 1.4 yesterday. Will continue to monitor. (4) Chronic renal failure: Code(s): N18.9 - Chronic kidney disease, unspecified Status: Chronic Assessment and Plan: As above. (5) Diastolic congestive heart failure: Code(s): I50.30 - Unspecified diastolic (congestive) heart failure Status: Chronic Assessment and Plan: Patient appears to be euvolemic at this time. CXR noted. Resume lasix at half dose. (6) Dementia: Code(s): F03.90 - Unspecified dementia, unspecified severity, without behavioral disturbance, psychotic disturbance, mood disturbance, and anxiety Status: Chronic Assessment and Plan: Patient with dementia with behavioral disturbance. Patient is alert and oriented but odd affect and appears to be impulsive. Continue Aricept, Namenda and Remeron. (7) Chronic anticoagulation: Code(s): Z79.01 - terminal superintendent (current) use of anticoagulants Status: Acute Assessment and Plan: Patient on Eliquis on admission. History of DVT involving left popliteal and gastrocnemius veins in September 2021. She was on full therapy. Doppler of lower extremities negative for DVT. Since negative, we decreased Eliquis to preventive dosing. Plan DVT prophylaxis: Eliquis Code status: Modified Diet: Regular Subjective Date/time seen: 06/20/22 16:59 Interval history: 76yo female with CKD, dCHF and HTN here for n/v and abd pain. No complaints today. Feels well. Able to IV line placed for IV abx late. Exam Narrative: AF 98.1 186/90 62 16 96% RA Gen - NARD Chest - lungs clear anteriorly, nml RR CV - RRR S1/S2 Abd - Soft, obese, NT. Positive BS. colostomy in the epigastric region with dark brown liquid stool in the bag. - Dawkins catheter secured draining clear yellow urine. Ext - trace pedal edema Psych - nml mood and affect Skin - Warm and dry Objective Data Vital Signs Vital Signs: Vital Signs - 24 hr 06/19/22 21:46 06/20/22 05:59 06/20/22 08:00 Temperature 98.1 F 98.1 F Pulse Rate 77 78 Respiratory Rate 16 16 Blood Pressure 145/77 H 148/77 H Pulse Oximetry 100 100 Oxygen Delivery Room Air 06/20/22 14:00 Temperature 98.1 F Pulse Rate 62 Respiratory Rate 16 Blood Pressure 186/90 H Pulse Oximetry 96 Oxygen Delivery Intake/Output Intake/Output: Intake & Output 06/17/22 06/18/22 06/19/22 06/20/22 23:59 23:59 23:59 23:59 Intake Total 2034 1520 730 682 Output Total 1255 1575 1700 975 Balance 779 -55 -970 -293 Meds/Results Medications:
[2022-06-20] MEDS: CENTRAL LINE FLUSH 10 ML IV PUSH ×2 (18:31→20:31)
[2022-06-20 20:14] VITALS: BP 140/60; PULSE 68; RESP 20; TEMP 36.6; O2SAT 98
[2022-06-20] MEDS: MIRTAZAPINE 7.5 MG TABLET PO (20:30)
[2022-06-20] MEDS: DONEPEZIL HCL 10 MG TABLET PO (20:30)
[2022-06-20] MEDS: FUROSEMIDE 20 MG TABLET PO (20:30)
[2022-06-21 05:28] VITALS: BP 135/61; PULSE 70; RESP 20; TEMP 36.6; O2SAT 97
--- NOTE | 2022-06-21 05:57 | PC.NURSE ---
Went to patient room to draw blood from central line for am blood and the line had been pulled out. When asked from the patient about the picc line, pt stated I don't know . No presence of loss of blood nor active bleeding from the site. Pt still has a peripheral line.
[2022-06-21 06:55] LABS: Anion Gap 9 mmol/L (8-16); Blood Urea Nitrogen 16 mg/dL (7-17); Calcium 7.9 mg/dL (8.4-10.2); Carbon Dioxide 25 mmol/L (22-30); Chloride 108 mmol/L (98-107); Estimated CRCL calculation 43 ml/min; Estimated Glomerular Filt Rate 37; Glucose 111 mg/dL (65-110); Potassium 3.5 mmol/L (3.4-5.0); Sodium 142 mmol/L (137-145)
[2022-06-21] MEDS: FERROUS SULFATE 324 MG TABLET PO ×3 (09:18→17:48)
[2022-06-21] MEDS: MEMANTINE 5 MG TABLET PO ×2 (09:18→21:49)
[2022-06-21] MEDS: FUROSEMIDE 20 MG TABLET PO (09:18)
[2022-06-21] MEDS: APIXABAN 2.5 MG TABLET PO ×2 (09:18→21:49)
[2022-06-21] MEDS: LIDOCAINE 5% PATCH 1 PATCH TRANSDERM (09:19)
[2022-06-21] MEDS: SERTRALINE HCL 50 MG TABLET PO (09:19)
[2022-06-21] MEDS: ERTAPENEM 1 GM/NS 50 ML 1 GM/50 ML BAG IVPB (09:35)
--- NOTE | 2022-06-21 11:28 | PM.IMPN ---
Progress Note: A&P Assessment and Plan (1) Urinary tract infection: Code(s): N39.0 - Urinary tract infection, site not specified Status: Acute Assessment and Plan: Complicated UTI related to chronic indwelling Dawkins catheter. Patient presents with nausea, vomiting with urinalysis concerning for UTI. Urine culture (06/14/22) growing Proteus and E coli. The E coli has low colony count but is ESBL. Proteus also has significant resistance pattern. Repeat urine culture on 06/15/22 growing Proteus with similar resistance pattern. Blood culture negative. Suspect most likely her UTIs related to the Proteus and that the E coli is contaminant. White count was elevated to 12 K but now normal. JACC removed. Continue Ertapenem. Discharge held. (2) Diarrhea: Code(s): R19.7 - Diarrhea, unspecified Status: Acute Assessment and Plan: Patient was having liquid stools but volume has decreased. Clinically improved. Renal function is improved. Monitor stool output. (3) PRUDENCE (acute kidney injury): Code(s): N17.9 - Acute kidney failure, unspecified Status: Resolved Assessment and Plan: Baseline creatinine 1.6-1.7. Creatinine on admission was elevated and climbed to 2.2. With IV fluids, her creatinine improved. Currently off IV fluids. Cr down to 1.4 and stable. Able to add back lasix at half dose and she is toelrating this. Will continue to monitor. (4) Chronic renal failure: Code(s): N18.9 - Chronic kidney disease, unspecified Status: Chronic Assessment and Plan: As above. (5) Diastolic congestive heart failure: Code(s): I50.30 - Unspecified diastolic (congestive) heart failure Status: Chronic Assessment and Plan: Patient appears to be euvolemic at this time. CXR noted. Continue lasix at half dose. (6) Dementia: Code(s): F03.90 - Unspecified dementia, unspecified severity, without behavioral disturbance, psychotic disturbance, mood disturbance, and anxiety Status: Chronic Assessment and Plan: Patient with dementia with behavioral disturbance. Patient is alert and oriented but odd affect and appears to be impulsive. Continue Aricept, Namenda and Remeron. Increase activity. Old TSH was low so will repeat. (7) Chronic anticoagulation: Code(s): Z79.01 - retirement (current) use of anticoagulants Status: Acute Assessment and Plan: Patient on Eliquis on admission. History of DVT involving left popliteal and gastrocnemius veins in September 2021. She was on full therapy. Doppler of lower extremities negative for DVT. Since negative, we decreased Eliquis to preventive dosing. Plan No findings on pelvic CT 06/14/22 to suggest left hip fracture. Will check xray. DVT prophylaxis: Eliquis Code status: Modified Diet: Regular Subjective Date/time seen: 06/21/22 11:28 Interval history: 76yo female with CKD, dCHF and HTN here for n/v and abd pain. Patient pulled out her JACC last night. She does not know why she pulled it out. No complaints. No chest pain or shortness of breath.Left leg noted to be foreshortened but she has no pain. She is bed and WC bound. Exam Narrative: AF 98.0 135/61 70 20 97% RA Gen - NARD Chest - CTA bilaterally. nml RR CV - RRR S1/S2 Abd - Soft, obese, NT. Positive BS. colostomy in the epigastric region with dark brown liquid stool in the bag. - Dawkins catheter secured draining clear yellow urine. Ext - trace pedal edema. Left LE foreshortened and externally rotated. No pain to passive ROM. Psych - nml mood and affect. Pleasant and cooperative Skin - Warm and dry Objective Data Vital Signs Vital Signs: Vital Signs - 24 hr 06/20/22 14:00 06/20/22 20:14 06/21/22 05:28 Temperature 98.1 F 98 F 98 F Pulse Rate 62 68 70 Respiratory Rate 16 20 20 Blood Pressure 186/90 H 140/60 135/61 Pulse Oximetry 96 98 97 Intake/Output Intak
[2022-06-21 13:15] VITALS: O2SAT 94
[2022-06-21 13:58] VITALS: BP 150/55; PULSE 59; RESP 16; TEMP 35.9; O2SAT 95
[2022-06-21 20:22] VITALS: BP 141/63; PULSE 66; RESP 20; TEMP 36.5; O2SAT 96
[2022-06-21] MEDS: MIRTAZAPINE 7.5 MG TABLET PO (21:49)
[2022-06-21] MEDS: DONEPEZIL HCL 10 MG TABLET PO (21:49)
[2022-06-22 04:53] VITALS: BP 147/73; PULSE 81; RESP 20; TEMP 36.6; O2SAT 96
[2022-06-22 06:45] LABS: Anion Gap 7 mmol/L (8-16); Blood Urea Nitrogen 18 mg/dL (7-17); Carbon Dioxide 24 mmol/L (22-30); Chloride 109 mmol/L (98-107); Estimated CRCL calculation 46 ml/min; Estimated Glomerular Filt Rate 40; Glucose 101 mg/dL (65-110); Potassium 3.8 mmol/L (3.4-5.0); Sodium 140 mmol/L (137-145)
[2022-06-22 07:48] LABS: Folic Acid 4.6 ng/mL (2.76->20)
[2022-06-22] MEDS: ERTAPENEM 1 GM/NS 50 ML 1 GM/50 ML BAG IVPB (09:59)
[2022-06-22] MEDS: FERROUS SULFATE 324 MG TABLET PO ×3 (10:00→17:34)
[2022-06-22] MEDS: MEMANTINE 5 MG TABLET PO ×2 (10:00→20:34)
[2022-06-22] MEDS: FUROSEMIDE 20 MG TABLET PO (10:01)
[2022-06-22] MEDS: APIXABAN 2.5 MG TABLET PO ×2 (10:01→20:33)
[2022-06-22] MEDS: SERTRALINE HCL 50 MG TABLET PO (10:01)
--- NOTE | 2022-06-22 15:11 | PM.IMPN ---
Progress Note: A&P Assessment and Plan (1) Urinary tract infection: Code(s): N39.0 - Urinary tract infection, site not specified Status: Acute Assessment and Plan: Complicated UTI related to chronic indwelling Dawkins catheter. Patient presents with nausea, vomiting with urinalysis concerning for UTI. Urine culture (06/14/22) growing Proteus and E coli. The E coli has low colony count but is ESBL. Proteus also has significant resistance pattern. Repeat urine culture on 06/15/22 growing Proteus with similar resistance pattern. Blood culture negative. Suspect most likely her UTIs related to the Proteus and that the E coli is contaminant. White count was elevated to 12 K but now normal. JACC removed. Continue Ertapenem to complete 7 days (Day 4). Discharge held. (2) Diarrhea: Code(s): R19.7 - Diarrhea, unspecified Status: Acute Assessment and Plan: Patient was having liquid stools but volume has decreased. Clinically improved. Renal function is improved. Monitor stool output. (3) PRUDENCE (acute kidney injury): Code(s): N17.9 - Acute kidney failure, unspecified Status: Resolved Assessment and Plan: Baseline creatinine 1.6-1.7. Creatinine on admission was elevated and climbed to 2.2. With IV fluids, her creatinine improved. Currently off IV fluids. Cr down to 1.3 and stable. Able to add back lasix at half dose and she is tolerating this. Will continue to monitor. (4) Chronic renal failure: Code(s): N18.9 - Chronic kidney disease, unspecified Status: Chronic Assessment and Plan: As above. (5) Diastolic congestive heart failure: Code(s): I50.30 - Unspecified diastolic (congestive) heart failure Status: Chronic Assessment and Plan: Patient appears to be euvolemic at this time. CXR noted. Continue lasix at half dose. (6) Dementia: Code(s): F03.90 - Unspecified dementia, unspecified severity, without behavioral disturbance, psychotic disturbance, mood disturbance, and anxiety Status: Chronic Assessment and Plan: Patient with dementia with behavioral disturbance. Patient is alert and oriented but odd affect and appears to be impulsive. B12 and TSH normal. Continue Aricept, Namenda and Remeron. Increase activity. (7) Chronic anticoagulation: Code(s): Z79.01 - intermediate (current) use of anticoagulants Status: Acute Assessment and Plan: Patient on Eliquis on admission. History of DVT involving left popliteal and gastrocnemius veins in September 2021. She was on full therapy. Doppler of lower extremities negative for DVT. Since negative, we decreased Eliquis to preventive dosing. Plan Xray negative for left hip pathology. DVT prophylaxis: Eliquis Code status: Modified Diet: Regular Subjective Date/time seen: 06/22/22 15:11 Interval history: 76yo female with CKD, dCHF and HTN here for n/v and abd pain. No issues overnight. Slept well. No CP or SOB. No n/v. Exam Narrative: AF 97.8 147/73 81 20 96% RA Gen - NARD lying semi-recumbent in bed Chest - CTA bilaterally. nml RR CV - RRR S1/S2 Abd - Soft, obese, NT. Positive BS. colostomy in the epigastric region with dark brown liquid stool in the bag. - Dawkins catheter secured draining clear yellow urine. Ext - trace pedal edema. Psych - nml mood and affect. Pleasant and cooperative Skin - Warm and dry Objective Data Vital Signs Vital Signs: Vital Signs - 24 hr 06/21/22 20:22 06/22/22 04:53 Temperature 97.7 F 97.8 F Pulse Rate 66 81 Respiratory Rate 20 20 Blood Pressure 141/63 H 147/73 H Pulse Oximetry 96 96 Intake/Output Intake/Output: Intake & Output 06/19/22 06/20/22 06/21/22 06/22/22 23:59 23:59 23:59 23:59 Intake Total 730 1366 890 480 Output Total 1700 1525 1850 800 Balance -970 -159 -960 -320 Meds/Results Medications: Active Medications Generic Name Dose
[2022-06-22 16:28] VITALS: BP 141/60; PULSE 62; RESP 99; TEMP 35.5; O2SAT 16
[2022-06-22] MEDS: DONEPEZIL HCL 10 MG TABLET PO (20:33)
[2022-06-22] MEDS: MIRTAZAPINE 7.5 MG TABLET PO (20:34)
[2022-06-22] MEDS: MELATONIN 5 MG TABLET PO (20:35)
[2022-06-22 20:43] VITALS: BP 146/54; PULSE 65; RESP 16; TEMP 36.6; O2SAT 97
[2022-06-23 01:49] VITALS: O2SAT 97
[2022-06-23 04:48] VITALS: BP 146/65; PULSE 60; RESP 18; TEMP 36.3; O2SAT 94
[2022-06-23] MEDS: APIXABAN 2.5 MG TABLET PO ×2 (08:28→20:27)
[2022-06-23] MEDS: FERROUS SULFATE 324 MG TABLET PO ×3 (08:28→17:29)
[2022-06-23] MEDS: SERTRALINE HCL 50 MG TABLET PO (08:28)
[2022-06-23] MEDS: FUROSEMIDE 20 MG TABLET PO (08:28)
[2022-06-23] MEDS: MEMANTINE 5 MG TABLET PO ×2 (08:28→20:27)
[2022-06-23] MEDS: ERTAPENEM 1 GM/NS 50 ML 1 GM/50 ML BAG IVPB (11:00)
[2022-06-23 14:44] VITALS: BP 125/72; PULSE 74; RESP 18; TEMP 37.2; O2SAT 96
--- NOTE | 2022-06-23 15:17 | PM.IMPN ---
Progress Note: A&P Assessment and Plan (1) Urinary tract infection: Code(s): N39.0 - Urinary tract infection, site not specified Status: Acute Assessment and Plan: Complicated UTI related to chronic indwelling Dawkins catheter. Patient presents with nausea, vomiting with urinalysis concerning for UTI. Urine culture (06/14/22) growing Proteus and E coli. The E coli has low colony count but is ESBL. Proteus also has significant resistance pattern. Repeat urine culture on 06/15/22 growing Proteus with similar resistance pattern. Blood culture negative. Suspect most likely her UTIs related to the Proteus and that the E coli is contaminant. White count was elevated to 12 K but now normal. Patietn removed JACC. Continue Ertapenem to complete 7 days (Day 5). (2) Diarrhea: Code(s): R19.7 - Diarrhea, unspecified Status: Acute Assessment and Plan: Patient was having liquid stools but volume has decreased to about 350mL. Clinically improved. Renal function is improved. Monitor stool output. (3) PRUDENCE (acute kidney injury): Code(s): N17.9 - Acute kidney failure, unspecified Status: Resolved Assessment and Plan: Baseline creatinine 1.6-1.7. Creatinine on admission was elevated and climbed to 2.2. With IV fluids, her creatinine improved. Currently off IV fluids. Cr down to 1.3 and stable. Able to add back lasix at half dose and she is tolerating this. Will continue to monitor. (4) Chronic renal failure: Code(s): N18.9 - Chronic kidney disease, unspecified Status: Chronic Assessment and Plan: As above. (5) Diastolic congestive heart failure: Code(s): I50.30 - Unspecified diastolic (congestive) heart failure Status: Chronic Assessment and Plan: Patient appears to be euvolemic at this time. CXR noted. Continue lasix at half dose. (6) Dementia: Code(s): F03.90 - Unspecified dementia, unspecified severity, without behavioral disturbance, psychotic disturbance, mood disturbance, and anxiety Status: Chronic Assessment and Plan: Patient with dementia with behavioral disturbance. Patient is alert and oriented but odd affect and appears to be impulsive. B12 and TSH normal. Continue Aricept, Namenda and Remeron. Increase activity. (7) Chronic anticoagulation: Code(s): Z79.01 - halfway (current) use of anticoagulants Status: Acute Assessment and Plan: Patient on Eliquis on admission. History of DVT involving left popliteal and gastrocnemius veins in September 2021. She was on full therapy. Doppler of lower extremities negative for DVT. Since negative, we decreased Eliquis to preventive dosing. Plan DVT prophylaxis: Eliquis Code status: Modified Diet: Regular Subjective Date/time seen: 06/23/22 15:17 Interval history: 76yo female with CKD, dCHF and HTN here for n/v and abd pain. No issues overnight. Up to the chair. No complaints. Eating well. Exam Narrative: AF 99.0 125/72 74 18 96% RA Gen - NARD Chest - bibasial inspiratory crackles, nml RR CV - RRR S1/S2 Abd - Soft, obese, NT. Positive BS. colostomy in the epigastric region with dark brown liquid stool in the bag. - Dawkins catheter secured draining clear yellow urine. Ext - trace pedal edema. Psych - nml mood and affect. Pleasant and cooperative Skin - Warm and dry Objective Data Vital Signs Vital Signs: Vital Signs - 24 hr 06/22/22 16:28 06/22/22 20:43 06/22/22 20:00 Temperature 96 F L 97.8 F Pulse Rate 62 65 Respiratory Rate 99 H 16 Blood Pressure 141/60 H 146/54 H Pulse Oximetry 16 L 97 Oxygen Delivery Room Air 06/23/22 01:49 06/23/22 04:48 06/23/22 14:44 Temperature 97.3 F L 99.0 F Pulse Rate 60 74 Respiratory Rate 18 18 Blood Pressure 146/65 H 125/72 Pulse Oximetry 97 94 96 Oxygen Delivery Room Air Intake/Output Intake/Output: Intake & Output
[2022-06-23 20:19] VITALS: BP 137/57; PULSE 60; RESP 18; TEMP 36.8; O2SAT 97
[2022-06-23] MEDS: DONEPEZIL HCL 10 MG TABLET PO (20:27)
[2022-06-23] MEDS: MELATONIN 5 MG TABLET PO (20:27)
[2022-06-23] MEDS: MIRTAZAPINE 7.5 MG TABLET PO (20:27)
[2022-06-24 04:56] VITALS: BP 134/58; PULSE 64; RESP 18; TEMP 36.2; O2SAT 95
[2022-06-24] MEDS: ERTAPENEM 1 GM/NS 50 ML 1 GM/50 ML BAG IVPB (09:02)
[2022-06-24] MEDS: guaiFENesin 200 MG/10 ML UDC PO (09:03)
[2022-06-24] MEDS: FUROSEMIDE 20 MG TABLET PO (09:03)
[2022-06-24] MEDS: APIXABAN 2.5 MG TABLET PO (09:03)
[2022-06-24] MEDS: SERTRALINE HCL 50 MG TABLET PO (09:03)
[2022-06-24] MEDS: FERROUS SULFATE 324 MG TABLET PO ×2 (09:03→11:39)
[2022-06-24] MEDS: MEMANTINE 5 MG TABLET PO (09:03)
--- NOTE | 2022-06-24 11:33 | PM.DS ---
DS: Admitting Diagnosis Discharge Date 06/24/22 Admitting Diagnosis Abdominal pain DS: Discharge Diagnosis Discharge Diagnosis (1) Urinary tract infection: Code(s): N39.0 - Urinary tract infection, site not specified Status: Acute (2) Diarrhea: Code(s): R19.7 - Diarrhea, unspecified Status: Acute (3) PRUDENCE (acute kidney injury): Code(s): N17.9 - Acute kidney failure, unspecified Status: Resolved (4) Chronic renal failure: Code(s): N18.9 - Chronic kidney disease, unspecified Status: Chronic (5) Diastolic congestive heart failure: Code(s): I50.30 - Unspecified diastolic (congestive) heart failure Status: Chronic (6) Dementia: Code(s): F03.90 - Unspecified dementia, unspecified severity, without behavioral disturbance, psychotic disturbance, mood disturbance, and anxiety Status: Chronic (7) Chronic anticoagulation: Code(s): Z79.01 - equipment operator intermodal yard (current) use of anticoagulants Status: Acute DS: Summary Hospital Course Reason for hospitalization: 6yo female with CKD, dCHF and HTN here for n/v and abd pain. Please see H&P for details Hospital Course: Patient presents with nausea, vomiting with urinalysis concerning for UTI.? Urine culture (06/14/22) growing Proteus and E coli. The E coli has low colony count but is ESBL.? Proteus also has significant resistance pattern.? Repeat urine culture on 06/15/22 growing Proteus with similar resistance pattern. Blood culture negative.? Suspect most likely her UTIs related to the Proteus and that the E coli is contaminant.? White count was elevated to 12 K but now normal. Patient had a JACC placed for outpatient IV abx but she removed JACC. Overall felt she has a complicated UTI related to chronic indwelling Dawkins catheter.? Treated with Ertapenem for 6 days IV with plans for one dose Ertapenem IM at the facility to complete 7 days. Patient was also having liquid stools but volume has decreased. Baseline creatinine 1.6-1.7. She hasa PRUDENCE with Creatinine on admission elevated and climbed to 2.2.? With IV fluids, her creatinine improved. Cr down to 1.3 and stable.?We were able to add back lasix at half dose and she tolerated this well. Patient with dementia with behavioral disturbance.? Patient is alert and oriented but odd affect and appears to be impulsive. B12 and TSH normal.? We continued Aricept, Namenda and Remeron. Patient was on Eliquis on admission.? History of DVT involving left popliteal and gastrocnemius veins in September 2021.? She was on full therapy. Doppler of lower extremities negative for DVT.? Since negative, we decreased Eliquis to preventive dosing. She overall did well and was able to be discharged on 06/24/22 Status at Discharge Cognitive/behavioral status at discharge: Stable Time Spent with Patient Time attestation: Total time spent providing and/or coordinating discharge services: 35 minutes Time spent: Greater than 30 minutes Specific discharge activities: discussed with rn homecare to arrange; Left message with family Exam Narrative: AF 97.2 134/58 64 18 95% RA Gen - NARD Chest - clear anteriorly, nml RR CV - RRR S1/S2 Abd - Soft, obese, NT. Positive BS. Colostomy in the epigastric region with dark brown liquid stool in the bag. - Dawkins catheter secured draining clear yellow urine. Ext - trace pedal edema. Psych - nml mood and affect. Pleasant and cooperative Skin - Warm and dry Discharge Plan Discharge Attending physician on discharge: Milad Martin Discharging Clinician: Milad Martin Anticipated Discharge Date/Time: 06/24/22 11:44 Patient Disposition: NH [facility]sp/Asst Living Activity: as tolerated Diet: regular Discharge Instructions: Check daily morning weights after voiding. Call your doctor if you gain more than 3 lb in 2 days or 5 lb in 1 week. Routine chronic Dawkins care. Change out Dawkins catheter every 4 weeks.
== END 2022-06-24 14:25 | DRG 699 ==
LOC: ANHED 23:40 → ANHIMU 06-16 01:04 → ANH3MED 06-16 22:06
PROVIDERS: Chiropractor; Physician Assistant; Admitting Provider Internal Medicine; Emergency Provider Preventive Medicine Aerospace Medicine; PCP Internal Medicine; Visit Provider Internal Medicine
DX: F03.918 Unspecified dementia, unspecified severity, with other behavioral disturbance (principal); T83.511A Infection and inflammatory reaction due to indwelling urethral catheter, initial encounter; I13.0 Hypertensive heart and chronic kidney disease with heart failure and stage 1 through stage 4 chronic kidney disease, or unspecified chronic kidney disease; N17.9 Acute kidney failure, unspecified; I50.32 Chronic diastolic (congestive) heart failure; Z16.30 Resistance to unspecified antimicrobial drugs; N18.9 Chronic kidney disease, unspecified; N39.0 Urinary tract infection, site not specified; E78.5 Hyperlipidemia, unspecified; B96.4 Proteus (mirabilis) (morganii) as the cause of diseases classified elsewhere; R19.7 Diarrhea, unspecified; Z28.21 Immunization not carried out because of patient refusal; Z79.01 Long term (current) use of anticoagulants; Z86.718 Personal history of other venous thrombosis and embolism; Z87.891 Personal history of nicotine dependence; Z93.3 Colostomy status
CPT/HCPCS: 36415; 36556; 36600; 71045; 73502; 76775; 77001; 80048; 80053; 80069; 81001; 82607; 82746; 82805; 83605; 83690; 83735; 84443; 85025; 85027; 87040; 87077; 87086; 87186; 87493; 93970; 96361; 96365; 96366; 96367; 96375; 99285; A9270; C1751; G0378; J0131; J1335; J2405; J2543; J7030; J7120

== ENCOUNTER 2023-06-09 19:12 | Emergency (ER) | payer OTHER, MEDICARE, SELFPAY ==
[2023-06-09] VITALS (9 sets, daily range): BP systolic 147–165; BP diastolic 54–69; PULSE 59–72; RESP 14–20; TEMP 36.9; O2SAT 94–98
--- NOTE | ~2023-06-09 | CT_ITS ---
EXAMINATION: CT brain wo con DATE: 06/09/2023 20:08 INDICATION: Head injury. TECHNIQUE: Computed tomography (CT) of the head was performed without intravenous contrast. The mA wa s adjusted according to patient size. Iterative reconstruction technique was employed. The dose-lengt h product was 908.00 mGy-cm. COMPARISON: Head CT 10/04/2021 FINDINGS: There are old infarcts in the bilateral basal ganglia and right thalamus. There are scatter ed areas of low attenuation in the cerebral white matter. The ventricles are normal in size. There is mild mucosal thickening in the ethmoid sinuses. The mastoid air cells are normal. The orbits are nor mal. IMPRESSION: 1. 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 2. Stable moderate nonspecific cerebral white matter disease, which likely represents chronic small v essel ischemic disease. Reviewed, dictated and finalized at location E. IMPRESSION: 1. 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 2. Stable moderate nonspecific cerebral white matter disease, which likely repr esents chronic small vessel ischemic disease.
--- NOTE | 2023-06-09 20:15 | ED.FALL ---
HPI - Fall General Chief Complaint: Fall Stated Complaint: FALL, HIT HEAD, NO LOC, ON BLOOD THINNERS Time Seen by Provider: 06/09/23 19:27 History of Present Illness HPI Narrative: Patient brought to the emergency department after she fell out of her wheelchair. Patient is unsure how it happened. She denies all complaints. She fell back hitting the back of her head. No bleeding noted. She denies any pain currently. Also denies any other injuries. She was brought to the emergency department by EMS from nursing facility Related Data Home Medications Medication Instructions Recorded Confirmed lidocaine 4 % topical patch 1 patch topical DAILY 01/16/21 06/16/22 (Lidocaine Pain Relief) mirtazapine 7.5 mg PO HS 01/16/21 06/16/22 sertraline 50 mg tablet 50 mg PO DAILY 01/16/21 06/16/22 guaifenesin 100 mg/5 mL oral syrup 200 mg PO Q4H PRN Cough 10/05/21 06/16/22 donepezil 10 mg tablet 10 mg PO HS 10/16/21 06/16/22 memantine 5 mg tablet 5 mg PO BID 10/16/21 06/16/22 ferrous sulfate 325 mg (65 mg 325 mg PO TID 06/14/22 06/16/22 iron) tablet Allergies Allergy/AdvReac Type Severity Reaction Status Date / Time fluoxetine [From Prozac] Allergy Unknown Verified 06/09/23 19:22 sulfamethoxazole Allergy Unknown Verified 06/09/23 19:22 [From Sulfamethoxazole-Trimethoprim] trimethoprim Allergy Unknown Verified 06/09/23 19:22 [From Sulfamethoxazole-Trimethoprim] Review of Systems Review of Systems: Review of systems negative except what is documented in the HPI PENDING SALE TO [facility] Past Medical History Medical History Chronic renal failure With baseline creatinine of 1.3-1.7. 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 The patient [place] She only has 1 son. She is a former smoker. Code status: DNI (the son will allow central line placement and pressors if needed) Healthcare power of erisa attorney: Edinson (Son) Smoking status: Former smoker Additional smoking assessment comments: pt. cannot comprehend questions, former smoker is noted from prior charting Alcohol intake: unknown Substance use: unknown Substance use type: does not use Living arrangements: residential Gender identity (if verbalized by the patient): Female Sexual Orientation (if Verbalized by the Patient): Straight or Heterosexual Spiritual care concerns: No Exam Narrative: GENERAL: Well-appearing, well-nourished, and in no acute distress. HEAD: Normocephalic, atraumatic. EYES: PERRLA and EOMI. ENT: Nares clear, no rhinorrhea or epistaxis. Mucous membranes moist. NECK: Supple. CHEST: Clear to auscultation. No respiratory distress. HEART: Regular rate and rhythm. ABDOMEN: Soft, nontender, nondistended. EXTREMITIES: Normal range of motion. No edema. SKIN: Warm, dry, no rash. NEURO: No
--- NOTE | 2023-06-09 22:29 | PC.NURSE ---
ED school secretary arranged BLS transport back to [facility]. Report called to AIDE Luz at [facility].
== END 2023-06-09 23:09 ==
PROVIDERS: Emergency Provider Emergency Medicine; PCP Hospitalist
DX: S09.90XA Unspecified injury of head, initial encounter (principal); F03.90 Unspecified dementia, unspecified severity, without behavioral disturbance, psychotic disturbance, mood disturbance, and anxiety; I13.0 Hypertensive heart and chronic kidney disease with heart failure and stage 1 through stage 4 chronic kidney disease, or unspecified chronic kidney disease; N18.9 Chronic kidney disease, unspecified; I50.30 Unspecified diastolic (congestive) heart failure; E78.5 Hyperlipidemia, unspecified; F32.9 Major depressive disorder, single episode, unspecified; Z93.3 Colostomy status; Z87.891 Personal history of nicotine dependence; Z90.710 Acquired absence of both cervix and uterus; Z90.79 Acquired absence of other genital organ(s); Z90.722 Acquired absence of ovaries, bilateral; W05.0XXA Fall from non-moving wheelchair, initial encounter
CPT/HCPCS: 70450; 99284

== ENCOUNTER 2023-06-18 22:48 | Inpatient (IN) | payer OTHER, MEDICARE, SELFPAY ==
--- NOTE | ~2023-06-18 | CT_ITS ---
CT head without contrast Indication: Altered mental status COMPARISON: 06/09/2023 Technique: Serial scans were obtained through the brain without the administration of contrast. Dose reduction technique was used on this scan by utilizing automated exposure control and iterative recon struction technique. The dose-length product (DLP) was 908.00 mGy-cm. Findings: There is no evidence of intracranial hemorrhage, mass lesion, or acute infarct. 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 The ventricles and subarachnoid spaces are dilated, c onsistent with moderate atrophy. Low attenuation regions are seen within the periventricular white m atter bilaterally, likely representing changes from chronic microvascular ischemic disease. There is no evidence of edema, mass effect or midline shift. The visualized paranasal sinuses and mastoid ai r cells are clear. Impression: No intracranial hemorrhage, mass, or acute infarct. Stable chronic lacunar infarcts in the left basal ganglia. Atrophy and chronic white matter changes, as above. Reviewed, dictated and finalized at location . Impression: No intracranial hemorrhage, mass, or acute infarct. Stable chronic lacunar infarcts in the left basal ganglia. Atrophy and chronic white matter changes, as above.
--- NOTE | ~2023-06-18 | XR_ITS ---
Portable chest x-ray Comparison: 06/20/2022 Clinical History: Weakness Findings: There is probable central congestive change and minimal interstitial edema. There is disco id atelectasis or scarring left lung base. Cardiomediastinal silhouette is stable. Bones and soft ti ssues are unremarkable. Impression: Central congestive change and minimal interstitial edema. Discoid atelectasis or scarring at the left lung base. Reviewed, dictated and finalized at location . Impression: Central congestive change and minimal interstitial edema. Discoid atelectasis or scarring at the left lung base.
[2023-06-18 22:49] VITALS: BP 121/50; PULSE 89; RESP 20; TEMP 37.7; O2SAT 94
[2023-06-19] VITALS (11 sets, daily range): BP systolic 105–127; BP diastolic 47–57; PULSE 78–94; RESP 14–18; TEMP 35.8–36.6; O2SAT 93–97; BMI 39.6
--- NOTE | 2023-06-19 00:38 | ECG_ITS ---
Measurements Intervals [place] Rate: 96 P: 98 NV: 170 QRS: 0 QRSD: 110 T: 43 QT: 376 QTc: 475 Interpretive Statements REDUCED ECG QUALITY BECAUSE OF BASELINE ARTIFACT SINUS RHYTHM INDETERMINATE AXIS LOW QRS VOLTAGE IN PRECORDIAL LEADS [QRS DEFLECTION < 1.0 mV IN CHEST LEADS] PATTERN CONSISTENT WITH PULMONARY DISEASE RIGHT BUNDLE BRANCH BLOCK [120+ ms QRS DURATION, UPRIGHT V1, 40+ ms S IN I/aVL/V4/V5/V6] ABNORMAL ECG COMPARED TO ECG 10/04/2021 18:03:51 BOTH ECGS ARE OF REDUCED QUALITY, NO OBVIOUS CHANGE Electronically Signed On 06-19-2023 7:41:59 CDT by Steven Burris M.D.
[2023-06-19 01:32] LABS: Basophils Percent Auto 0.2 % (0.2-1.2); Hematocrit 41.4 % (37.0-47.0); Hemoglobin 12.8 g/dL (12.0-15.0); Immature Granulocyte Absolute 0.07 K/mm3 (0.00-0.031); Immature Granulocyte Percent A 0.5 % (0-0.5); Lymphocytes Absolute Auto 0.93 K/mm3 (0.9-3.2); Lymphocytes Percent Auto 7.2 % (18.3-44.2); Mean Corpuscular HGB Conc 30.9 g/dl (32-36); Mean Corpuscular Hemoglobin 28.6 pg (26-34); Mean Corpuscular Volume 92.4 fl (80-100); Monocytes Absolute Auto 0.8 K/mm3 (0.1-0.6); Monocytes Percent Auto 6.4 % (2.6-8.5); Neutrophils Percent Auto 85.7 % (45.5-73.1); Platelet Count Result 299 k/mm3 (150-375); Red Blood Count 4.48 M/mm3 (4.2-5.4); Red Cell Distribution Width 14.5 % (11.5-14.5); White Blood Count 12.9 K/mm3 (4.5-10.0)
[2023-06-19 01:42] LABS: INR 1.4; Prothrombin Time 17.5 Seconds (11.1-14.7)
[2023-06-19 01:43] LABS: Partial Thromboplastin Time 34.5 SECONDS (22.3-36.8)
[2023-06-19 01:45] LABS: Alanine Aminotransferase 14 U/L (6-35); Albumin Level 3.4 g/dL (3.5-5.1); Alkaline Phosphatase 87 U/L (38-126); Anion Gap 7 mmol/L (8-16); Aspartate Amino Transferase 18 U/L (14-36); Blood Urea Nitrogen 28 mg/dL (7-17); Calcium 8.4 mg/dL (8.4-10.2); Carbon Dioxide 25 mmol/L (22-30); Chloride 106 mmol/L (98-107); Estimated CRCL calculation 30 ml/min; Estimated Glomerular Filt Rate 24; Glucose 152 mg/dL (65-110); Potassium 3.8 mmol/L (3.4-5.0); Sodium 138 mmol/L (137-145)
[2023-06-19] MEDS: SODIUM CHLORIDE 0.9% IV 1,000 ML 999 ML IV CONT (02:51)
[2023-06-19 03:36] LABS: Lipase 64 U/L (23-300); Magnesium 2.3 mg/dL (1.6-2.3)
[2023-06-19 03:49] LABS: NT Pro B Type Natriuretic Pept 5110 pg/mL (19.9-100); Troponin I < 0.012 ng/mL (0.000-0.034)
[2023-06-19 04:38] LABS: Appearance Urine Turbid (Clear); Bacteria Urine 4+ /hpf; Bilirubin Urine 1+ (Negative); Blood Urine 2+ (Negative); Color Urine Dark Yellow (Yellow); Glucose Urine UA Negative (Negative); Ketones Urine Negative (Negative); Leukocyte Esterase Ur 3+ LEU/UL (Negative); Need Manual Microscopic Reviewed; Nitrate Urine Negative (Negative); Non Pathogenic Casts >20; Protein Urine 1+ mg/dL (Negative); RBC Urine 0-2 /hpf (0-2); Specific Grav Ur 1.019 (1.001-1.035); Squamous Epithelial Cell Urine Few /hpf (Few); WBC Urine >100 /hpf
--- NOTE | 2023-06-19 05:22 | ED.GENADULT ---
HPI - General Adult General Chief complaint: Unspecified Stated complaint: NOT ACTING RIGHT; LETHARGIC Time Seen by Provider: 06/19/23 01:32 History of Present Illness HPI narrative: Patient is a 77-year-old female who presents emergency department with chief complaint of altered mental status. Patient is a resident of a local nursing facility normally ANO x1 and then noticed that she is less active than normal and less interactive than normal. Family decided to send the patient to the emergency department for evaluation. Related Data Home Medications Medication Instructions Recorded Confirmed lidocaine 4 % topical patch 1 patch topical DAILY 01/16/21 06/16/22 (Lidocaine Pain Relief) mirtazapine 7.5 mg PO HS 01/16/21 06/16/22 sertraline 50 mg tablet 50 mg PO DAILY 01/16/21 06/16/22 guaifenesin 100 mg/5 mL oral syrup 200 mg PO Q4H PRN Cough 10/05/21 06/16/22 donepezil 10 mg tablet 10 mg PO HS 10/16/21 06/16/22 memantine 5 mg tablet 5 mg PO BID 10/16/21 06/16/22 ferrous sulfate 325 mg (65 mg 325 mg PO TID 06/14/22 06/16/22 iron) tablet Allergies Allergy/AdvReac Type Severity Reaction Status Date / Time fluoxetine [From Prozac] Allergy Unknown Verified 06/09/23 19:22 sulfamethoxazole Allergy Unknown Verified 06/09/23 19:22 [From Sulfamethoxazole-Trimethoprim] trimethoprim Allergy Unknown Verified 06/09/23 19:22 [From Sulfamethoxazole-Trimethoprim] Review of Systems Review of Systems: A 10 system review of systems was completed on the patient and is negative except for what is stated in the HPI. Nursing and ancillary documentation was reviewed. [facility] Past Medical History Medical History Chronic renal failure With baseline creatinine of 1.3-1.7. 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 The patient said that [place] She only has 1 son. She is a former smoker. Code status: DNI (the son will allow central line placement and pressors if needed) Healthcare power of trust and estates attorney: Edinson (Son) Smoking status: Former smoker Additional smoking assessment comments: pt. cannot comprehend questions, former smoker is noted from prior charting Alcohol intake: unknown Substance use: unknown Substance use type: does not use Living arrangements: half-way Gender identity (if verbalized by the patient): Female Sexual Orientation (if Verbalized by the Patient): Straight or Heterosexual Spiritual care concerns: No Exam Narrative: GENERAL: Well-appearing, well-nourished, and in no acute distress. HEAD: Normocephalic, atraumatic. EYES: PERRLA and EOMI. ENT: Nares clear, no rhinorrhea or epistaxis. Mucous membranes moist. NECK: Supple. CHEST: Clear to auscultation. No respiratory distress. HEART: Regular rate and rhythm. No
[2023-06-19 05:23] LABS: Add Urine Microscopic? YES
[2023-06-19] MEDS: SODIUM CHLORIDE 0.9% IV 1,000 ML 75 ML IV CONT ×2 (07:36→20:37)
--- NOTE | 2023-06-19 10:08 | PM.IMHP ---
H&P: HPI History of Present Illness Date/Time: 06/19/23 10:08 Chief Complaint: Altered mental status Narrative: Patient was sent to the emergency department by family from facility due to altered mental status. [facility] is [facility] resident due to chronic dementia and she is normally alert and oriented x1. Patient was found to be more altered than usual. In the emergency department patient was found to urinalysis consistent with urinary tract infection as well as laboratory findings of acute kidney injury on CKD. Patient is a poor historian only answering her name and couple of simple questions. Unable to obtain HPI are ROS from patient. She only states she has no pain and that she is thirsty. Otherwise patient does not verbalize though she is awake spontaneously. Review of Systems Review of Systems: ROS unobtainable: Yes unobtainable due to mental status PMFSH Past Medical History Medical History Chronic renal failure With baseline creatinine of 1.3-1.7. 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 The patient said that [place] She only has 1 son. She is a former smoker. Code status: DNI (the son will allow central line placement and pressors if needed) Healthcare power of sports attorney: Edinson (Son) Smoking status: Former smoker Additional smoking assessment comments: pt. cannot comprehend questions, former smoker is noted from prior charting Alcohol intake: never Substance use: never Substance use type: does not use Living arrangements: [facility] Gender identity (if verbalized by the patient): Female Sexual Orientation (if Verbalized by the Patient): Straight or Heterosexual Spiritual care concerns: No Meds Home Medications and Allergies Home Medications Medication Instructions Recorded Confirmed Type mirtazapine 7.5 mg PO HS 01/16/21 06/19/23 History sertraline 50 mg tablet 50 mg PO DAILY 01/16/21 06/19/23 History guaifenesin 100 mg/5 mL oral syrup 100 mg PO Q4H PRN Cough 10/05/21 06/19/23 History donepezil 10 mg tablet 10 mg PO HS 10/16/21 06/19/23 History memantine 5 mg tablet 5 mg PO BID 10/16/21 06/19/23 History ferrous sulfate 325 mg (65 mg 325 mg PO TID 06/14/22 06/19/23 History iron) tablet apixaban 5 mg tablet (Eliquis) 2.5 mg PO BID #60 tabs 06/24/22 06/19/23 Rx furosemide 40 mg tablet 20 mg PO DAILY #10 tabs 06/24/22 06/19/23 Rx Allergies Allergy/AdvReac Type Severity Reaction Status Date / Time fluoxetine [From Prozac] Allergy Unknown Verified 06/09/23 19:22 sulfamethoxazole Allergy Unknown Verified 06/09/23 19:22 [From Sulfamethoxazole-Trimethoprim] trimethoprim Allergy Unknown Verified 06/09/23 19:22 [From Sulfamethoxazole-Trimethoprim] Vital Signs Vital Signs - 24 hr 06/18/23 22:49 06/19/23 00:34
[2023-06-19] MEDS: SERTRALINE HCL 50 MG TABLET PO (14:09)
[2023-06-19] MEDS: MEMANTINE 5 MG TABLET PO (16:14)
[2023-06-19] MEDS: FERROUS SULFATE 325 MG TABLET DR PO (16:14)
[2023-06-19] MEDS: APIXABAN 2.5 MG TABLET PO (16:14)
[2023-06-19] MEDS: DONEPEZIL HCL 10 MG TABLET PO (20:36)
[2023-06-19] MEDS: MIRTAZAPINE 7.5 MG TABLET PO (20:36)
--- NOTE | 2023-06-19 22:12 | PM.EVENT ---
Event Note Event Note Event Note: Call received from the patient's nurse with reports of preliminary blood culture results showing Gram-negative bacilli isolated in the aerobic bottle. Chart reviewed. Currently on ceftriaxone for urinary tract infection. 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 Antibiotics changed to Zosyn, pending identification and sensitivities.
[2023-06-19] MEDS: PIPERACILLN/TAZ 3.375GM/NS50ML 3.375 GM/50 ML BAG IVPB (22:34)
[2023-06-20] VITALS (9 sets, daily range): BP systolic 115–122; BP diastolic 46–53; PULSE 63–72; RESP 16–20; TEMP 36.3–37.1; O2SAT 93–95
[2023-06-20] MEDS: PIPERACILLN/TAZ 3.375GM/NS50ML 3.375 GM/50 ML BAG IVPB (05:44)
--- NOTE | 2023-06-20 06:53 | PM.IMPN ---
Progress Note: A&P Assessment and Plan (1) Bacteremia: Code(s): R78.81 - Bacteremia Status: Acute Assessment and Plan: 06/20: E coli growing 3 of 4 bottles on initial set of cultures history ESBL, antibiotics changed to meropenem and repeat cultures ordered with morning labs tomorrow (2) Acute UTI: Code(s): N39.0 - Urinary tract infection, site not specified Status: Acute Assessment and Plan: Urine culture grows mixed evelia but E coli in the blood stream likely urogenital nature (3) Altered mental status: Code(s): R41.82 - Altered mental status, unspecified Status: Acute Assessment and Plan: 06/20: patient more awake and alert today appears at previously described baseline (4) Acute kidney injury superimposed on CKD: Code(s): N17.9 - Acute kidney failure, unspecified; N18.9 - Chronic kidney disease, unspecified Status: Acute Assessment and Plan: 06/19: History Stage 3b CKD. Current Cr 2, last value on file 1.4 06/20: creatinine 1.9 BUN 27 estimated GFR 26 estimated creatinine clearance 32 (5) Chronic anticoagulation: Code(s): Z79.01 - correction (current) use of anticoagulants Status: Acute Assessment and Plan: Continue Eliquis Time Spent With Patient Time with patient: 25 - 35 minutes Subjective Date/time seen: 06/20/23 06:53 Interval history: Patient is more awake and alert this morning appears to be at baseline. Blood cultures are positive 3 of 4 bottles from initial draw with E coli identified susceptibilities pending. Review of records shows that prior E coli infections are ESBL. Antibiotics were changed last night to Zosyn however with ESBL meropenem is more likely to be appropriate. We will change to IV meropenem and plan to replete blood cultures tomorrow. Interestingly, urine culture shows mixed genital evelia. Will plan IV antibiotics upon discharge but wait to place midline catheter until negative cultures. Review of Systems Review of Systems: ROS unobtainable: Yes unobtainable due to mental status Exam Narrative: GENERAL: well-nourished, and in no acute distress. HEAD: Normocephalic, atraumatic. EYES: PERRLA and EOMI. ENT: Nares clear, no rhinorrhea or epistaxis. Mucous membranes moist. NECK: Supple. No JVD CHEST: Clear to auscultation. No respiratory distress. HEART: Regular rate and rhythm. No murmur heard. Normal peripheral pulses. ABDOMEN: Soft, nontender, nondistended, normal active bowel sounds. EXTREMITIES: Normal range of motion. No edema. SKIN: Warm, dry, no rash. NEURO: No focal deficits. Awake, alert but confused answering some questions correctly, more talkative today PSYCH: Normal mood and affect. Objective Data Vital Signs Vital Signs: Vital Signs - 24 hr 06/19/23 09:41 06/19/23 08:00 06/19/23 12:00 Temperature 36.6 C Pulse Rate 80 80 78 Respiratory Rate 18 Blood Pressure 127/47 L Pulse Oximetry 97 06/19/23 14:00 06/19/23 16:00 06/19/23 22:00 Temperature 36.6 C 35.8 C L Pulse Rate 81 84 78 Respiratory Rate 16 18 Blood Pressure 117/54 L 112/50 L Pulse Oximetry 96 94 06/19/23 20:00 06/20/23 00:00 06/20/23 04:00 Temperature Pulse Rate 87 72 70 Respiratory Rate Blood Pressure Pulse Oximetry Intake/Output Intake/Output: Intake & Output 06/17/23 06/18/23 06/19/23 06/20/23 23:59 23:59 23:59 23:59 Intake Total 2576 Output Total 100 Balance 2476 Meds/Results Medications: Active Medications Generic Name Dose Route Start Last Admin Trade Name Freq PRN Reason Stop Dose Admin Acetaminophen 650 mg 06/19/23 05:26 Acetaminophen 325 Mg Tablet PO Q4H PRN Mild Pain (1-3) or Fever Apixaban 2.5 mg 06/19/23 17:00 06/19/23 16:14 Apixaban 2.5 Mg Tablet PO 2.5 mg BID VENU Administration Donepezil HCl 10 mg 06/19/23 21:00 06/19/23 20:36 Donepezil Hcl 10 Mg Tablet PO 10 mg HS VENU Admi
[2023-06-20 06:56] LABS: Basophils Percent Auto 0.5 % (0.2-1.2); Eosinophils Absolute Auto 0.1 K/mm3 (0-0.3); Eosinophils Percent Auto 1.5 % (0-4.4); Hematocrit 34.4 % (37.0-47.0); Hemoglobin 10.6 g/dL (12.0-15.0); Immature Granulocyte Absolute 0.04 K/mm3 (0.00-0.031); Immature Granulocyte Percent A 0.6 % (0-0.5); Lymphocytes Absolute Auto 0.77 K/mm3 (0.9-3.2); Lymphocytes Percent Auto 11.6 % (18.3-44.2); Mean Corpuscular HGB Conc 30.8 g/dl (32-36); Mean Corpuscular Hemoglobin 28.8 pg (26-34); Mean Corpuscular Volume 93.5 fl (80-100); Mean Platelet Volume 10.2 fl (7.4-10.4); Monocytes Absolute Auto 0.4 K/mm3 (0.1-0.6); Monocytes Percent Auto 6.2 % (2.6-8.5); Neutrophils Absolute Auto 5.3 K/mm3 (1.3-6.7); Neutrophils Percent Auto 79.6 % (45.5-73.1); Platelet Count Result 251 k/mm3 (150-375); Red Blood Count 3.68 M/mm3 (4.2-5.4); Red Cell Distribution Width 14.3 % (11.5-14.5); White Blood Count 6.6 K/mm3 (4.5-10.0)
[2023-06-20 07:07] LABS: Alanine Aminotransferase 11 U/L (6-35); Albumin Level 2.7 g/dL (3.5-5.1); Alkaline Phosphatase 79 U/L (38-126); Anion Gap 5 mmol/L (8-16); Aspartate Amino Transferase 15 U/L (14-36); Bilirubin,Total 0.5 mg/dL (0.2-1.3); Blood Urea Nitrogen 27 mg/dL (7-17); Calcium 7.4 mg/dL (8.4-10.2); Carbon Dioxide 22 mmol/L (22-30); Chloride 112 mmol/L (98-107); Estimated CRCL calculation 32 ml/min; Estimated Glomerular Filt Rate 26; Glucose 110 mg/dL (65-110); Potassium 3.4 mmol/L (3.4-5.0); Sodium 139 mmol/L (137-145)
[2023-06-20] MEDS: MEMANTINE 5 MG TABLET PO ×2 (08:33→16:50)
[2023-06-20] MEDS: APIXABAN 2.5 MG TABLET PO ×2 (08:33→16:50)
[2023-06-20] MEDS: FERROUS SULFATE 325 MG TABLET DR PO ×3 (08:33→16:50)
[2023-06-20] MEDS: SERTRALINE HCL 50 MG TABLET PO (08:33)
[2023-06-20] MEDS: FUROSEMIDE 20 MG TABLET PO (08:33)
[2023-06-20] MEDS: MEROPENEM 1 GM/NS 100 ML 1 GM/100 ML BAG IVPB ×2 (10:59→20:26)
[2023-06-20] MEDS: SODIUM CHLORIDE 0.9% IV 1,000 ML 75 ML IV CONT (11:01)
--- NOTE | 2023-06-20 15:15 | PC.NURSE ---
IV site pulled out from left AC. Attempted to place IV site without success. Esme Merchant RN notified.
[2023-06-20] MEDS: DONEPEZIL HCL 10 MG TABLET PO (20:27)
[2023-06-20] MEDS: MIRTAZAPINE 7.5 MG TABLET PO (20:27)
[2023-06-21] VITALS (11 sets, daily range): BP systolic 134–142; BP diastolic 49–70; PULSE 62–70; RESP 16–20; TEMP 36.2–36.6; O2SAT 95–99
[2023-06-21] MEDS: SODIUM CHLORIDE 0.9% IV 1,000 ML 75 ML IV CONT ×2 (04:00→15:47)
[2023-06-21 05:53] LABS: Basophils Percent Auto 0.7 % (0.2-1.2); Eosinophils Absolute Auto 0.2 K/mm3 (0-0.3); Eosinophils Percent Auto 3.9 % (0-4.4); Hematocrit 35.4 % (37.0-47.0); Hemoglobin 10.8 g/dL (12.0-15.0); Immature Granulocyte Absolute 0.03 K/mm3 (0.00-0.031); Immature Granulocyte Percent A 0.5 % (0-0.5); Lymphocytes Absolute Auto 0.85 K/mm3 (0.9-3.2); Mean Corpuscular HGB Conc 30.5 g/dl (32-36); Mean Corpuscular Hemoglobin 28.6 pg (26-34); Mean Corpuscular Volume 93.9 fl (80-100); Mean Platelet Volume 9.8 fl (7.4-10.4); Monocytes Absolute Auto 0.4 K/mm3 (0.1-0.6); Monocytes Percent Auto 6.7 % (2.6-8.5); Neutrophils Absolute Auto 4.1 K/mm3 (1.3-6.7); Neutrophils Percent Auto 73.2 % (45.5-73.1); Platelet Count Result 326 k/mm3 (150-375); Red Blood Count 3.77 M/mm3 (4.2-5.4); Red Cell Distribution Width 14.3 % (11.5-14.5); White Blood Count 5.7 K/mm3 (4.5-10.0)
[2023-06-21 06:06] LABS: Alanine Aminotransferase 14 U/L (6-35); Albumin Level 2.7 g/dL (3.5-5.1); Alkaline Phosphatase 80 U/L (38-126); Anion Gap 5 mmol/L (8-16); Aspartate Amino Transferase 22 U/L (14-36); Bilirubin,Total 0.3 mg/dL (0.2-1.3); Blood Urea Nitrogen 25 mg/dL (7-17); Calcium 7.3 mg/dL (8.4-10.2); Carbon Dioxide 21 mmol/L (22-30); Chloride 112 mmol/L (98-107); Estimated CRCL calculation 36 ml/min; Estimated Glomerular Filt Rate 29; Glucose 132 mg/dL (65-110); Potassium 3.3 mmol/L (3.4-5.0); Sodium 138 mmol/L (137-145)
[2023-06-21] MEDS: MEROPENEM 1 GM/NS 100 ML 1 GM/100 ML BAG IVPB ×2 (08:34→20:52)
[2023-06-21] MEDS: MEMANTINE 5 MG TABLET PO ×2 (08:34→17:33)
[2023-06-21] MEDS: SERTRALINE HCL 50 MG TABLET PO (08:34)
[2023-06-21] MEDS: FERROUS SULFATE 325 MG TABLET DR PO ×3 (08:34→17:33)
[2023-06-21] MEDS: APIXABAN 2.5 MG TABLET PO ×2 (08:34→17:33)
[2023-06-21] MEDS: FUROSEMIDE 20 MG TABLET PO (08:34)
--- NOTE | 2023-06-21 11:24 | PM.IMPN ---
Progress Note: A&P Assessment and Plan (1) Bacteremia: Code(s): R78.81 - Bacteremia Status: Acute Assessment and Plan: 06/20: E coli growing 3 of 4 bottles on initial set of cultures history ESBL, antibiotics changed to meropenem and repeat cultures ordered with morning labs tomorrow 06/21: E coli 4 of 4 bottles, initial set of cultures. On meropenem now. Repeat cultures drawn this morning with AM labs. (2) Acute UTI: Code(s): N39.0 - Urinary tract infection, site not specified Status: Acute Assessment and Plan: Urine culture grows mixed evelia but E coli in the blood stream likely urogenital nature (3) Altered mental status: Code(s): R41.82 - Altered mental status, unspecified Status: Acute Assessment and Plan: 06/20: patient more awake and alert today appears at previously described baseline 06/21: same (4) Acute kidney injury superimposed on CKD: Code(s): N17.9 - Acute kidney failure, unspecified; N18.9 - Chronic kidney disease, unspecified Status: Acute Assessment and Plan: 06/19: History Stage 3b CKD. Current Cr 2, last value on file 1.4 06/20: creatinine 1.9 BUN 27 estimated GFR 26 estimated creatinine clearance 32 06/21: creatinine 1.7 BUN 25 estimated GFR 29 estimated creatinine clearance 36 (5) Chronic anticoagulation: Code(s): Z79.01 - senior care (current) use of anticoagulants Status: Acute Assessment and Plan: Continue Eliquis Plan Await repeat blood cultures. Ultimately patient will require midline and IV antibiotics upon discharge Time Spent With Patient Time with patient: 25 - 35 minutes Subjective Date/time seen: 06/21/23 11:25 Interval history: 06/20: Patient is more awake and alert this morning appears to be at baseline. Blood cultures are positive 3 of 4 bottles from initial draw with E coli identified susceptibilities pending. Review of records shows that prior E coli infections are ESBL. Antibiotics were changed last night to Zosyn however with ESBL meropenem is more likely to be appropriate. We will change to IV meropenem and plan to replete blood cultures tomorrow. Interestingly, urine culture shows mixed genital evelia. Will plan IV antibiotics upon discharge but wait to place midline catheter until negative cultures. 06/21: Patient remains awake, alert, confused with no complaints upon evaluation. Repeat blood cultures drawn with AM labs. Patient denies chills, difficulty breathing, nausea, vomiting or any other concerning symptoms. Review of Systems Review of Systems: All systems reviewed & are unremarkable except as noted in HPI and below Exam Narrative: GENERAL: well-nourished, and in no acute distress. HEAD: Normocephalic, atraumatic. EYES: PERRLA and EOMI. ENT: Nares clear, no rhinorrhea or epistaxis. Mucous membranes moist. NECK: Supple. No JVD CHEST: Clear to auscultation. No respiratory distress. HEART: Regular rate and rhythm. No murmur heard. Normal peripheral pulses. ABDOMEN: Soft, nontender, nondistended, normal active bowel sounds. EXTREMITIES: Normal range of motion. No edema. SKIN: Warm, dry, no rash. NEURO: No focal deficits. Awake, alert but confused answering some questions correctly, more talkative today PSYCH: Normal mood and affect. Objective Data Vital Signs Vital Signs: Vital Signs - 24 hr 06/20/23 12:00 06/20/23 14:00 06/20/23 16:00 Temperature 36.3 C L Pulse Rate 64 63 66 Respiratory Rate 16 Blood Pressure 116/53 L Pulse Oximetry 95 Oxygen Delivery 06/20/23 22:00 06/20/23 20:50 06/21/23 00:00 Temperature 37.1 C Pulse Rate 68 70 68 Respiratory Rate 20 Blood Pressure 122/51 L Pulse Oximetry 94 Oxygen Delivery 06/21/23 06:00 06/21/23 04:00 06/21/23 09:57 Temperature 36.3 C L Pulse Rate 62 66 Respiratory Rate 20 Blood Pressure 136/49 L Pulse Oximetry 95 95 Oxygen Delivery Room Air 06/21/23 08:00
[2023-06-21] MEDS: ACETAMINOPHEN 325 MG TABLET 650 MG PO (20:52)
[2023-06-21] MEDS: DONEPEZIL HCL 10 MG TABLET PO (20:52)
[2023-06-21] MEDS: MIRTAZAPINE 7.5 MG TABLET PO (20:52)
[2023-06-22] VITALS (8 sets, daily range): BP systolic 127–170; BP diastolic 53–65; PULSE 59–69; RESP 14–16; TEMP 36.1–36.6; O2SAT 95–98
[2023-06-22] MEDS: SODIUM CHLORIDE 0.9% IV 1,000 ML 75 ML IV CONT (00:57)
[2023-06-22 06:07] LABS: Basophils Percent Auto 0.8 % (0.2-1.2); Eosinophils Absolute Auto 0.1 K/mm3 (0-0.3); Eosinophils Percent Auto 2.8 % (0-4.4); Hematocrit 41.8 % (37.0-47.0); Immature Granulocyte Absolute 0.03 K/mm3 (0.00-0.031); Immature Granulocyte Percent A 0.6 % (0-0.5); Lymphocytes Absolute Auto 0.96 K/mm3 (0.9-3.2); Lymphocytes Percent Auto 19.3 % (18.3-44.2); Mean Corpuscular HGB Conc 28.7 g/dl (32-36); Mean Corpuscular Hemoglobin 28.1 pg (26-34); Mean Corpuscular Volume 97.9 fl (80-100); Mean Platelet Volume 9.9 fl (7.4-10.4); Monocytes Absolute Auto 0.4 K/mm3 (0.1-0.6); Monocytes Percent Auto 7.8 % (2.6-8.5); Neutrophils Absolute Auto 3.4 K/mm3 (1.3-6.7); Neutrophils Percent Auto 68.7 % (45.5-73.1); Platelet Count Result 298 k/mm3 (150-375); Red Blood Count 4.27 M/mm3 (4.2-5.4); Red Cell Distribution Width 14.1 % (11.5-14.5)
[2023-06-22 06:19] LABS: Alanine Aminotransferase 15 U/L (6-35); Albumin Level 2.9 g/dL (3.5-5.1); Alkaline Phosphatase 84 U/L (38-126); Anion Gap 8 mmol/L (8-16); Aspartate Amino Transferase 25 U/L (14-36); Bilirubin,Total 0.4 mg/dL (0.2-1.3); Blood Urea Nitrogen 21 mg/dL (7-17); Calcium 7.5 mg/dL (8.4-10.2); Carbon Dioxide 19 mmol/L (22-30); Chloride 113 mmol/L (98-107); Estimated CRCL calculation 43 ml/min; Estimated Glomerular Filt Rate 37; Glucose 101 mg/dL (65-110); Potassium 3.5 mmol/L (3.4-5.0); Sodium 140 mmol/L (137-145)
[2023-06-22] MEDS: FERROUS SULFATE 325 MG TABLET DR PO ×3 (08:03→18:24)
[2023-06-22] MEDS: SERTRALINE HCL 50 MG TABLET PO (08:03)
[2023-06-22] MEDS: APIXABAN 2.5 MG TABLET PO ×2 (08:03→18:24)
[2023-06-22] MEDS: FUROSEMIDE 20 MG TABLET PO (08:03)
[2023-06-22] MEDS: MEROPENEM 1 GM/NS 100 ML 1 GM/100 ML BAG IVPB ×2 (08:04→20:48)
[2023-06-22] MEDS: MEMANTINE 5 MG TABLET PO ×2 (08:04→18:24)
--- NOTE | 2023-06-22 12:44 | PM.IMPN ---
Progress Note: A&P Assessment and Plan (1) Bacteremia: Code(s): R78.81 - Bacteremia Status: Acute Assessment and Plan: 06/20: E coli growing 3 of 4 bottles on initial set of cultures history ESBL, antibiotics changed to meropenem and repeat cultures ordered with morning labs tomorrow 06/21: E coli 4 of 4 bottles, initial set of cultures. On meropenem now. Repeat cultures drawn this morning with AM labs. 06/22: repeat blood cultures negative to date, will place line tomorrow and discharged on IV meropenem if they remain negative. (2) Acute UTI: Code(s): N39.0 - Urinary tract infection, site not specified Status: Acute Assessment and Plan: Urine culture grows mixed evelia but E coli in the blood stream likely urogenital nature (3) Altered mental status: Code(s): R41.82 - Altered mental status, unspecified Status: Acute Assessment and Plan: 06/20: patient more awake and alert today appears at previously described baseline 06/21: same 06/22: same (4) Acute kidney injury superimposed on CKD: Code(s): N17.9 - Acute kidney failure, unspecified; N18.9 - Chronic kidney disease, unspecified Status: Acute Assessment and Plan: 06/19: History Stage 3b CKD. Current Cr 2, last value on file 1.4 06/20: creatinine 1.9 BUN 27 estimated GFR 26 estimated creatinine clearance 32 06/21: creatinine 1.7 BUN 25 estimated GFR 29 estimated creatinine clearance 36 06/22: creatinine 1.4 BUN 21 estimated GFR 37 estimated creatinine clearance 43, IV fluids stopped to prevent fluid overload (5) Chronic anticoagulation: Code(s): Z79.01 - detention (current) use of anticoagulants Status: Acute Assessment and Plan: Continue Eliquis Plan Await repeat blood cultures and if negative tomorrow will place line and discharge patient with IV antibiotics meropenem 1 g twice daily through 06/27 telemetry discontinued, IV fluids discontinued, patient is awake and alert. She reports she is feeling well. Time Spent With Patient Time with patient: 25 - 35 minutes Subjective Date/time seen: 06/22/23 12:44 Interval history: 06/20: Patient is more awake and alert this morning appears to be at baseline. Blood cultures are positive 3 of 4 bottles from initial draw with E coli identified susceptibilities pending. Review of records shows that prior E coli infections are ESBL. Antibiotics were changed last night to Zosyn however with ESBL meropenem is more likely to be appropriate. We will change to IV meropenem and plan to replete blood cultures tomorrow. Interestingly, urine culture shows mixed genital evelia. Will plan IV antibiotics upon discharge but wait to place midline catheter until negative cultures. 06/21: Patient remains awake, alert, confused with no complaints upon evaluation. Repeat blood cultures drawn with AM labs. Patient denies chills, difficulty breathing, nausea, vomiting or any other concerning symptoms. 06/22: Patient remains awake alert confused at baseline. Repeat blood cultures have been negative to date, if remain negative tomorrow we will place midline and discharge to her shelter for IV antibiotics to continue through 06/27. Patient reports that she feels good today and has no complaints. Review of Systems Review of Systems: All systems reviewed & are unremarkable except as noted in HPI and below Exam Narrative: GENERAL: well-nourished, and in no acute distress. HEAD: Normocephalic, atraumatic. EYES: PERRLA and EOMI. ENT: Nares clear, no rhinorrhea or epistaxis. Mucous membranes moist. NECK: Supple. No JVD CHEST: Clear to auscultation. No respiratory distress. HEART: Regular rate and rhythm. No murmur heard. Normal peripheral pulses. ABDOMEN: Soft, nontender, nondistended, normal active bowel sounds. EXTREMITIES: Normal range of motion. No edema. SKIN: Warm, dry, no rash. NEURO: No focal deficits. Awake, alert but confused answeri
[2023-06-22] MEDS: MIRTAZAPINE 7.5 MG TABLET PO (20:48)
[2023-06-22] MEDS: DONEPEZIL HCL 10 MG TABLET PO (20:48)
[2023-06-23 06:00] VITALS: BP 152/44; PULSE 61; RESP 24; TEMP 36.1; O2SAT 99
[2023-06-23 08:00] LABS: Alanine Aminotransferase 16 U/L (6-35); Albumin Level 2.5 g/dL (3.5-5.1); Alkaline Phosphatase 90 U/L (38-126); Anion Gap 3 mmol/L (8-16); Aspartate Amino Transferase 24 U/L (14-36); Bilirubin,Total 0.4 mg/dL (0.2-1.3); Blood Urea Nitrogen 17 mg/dL (7-17); Calcium 7.7 mg/dL (8.4-10.2); Carbon Dioxide 22 mmol/L (22-30); Chloride 113 mmol/L (98-107); Estimated CRCL calculation 50 ml/min; Estimated Glomerular Filt Rate 44; Glucose 99 mg/dL (65-110); Potassium 3.8 mmol/L (3.4-5.0); Sodium 138 mmol/L (137-145)
[2023-06-23] MEDS: LIDOCAINE HCL 1% LOCAL INJ 2 ML AMPUL 5 ML INFILTRATE (08:30)
[2023-06-23 09:21] VITALS: O2SAT 96
[2023-06-23 09:29] LABS: Basophils Percent Auto 0.3 % (0.2-1.2); Eosinophils Absolute Auto 0.2 K/mm3 (0-0.3); Eosinophils Percent Auto 2.5 % (0-4.4); Hematocrit 41.1 % (37.0-47.0); Hemoglobin 12.2 g/dL (12.0-15.0); Immature Granulocyte Absolute 0.02 K/mm3 (0.00-0.031); Immature Granulocyte Percent A 0.3 % (0-0.5); Lymphocytes Absolute Auto 1.18 K/mm3 (0.9-3.2); Lymphocytes Percent Auto 19.7 % (18.3-44.2); Mean Corpuscular HGB Conc 29.7 g/dl (32-36); Mean Corpuscular Hemoglobin 28.5 pg (26-34); Mean Platelet Volume 9.7 fl (7.4-10.4); Monocytes Absolute Auto 0.5 K/mm3 (0.1-0.6); Monocytes Percent Auto 7.5 % (2.6-8.5); Neutrophils Absolute Auto 4.2 K/mm3 (1.3-6.7); Neutrophils Percent Auto 69.7 % (45.5-73.1); Platelet Count Result 329 k/mm3 (150-375); Red Blood Count 4.28 M/mm3 (4.2-5.4); Red Cell Distribution Width 13.9 % (11.5-14.5)
[2023-06-23] MEDS: MEROPENEM 1 GM/NS 100 ML 1 GM/100 ML BAG IVPB (10:05)
--- NOTE | 2023-06-23 10:18 | PM.DS ---
DS: Admitting Diagnosis Discharge Date 06/23/2023 Admitting Diagnosis acute UTI, altered mental status, PRUDENCE on CKD, chronic anticoagulation DS: Discharge Diagnosis Discharge Diagnosis (1) Bacteremia: Code(s): R78.81 - Bacteremia Status: Acute (2) Acute UTI: Code(s): N39.0 - Urinary tract infection, site not specified Status: Acute (3) Altered mental status: Code(s): R41.82 - Altered mental status, unspecified Status: Acute (4) Acute kidney injury superimposed on CKD: Code(s): N17.9 - Acute kidney failure, unspecified; N18.9 - Chronic kidney disease, unspecified Status: Acute (5) Chronic anticoagulation: Code(s): Z79.01 - parts counterman (current) use of anticoagulants Status: Acute DS: Summary Hospital Course Reason for hospitalization: Patient was admitted for altered mental status in the setting of urinary tract infection. She also had PRUDENCE on baseline CKD. Hospital Course: 06/20:? Patient is more awake and alert this morning appears to be at baseline.? Blood cultures are positive 3 of 4 bottles from initial draw with E coli identified susceptibilities pending.? Review of records shows that prior E coli infections are ESBL.? Antibiotics were changed last night to Zosyn however with ESBL meropenem is more likely to be appropriate.? We will change to IV meropenem and plan to replete blood cultures tomorrow.? Interestingly, urine culture shows mixed genital evelia.? Will plan IV antibiotics upon discharge but wait to place midline catheter until negative cultures. 06/21:? Patient remains awake, alert, confused with no complaints upon evaluation. Repeat blood cultures drawn with AM labs. Patient denies chills, difficulty breathing, nausea, vomiting or any other concerning symptoms. 06/22:? Patient remains awake alert confused at baseline.? Repeat blood cultures have been negative to date, if remain negative tomorrow we will place midline and discharge to her [facility] for IV antibiotics to continue through 06/27.? Patient reports that she feels good today and has no complaints. 06/23: Blood cultures remain negative growth to date. Midline catheter placed and patient discharged back to [facility] on IV antibiotics through 06/27. Patient reports she is feeling well and ready to go back home. Status at Discharge Cognitive/behavioral status at discharge: Awake alert disoriented per baseline and pleasant Functional status at discharge: bed bound Overall status at discharge: patient is back to baseline Time Spent with Patient Time attestation: Total time spent providing and/or coordinating discharge services: 35 minutes Time spent: Greater than 30 minutes Exam Narrative: GENERAL: well-nourished, and in no acute distress. HEAD: Normocephalic, atraumatic. EYES: PERRLA and EOMI. ENT: Nares clear, no rhinorrhea or epistaxis. Mucous membranes moist. NECK: Supple. No JVD CHEST: Clear to auscultation. No respiratory distress. HEART: Regular rate and rhythm. No murmur heard. Normal peripheral pulses. ABDOMEN: Soft, nontender, nondistended, normal active bowel sounds. EXTREMITIES: Normal range of motion. No edema. SKIN: Warm, dry, no rash. NEURO: No focal deficits. Awake, alert but confused answering some questions correctly, more talkative today PSYCH: Normal mood and affect. DS: Data Data Completed and Pending Labs on day of discharge: Labs from last 24 hours 06/23/23 06/23/23 09:05 06:32 WBC 6.0 RBC 4.28 Hgb 12.2 Hct 41.1 MCV 96.0 MCH 28.5 MCHC 29.7 L RDW 13.9 Plt Count 329 MPV 9.7 Immature Gran % (Auto) 0.3 Neut % (Auto) 69.7 Lymph % (Auto) 19.7 Irion % (Auto) 7.5 Eos % (Auto) 2.5 Baso % (Auto) 0.3 Lymph # (Auto) 1.18 Irion # (Auto) 0.5 Eos # (Auto) 0.2 Baso # (Auto) 0.0 Abs Immat Gran (auto) 0.02 Absolute Neuts (auto) 4.2 Absolute Nucleated RBC 0.0 Nucleated RBC % 0.0 Sodium 138 Potassium
[2023-06-23] MEDS: MEMANTINE 5 MG TABLET PO ×2 (10:51→17:05)
[2023-06-23] MEDS: FUROSEMIDE 20 MG TABLET PO (10:51)
[2023-06-23] MEDS: APIXABAN 2.5 MG TABLET PO ×2 (10:52→17:35)
[2023-06-23] MEDS: SERTRALINE HCL 50 MG TABLET PO (10:52)
[2023-06-23] MEDS: FERROUS SULFATE 325 MG TABLET DR PO ×2 (10:53→17:34)
[2023-06-23] MEDS: SALINE LOCK FLUSH 10 ML IV PUSH (11:05)
[2023-06-23 13:14] LABS: SARS-CoV-2 RNA PCR Negative (Negative)
[2023-06-23 17:47] VITALS: BP 155/86; PULSE 65; RESP 22; TEMP 36.2; O2SAT 99
== END 2023-06-23 17:35 | DRG 690 ==
LOC: ANHED 06-19 05:26 → ANH3MEDSUR 06-19 06:27
PROVIDERS: Internal Medicine; Admitting Provider Internal Medicine; Emergency Provider Emergency Medicine; PCP Hospitalist; Visit Provider Nurse Practitioner
DX: N39.0 Urinary tract infection, site not specified (principal); I13.0 Hypertensive heart and chronic kidney disease with heart failure and stage 1 through stage 4 chronic kidney disease, or unspecified chronic kidney disease; I50.32 Chronic diastolic (congestive) heart failure; N17.9 Acute kidney failure, unspecified; R78.81 Bacteremia; Z16.12 Extended spectrum beta lactamase (ESBL) resistance; B96.20 Unspecified Escherichia coli [E. coli] as the cause of diseases classified elsewhere; E78.5 Hyperlipidemia, unspecified; F03.90 Unspecified dementia, unspecified severity, without behavioral disturbance, psychotic disturbance, mood disturbance, and anxiety; F32.A Depression, unspecified; N18.32 Chronic kidney disease, stage 3b; Z93.3 Colostomy status; Z90.49 Acquired absence of other specified parts of digestive tract; Z90.710 Acquired absence of both cervix and uterus; Z79.01 Long term (current) use of anticoagulants; Z20.822 Contact with and (suspected) exposure to COVID-19; Z87.891 Personal history of nicotine dependence
CPT/HCPCS: 36415; 36569; 70450; 71045; 80053; 81001; 83605; 83690; 83735; 83880; 84145; 84484; 85025; 85610; 85730; 87040; 87077; 87086; 87088; 87186; 87635; 93005; 96361; 96365; 99285; A9270; G0378; J0696; J2185; J2543; J7030

== ENCOUNTER 2023-10-06 15:32 | Outpatient (NON) | payer OTHER, MEDICARE, SELFPAY ==
[2023-10-06 15:55] LABS: Influenza A QL RT-PCR Positive (Negative); Influenza B QL RT-PCR Negative (Negative); RSV RNA, RT-PCR Negative (Negative); SARS-CoV-2 RNA PCR Negative (Negative)
== END 2023-10-06 15:33 | disposition home or self-care (01) ==
LOC: ANHLAB 15:36
PROVIDERS: PCP Hospitalist; Visit Provider Hospitalist
DX: R05.9 Cough, unspecified (principal); Z20.822 Contact with and (suspected) exposure to COVID-19
CPT/HCPCS: 87637